=== PATIENT | female | born 1940 | race Caucasian/White ===

== ENCOUNTER 2024-01-25 16:12 | Emergency (ER) | payer OTHER, SELFPAY ==
[2024-01-25] VITALS (7 sets, daily range): BP systolic 109–153; BP diastolic 68–93; BMI 31.4
[2024-01-25 16:35] LABS: % Basophils 0.2 % (0-2); % Eosinophils 0.1 % (0-6); % Immature Granulocytes 0.4 % (0-0.5); % Lymphocytes 12.1 % (20.5-51.1); % Monocytes 6.3 % (1.7-9.3); % Neutrophils 80.9 % (42.2-75.2); Absolute Monocytes 0.5 10^3/uL (0.1-0.6); Absolute Neutrophils 6.9 10^3/uL (1.4-6.5); Hematocrit 38.1 % (37.0-47.0); Hemoglobin 12.2 g/dL (12.0-16.0); Mean Corpuscular Hgb 21.6 pg (27.0-31.0); Mean Corpuscular Volume 67.4 fL (81.0-99.0); Mean Platelet Volume 10.8 fL (7.4-10.4); Nucleated Red Blood Cells % 0 %; Platelet Count 231 10^3/uL (130-400); Red Blood Cell Count 5.65 10^6/uL (4.20-5.40); Red Cell Dist. Width 17.2 % (11.5-14.5); White Blood Cell Count 8.5 10^3/uL (4.8-10.8)
[2024-01-25 16:45] LABS: Urine Albumin Trace (Neg - Trace); Urine Bilirubin Negative (Negative); Urine Character Clear (Clear); Urine Color Yellow; Urine Glucose Negative (Negative); Urine Ketone Negative (Negative); Urine Leukocyte Negative (Negative); Urine Nitrite Negative (Negative); Urine Occult Blood Negative (Negative); Urine Urobilinogen Negative (Neg - 1+)
[2024-01-25 16:51] LABS: ALT (SGPT) 12 U/L (0-35); AST (SGOT) 18 U/L (14-36); Albumin 4.1 g/dl (3.5-5.0); Alkaline Phosphatase 98 U/L (38-126); Blood Urea Nitrogen 24 mg/dl (7-17); Calcium 9.9 mg/dl (8.4-10.2); Carbon Dioxide 17 mmol/L (22-30); Chloride 97 mmol/L (98-107); Estimated Creatinine Clearance 34 ml/min; Glucose 207 mg/dl (70-99); Potassium 4.1 mmol/L (3.5-5.1); Sodium 131 mmol/L (135-145); Total Bilirubin 1.1 mg/dl (0.2-1.3); Total Protein 7.1 g/dl (6.3-8.2); eGFR 44.36
--- NOTE | 2024-01-25 16:57 | ED.GENMED ---
History of Present Illness
General
Chief Complaint: Change in Mental Status
Time Seen by Provider: 01/25/24 16:31
Travel History
Have you had any contact with someone who has COVID-19?: No
Do you have any symptoms of coronavirus? Fever > 100 degrees, chills, cough, shortness of breath, sore throat, loss of taste or smell, muscle aches, or headache?: No
History of Present Illness
History of Present Illness:
83-year-old female with history of A-fib on Xarelto as well as hypertension presents to the emergency department for evaluation of intermittent confusion ongoing for the past month. Patient is apparently been making references to family
members as if they were still alive, also occasionally making nonsensical statements. Patient does not feel as though she confused and denies any acute complaints. According to her daughter she has been quite sedentary in the past 2 months,
spending most of her day watching TV or reading stories on her iPad. She has been able to walk with assistance. She denies any pain, denies any chest pain or shortness of breath at this time
Past History
Past History
ED Past Medical History: HTN and Other (COVID in December 2020)
Patient has exhibited threatening behavior?: No
Review of Systems
Review of Systems
Allergies reviewed?: Yes
All Other Systems: ROS reviewed and negative except as documented in HPI and ROS
Phy Exam
Physical Exam
Physical Exam:
GEN: Well appearing, NAD, WDWN
Eyes: PERRLA, EOMs intact, no scleral icterus
HENT: NCAT, oral mucosa moist, slightly prominent firm mass to the right forehead without associated skin lesion
Lungs: CTAB, no wheezes, rales, rhonchi, normal chest wall excursion
Cardiac: Tachycardic and irregular
Abdomen: S, NT, ND, NABS, no masses or hepatosplenomegaly
Neuro: AO x 3, bilateral upper and lower extremity strength is symmetric, globally weak x 4. Normal sensation to all extremities. Normal speech without dysarthria or aphasia
MSK: No gross deformity or ecchymosis. No edema. No digital clubbing
Skin: No rashes, petechiae. Normal color, no pallor or jaundice.
Psych: Calm, cooperative, proper hygiene
Course
Orders/Labs/Results
Orders:
Orders
01/25/24 16:21
Electrocardiogram (*1) Urgent
Reason for Study: Tachycardia
EKG- Treatment ONCE
01/25/24 16:24
CMP [Comprehensive Metabolic Panel] Urgent
Complete Blood Count/With Diff Urgent
Urinalysis Reflex To Culture Urgent
Date Specimen was Collected: 01/25/24
Time Specimen was Collected: 16:23
01/25/24 16:51
CR Chest - 2 Views Urgent
Comment:
Reason For Exam: cough, SOB
01/25/24 16:52
CT Head W/o Iv Contrast Urgent
Comment:
Reason For Exam: altered mental status
01/25/24 16:57
0.9% Sodium Chloride 1000 ml [Nss] 1,000 ml IV BOLUS
01/25/24 17:04
Blood Culture Q30M
BRY Source: Blood/Venous
Specimen Description:
Blood Culture Q30M
BRY Source: Blood/Venous
Specimen Description:
01/25/24 19:18
NT-proBNP Urgent
Troponin I Urgent
01/25/24 20:17
Amlodipine [Norvasc] 2.5 mg PO NOW STA
Atorvastatin [Lipitor] 20 mg PO NOW STA
Abnormal Lab Results
01/25/24
16:24
RBC 5.65 H 10^6/uL
(4.20-5.40)
MCV 67.4 L fL
(81.0-99.0)
MCH 21.6 L pg
(27.0-31.0)
MCHC 32.0 L g/dL
(33.0-37.0)
RDW 17.2 H %
(11.5-14.5)
MPV 10.8 H fL
(7.4-10.4)
Absolute Neuts (auto) 6.9 H 10^3/uL
(1.4-6.5)
Absolute Lymphs (auto) 1.0 L 10^3/uL
(1.2-3.4)
Neutrophils % 80.9 H %
(42.2-75.2)
Lymphocytes % 12.1 L %
(20.5-51.1)
Sodium 131 L mmol/L
(135-145)
Chloride 97 L mmol/L
(98-107)
Carbon Dioxide 17 L mmol/L
(22-30)
BUN 24 H mg/dl
(7-17)
Creatinine 1.2 H mg/dL
(0.6-1.0)
Glucose 207 H mg/dl
(70-99)
01/25/24 16:24
01/25/24 16:24
Vital Signs
Initial and Last Documented VS:
Initial Vital Signs
Temp Pulse Resp BP Pulse Ox
97.4 F 126 20 109/68 93
01/25/24 16:15 01/25/24 16:15 01/25/24 16:15 01/25/24 16:15 01/25/24 16:15
Last Documented Vital Signs
Temp Pulse Resp BP Pulse Ox
97.4 F 103 22 153/93 96
01/25/24 16:15 01/25/24 22:00 01/25/24 22:00 01/25/24 22:00 01/25/24 22:00
MDM/Problems Addressed
MDM/Problems Addressed:
83-year-old female presents with waxing waning confusion, initially felt to be most likely representing metabolic encephalopathy. Initial labs unremarkable, chest x-ray does suggest acute CHF however the patient has no respiratory distress or
hypoxia. May be vascular congestion on the basis of persistent atrial fibrillation with rapid rates. She is chronically in atrial fibrillation thus is not appropriate for cardioversion. Fortunately CT of the head revealed a large right frontal
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 Given this finding patient required transfer to a tertiary care center for neurosurgical evaluation. The case was discussed with [facility], Dr. Lennox kathleen, will be
transferred via ALS due to need for cardiac monitoring setting of variable rates with her atrial fibs. Remained clinically stable in the emergency department while awaiting transfer
Comment
Comment:
EKG independently interpreted by me shows atrial fibrillation at a rate of [address] depressions most likely due to subendocardial ischemia secondary to elevated rate
*Critical Care Note
Total Time (30-74mins, 75-104mins- exclusive of procedures): Not Applicable
ED Attending Note
-
Portions of this chart may have been created with voice recognition software.� Occasional wrong word or��sound alike� substitutions may have occurred due to the inherent limitations of voice recognition software.
Discharge Plan
Departure
Patient Disposition: Acute Care Hospital
Date of Disposition: 01/25/24
Time of Disposition: 19:22
Discharge Problem:
Brain mass, Acute encephalopathy
Prescriptions:
No Action
atorvastatin 20 mg Tablet
20 mg PO DAILY
sertraline 100 mg Tablet
100 mg PO DAILY
Theragen Tablet
1 tab PO DAILY PRN (Reason: supplement)
amlodipine 2.5 mg Tablet
2.5 mg PO BID
aspirin 81 mg Tablet,Delayed Release (Dr/Ec)
81 mg PO DAILY
levothyroxine 50 mcg Tablet
50 mcg PO DAILY
losartan 100 mg Tablet
100 mg PO DAILY
aripiprazole 10 mg Tablet
10 mg PO DAILY
Xarelto 20 mg Tablet
20 mg PO DAILY
metoprolol succinate 25 mg Tablet Extended Release 24 Hr
12.5 mg PO DAILY
Referrals:
UNKNOWN - PT DOES,NOT KNOW [Family Provider] -
Hospital Transfer
Other hospital: [facility]
I certify that the patient requires transfer: Yes
Discussed case with accepting physician: Lennox
Reason for transfer: higher level of care
Interventions
Interventions:
*Risk Screen - Suicide Last Done: 01/25/24 16:15
*General Assessment Last Done: 01/25/24 16:15
*Neglect/Abuse Screening Last Done: 01/25/24 16:15
ED- Fall Risk Assessment Last Done: 01/25/24 19:33
*ED COVID-19 Vaccine History Last Done: 01/25/24 16:15
ED- Pulmonary Assessment Last Done: 01/25/24 19:33
ED- Neurological Assessment Last Done: 01/25/24 19:33
ED- Cardiac Assessment Last Done: 01/25/24 19:33
ED Swallowing Screen Last Done: 01/25/24 19:33
[2024-01-25] MEDS: NSS 1000 IV (17:07)
--- NOTE | 2024-01-25 17:19 | PHANOTE ---
01/25/2024, Tarisa, attempted to speak to pt. and family member regarding pt.'s med. history; both did not know what meds. pt. is taking; used pt.'s own med. bottles; pharmacy fill data, and [facility] records from 12/07/2023 to confirm most of pt.'s
meds.; called pt.'s pharmacy to find out that they are taking half of a Metoprolol Succinate ER 25 mg tablet (12.5 mg) daily but do not have a second source to confirm it.
[2024-01-25 19:51] LABS: NT-proBNP 3870 pg/ml; Troponin I < 0.012 ng/ml
[2024-01-25] MEDS: LIPITOR 20 MG PO (20:43)
[2024-01-25] MEDS: NORVASC 2.5 MG PO (20:43)
[2024-01-26] VITALS: BP 167/98
[2024-01-26 00:20] VITALS: BP 147/81
== END 2024-01-26 01:20 | disposition short-term general hospital (02) ==
LOC: EMR 16:12
PROVIDERS: Emergency Medicine; Physician Assistant; EMERGENCY PHYSICIAN Emergency Medicine
DX: G93.40 Encephalopathy, unspecified (principal); G93.9 Disorder of brain, unspecified; I10 Essential (primary) hypertension; I48.91 Unspecified atrial fibrillation
CPT/HCPCS: 99285; 96360; 70450; 71046; 80053; 81003; 83880; 84484; 85025; 87040; 93005

== ENCOUNTER → 2024-03-01 11:44 | Outpatient (REF) | payer OTHER, SELFPAY ==
[2024-03-01 12:19] LABS: % Basophils 0.3 % (0-2); % Eosinophils 3.8 % (0-6); % Immature Granulocytes 0.5 % (0-0.5); % Lymphocytes 28.5 % (20.5-51.1); % Monocytes 10.8 % (1.7-9.3); % Neutrophils 56.1 % (42.2-75.2); Absolute Eosinophils 0.2 10^3/uL (0-0.7); Absolute Lymphocytes 1.1 10^3/uL (1.2-3.4); Absolute Monocytes 0.4 10^3/uL (0.1-0.6); Absolute Neutrophils 2.2 10^3/uL (1.4-6.5); Hemoglobin 11.8 g/dL (12.0-16.0); Mean Corp Hgb Conc. 31.9 g/dL (33.0-37.0); Mean Corpuscular Hgb 22.4 pg (27.0-31.0); Mean Corpuscular Volume 70.2 fL (81.0-99.0); Mean Platelet Volume 10.4 fL (7.4-10.4); Nucleated Red Blood Cells % 0 %; Platelet Count 171 10^3/uL (130-400); Red Blood Cell Count 5.27 10^6/uL (4.20-5.40); Red Cell Dist. Width 20.5 % (11.5-14.5)
[2024-03-01 13:01] LABS: Glycohemoglobin (HgbA1c) 7.4 % (4.0-5.6)
[2024-03-01 13:05] LABS: ALT (SGPT) 20 U/L (0-35); AST (SGOT) 21 U/L (14-36); Albumin 2.9 g/dl (3.5-5.0); Alkaline Phosphatase 63 U/L (38-126); Blood Urea Nitrogen 22 mg/dl (7-17); Calcium 8.9 mg/dl (8.4-10.2); Carbon Dioxide 23 mmol/L (22-30); Chloride 106 mmol/L (98-107); Glucose 86 mg/dl (70-99); HDL Cholesterol 40 mg/dl; LDL Cholesterol, Calculated 57 mg/dl; Potassium 3.8 mmol/L (3.5-5.1); Sodium 132 mmol/L (135-145); Total Bilirubin 0.4 mg/dl (0.2-1.3); Total Cholesterol 114 mg/dl (50-199); Total Protein 5.4 g/dl (6.3-8.2); Triglyceride 89 mg/dl (10-149); Very Low Density Lipoprotein 17 mg/dl (0-30); eGFR > 60.00
[2024-03-04 04:10] LABS: Keppra (Levetiracetam) 48 ug/mL (10-40)
== END ==
LOC: OLABN 11:44
PROVIDERS: ATTENDING PHYSICIAN Student in an Organized Health Care Education/Training Program
DX: E03.9 Hypothyroidism, unspecified (principal); I10 Essential (primary) hypertension; N17.9 Acute kidney failure, unspecified; E78.5 Hyperlipidemia, unspecified; E10.9 Type 1 diabetes mellitus without complications; G40.909 Epilepsy, unspecified, not intractable, without status epilepticus
CPT/HCPCS: 80053; 80061; 80177; 83036; 84443; 85025

== ENCOUNTER → 2024-03-11 10:43 | Outpatient (REF) | payer OTHER, SELFPAY ==
[2024-03-11 11:13] LABS: Urine Albumin Negative (Neg - Trace); Urine Bilirubin Negative (Negative); Urine Character Clear (Clear); Urine Color Yellow; Urine Glucose Negative (Negative); Urine Ketone Negative (Negative); Urine Leukocyte Trace (Negative); Urine Nitrite Negative (Negative); Urine Occult Blood Negative (Negative); Urine Specific Gravity 1.015 (<1.030); Urine Urobilinogen Negative (Neg - 1+)
[2024-03-11 11:43] LABS: Urine Red Blood Cell None Seen /HPF (0-2); Urine Squamous Cell 0-2 /LPF (Few); Urine White Cell 0-2 /HPF (0-5)
== END ==
LOC: OLABN 10:43
PROVIDERS: ATTENDING PHYSICIAN Student in an Organized Health Care Education/Training Program; REFERRING PHYSICIAN Family Medicine
DX: R35.0 Frequency of micturition (principal)
CPT/HCPCS: 81003; 81015; 87086

== ENCOUNTER → 2024-03-13 09:58 | Outpatient (REF) | payer OTHER, SELFPAY ==
[2024-03-13 10:55] LABS: Urine Albumin Negative (Neg - Trace); Urine Bilirubin Negative (Negative); Urine Character Clear (Clear); Urine Color Yellow; Urine Glucose Negative (Negative); Urine Ketone Negative (Negative); Urine Leukocyte Negative (Negative); Urine Nitrite Negative (Negative); Urine Occult Blood Negative (Negative); Urine Specific Gravity 1.015 (<1.030); Urine Urobilinogen 1+ (Neg - 1+); Urine pH 6.5 (5.0-9.0)
== END ==
LOC: OLABN 09:58
PROVIDERS: ATTENDING PHYSICIAN Student in an Organized Health Care Education/Training Program
DX: R35.0 Frequency of micturition (principal)
CPT/HCPCS: 81003; 87086

== ENCOUNTER → 2024-05-24 12:58 | Outpatient (REF) | payer OTHER, SELFPAY | LOC: PAVMRI 12:58 | PROVIDERS: ATTENDING PHYSICIAN Radiology Radiation Oncology; FAMILY PHYSICIAN Student in an Organized Health Care Education/Training Program | DX: C79.31 Secondary malignant neoplasm of brain (principal); C79.49 Secondary malignant neoplasm of other parts of nervous system | CPT/HCPCS: 70553; A9575 ==

== ENCOUNTER 2024-06-06 10:46 | Inpatient (IN) | payer OTHER, SELFPAY ==
[2024-06-04] VITALS (8 sets, daily range): BP systolic 115–190; BP diastolic 66–107; BMI 30.5; BMI 29.8
[2024-06-04 18:32] LABS: Glucose - Point of Care 147 mg/dl (70-99)
[2024-06-04 19:33] LABS: Troponin I < 0.012 ng/ml
[2024-06-04 19:34] LABS: % Basophils 0.4 % (0-2); % Eosinophils 3.7 % (0-6); % Immature Granulocytes 0.3 % (0-0.5); % Lymphocytes 21.5 % (20.5-51.1); % Neutrophils 65.1 % (42.2-75.2); Absolute Eosinophils 0.3 10^3/uL (0-0.7); Absolute Lymphocytes 1.5 10^3/uL (1.2-3.4); Absolute Monocytes 0.6 10^3/uL (0.1-0.6); Absolute Neutrophils 4.6 10^3/uL (1.4-6.5); Hematocrit 42.7 % (37.0-47.0); Mean Corp Hgb Conc. 32.8 g/dL (33.0-37.0); Mean Corpuscular Hgb 23.6 pg (27.0-31.0); Mean Corpuscular Volume 71.9 fL (81.0-99.0); Nucleated Red Blood Cells % 0 %; Platelet Count 221 10^3/uL (130-400); Red Blood Cell Count 5.94 10^6/uL (4.20-5.40); Red Cell Dist. Width 15.6 % (11.5-14.5)
[2024-06-04 19:39] LABS: ALT (SGPT) < 10 U/L (0-35); AST (SGOT) 17 U/L (14-36); Albumin 4.4 g/dl (3.5-5.0); Alkaline Phosphatase 93 U/L (38-126); Blood Urea Nitrogen 27 mg/dl (7-17); Calcium 10.4 mg/dl (8.4-10.2); Carbon Dioxide 24 mmol/L (22-30); Chloride 103 mmol/L (98-107); Estimated Creatinine Clearance 37 ml/min; Glucose 176 mg/dl (70-99); Potassium 3.8 mmol/L (3.5-5.1); Sodium 137 mmol/L (135-145); Total Bilirubin 0.8 mg/dl (0.2-1.3); Total Protein 7.2 g/dl (6.3-8.2); eGFR 49.24
--- NOTE | 2024-06-04 19:41 | ED.CVA ---
History of Present Illness
<STEPHANIE Bah Jr. Last Filed: 06/04/24 21:15>
General
Chief Complaint: CVA/TIA Symptoms
Source: patient and family
Exam Limitations: clinical condition
Time Seen by Provider: 06/04/24 18:58
Nursing documentation reviewed up to this point in time: agreed with
Onset of Stroke Symptoms
Onset of symptoms known: No
Time pt last seen normal is known: No
History of Present Illness
History of Present Illness:
83-year-old female with past medical history of A-fib currently on Eliquis, previous stroke in 2018 that had expressive aphasia breast cancer with mets to the brain treated with radiation therapy with apparent improvement recently of brain met
presenting to the emergency department with expressive aphasia and left-sided facial while at dinner prior to arrival. Symptoms slightly improving since. Here she denies any chest pain shortness of breath but does have some difficulty finding
words and seems somewhat confused.
Past History
<Holland Khan Jr., PA-C - Last Filed: 06/04/24 21:15>
Past History
ED Past Medical History: HTN and Other (COVID in December 2020)
Patient has exhibited threatening behavior?: No
Review of Systems
<Holland Khan Jr., PA-C - Last Filed: 06/04/24 21:15>
Review of Systems
Allergies reviewed?: Yes
All Other Systems: ROS reviewed and negative except as documented in HPI and ROS
Phy Exam
<STEPHANIE Bah Jr. Last Filed: 06/04/24 21:15>
Physical Exam
Physical Exam:
GENERAL: Alert , in no apparent distress
EYE: pupils equal and reactive
NECK: Supple, no significant adenopathy.
ENT: o/p clr, mmm.
CARDIAC: Regular rate and rhythm .
LUNGS: Clear breath sounds bilaterally, no acute respiratory distress, no wheezes/rales/rhonchi
ABDOMEN: Soft, without focal tenderness, no r/g, no cvat
NEUROLOGICAL: Alert. Patient knows where she is but does not know the date she does know the president. She does sometimes seem to have difficulty finding words. 5-5 upper and lower extremity strength normal sensation when palpating bilaterally
SKIN: Warm and dry, skin intact.
MUSCULOSKELETAL: No edema, well perfused.
PSYCH: Normal and appropriate interaction.
Course
<Holland Khan Jr., STEPHANIE - Last Filed: 06/04/24 21:15>
Orders/Labs/Results
Orders:
Orders
06/04/24 18:36
CT Head W/o Cont STROKE ALERT Urgent
Comment:
Reason For Exam: stroke alert
06/04/24 19:00
EKG [Electrocardiogram (*1)] Urgent
Reason for Study: TIA/Stroke
06/04/24 19:01
EKG- Treatment ONCE
06/04/24 19:03
Complete Blood Count/With Diff Urgent
Comprehensive Metabolic Panel Urgent
Troponin I Urgent
06/04/24 19:45
Levetiracetam Injectable [Keppra] 1,000 mg IV NOW STA
Lorazepam [Ativan] 1 mg IV NOW STA
06/04/24 20:18
Urinalysis Reflex To Culture Urgent
Date Specimen was Collected: 06/04/24
Time Specimen was Collected: 19:56
Urine Microscopic Reflex Cult Urgent
Abnormal Lab Results
06/04/24 06/04/24 06/04/24
18:31 19:03 20:18
RBC 5.94 H 10^6/uL
(4.20-5.40)
MCV 71.9 L fL
(81.0-99.0)
MCH 23.6 L pg
(27.0-31.0)
MCHC 32.8 L g/dL
(33.0-37.0)
RDW 15.6 H %
(11.5-14.5)
BUN 27 H mg/dl
(7-17)
Creatinine 1.1 H mg/dL
(0.6-1.0)
Glucose 176 H mg/dl
(70-99)
Calcium 10.4 H mg/dl
(8.4-10.2)
Leukocyte Esterase Rfl Trace A
(Negative)
POC Glucose 147 H mg/dl
(70-99)
06/04/24 19:03
06/04/24 19:03
Vital Signs
Initial and Last Documented VS:
Initial Vital Signs
Temp Pulse Resp BP Pulse Ox
98.1 F 95 18 190/107 90
06/04/24 18:26 06/04/24 18:26 06/04/24 18:26 06/04/24 18:26 06/04/24 18:26
Last Documented Vital Signs
Temp Pulse Resp BP Pulse Ox
98.1 F 105 27 140/86 89
06/04/24 18:26 06/04/24 19:00 06/04/24 19:00 06/04/24 19:00 06/04/24 19:00
<Tashi Stewart, DO - Last Filed: 06/04/24 19:58>
Orders/Labs/Results
Orders:
Orders
06/04/24 18:36
CT Head W/o Cont STROKE ALERT Urgent
Comment:
Reason For Exam: stroke alert
06/04/24 19:00
EKG [Electrocardiogram (*1)] Urgent
Reason for Study: TIA/Stroke
06/04/24 19:01
EKG- Treatment ONCE
06/04/24 19:03
Complete Blood Count/With Diff Urgent
Comprehensive Metabolic Panel Urgent
Troponin I Urgent
06/04/24 19:45
Levetiracetam Injectable [Keppra] 1,000 mg IV NOW STA
Lorazepam [Ativan] 1 mg IV NOW STA
06/04/24 20:18
Urinalysis Reflex To Culture Urgent
Date Specimen was Collected: 06/04/24
Time Specimen was Collected: 19:56
Urine Microscopic Reflex Cult Urgent
Abnormal Lab Results
06/04/24 06/04/24 06/04/24
18:31 19:03 20:18
RBC 5.94 H 10^6/uL
(4.20-5.40)
MCV 71.9 L fL
(81.0-99.0)
MCH 23.6 L pg
(27.0-31.0)
MCHC 32.8 L g/dL
(33.0-37.0)
RDW 15.6 H %
(11.5-14.5)
BUN 27 H mg/dl
(7-17)
Creatinine 1.1 H mg/dL
(0.6-1.0)
Glucose 176 H mg/dl
(70-99)
Calcium 10.4 H mg/dl
(8.4-10.2)
Leukocyte Esterase Rfl Trace A
(Negative)
POC Glucose 147 H mg/dl
(70-99)
06/04/24 19:03
06/04/24 19:03
Vital Signs
Initial and Last Documented VS:
Initial Vital Signs
Temp Pulse Resp BP Pulse Ox
98.1 F 95 18 190/107 90
06/04/24 18:26 06/04/24 18:26 06/04/24 18:26 06/04/24 18:26 06/04/24 18:26
Last Documented Vital Signs
Temp Pulse Resp BP Pulse Ox
98.1 F 105 27 140/86 89
06/04/24 18:26 06/04/24 19:00 06/04/24 19:00 06/04/24 19:00 06/04/24 19:00
<Holland Khan Jr., PA-C - Last Filed: 06/04/24 21:15>
MDM/Problems Addressed
MDM/Problems Addressed:
83-year-old female presenting to the emergency department with concerns of expressive aphasia and left-sided facial droop described by the family occurring at dinner just prior to arrival. Here symptoms are improving. She denies any numbness
weakness nausea vomiting chest pain. Case discussed with neurology recommending milligrams of Keppra and a milligram of lorazepam CT here without emergent findings blood pressure improving throughout ER stay labs unremarkable. Symptoms are
improving but still having some degree of word finding difficulty. Concerning this plan to admit for monitoring overnight and neuro assessment in the morning.
<Holland Khan Jr., PA-C - Last Filed: 06/04/24 21:15>
*Critical Care Note
Total Time (30-74mins, 75-104mins- exclusive of procedures): Not Applicable
ED Attending Note
<Holland Khan Jr., PA-C - Last Filed: 06/04/24 21:15>
-
Portions of this chart may have been created with voice recognition software.� Occasional wrong word or��sound alike� substitutions may have occurred due to the inherent limitations of voice recognition software.
<Tashi Stewart DO - Last Filed: 06/04/24 19:58>
ED Attending Note
Patient seen and examined by attending physician: Yes
I performed the substantive portion of visit, reviewed & personally made and approve the management plan that is documented in note by myself or SHEELA.: Yes
ED Attending Note:
Seen with PA examined independently 83-year-old female AF on Eliquis, brain metastasis treated with radiation with no recurrence presents with sounds like a TIA or CVA aphasia which is improved, noncontrast CT noted not a lytic candidate due to
rapidly improving symptoms, Eliquis use, brain mets, certainly high risk for stroke the fact that is a history of A-fib, denies missing dose of Eliquis, could also been a seizure
Discharge Plan
Departure
Patient Disposition: Admit
Date of Disposition: 06/04/24
Time of Disposition: 21:15
Admit to: Telemetry
Admit to doctor: Mariaelena
Presentation/result/management discussed w/ accepting MD/DO: Hospitalist
Patient with high blood pressure during this ER visit?: No
Condition: Good
Covid-19: Not Applicable
Discharge Problem:
Expressive aphasia
Prescriptions:
No Action
atorvastatin 20 mg Tablet
20 mg PO DAILY
sertraline 100 mg Tablet
100 mg PO DAILY
Theragen Tablet
1 tab PO DAILYPRN PRN (Reason: supplement)
aspirin 81 mg Tablet,Delayed Release (Dr/Ec)
81 mg PO DAILY
levothyroxine 50 mcg Tablet
50 mcg PO DAILY
aripiprazole 10 mg Tablet
10 mg PO DAILY
losartan 50 mg tablet
50 mg PO DAILY
Patient Comments:
06/04/2024: taken w/ 25mg = 75mg
anastrozole 1 mg tablet
1 mg PO DAILY
metoprolol succinate 50 mg tablet extended release 24 hr
50 mg PO DAILY
losartan 25 mg tablet
25 mg PO DAILY
Patient Comments:
06/04/2024: taken w/ 50mg = 75mg
levetiracetam 750 mg tablet
750 mg PO Q12H
Eliquis 5 mg tablet
5 mg PO DAILY
Interventions
Interventions:
*General Assessment Last Done: 06/04/24 18:26
*Neglect/Abuse Screening Last Done: 06/04/24 19:10
*ED COVID-19 Vaccine History Last Done: 06/04/24 18:26
Discharge Date and Time
Print Language: SYRIAC
[2024-06-04] MEDS: ATIVAN 1 MG IV (20:04)
[2024-06-04] MEDS: KEPPRA 1000 MG IV (20:04)
[2024-06-04 20:27] LABS: Urine Albumin Negative (Neg - Trace); Urine Bilirubin Negative (Negative); Urine Character Clear (Clear); Urine Color Yellow; Urine Glucose Negative (Negative); Urine Ketone Negative (Negative); Urine Leukocyte Trace (Negative); Urine Nitrite Negative (Negative); Urine Occult Blood Negative (Negative); Urine Urobilinogen Negative (Neg - 1+)
[2024-06-04 20:34] LABS: Urine Red Blood Cell 0-2 /HPF (0-2); Urine White Cell 0-2 /HPF (0-5)
--- NOTE | 2024-06-04 21:45 | HPS.HSE ---
Addendum entered and electronically signed by Kylie Chicas DO 06/04/24 23:23:
The patient is seen and examined, and I discussed the patient with Samantha. I have reviewed her history and physical, assessment and plan of care and agree with the below, with the following additions:
On my exam, the patient was mildly tachypneic, and c/o SOB. No CP, no palpitations. She received Ativan in ED, and Keppra IV loading dose.
RR 20-30, oxygen saturation 88% RA, and we started her on O2 NC 2 liters. She is not on home oxygen typically. Afebrile.
Neuro-not following commands in order to perform appropriate examination, I do not appreciate left-sided facial droop at this time. Expressive aphasia may still be present, though patient not answering most questions.
Ordered portable CXR stat- no acute findings, awaiting report, pro-BNP ordered and pending
-Continue neuro stroke pathway, neuro-checks, close monitoring, noted to have improved respiratory status after O2 initiated, monitor continuous pulse oximetry, continue 2L NC, consider echocardiogram, and MRI brain per Neurology consultation.
Original Note:
Family Physician
-
Family Physician: INTERVIEWE UNKNOWN - PT NOT
Chief Complaint
-
Expressive Aphasia
History of Present Illness
Patient is an 83 y/o female past medical history of atrial fibrillation, hypertension, and metastatic breast cancer with brain mets who presents with expressive aphasia. Patient is a limited historian following dose of Ativan given in the emergency
department prior to my evaluation. Apparently patient developed acute onset of expressive aphasia and left facial droop while having dinner with her family. Patient recently completed a coarse of radiation for her brain tumor, and recent MRI
showed signficant improvement.
Medical History
Past Medical History
Past Medical History: Reports Other
Additional Past Medical History:
Atrial Fibrillation
Essential Hypertension
Hyperlipidemia
Metastatic Breast Cancer with known Brain Mets
CKD stage IIIB
Depression
Hypothyroidism
Past Surgical History: Reports None
Social History
Tobacco: Non-smoker
Family History
Family History: Not pertinent
Allergies / Home Medications
Allergies reflects when Allergies were last updated in [facility].
Home Medications with original date entered in [facility]
Allergy/Medication List:
Allergies
Allergy/AdvReac Type Severity Reaction Status Date / Time
No Known Allergies Allergy Verified 06/04/24 18:31
Home Medications
aripiprazole 10 mg tablet 10 mg PO DAILY 01/25/24
aspirin 81 mg tablet,delayed release 81 mg PO DAILY 01/25/24
atorvastatin 20 mg tablet 20 mg PO DAILY 01/25/24
levothyroxine 50 mcg tablet 50 mcg PO DAILY 01/25/24
sertraline 100 mg tablet 100 mg PO DAILY 01/25/24
therapeutic multivitamin 1 tab PO DAILYPRN PRN supplement 01/25/24
anastrozole 1 mg tablet 1 mg PO DAILY 06/04/24
apixaban 5 mg tablet (Eliquis) 5 mg PO BID 06/04/24
levetiracetam 750 mg tablet 750 mg PO Q12H 06/04/24
losartan 25 mg tablet 25 mg PO DAILY 06/04/24
losartan 50 mg tablet 50 mg PO DAILY 06/04/24
metoprolol succinate 50 mg tablet,extended release 24 hr 50 mg PO DAILY 06/04/24
Review of Systems
-
A 12 point ROS was completed and negative except as noted: Yes
Constitutional: Denies Fever or Chills
Respiratory: Denies Cough or Trouble Breathing
Cardiac: Denies Chest Pain or Palpitations
Abdomen/GI: Denies Abdominal Pain, Nausea, Vomiting or Diarrhea
Neurological: Reports See HPI
Physical Exam
Vital Signs
Vital Signs
Temp Pulse Resp BP Pulse Ox
98.1 F 105 27 140/86 89
06/04/24 18:26 06/04/24 19:00 06/04/24 19:00 06/04/24 19:00 06/04/24 19:00
Physical Exam
General: No Apparent Distress and Comfortable
HEENT: Anicteric and Moist mucous membranes
Respiratory: Clear and Non Labored Respirations
Cardiac: S1/S2 and Irregular Rhythm; No Tachycardia
GI: Soft and Non Tender
Rectal: Deferred by Provider
Musculoskeletal: No Clubbing, No Cyanosis and No Edema
Skin: Warm and Dry
Neuro: Awake, Alert, Facial Droop (Slightly on left) and Other (Slow to follow some commands, but easily identified two objects correctly; No focal extremity weakness)
Psych: Calm
Laboratory Results
-
06/04/24 19:03
06/04/24 19:03
Laboratory Results
Total Bilirubin 0.8 mg/dl (0.2-1.3) 06/04/24 19:03
AST 17 U/L (14-36) 06/04/24 19:03
ALT < 10 U/L (0-35) 06/04/24 19:03
Alkaline Phosphatase 93 U/L (38-126) 06/04/24 19:03
Troponin I < 0.012 ng/ml 06/04/24 19:03
Data Reviewed
-
CT Scan: Report Reviewed by me
Lab Data: Labs Reviewed by me
Old Records: Reviewed
Impression/Plan
-
Expressive Aphasia with Left Facial Droop, possible seizure vs TIA/CVA
-Reviewed with Neurology
-Increase Keppra 1000mg BID
-Consider EEG
-Monitor neuro-checks
-Continue seizure precautions
Atrial Fibrillation, unknown duration
-Continue Eliquis for anticoagulation, OK to give per Neurology
-Continue metoprolol
Essential Hypertension
-Continue losartan and metoprolol with hold parameters
Hyperlipidemia
-Continue atorvastatin
Metastatic Breast Cancer with known Brain Mets
-Recently completed coarse of radiation
-Continue anastrozole
CKD stage IIIB
-Creatinine at baseline
Depression
-Continue sertraline
Hypothyroidism
-Continue levothyroxine
DVT proph: Eliquis
Code Status: Limited DNR - Do Not Intubate
[2024-06-04 23:35] LABS: NT-proBNP 6310 pg/ml
[2024-06-05] VITALS (9 sets, daily range): BP systolic 132–176; BP diastolic 59–114; PULSE 80–85; O2SAT 97–98; BMI 29.8
--- NOTE | 2024-06-05 00:30 | PTCARENOTE ---
Addendum entered and electronically signed by ALBIN Obrien 06/05/24 06:54:
Reported by the assigned nurse that NIH score is 7 from 1 in ER. This provider explained in details to the nurse the inaccuracy of the score as the patient received Ativan prior to the NIH performance and counting/scoring some of baseline
deficit/weakness as new point.
Original Note:
Received patient from ED via stretcher. Patient pulled over from stretcher to bed. Patient drowsy but arousable, premedicated with IV ativan and IV keppra in ED. AAOx2, confused at times with mild aphasia. Weakness to bilateral lower extremities.
NIH 7 from 1 in ED, see neuro flowsheet. ALBIN made aware. No current complaints of pain. Oriented patient to room and placed call eric within reach.
--- NOTE | 2024-06-05 04:05 | W.PN.UPDATE ---
Update Note
Progress Note Update
Reported by the nursing staff that NIH is 7. Patient received Ativan in ER prior to the NIH performance, and per
[2024-06-05] MEDS: SYNTHROID 50 MCG PO (05:32)
--- NOTE | 2024-06-05 08:40 | PTOTSP ---
Speech Language Pathology
Pt seen for speech/language evaluations. Language evaluated via the Quick Aphasia Battery (QAB), form 1. Pt with an overall score of 4.24, indicating severe deficits. Pt with the following scores on the following subtests: word comprehension=
0.00 (severe), sentence comprehension= 3.33 (severe), word finding= 4.00 (severe), grammatical construction= 3.75 (severe), speech motor programming= 10.00 (WFL), repetition= 7.50 (mild), reading= 9.17 (WFL).
Pt also seen for clinical bedside swallow evaluation. P.O. trials of puree, regular solids, and thin liquids. Adequate mastication, bolus formation, and A-P transit noted with no oral residue. Dry cough x1 with liquid wash post regular solids.
No other cough noted.
Recommend:
(1) Regular solids/thin liquids
(2) Aspiration precautions: sit upright, slow rate
(3) Meds 1 at a time as tolerated
(4) Consider acute rehab
(5) PROGRAM ASSISTANT to continue to follow
[2024-06-05 09:20] LABS: Hematocrit 42.6 % (37.0-47.0); Hemoglobin 13.9 g/dL (12.0-16.0); Mean Corp Hgb Conc. 32.6 g/dL (33.0-37.0); Mean Corpuscular Hgb 23.9 pg (27.0-31.0); Mean Corpuscular Volume 73.3 fL (81.0-99.0); Mean Platelet Volume 10.8 fL (7.4-10.4); Platelet Count 194 10^3/uL (130-400); Red Blood Cell Count 5.81 10^6/uL (4.20-5.40); Red Cell Dist. Width 15.7 % (11.5-14.5); White Blood Cell Count 6.7 10^3/uL (4.8-10.8)
[2024-06-05] MEDS: KEPPRA 1000 MG PO ×2 (09:31→21:27)
[2024-06-05] MEDS: ABILIFY 10 MG PO (09:31)
[2024-06-05] MEDS: COZAAR 50 MG PO (09:31)
[2024-06-05] MEDS: LIPITOR 20 MG PO (09:31)
[2024-06-05] MEDS: TOPROL XL 50 MG PO (09:32)
[2024-06-05] MEDS: ELIQUIS 5 MG PO ×2 (09:32→21:28)
[2024-06-05] MEDS: ZOLOFT 100 MG PO (09:32)
[2024-06-05] MEDS: COZAAR 25 MG PO (09:32)
[2024-06-05] MEDS: ARIMIDEX 1 MG PO (09:33)
[2024-06-05] MEDS: ASPIR LOW (ENTERIC COATED) 81 MG PO (09:33)
[2024-06-05 10:40] LABS: Blood Urea Nitrogen 23 mg/dl (7-17); Carbon Dioxide 21 mmol/L (22-30); Chloride 106 mmol/L (98-107); Estimated Creatinine Clearance 45 ml/min; Glucose 96 mg/dl (70-99); HDL Cholesterol 46 mg/dl; LDL Cholesterol, Calculated 75 mg/dl; Magnesium 2.1 mg/dl (1.6-2.3); Potassium 4.2 mmol/L (3.5-5.1); Sodium 138 mmol/L (135-145); Total Cholesterol 139 mg/dl (50-199); Triglyceride 90 mg/dl (10-149); Very Low Density Lipoprotein 18 mg/dl (0-30); eGFR > 60.00
[2024-06-05 10:56] LABS: Glycohemoglobin (HgbA1c) 6.3 % (4.0-5.6)
--- NOTE | 2024-06-05 11:04 | W.PN.HOSP.TC ---
Today's Communication/Plan
-
see bold
Assessment / Plan
Assessment / Plan
Gen: NAD, Awake and alert
Eyes: EOMI, PERRLA, no scleral icterus.
Neck: supple.
CV: irreg/irreg, +S1/S2, no m/r/g.
Resp: CTAB, no rales, wheezes, or rhonchi.
Abd: +BS, soft, NT, ND
Skin: No rashes.
Neuro: CN 2-12 intact, non-focal, expressive aphasia.
Psych: Normal mood and affect.
CT brain: No acute intracranial abnormality noted. Moderate atrophy. Stable. Moderate periventricular small vessel ischemic disease. Stable. Stable right frontal osseous lesion consistent with metastatic disease.
CXR: Findings suggesting moderate pulmonary edema. Progressed. Minimal cardiomegaly. Stable.
Expressive Aphasia with Left Facial Droop, possible seizure vs TIA/CVA:
-Reviewed with Neurology on admission (neuro c/s placed)
-Keppra increased to 1000mg BID. Keppra level 48, will d/w neuro.
-check MRI brain w/contrast
-Consider EEG
-Monitor neuro-checks
-Continue seizure precautions
Other problems:
Atrial Fibrillation, unknown type: cont Eliquis/BB
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
Essential Hypertension: cont ARB/BB
Hyperlipidemia: cont statin
CKD3b
Depression: Continue sertraline
Hypothyroidism Continue levothyroxine
Eliquis
Limited DNR (DNI)
Anticipated Discharge: Within 24 hours
Subjective/Interval History
-
Date of Service: June 05, 2024
Still with expressive aphasia.
Objective Data
-
Labs:
Laboratory Results
06/05/24
08:42
WBC 6.7
Hgb 13.9
Hct 42.6
Plt Count 194
Sodium 138
Potassium 4.2
Chloride 106
Carbon Dioxide 21 L
BUN 23 H
Creatinine 0.9
Glucose 96
Calcium 10.0
Vital Signs:
Vital Signs
Temp Pulse Resp BP Pulse Ox
97.6 F 72 20 152/70 97
06/05/24 07:10 06/05/24 09:31 06/05/24 07:10 06/05/24 09:31 06/05/24 07:10
I&O
06/04/24 06/05/24 06/06/24
06:59 06:59 06:59
Intake Total 480 / 480
Balance 480 / 480
--- NOTE | 2024-06-05 17:00 | EEG.RPT ---
Electroencephalogram Report
Recording
Patient Status: Inpatient
Recording Conditions: Awake, Drowsy and Asleep
Hyperventilation Performed: No
Photic Stimulation Performed: Yes
Report
LESS THAN 1 HOUR EEG REPORT
LESS THAN 1 HOUR EEG INTERPRETATION:
Moderately abnormal study for age based on generalized slowing demonstrated bihemispherically equally
CLINICAL CORRELATION:
Although normative values not been established for a person of this advanced age the patient�s symmetry of the background suggests that this study was suggestive of mild bihemispheric cortical dysfunction.
The patient�s head turn and movements were associated with minimal asymmetry of the left hemisphere (slowing).
No epileptiform features were demonstrated.
If concerns remain regarding epilepsy, prolonged monitoring may be of assistance.
Clinical correlation is advised.
METHODS:
A 21-channel digital electroencephalogram (EEG) was performed in the [facility]. The 10/20 international system of electrode placement was used with ECG and lateral/vertical eye movements recorded. AYLIEN system
quantitative analysis was performed.
IMPRESSION(S):
Quality of study
Fair, with muscle artifact frequently
Background
Expected amplitude
Anterior-posterior voltage gradient differentiation: Fair
Theta frequency maximal background demonstrated
Sleep
Drowsiness present
Stage 2 sleep recorded
Hyperventilation
Not performed
Photic Stimulation
Failed to activate the record
ECG
Normal rhythm
[2024-06-06] VITALS (8 sets, daily range): BP systolic 133–156; BP diastolic 76–85; PULSE 88; O2SAT 93
[2024-06-06] MEDS: SYNTHROID 50 MCG PO (05:51)
--- NOTE | 2024-06-06 09:14 | W.PN.HOSP.TC ---
Today's Communication/Plan
-
Currently patient's MRI of the brain is without significant change. From my standpoint the patient could be discharged but I am still waiting for neurology to see this patient and provide any assistance/advice from their specialty. Will also
discuss goals of care with the family.
Assessment / Plan
Assessment / Plan
Gen: NAD, Awake and alert
Eyes: EOMI, PERRLA, no scleral icterus.
Neck: supple.
CV: Remains irreg/irreg, +S1/S2, no m/r/g.
Resp: Remains CTAB, no rales, wheezes, or rhonchi.
Abd: +BS, soft, NT, ND
Skin: No rashes.
Neuro: CN 2-12 intact, non-focal, expressive aphasia.
Psych: Calm
CT brain: No acute intracranial abnormality noted. Moderate atrophy. Stable. Moderate periventricular small vessel ischemic disease. Stable. Stable right frontal osseous lesion consistent with metastatic disease.
CXR: Findings suggesting moderate pulmonary edema. Progressed. Minimal cardiomegaly. Stable.
MRI brain: No significant interval change from prior. There is similar appearance of the enhancing lesion extending through the inner table of the right paramedian frontal bone with underlying dural involvement which extends into the anterior
hemispheric fissure. This measures approximately 4.7 x 3.7 cm in craniocaudal and transverse dimensions, unchanged from prior. There is similar appearance of the confluent T2/FLAIR hyperintense signal within the anterior right frontal lobe white
matter, likely edema. Unchanged 6 mm enhancing focus within the right occipital bone. There are small foci of diffusion hyperintensity signal within the high right parietal convexity which are unchanged from prior and may be artifactual, however
subacute infarction can appear similar. Global parenchymal volume loss with sequelae of severe chronic small vessel ischemic disease.
Expressive Aphasia with Left Facial Droop:
-initial concern was for seizure vs TIA/CVA
-Reviewed with Neurology on admission (neuro c/s placed)
-Keppra increased to 1000mg BID. Keppra level 48, will d/w neuro.
-MRI brain above, unchanged from prior
-EEG without seizure activity, did show mild bihemispheric cortical dysfunction
-Monitor neuro-checks
-Continue seizure precautions
-neurology consulted on admission. No consult is in [facility] at this time.
-At this time it appears that the patient's symptoms are due to progression of her metastatic breast cancer
Other problems:
Atrial Fibrillation, unknown type: cont Eliquis/BB
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
Essential Hypertension: cont ARB/BB
Hyperlipidemia: cont statin
CKD3b
Depression: Continue sertraline
Hypothyroidism Continue levothyroxine
Eliquis
Limited DNR (DNI)
Total time spent on today's encounter was 50 minutes which included time spent in counseling the patient/family regarding diagnosis and treatment plan as listed above, goals of care, and symptom management. Case was discussed with nursing staff,
specialists, and care coordinators/case management. All labs and imaging personally reviewed by me. Remainder the time spent in detailed review of previous records, lab data, imaging, and other medical provider documentation.
Anticipated Discharge: Within 24 hours
Subjective/Interval History
-
Date of Service: June 06, 2024
When asked how she is feeling the patient nods her head. Currently not answering questions.
Objective Data
-
Vital Signs:
Vital Signs
Temp Pulse Resp BP Pulse Ox
97.8 F 58 12 141/77 93
06/06/24 07:00 06/06/24 07:00 06/06/24 07:00 06/06/24 07:00 06/06/24 07:00
I&O
06/05/24 06/06/24 06/07/24
06:59 06:59 06:59
Intake Total 960 / 960
Balance 960 / 960
[2024-06-06] MEDS: KEPPRA 1000 MG PO ×2 (09:37→19:52)
[2024-06-06] MEDS: ABILIFY 10 MG PO (09:38)
[2024-06-06] MEDS: ELIQUIS 5 MG PO ×2 (09:38→19:52)
[2024-06-06] MEDS: ASPIR LOW (ENTERIC COATED) 81 MG PO (09:39)
[2024-06-06] MEDS: COZAAR 25 MG PO (09:39)
[2024-06-06] MEDS: LIPITOR 20 MG PO (09:40)
[2024-06-06] MEDS: TOPROL XL 50 MG PO (09:40)
[2024-06-06] MEDS: ARIMIDEX 1 MG PO (09:41)
[2024-06-06] MEDS: COZAAR 50 MG PO (09:41)
[2024-06-06] MEDS: ZOLOFT 100 MG PO (09:41)
--- NOTE | 2024-06-06 11:40 | CON.ONC ---
Impression
Impression
metastatic breast cancer, ER/OH+, Her2 negative, s/p RT to extra-axial right frontal mass (01/2024), now maintained on anastrozole
aphasia, left facial droop
Plan
Plan
Neuro symptoms seem to have improved, with stable MRI imaging
Await neuro input
Continue anastrozole
No contraindications to d/c from med onc perspective
she has med onc f/u as scheduled for 09/06/24
Patient History
History of Present Illness
This is an 83 yo F with metastatic breast cancer, who presented with aphasia and left facial droop, which began to improve while in the ER. Brain MRI showed significant improvement as compared to spring 2023, no acute changes since May 2024.
She has a h/o of metastatic breast cancer, identified in 12/2023 after presenting to the ER in 12/[address] head revealing a 4.5cm tumor in the right frontal cranial fossa, eroding through bone and into the right frontal sinus and
right forehead subcu tissues. She was transferred to [facility] and imaging also showed a right breast nodule, lucent lesions in L2 and L4. Biopsy of the breast nodule revealed ER/OH+, Her2 neg (1+) breast cancer. She underwent inpatient RT at [facility] (20Gy/5
fractions, Dr. Collado.) Anastrozole was initiated 02/08/24 by med onc at [facility].
She had a visit with Dr. Funez on 06/01/24 to establish care locally. She noted that her cranial lesions had clinically resolved over the preceding 3 months, with improvement in QOL. 3mo med onc f/u was arranged.
Past-Medical/Surgical History
PMH/PSH - afib, HTN, sleep apnea, depression, h/o stroke, hypoparathyroidism, D&C, cardiac ablation
SH - no alcohol, tobacco use
FH - sister had colon and lung cancer
Patient Medication
�Medication �Instructions �Recorded �Confirmed �Last Taken �Type
aripiprazole 10 mg tablet 10 mg PO DAILY Mental 01/25/24 06/04/24 06/04/24 History
Health/Anxiety
aspirin 81 mg tablet,delayed 81 mg PO DAILY Blood Clot 01/25/24 06/04/24 06/04/24 History
release Prevention/Tx
atorvastatin 20 mg tablet 20 mg PO DAILY High Cholesterol 01/25/24 06/04/24 06/04/24 History
levothyroxine 50 mcg tablet 50 mcg PO DAILY Thyroid 01/25/24 06/04/24 06/04/24 History
sertraline 100 mg tablet 100 mg PO DAILY Mental 01/25/24 06/04/24 06/04/24 History
Health/Anxiety
therapeutic multivitamin 1 tab PO DAILYPRN PRN supplement 01/25/24 06/04/24 Unknown History
anastrozole 1 mg tablet 1 mg PO DAILY Antineoplastic 06/04/24 06/04/24 06/04/24 History
Agent, Sarahi
apixaban 5 mg tablet (Eliquis) 5 mg PO BID Blood Clot 06/04/24 06/04/24 06/04/24 History
Prevention/Tx
levetiracetam 750 mg tablet 750 mg PO Q12H Seizures 06/04/24 06/04/24 06/04/24 History
losartan 25 mg tablet 25 mg PO DAILY Blood Pressure 06/04/24 06/04/24 06/04/24 History
losartan 50 mg tablet 50 mg PO DAILY Blood Pressure 06/04/24 06/04/24 06/04/24 History
metoprolol succinate 50 mg 50 mg PO DAILY Blood Pressure 06/04/24 06/04/24 06/04/24 History
tablet,extended release 24 hr
Active Medications
Generic Name Dose Route Start Last Admin
Trade Name Freq PRN Reason Stop Dose Admin
Acetaminophen 650 mg 06/04/24 23:27
Acetaminophen 650 Mg Rectal Suppository RECTAL 07/02/24 23:26
Q4HPRN PRN
OLIVIA, mild pain, or temp >100.4F
Acetaminophen 650 mg 06/04/24 23:27
Acetaminophen 325 Mg Tablet PO 07/02/24 23:26
Q4HPRN PRN
OLIVIA, mild pain, or temp >100.4F
Anastrozole 1 mg 06/05/24 08:00 06/06/24 09:41
Anastrozole 1 Mg Tablet PO 07/03/24 07:59 1 mg
DAILY CELINE Administration
Apixaban 5 mg 06/05/24 08:00 06/06/24 09:38
Apixaban (Eliquis) 5 Mg Tablet PO 07/03/24 07:59 5 mg
BID CELINE Administration
Aripiprazole 10 mg 06/05/24 08:00 06/06/24 09:38
Aripiprazole 10 Mg Tablet PO 07/03/24 07:59 10 mg
DAILY CELINE Administration
Aspirin 81 mg 06/05/24 08:00 06/06/24 09:39
Aspirin 81 Mg (Enteric Coated) Tablet PO 07/03/24 07:59 81 mg
DAILY CELINE Administration
Atorvastatin Calcium 20 mg 06/05/24 08:00 06/06/24 09:40
Atorvastatin (Lipitor) 20 Mg Tablet PO 07/03/24 07:59 20 mg
DAILY CELINE Administration
Levetiracetam 1,000 mg 06/05/24 08:00 06/06/24 09:37
Levetiracetam 500 Mg Regular Release Tablet PO 07/03/24 07:59 1,000 mg
BID CELINE Administration
Levothyroxine Sodium 50 mcg 06/05/24 06:00 06/06/24 05:51
Levothyroxine 50 Mcg Tablet PO 07/03/24 05:59 50 mcg
DAILY @ 0600 CELINE Administration
Lorazepam 1 mg 06/04/24 21:45
Lorazepam 2 Mg/Ml Vial IV 07/02/24 21:44
Q1HPRN PRN
seizure
Losartan Potassium 50 mg 06/05/24 08:00 06/06/24 09:41
Losartan 50 Mg Tablet PO 07/03/24 07:59 50 mg
DAILY CELINE Administration
Losartan Potassium 25 mg 06/05/24 08:00 06/06/24 09:39
Losartan 25 Mg Tablet PO 07/03/24 07:59 25 mg
DAILY CELINE Administration
Metoprolol Succinate 50 mg 06/05/24 08:00 06/06/24 09:40
Metoprolol 50 Mg Extended Release Tablet PO 07/03/24 07:59 50 mg
DAILY CELINE Administration
Sertraline HCl 100 mg 06/05/24 08:00 06/06/24 09:41
Sertraline 100 Mg Tablet PO 07/03/24 07:59 100 mg
DAILY CELINE Administration
Sodium Chloride 0 flush 06/04/24 22:00
Sodium Chloride 0.9% (Flush) Syringe IV 07/02/24 21:59
PER PROTOCOL CELINE
Physical Exam
-
General: No Apparent Distress
HEENT: Moist Mucous Membranes; Negative Jaundice
Cardiology: Normal Sinus Rhythm
Pulmonary: Clear
GI: Soft
Musculoskeletal: No Clubbing, No Cyanosis and No Edema
Neurology: Other (slow to respond, though seems appropriate, speech is fluent)
Skin: Warm and Dry
Labs
Lab Results
WBC 6.7 10^3/uL (4.8-10.8) 06/05/24 08:42
RBC 5.81 10^6/uL (4.20-5.40) H 06/05/24 08:42
Hgb 13.9 g/dL (12.0-16.0) 06/05/24 08:42
Hct 42.6 % (37.0-47.0) 06/05/24 08:42
MCV 73.3 fL (81.0-99.0) L 06/05/24 08:42
MCH 23.9 pg (27.0-31.0) L 06/05/24 08:42
MCHC 32.6 g/dL (33.0-37.0) L 06/05/24 08:42
RDW 15.7 % (11.5-14.5) H 06/05/24 08:42
Plt Count 194 10^3/uL (130-400) 06/05/24 08:42
MPV 10.8 fL (7.4-10.4) H 06/05/24 08:42
Abs Immat Gran (auto) 0.0 10^3/uL (0-0.05) 06/04/24 19:03
Absolute Neuts (auto) 4.6 10^3/uL (1.4-6.5) 06/04/24 19:03
Absolute Lymphs (auto) 1.5 10^3/uL (1.2-3.4) 06/04/24 19:03
Absolute Monos (auto) 0.6 10^3/uL (0.1-0.6) 06/04/24 19:03
Absolute Eos (auto) 0.3 10^3/uL (0-0.7) 06/04/24 19:03
Absolute Basos (auto) 0.0 10^3/uL (0-0.2) 06/04/24 19:03
Immature Gran % 0.3 % (0-0.5) 06/04/24 19:03
Neutrophils % 65.1 % (42.2-75.2) 06/04/24 19:03
Lymphocytes % 21.5 % (20.5-51.1) 06/04/24 19:03
Monocytes % 9.0 % (1.7-9.3) 06/04/24 19:03
Eosinophils % 3.7 % (0-6) 06/04/24 19:03
Basophils % 0.4 % (0-2) 06/04/24 19:03
Creatinine 0.9 mg/dL (0.6-1.0) 06/05/24 08:42
Vital Signs
Vital Signs
Temp Pulse Resp BP Pulse Ox
97.7 F 69 18 156/80 95
06/06/24 11:00 06/06/24 11:00 06/06/24 11:00 06/06/24 11:00 06/06/24 11:00
--- NOTE | 2024-06-06 12:15 | CON.NEURO4 ---
Consultation - Neurology 4
-
CONSULTING PHYSICIAN: Darien Evans MD(Neurology)
REFERRING PHYSICIAN: Hospitalist
DICTATED BY: Darien Evans MD
DATE/TIME OF REQUEST: June 05, 2024
DATE/TIME OF CONSULTATION: June 06, 2024
Reason for Consultation: Seizure
History of Present Illness:
This is a 83 year old right handed female who has presented to the hospital with chief complaint of altered mental status. She gives a history of metastatic breast cancer diagnosed in December 2023 when she was admitted for new onset confusion. CT
head revealing a 4.5cm tumor in the right frontal cranial fossa, eroding through bone extending into the right frontal sinus and subcutaneous tissues of the right forehead . She was transferred to [facility] and imaging revealed a right breast nodule, Bony
lucent lesions in L2 and L4. Biopsy of the breast nodule revealed ER/SC+, HER 2 neg (1+) breast cancer.
She underwent inpatient RT at [facility] (20Gy/5 fractions, Dr. Collado.) Anastrozole was initiated 02/08/24 by Oncology at [facility].
Prior to the current visit patient was at home having dinner when she became aphasic and had left facial weakness and difficulty moving her left side. She was given IV Ativan
At the time of my initial evaluation patient was lethargic and aphasic. She had difficulty hearing and following commands. She later fell asleep and could not be aroused.
This morning patient is more awake and responsive. Answers questions intermittently. Has visual impairment. Mild facial asymmetry.
Past Medical History: Metastatic breast cancer, atrial fibrillation s/p cardiac ablation hypertension sleep apnea hypoparathyroidism
Surgical History: D&C Cardiac ablation
Family History: Sister had colon and lung cancer
Social History: lives at home
Allergies: NKA
Home Medications: See addendum
Review of Symptoms:
Patient denies any fever, headache, chest pain, shortness of breath, GI or symptoms.
�Per the HPI.�All systems are reviewed negative except above.
Vital Signs:
The patient has a Temp 36.5 C Pulse 69 Resp18 BP 156/80 Pulse Ox 95
Physical Exam:
The patient is afebrile, heart sounds S1 and S2 are irregular, and chest is clear to auscultation bilaterally.
:
Neurologic Examination:
The patient is awake, confused and oriented x person place. She is able to follow commands intermittently. She can occasionally answer questions appropriately. There is aphasia and dysarthria.
On cranial nerve assessment, pupils are 3 mm bilateral, round and reactive to light and accommodation. Visual [place] are full. Extraocular movements are intact. Facial sensations are intact and bilaterally symmetrical, there is no facial asymmetry.
Hearing is intact bilaterally to normal conversation volume. Tongue palate and uvula are midline. Sternocleidomastoid strengths are full bilaterally.
Motor strengths are 4/5 bilateral upper and lower extremities on medical research [place] scale. There is pronator drift or involuntary movement noted. Deep tendon reflexes are + bilateral upper and lower extremities and Babinski is present .
Sensations of pain, touch, temperature and vibration are intact and bilaterally symmetrical. There was no extinction noted on double simultaneous stimulation. Coordination is dysmetric by finger to nose bilaterally. Rombergs and Gait cannot be
tested as pat is bedbound and needs two person assist
Lab Results: See addendum
Neuro Imaging: MRI brain : There is an enhancing lesion extending through the inner table of the right paramedian frontal bone with underlying dural involvement which extends into the anterior hemispheric fissure. This measures approximately 4.7 x
3.7 cm in craniocaudal and transverse dimensions, unchanged from prior. There is similar appearance of the confluent T2/FLAIR hyperintense signal within the anterior right frontal lobe white matter, likely edema.
Unchanged 6 mm enhancing focus within the right occipital bone.
There are small foci of diffusion hyperintensity signal within the high right parietal convexity which are unchanged from prior and may be artifactual, however subacute infarction can appear similar.
Global parenchymal volume loss with sequelae of severe chronic small vessel ischemic disease.
Impression:
Ms. RADHA DE JESUS is a 83 year old F who has presented to the hospital with (symptoms/chief complaint) seizure associated with aphasia and left-sided weakness
Differentials for the patient's presentation include:
1. Complex partial seizure
2. Aphasia and left-sided weakness secondary to mass effect of vasogenic edema secondary to right frontal metastatic disease of the breast l
3. Right frontal ischemic disease
Recommendations:
1. Increase Keppra 1000 mg twice a day
2. Eliquis 5 mg twice daily
3. Aspirin 81 mg daily
4. Anastrozole 1 mg daily
5. Blood pressure management
6. PT/OT
7. Follow-up with Oncology
Discussed patient care with: Hospitalist
Allergies
-
Allergies
Allergy/AdvReac Type Severity Reaction Status Date / Time
No Known Allergies Allergy Verified 06/04/24 18:31
Vital Signs and Labs
-
Vital Signs and Labs:
Vital Signs
Temp Pulse Resp BP Pulse Ox
36.5 C 69 18 156/80 95
06/06/24 11:00 06/06/24 11:00 06/06/24 11:00 06/06/24 11:00 06/06/24 11:00
Lab Results
06/05/24 08:42
06/05/24 08:42
Sodium 138 mmol/L (135-145) 06/05/24 08:42
Potassium 4.2 mmol/L (3.5-5.1) 06/05/24 08:42
BUN 23 mg/dl (7-17) H 06/05/24 08:42
Glucose 96 mg/dl (70-99) 06/05/24 08:42
Calcium 10.0 mg/dl (8.4-10.2) 06/05/24 08:42
[id number] Pept 6310 pg/ml 06/04/24 19:03
LDL Cholesterol, Calc 75 mg/dl 06/05/24 08:42
Medications
-
Active Medications
Generic Name Dose Route Start Last Admin
Trade Name Freq PRN Reason Stop Dose Admin
Acetaminophen 650 mg 06/04/24 23:27
Acetaminophen 650 Mg Rectal Suppository RECTAL 07/02/24 23:26
Q4HPRN PRN
OLIVIA, mild pain, or temp >100.4F
Acetaminophen 650 mg 06/04/24 23:27
Acetaminophen 325 Mg Tablet PO 07/02/24 23:26
Q4HPRN PRN
OLIVIA, mild pain, or temp >100.4F
Anastrozole 1 mg 06/05/24 08:00 06/06/24 09:41
Anastrozole 1 Mg Tablet PO 07/03/24 07:59 1 mg
DAILY CELINE Administration
Apixaban 5 mg 06/05/24 08:00 06/06/24 09:38
Apixaban (Eliquis) 5 Mg Tablet PO 07/03/24 07:59 5 mg
BID CELINE Administration
Aripiprazole 10 mg 06/05/24 08:00 06/06/24 09:38
Aripiprazole 10 Mg Tablet PO 07/03/24 07:59 10 mg
DAILY CELINE Administration
Aspirin 81 mg 06/05/24 08:00 06/06/24 09:39
Aspirin 81 Mg (Enteric Coated) Tablet PO 07/03/24 07:59 81 mg
DAILY CELINE Administration
Atorvastatin Calcium 20 mg 06/05/24 08:00 06/06/24 09:40
Atorvastatin (Lipitor) 20 Mg Tablet PO 07/03/24 07:59 20 mg
DAILY CELINE Administration
Dexamethasone 6 mg 06/06/24 16:00
Dexamethasone 2 Mg Tablet PO 06/20/24 15:59
Q8 CELINE
Levetiracetam 1,000 mg 06/05/24 08:00 06/06/24 09:37
Levetiracetam 500 Mg Regular Release Tablet PO 07/03/24 07:59 1,000 mg
BID CELINE Administration
Levothyroxine Sodium 50 mcg 06/05/24 06:00 06/06/24 05:51
Levothyroxine 50 Mcg Tablet PO 07/03/24 05:59 50 mcg
DAILY @ 0600 CELINE Administration
Lorazepam 1 mg 06/04/24 21:45
Lorazepam 2 Mg/Ml Vial IV 07/02/24 21:44
Q1HPRN PRN
seizure
Losartan Potassium 50 mg 06/05/24 08:00 06/06/24 09:41
Losartan 50 Mg Tablet PO 07/03/24 07:59 50 mg
DAILY CELINE Administration
Losartan Potassium 25 mg 06/05/24 08:00 06/06/24 09:39
Losartan 25 Mg Tablet PO 07/03/24 07:59 25 mg
DAILY CELINE Administration
Metoprolol Succinate 50 mg 06/05/24 08:00 06/06/24 09:40
Metoprolol 50 Mg Extended Release Tablet PO 07/03/24 07:59 50 mg
DAILY CELINE Administration
Pantoprazole Sodium 40 mg 06/06/24 13:00
Pantoprazole 40 Mg Delayed Release Tablet PO 07/04/24 12:59
DAILY CELINE
Sertraline HCl 100 mg 06/05/24 08:00 06/06/24 09:41
Sertraline 100 Mg Tablet PO 07/03/24 07:59 100 mg
DAILY CELINE Administration
Sodium Chloride 0 flush 06/04/24 22:00
Sodium Chloride 0.9% (Flush) Syringe IV 07/02/24 21:59
PER PROTOCOL CELINE
Home Medications
�Medication �Instructions �Recorded
aripiprazole 10 mg tablet 10 mg PO DAILY Mental 01/25/24
Health/Anxiety
aspirin 81 mg tablet,delayed 81 mg PO DAILY Blood Clot 01/25/24
release Prevention/Tx
atorvastatin 20 mg tablet 20 mg PO DAILY High Cholesterol 01/25/24
levothyroxine 50 mcg tablet 50 mcg PO DAILY Thyroid 01/25/24
sertraline 100 mg tablet 100 mg PO DAILY Mental 01/25/24
Health/Anxiety
therapeutic multivitamin 1 tab PO DAILYPRN PRN supplement 01/25/24
anastrozole 1 mg tablet 1 mg PO DAILY Antineoplastic 06/04/24
Agent, Sarahi
apixaban 5 mg tablet (Eliquis) 5 mg PO BID Blood Clot 06/04/24
Prevention/Tx
levetiracetam 750 mg tablet 750 mg PO Q12H Seizures 06/04/24
losartan 25 mg tablet 25 mg PO DAILY Blood Pressure 06/04/24
losartan 50 mg tablet 50 mg PO DAILY Blood Pressure 06/04/24
metoprolol succinate 50 mg 50 mg PO DAILY Blood Pressure 06/04/24
tablet,extended release 24 hr
--- NOTE | 2024-06-06 15:36 | CM ---
Addendum entered by Birgit Aguila 06/06/24 17:18:

Addendum entered by Birgit Aguila 06/06/24 17:08:
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 and her and her family have decided to take patient home at discharge, with [facility].
[facility]
[phone]
Original Note:
Patient has switched to inpatient, IMM given to patient upon admission. business unit manager reviewed patient's chart and patient lives with her spouse at [facility], patient was independent with adl's and used a walker with ambulation. Patient's
spouse was able to assist patient however patient's spouse was in a MVA last night and is currently a patient at [facility]. Per physical therapy the recommendation is for acute rehab placement per daughter, Olga, patient has been in
rehab before and did not like rehab, patient and daughter are agreeable to referrals to [facility], and skilled at .
Plan; business unit manager will await PM&R evaluation and recommendation for acute rehab, otherwise hospice case manager will send referrals to [facility] for skilled placement.
[2024-06-06] MEDS: DECADRON 6 MG PO (16:09)
[2024-06-06] MEDS: SENOKOT 8.6 MG PO (16:10)
[2024-06-06] MEDS: MIRALAX 17 GRAMS PO (16:10)
[2024-06-06] MEDS: PROTONIX 40 MG PO (16:11)
[2024-06-07] MEDS: DECADRON 6 MG PO ×2 (00:41→09:50)
[2024-06-07 04:51] VITALS: BP 133/73
[2024-06-07] MEDS: SYNTHROID 50 MCG PO (06:39)
[2024-06-07 07:35] VITALS: BP 145/80
[2024-06-07] MEDS: ABILIFY 10 MG PO (09:49)
[2024-06-07] MEDS: SENOKOT 8.6 MG PO (09:49)
[2024-06-07] MEDS: TOPROL XL 50 MG PO (09:50)
[2024-06-07] MEDS: COZAAR 25 MG PO (09:50)
[2024-06-07] MEDS: LIPITOR 20 MG PO (09:50)
[2024-06-07] MEDS: COZAAR 50 MG PO (09:50)
[2024-06-07] MEDS: ASPIR LOW (ENTERIC COATED) 81 MG PO (09:50)
[2024-06-07] MEDS: ZOLOFT 100 MG PO (09:50)
[2024-06-07] MEDS: ELIQUIS 5 MG PO (09:51)
[2024-06-07] MEDS: PROTONIX 40 MG PO (09:51)
[2024-06-07] MEDS: ARIMIDEX 1 MG PO (09:51)
[2024-06-07] MEDS: KEPPRA 1000 MG PO (09:52)
[2024-06-07] MEDS: MIRALAX 17 GRAMS PO (09:52)
--- NOTE | 2024-06-07 10:29 | W.PN.HOSP.TC ---
Addendum entered and electronically signed by Edy Rodríguez MD 06/07/24 11:38:
Total time spent on d/c = 35 min. This included today's physical exam, progress note, review of laboratory and diagnostic data, preparation of discharge documents and prescriptions, and discussions about the pt's hospital course and discharge plan
with the patient and other medical transcriptionist involved in the patient's care.
Original Note:
Today's Communication/Plan
-
see bold
Assessment / Plan
Assessment / Plan
Gen: NAD, Awake and alert
Eyes: EOMI, PERRLA, no scleral icterus.
Neck: supple.
CV: continues to remain irreg/irreg, +S1/S2, no m/r/g.
Resp: continues to remain CTAB, no rales, wheezes, or rhonchi.
Abd: +BS, soft, NT, ND
Skin: No rashes.
Neuro: CN 2-12 intact, non-focal
Psych: Calm
CT brain: No acute intracranial abnormality noted. Moderate atrophy. Stable. Moderate periventricular small vessel ischemic disease. Stable. Stable right frontal osseous lesion consistent with metastatic disease.
CXR: Findings suggesting moderate pulmonary edema. Progressed. Minimal cardiomegaly. Stable.
MRI brain: No significant interval change from prior. There is similar appearance of the enhancing lesion extending through the inner table of the right paramedian frontal bone with underlying dural involvement which extends into the anterior
hemispheric fissure. This measures approximately 4.7 x 3.7 cm in craniocaudal and transverse dimensions, unchanged from prior. There is similar appearance of the confluent T2/FLAIR hyperintense signal within the anterior right frontal lobe white
matter, likely edema. Unchanged 6 mm enhancing focus within the right occipital bone. There are small foci of diffusion hyperintensity signal within the high right parietal convexity which are unchanged from prior and may be artifactual, however
subacute infarction can appear similar. Global parenchymal volume loss with sequelae of severe chronic small vessel ischemic disease.
Expressive Aphasia with Left Facial Droop:
-initial concern was for seizure vs TIA/CVA
-Reviewed with Neurology on admission (neuro c/s placed)
-Keppra increased to 1000mg BID as per neuro. Keppra level 48.
-MRI brain above, unchanged from prior
-EEG without seizure activity, did show mild bihemispheric cortical dysfunction
-Monitor neuro-checks
-Continue seizure precautions
-neurology/ONC saw in c/s
-At this time it appears that the patient's symptoms are due to her metastatic breast cancer. Decadron started.
Other problems:
Atrial Fibrillation, unknown type: cont Eliquis/BB
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
Essential Hypertension: cont ARB/BB
Hyperlipidemia: cont statin
CKD3b
Depression: Continue sertraline
Hypothyroidism Continue levothyroxine
Eliquis
Limited DNR (DNI)
Medically cleared for discharge. Case management aware.
Anticipated Discharge: Today
Subjective/Interval History
-
Date of Service: June 07, 2024
'I feel great!'
Objective Data
-
Vital Signs:
Vital Signs
Temp Pulse Resp BP Pulse Ox
97.6 F 82 20 145/80 94
06/07/24 07:35 06/07/24 09:50 06/07/24 07:35 06/07/24 09:50 06/07/24 07:35
I&O
06/06/24 06/07/24 06/08/24
06:59 06:59 06:59
Intake Total 960 / 960
Balance 960 / 960
[2024-06-07 11:30] VITALS: BP 153/95
[2024-06-07 11:55] VITALS: BP 153/95
--- NOTE | 2024-06-07 12:27 | W.DCSUMMARY ---
Discharge Summary
Discharge Data
Date of Admission: 06/06/24
Date of Discharge: 06/07/24
-
Pending Results: No
Hospital Course
Primary diagnoses:
Possible complex partial seizure resulting in aphasia and left-sided weakness due to mass effect and vasogenic edema secondary to right frontal metastatic disease of the breast
Secondary diagnoses:
Atrial Fibrillation, unknown type
Metastatic Breast Cancer with known Brain metastasis
Essential Hypertension
Hyperlipidemia
Chronic disease 3b
Depression
Hypothyroidism
Consultants:
Neurology
Oncology
Imaging:
CT brain: No acute intracranial abnormality noted. Moderate atrophy. Stable. Moderate periventricular small vessel ischemic disease. Stable. Stable right frontal osseous lesion consistent with metastatic disease.
CXR: Findings suggesting moderate pulmonary edema. Progressed. Minimal cardiomegaly. Stable.
MRI brain: No significant interval change from prior. There is similar appearance of the enhancing lesion extending through the inner table of the right paramedian frontal bone with underlying dural involvement which extends into the anterior
hemispheric fissure. This measures approximately 4.7 x 3.7 cm in craniocaudal and transverse dimensions, unchanged from prior. There is similar appearance of the confluent T2/FLAIR hyperintense signal within the anterior right frontal lobe white
matter, likely edema. Unchanged 6 mm enhancing focus within the right occipital bone. There are small foci of diffusion hyperintensity signal within the high right parietal convexity which are unchanged from prior and may be artifactual, however
subacute infarction can appear similar. Global parenchymal volume loss with sequelae of severe chronic small vessel ischemic disease.
Hospital course: 83-year-old female presenting with chief complaints of expressive aphasia and left facial droop as outlined in H&P done on admission. Initially the concern was for seizure versus TIA/CVA. Imaging above and notable for the fact
that the patient's metastatic lesions in the brain were unchanged. The patient had an EEG that did not show any seizure activity. It did show mild bihemispheric cortical dysfunction. The case was discussed with Dr. Evans and he felt that the
patient had a seizure and was postictal. The patient's Keppra was increased to 1000 mg twice daily. Keppra level was 48. The patient was initiated on Decadron which will be tapered on discharge. On the day of discharge her expressive aphasia had
significantly improved. She is medically cleared for discharge at this time.
Discharge Plan
-
Patient Disposition: Home with Home Care
Discharge Diagnosis/Procedures: Possible complex partial seizure resulting in aphasia and left-sided weakness due to mass effect and vasogenic edema secondary to right frontal metastatic disease of the breast
Condition: Fair
Diet: Low Cholesterol
Activity: With assistance
Driving Restrictions: No driving
Referrals:
UNKNOWN - PT NOT,INTERVIEWE [Family Provider] - in less than 1 week
Prescriptions:
New
levetiracetam 500 mg Tablet
1,000 mg PO BID Qty: 120 0RF
dexamethasone 2 mg Tablet
6 mg PO Q8 Qty: 196 0RF
Rx Instructions:
Taper: 6mg PO Q8H x 2 weeks, then 4mg PO Q12H x 2 weeks, then 4mg daily x 1 week
pantoprazole 40 mg Tablet,Delayed Release (Dr/Ec)
40 mg PO DAILY Qty: 30 0RF
Continued
atorvastatin 20 mg Tablet
20 mg PO DAILY
sertraline 100 mg Tablet
100 mg PO DAILY
therapeutic multivitamin Tablet
1 tab PO DAILYPRN PRN (Reason: supplement)
aspirin 81 mg Tablet,Delayed Release (Dr/Ec)
81 mg PO DAILY
levothyroxine 50 mcg Tablet
50 mcg PO DAILY
aripiprazole 10 mg Tablet
10 mg PO DAILY
losartan 50 mg tablet
50 mg PO DAILY
Patient Comments:
06/04/2024: taken w/ 25mg = 75mg
anastrozole 1 mg tablet
1 mg PO DAILY
metoprolol succinate 50 mg tablet extended release 24 hr
50 mg PO DAILY
losartan 25 mg tablet
25 mg PO DAILY
Patient Comments:
06/04/2024: taken w/ 50mg = 75mg
Eliquis 5 mg tablet
5 mg PO BID
Discontinued
levetiracetam 750 mg tablet
750 mg PO Q12H
Discharge Orders:
Discharge Patient (As Directed); Ordered 06/07/24
Ordered By: Edy Rodríguez
Discharge Date and Time
Print Language: ROMANIAN
--- NOTE | 2024-06-07 14:06 | CM ---
Leah is ready for discharge today to her apartment at [facility] where she lives with her . I called her daughter to make her aware of discharge. She is not able to be here, but advised pt's granddaughter, Kika, will be picking her up this
afternoon for discharge to home.
I reviewed options of acute rehab which was recommended by PT as well as home care services. Daughter is committed to having her mother come home and has prepared with additional DME- shower seat, grab bars, and she will obtain any additional DME
she finds necessary.
Pt is known to [facility]; updated referral in [facility] and provided daughter's home address where patient will be going at discharge.
Plan: Discharge to daughter's home with resumption of [facility] today. Granddaughter will be picking her up today for discharge.
== END 2024-06-07 15:58 | disposition home health service (06) | DRG 100 ==
LOC: 4 EAST ACU 10:46
PROVIDERS: Physician Assistant; Physician Assistant Medical; ADMITTING PHYSICIAN Internal Medicine; ATTENDING PHYSICIAN Internal Medicine; CONSULT PHYSICIAN Internal Medicine Hematology & Oncology; EMERGENCY PHYSICIAN Emergency Medicine; OTHER PHYSICIAN Psychiatry & Neurology Neurology
DX: G40.209 Localization-related (focal) (partial) symptomatic epilepsy and epileptic syndromes with complex partial seizures, not intractable, without status epilepticus (principal); G93.6 Cerebral edema; R47.01 Aphasia; C79.31 Secondary malignant neoplasm of brain; N18.32 Chronic kidney disease, stage 3b; I12.9 Hypertensive chronic kidney disease with stage 1 through stage 4 chronic kidney disease, or unspecified chronic kidney disease; I48.91 Unspecified atrial fibrillation; R29.810 Facial weakness; E20.9 Hypoparathyroidism, unspecified; C50.919 Malignant neoplasm of unspecified site of unspecified female breast; G47.30 Sleep apnea, unspecified; E78.00 Pure hypercholesterolemia, unspecified; E03.9 Hypothyroidism, unspecified; F32.A Depression, unspecified; H54.7 Unspecified visual loss; Z66 Do not resuscitate; Z86.16 Personal history of COVID-19; I69.320 Aphasia following cerebral infarction; Z79.01 Long term (current) use of anticoagulants; Z92.3 Personal history of irradiation; Z85.3 Personal history of malignant neoplasm of breast; Z85.841 Personal history of malignant neoplasm of brain; Z79.890 Hormone replacement therapy; Z79.82 Long term (current) use of aspirin; Z17.0 Estrogen receptor positive status [ER+]; Z80.1 Family history of malignant neoplasm of trachea, bronchus and lung; Z74.01 Bed confinement status
CPT/HCPCS: 70450; 70553; 71045; 80048; 80053; 80061; 81003; 81015; 82962; 83036; 83735; 83880; 84484; 85025; 85027; 92507; 92523; 92526; 92610; 93005; 95816; 96374; 96375; 97116; 97163; 97167; 97535; 99285; A9575

== ENCOUNTER 2024-07-07 08:28 | Emergency (ER) | payer OTHER, SELFPAY ==
[2024-07-07 08:36] VITALS: BP 163/100
--- NOTE | 2024-07-07 09:18 | ED.GENMED ---
Addendum entered and electronically signed by Ameya Joe PA-C 07/10/24 10:00:
UCx positive for enterococcus, sensitive to doxycycline, will send Rx to preferred pharmacy. Discussed test results with daughter
Original Note:
History of Present Illness
<Rina Knowles DO, Resident - Last Filed: 07/07/24 13:10>
General
Chief Complaint: Change in Mental Status
Source: patient and family (daughter)
Exam Limitations: none
Time Seen by Provider: 07/07/24 08:44
Nursing documentation reviewed up to this point in time: agreed with
History of Present Illness
History of Present Illness:
Ms. Leah Niño is an 83yo F w pmh afib, HTN, stroke (6yrs ago), stage IV breast ca mets to brain, and brain tumor (dx december) presenting with confusion. Pt started having increased urinary frequency and urgency 2 weeks ago. Per pt, no dysuria or
hematuria and urine is cloudy. Nausea for 1 week, w/o vomiting. Pt started some confusion two days ago. Pt is staying with daughter, who says the pt was more confused and panicked this morning. Pt endorses night sweats.
Following with [facility] for radiation of brain tumor. Last radiation mid-January. F/u MRI 08/[address] Barkley.
Has chronic back and R hip pain due to scoliosis. Pain worsened when the dexamethasone was reduced in half.
Took 2 tylenol pills 0745 with some improvement of pain.
Hospitalized 06/04 for seizure and expressive aphasia.
Past History
<Rina Knowles DO, Resident - Last Filed: 07/07/24 13:10>
Past History
ED Past Medical History: Arrthythmia, Cancer, HTN, Seizures, Hypothyroidism and Other (COVID in December 2020)
Patient has exhibited threatening behavior?: No
Review of Systems
<Rina Knowles DO, Resident - Last Filed: 07/07/24 13:10>
Review of Systems
Allergies reviewed?: Yes
Other source history: family (daughter)
All Other Systems: ROS reviewed and negative except as documented in HPI and ROS
Constitutional: Reports sleep disturbance; Denies fever or chills
Respiratory: Denies cough or trouble breathing
Cardiac: Denies chest pain or palpitations
ABD/GI: Reports nausea; Denies abdominal pain, vomiting, diarrhea or constipated
: Reports frequency and urgency; Denies dysuria, flank pain, difficulty voiding or bleeding
Musculoskeletal: Reports back pain
Phy Exam
<Rina Knowles DO, Resident - Last Filed: 07/07/24 13:10>
Physical Exam
Physical Exam:
.
General Physical Exam
General Presentation: well appearing
General age: appears stated age
General Skin: warm and dry
General Habitus: elderly
General Mental: alert
General Hydration: appears well hydrated
Cardiovascular Exam
Cardiovascular Exam: no edema, no gallop, no murmur and irregularly irregular
Heart Sounds: normal
Pulmonary Exam
Pulmonary Exam: lungs clear, no respiratory distress, no rales, chest non tender, no rhonchi, no wheezing and no cough
Oxygen Status: room air
Gastrointestinal Exam
Gastrointestinal Exam: normal bowel sounds, non tender, soft, no organomegaly, non distended, no cva tenderness and other (periumbilical bruising)
Neurological Exam
Neurological Exam: alert and oriented x3
Skin Exam
Skin Exam: normal color, warm/dry, no rash and other ([place] sign)
Psychiatric Exam
Psychiatric Exam: normal mood/affect
Course
<Rina Knowles DO, Resident - Last Filed: 07/07/24 13:10>
Orders/Labs/Results
Orders:
Orders
07/07/24 09:13
CT Head W/o Iv Contrast Urgent
Comment:
Reason For Exam: altered mental status, hx brain tumor
07/07/24 09:20
Complete Blood Count/No Diff Urgent
Comprehensive Metabolic Panel Urgent
07/07/24 09:51
Urinalysis Reflex To Culture Urgent
Date Specimen was Collected: 07/07/24
Time Specimen was Collected: 09:49
Urine Microscopic Reflex Cult Urgent
Urine Culture Urgent
BRY Source: U
Specimen Description:
Date Specimen was Collected: 07/07/24
Time Specimen was Collected: 09:49
07/07/24 10:28
CT Angio Abd/Pelvis w/wo IV [CT Abd/pelvis Angio W/wo Iv] Urgent
Comment:
Reason For Exam: abd and back pain
Abnormal Lab Results
07/07/24 07/07/24
09:20 09:51
RBC 5.91 H 10^6/uL
(4.20-5.40)
MCV 72.6 L fL
(81.0-99.0)
MCH 24.0 L pg
(27.0-31.0)
RDW 17.0 H %
(11.5-14.5)
MPV 10.7 H fL
(7.4-10.4)
BUN 27 H mg/dl
(7-17)
Glucose 205 H mg/dl
(70-99)
Total Protein 6.2 L g/dl
(6.3-8.2)
Urine Bacteria (Reflex) Many A
(Negative)
Urine Albumin (Reflex) 1+ A
(Neg - Trace)
07/07/24 09:20
07/07/24 09:20
Vital Signs
Initial and Last Documented VS:
Initial Vital Signs
Temp Pulse Resp BP Pulse Ox
97.8 F 87 16 163/100 96
07/07/24 08:36 07/07/24 08:36 07/07/24 08:36 07/07/24 08:36 07/07/24 08:36
Last Documented Vital Signs
Temp Pulse Resp BP Pulse Ox
97.8 F 89 18 159/90 96
07/07/24 08:36 07/07/24 11:02 07/07/24 11:02 07/07/24 11:02 07/07/24 11:02
<Willy Mary, DO - Last Filed: 07/07/24 12:04>
Orders/Labs/Results
Orders:
Orders
07/07/24 09:13
CT Head W/o Iv Contrast Urgent
Comment:
Reason For Exam: altered mental status, hx brain tumor
07/07/24 09:20
Complete Blood Count/No Diff Urgent
Comprehensive Metabolic Panel Urgent
07/07/24 09:51
Urinalysis Reflex To Culture Urgent
Date Specimen was Collected: 07/07/24
Time Specimen was Collected: 09:49
Urine Microscopic Reflex Cult Urgent
Urine Culture Urgent
BRY Source: U
Specimen Description:
Date Specimen was Collected: 07/07/24
Time Specimen was Collected: 09:49
07/07/24 10:28
CT Angio Abd/Pelvis w/wo IV [CT Abd/pelvis Angio W/wo Iv] Urgent
Comment:
Reason For Exam: abd and back pain
Abnormal Lab Results
07/07/24 07/07/24
09:20 09:51
RBC 5.91 H 10^6/uL
(4.20-5.40)
MCV 72.6 L fL
(81.0-99.0)
MCH 24.0 L pg
(27.0-31.0)
RDW 17.0 H %
(11.5-14.5)
MPV 10.7 H fL
(7.4-10.4)
BUN 27 H mg/dl
(7-17)
Glucose 205 H mg/dl
(70-99)
Total Protein 6.2 L g/dl
(6.3-8.2)
Urine Bacteria (Reflex) Many A
(Negative)
Urine Albumin (Reflex) 1+ A
(Neg - Trace)
07/07/24 09:20
07/07/24 09:20
Vital Signs
Initial and Last Documented VS:
Initial Vital Signs
Temp Pulse Resp BP Pulse Ox
97.8 F 87 16 163/100 96
07/07/24 08:36 07/07/24 08:36 07/07/24 08:36 07/07/24 08:36 07/07/24 08:36
Last Documented Vital Signs
Temp Pulse Resp BP Pulse Ox
97.8 F 89 18 159/90 96
07/07/24 08:36 07/07/24 11:02 07/07/24 11:02 07/07/24 11:02 07/07/24 11:02
<Rina Knowles DO, Resident - Last Filed: 07/07/24 13:10>
MDM/Problems Addressed
Differential Diagnosis Includes:
UTI, hydrocephalus, intracranial bleed
MDM/Problems Addressed:
- UTI unlikely due to unremarkable u/a
- hydrocephalus, intracranial bleed unlikely due to lack of findings on head CT
Chronic conditions affecting care: HTN, Arrhythmia and Cancer
Acute Exacerbation and/or Progression of Chronic Illness: HTN
<Rina Knowles DO, Resident - Last Filed: 07/07/24 13:10>
*Radiology
Radiology exam reviewed: preliminary read by ED provider and radiology read reviewed
*Pulse Oximetry
Patient hypoxic: no
*Critical Care Note
Total Time (30-74mins, 75-104mins- exclusive of procedures): Not Applicable
Data Reviewed
Review of Other/Old Records Reveals: Labs, Records, Radiology Studies, Progress Notes and Discharge Summary
Source: patient and records
<Rina Knowles DO, Resident - Last Filed: 07/07/24 13:10>
Update Note
Update Note:
Altered mental status resolved. Pt is currently more concerned over chronic back pain.
ED Attending Note
<Rina Knowles DO, Resident - Last Filed: 07/07/24 13:10>
-
Portions of this chart may have been created with voice recognition software.� Occasional wrong word or��sound alike� substitutions may have occurred due to the inherent limitations of voice recognition software.
<Willy Mary DO - Last Filed: 07/07/24 12:04>
ED Attending Note
Patient seen and examined by attending physician: Yes
I performed a history and physical exam of patient and discussed management with resident, I reviewed resident's note and agree with documented findings and plan of care.: Yes
ED Attending Note:
I have seen and evaluated the patient with a [id number] encounter. I have spoken to the resident and involved in the medical history, the physical exam, medical decision making.
Evaluation and management service: agree unless noted differently below.
Results interpretation: agree unless noted differently below.
Focused HPI: 83-year-old female presenting with daughter for evaluation of increased confusion and worsening back pain. She has a history of chronic sciatica and left leg pain. She also a history of metastatic breast cancer to the brain. Daughter
has been tapering the patient's dexamethasone tablets per protocol. Ever since the recent taper, all symptoms have worsened. Daughter is concerned that she could have a UTI given the increased urinary frequency
Physical exam: Sitting in bed comfortably. No focal deficits. Both legs are neurovascularly intact. Abdomen soft and nontender
Medical Decision Making: Urinalysis negative for infection. CT head shows improvement of the mass effect. We discussed this could be related to tapering of the dexamethasone. Her workup is essentially negative in regards to CT head, blood work
and urine. Given her ongoing symptoms, will obtain CT abdomen/pelvis
Discharge Plan
Departure
Patient Disposition: Home (Routine Discharge)
Date of Disposition: 07/07/24
Time of Disposition: 12:04
Patient with high blood pressure during this ER visit?: Yes
Condition: Good
Discharge Problem:
Back pain of lumbar region with sciatica
Instructions: Back Pain
Prescriptions:
New
losartan 50 mg tablet
50 mg PO DAILY Qty: 30 0RF
losartan 25 mg tablet
25 mg PO DAILY Qty: 30 0RF
tramadol 50 mg tablet
25 mg PO BID PRN (Reason: pain) Qty: 10 0RF
dexamethasone 2 mg tablet
6 mg PO TID 14 Days Qty: 126 0RF
No Action
atorvastatin 20 mg Tablet
20 mg PO DAILY
sertraline 100 mg Tablet
100 mg PO DAILY
therapeutic multivitamin Tablet
1 tab PO DAILYPRN PRN (Reason: supplement)
aspirin 81 mg Tablet,Delayed Release (Dr/Ec)
81 mg PO DAILY
levothyroxine 50 mcg Tablet
50 mcg PO DAILY
aripiprazole 10 mg Tablet
10 mg PO DAILY
losartan 50 mg tablet
50 mg PO DAILY
Patient Comments:
06/04/2024: taken w/ 25mg = 75mg
anastrozole 1 mg tablet
1 mg PO DAILY
metoprolol succinate 50 mg tablet extended release 24 hr
50 mg PO DAILY
losartan 25 mg tablet
25 mg PO DAILY
Patient Comments:
06/04/2024: taken w/ 50mg = 75mg
Eliquis 5 mg tablet
5 mg PO BID
levetiracetam 500 mg Tablet
1,000 mg PO BID Qty: 120 0RF
dexamethasone 2 mg Tablet
6 mg PO Q8 Qty: 196 0RF
Rx Instructions:
Taper: 6mg PO Q8H x 2 weeks, then 4mg PO Q12H x 2 weeks, then 4mg daily x 1 week
pantoprazole 40 mg Tablet,Delayed Release (Dr/Ec)
40 mg PO DAILY Qty: 30 0RF
Referrals:
Oscar Platt DO [Family Provider] -
Interventions
Interventions:
*Risk Screen - Suicide Last Done: 07/07/24 08:36
*General Assessment Last Done: 07/07/24 08:36
*Neglect/Abuse Screening Last Done: 07/07/24 08:36
ED- Fall Risk Assessment Last Done: 07/07/24 10:34
*Nursing Disposition Last Done: 07/07/24 12:50
ED- Neurological Assessment Last Done: 07/07/24 09:37
Discharge Date and Time
Discharge Date/Time: 07/07/24 12:50
Print Language: ANGOLAN
[2024-07-07 09:23] VITALS: BMI 33.6
[2024-07-07 09:41] LABS: Hematocrit 42.9 % (37.0-47.0); Hemoglobin 14.2 g/dL (12.0-16.0); Mean Corp Hgb Conc. 33.1 g/dL (33.0-37.0); Mean Corpuscular Volume 72.6 fL (81.0-99.0); Mean Platelet Volume 10.7 fL (7.4-10.4); Platelet Count 164 10^3/uL (130-400); Red Blood Cell Count 5.91 10^6/uL (4.20-5.40); White Blood Cell Count 5.3 10^3/uL (4.8-10.8)
[2024-07-07 09:52] LABS: ALT (SGPT) 20 U/L (0-35); AST (SGOT) 20 U/L (14-36); Albumin 3.8 g/dl (3.5-5.0); Alkaline Phosphatase 69 U/L (38-126); Blood Urea Nitrogen 27 mg/dl (7-17); Calcium 9.6 mg/dl (8.4-10.2); Carbon Dioxide 23 mmol/L (22-30); Chloride 100 mmol/L (98-107); Estimated Creatinine Clearance 47 ml/min; Glucose 205 mg/dl (70-99); Sodium 138 mmol/L (135-145); Total Bilirubin 0.6 mg/dl (0.2-1.3); Total Protein 6.2 g/dl (6.3-8.2); eGFR > 60.00
[2024-07-07 10:18] LABS: Urine Albumin 1+ (Neg - Trace); Urine Bilirubin Negative (Negative); Urine Character Clear (Clear); Urine Color Yellow; Urine Glucose Negative (Negative); Urine Ketone Negative (Negative); Urine Leukocyte Negative (Negative); Urine Nitrite Negative (Negative); Urine Occult Blood Negative (Negative); Urine Specific Gravity 1.015 (<1.030); Urine Urobilinogen Negative (Neg - 1+)
[2024-07-07 10:27] LABS: Urine Bacteria Many (Negative); Urine Red Blood Cell 0-2 /HPF (0-2)
[2024-07-07 11:02] VITALS: BP 159/90
== END 2024-07-07 12:50 | disposition home or self-care (01) ==
LOC: EMR 08:28
PROVIDERS: EMERGENCY PHYSICIAN Student in an Organized Health Care Education/Training Program; FAMILY PHYSICIAN Student in an Organized Health Care Education/Training Program
DX: M54.40 Lumbago with sciatica, unspecified side (principal); I48.91 Unspecified atrial fibrillation; I10 Essential (primary) hypertension; C79.31 Secondary malignant neoplasm of brain; E03.9 Hypothyroidism, unspecified; M41.9 Scoliosis, unspecified; Z85.3 Personal history of malignant neoplasm of breast; Z86.16 Personal history of COVID-19; Z86.73 Personal history of transient ischemic attack (TIA), and cerebral infarction without residual deficits; Z92.3 Personal history of irradiation
CPT/HCPCS: 99284; 70450; 74174; 80053; 81003; 81015; 85027; 87077; 87086; 87186; Q9967

== ENCOUNTER → 2024-11-14 17:41 | Outpatient (REF) | payer OTHER, SELFPAY | LOC: MRI 17:41 | PROVIDERS: ATTENDING PHYSICIAN Radiology Radiation Oncology | DX: C79.31 Secondary malignant neoplasm of brain (principal); C79.49 Secondary malignant neoplasm of other parts of nervous system | CPT/HCPCS: 70553; A9575 ==

== ENCOUNTER → 2025-03-14 12:01 | Outpatient (REF) | payer OTHER, SELFPAY | LOC: MRI 12:01 | PROVIDERS: ATTENDING PHYSICIAN Radiology Radiation Oncology; FAMILY PHYSICIAN Family Medicine | DX: C79.31 Secondary malignant neoplasm of brain (principal); C79.49 Secondary malignant neoplasm of other parts of nervous system | CPT/HCPCS: 70553; A9575 ==

== ENCOUNTER → 2025-04-30 14:22 | Outpatient (REF) | payer OTHER, SELFPAY ==
[2025-04-30 14:51] LABS: % Basophils 0.4 % (0-2); % Eosinophils 4.6 % (0-6); % Immature Granulocytes 0.7 % (0-0.5); % Lymphocytes 21.6 % (20.5-51.1); % Monocytes 11.7 % (1.7-9.3); Absolute Eosinophils 0.3 10^3/uL (0-0.7); Absolute Immature Granulocytes 0.1 10^3/uL (0-0.05); Absolute Lymphocytes 1.5 10^3/uL (1.2-3.4); Absolute Monocytes 0.8 10^3/uL (0.1-0.6); Absolute Neutrophils 4.2 10^3/uL (1.4-6.5); Hematocrit 34.5 % (37.0-47.0); Hemoglobin 10.6 g/dL (12.0-16.0); Mean Corp Hgb Conc. 30.7 g/dL (33.0-37.0); Mean Corpuscular Hgb 25.4 pg (27.0-31.0); Mean Corpuscular Volume 82.5 fL (81.0-99.0); Mean Platelet Volume 10.8 fL (7.4-10.4); Nucleated Red Blood Cells % 0 %; Platelet Count 245 10^3/uL (130-400); Red Blood Cell Count 4.18 10^6/uL (4.20-5.40); Red Cell Dist. Width 16.7 % (11.5-14.5); White Blood Cell Count 6.9 10^3/uL (4.8-10.8)
[2025-04-30 15:13] LABS: ALT (SGPT) 11 U/L (0-35); AST (SGOT) 13 U/L (14-36); Albumin 3.5 g/dl (3.5-5.0); Alkaline Phosphatase 112 U/L (38-126); Blood Urea Nitrogen 25 mg/dl (7-17); Calcium 9.3 mg/dl (8.4-10.2); Carbon Dioxide 28 mmol/L (22-30); Chloride 102 mmol/L (98-107); Glucose 121 mg/dl (70-99); HDL Cholesterol 27 mg/dl; LDL Cholesterol, Calculated 52 mg/dl; Potassium 4.3 mmol/L (3.5-5.1); Sodium 137 mmol/L (135-145); Total Bilirubin 0.9 mg/dl (0.2-1.3); Total Cholesterol 105 mg/dl (50-199); Total Protein 6.4 g/dl (6.3-8.2); Triglyceride 132 mg/dl (10-149); Very Low Density Lipoprotein 26 mg/dl (0-30); eGFR 48.94
[2025-04-30 15:29] LABS: Free T4 1.59 ng/dl (0.78-2.19)
[2025-04-30 15:43] LABS: TSH 7.08 uIU/ml (0.47-4.68)
[2025-05-03 01:29] LABS: Keppra (Levetiracetam) 36 ug/mL (10-40)
== END ==
LOC: OLABN 14:22
PROVIDERS: ATTENDING PHYSICIAN Student in an Organized Health Care Education/Training Program
DX: I10 Essential (primary) hypertension (principal); E03.9 Hypothyroidism, unspecified; I48.20 Chronic atrial fibrillation, unspecified; E78.5 Hyperlipidemia, unspecified; G40.909 Epilepsy, unspecified, not intractable, without status epilepticus
CPT/HCPCS: 36415; 80053; 80061; 80177; 84439; 84443; 85025

== ENCOUNTER 2025-05-08 05:58 | Inpatient (IN) | payer OTHER, SELFPAY ==
[2025-05-08] VITALS (10 sets, daily range): BP systolic 134–156; BP diastolic 62–87
--- NOTE | 2025-05-08 01:02 | ED.GENMED ---
History of Present Illness
General
Chief Complaint: Musculo-Skeletal Complaint
Source: patient
Time Seen by Provider: 05/08/25 00:42
History of Present Illness
History of Present Illness:
This patient is an 84-year-old female who states that 2 weeks ago her toe caught in a rug causing her to fall. She suffered a right shoulder injury and went to a rehab. She does not recall if she had x-rays of her lower extremity/pelvic area but
does state that in these 2 weeks she has been unable to ambulate or stand due to pain and they right hip area. Today, they brought her to physical therapy and attempts to have her stand and walk, and she complained of pain again in this area, and
reportedly had an x-ray that is consistent with a minimally impacted right femoral neck fracture. Patient denies any new trauma in the last 2 weeks. She denies numbness, tingling. She notes pain with right hip movement, standing, or ambulation.
Minimal to no pain here supine in the bed. She denies chest pain, shortness of breath, abdominal pain, nausea, vomiting, knee pain, ankle pain, or other complaints.
Past History
Past History
ED Past Medical History: Arrthythmia, Cancer, HTN, Seizures, Hypothyroidism and Other (COVID in December 2020)
Patient has exhibited threatening behavior?: No
Social History
Tobacco: Non-smoker
Alcohol: None
Drug: None
Phy Exam
Physical Exam
Physical Exam:
GENERAL: Alert , in no apparent distress
EYE: pupils equal and reactive, no photophobia
NECK: Supple, no significant adenopathy, no midline tenderness.
ENT: o/p clr, mmm, no cuellar, no raccoon, no signs of head or facial injury noted on exam.
CARDIAC: Regular rate and rhythm .
LUNGS: Clear breath sounds bilaterally, no acute respiratory distress, no wheezes/rales/rhonchi
ABDOMEN: Soft, without focal tenderness, no r/g
NEUROLOGICAL: Alert and oriented, no focal neuro deficits
SKIN: Warm and dry, skin intact.
MUSCULOSKELETAL: No edema, well perfused. Patient has limited range of motion of right upper extremity due to shoulder discomfort and it is in the position of the sling at this time. Reduced range of motion of right hip due to pain with range of
motion. There is a resolving ecchymosis noted at the inferior pole of the right patella without associated deformity, swelling, or tenderness to palpation. No tenderness to palpation noted of the remaining part of the right lower extremity with
the exception of the area of the right femoral head. Neurovascular intact
PSYCH: Normal and appropriate interaction.
Course
Orders/Labs/Results
Orders:
Orders
05/08/25 01:01
Urinalysis Reflex To Culture Urgent
Hip, Right 2-3 Views [CR Hip - RT w/wo Pel 2-3 Vw*] Urgent
Comment:
Reason For Exam: pain
Include a pelvis x-ray?: Yes
05/08/25 01:21
Type+Screen Urgent
Complete Blood Count/With Diff Urgent
Comprehensive Metabolic Panel Urgent
PTT Urgent
Prothrombin Time Urgent
05/08/25 01:32
ABO2 Routine
BBK Wristband Number:
Associate notified that ABO2 has been ordered: [id number] FRANCES RN
Date: 05/08/25
Time: 01:33
Wash Helper ID: [id number] [facility]
05/08/25 02:27
Morphine Sulfate 2 mg IV NOW STA
Abnormal Lab Results
05/08/25
01:21
Hgb 11.9 L g/dL
(12.0-16.0)
Hct 36.1 L %
(37.0-47.0)
MCV 79.0 L fL
(81.0-99.0)
MCH 26.0 L pg
(27.0-31.0)
RDW 16.6 H %
(11.5-14.5)
PT 19.5 H Sec
(11.4-14.6)
APTT 36.3 H Sec
(23.4-35.0)
BUN 24 H mg/dl
(7-17)
Glucose 118 H mg/dl
(70-99)
Alkaline Phosphatase 151 H U/L
(38-126)
05/08/25 01:21
05/08/25 01:21
Vital Signs
Initial and Last Documented VS:
Initial Vital Signs
Temp Pulse Resp BP Pulse Ox
98.1 F 96 14 134/83 94
05/08/25 00:40 05/08/25 00:40 05/08/25 00:40 05/08/25 00:40 05/08/25 00:40
Last Documented Vital Signs
Temp Pulse Resp BP Pulse Ox
98.1 F 96 14 134/ 94
05/08/25 00:40 05/08/25 00:40 05/08/25 00:40 05/08/25 00:40 05/08/25 01:05
*Pulse Oximetry
SaO2: 94
Oxygen Mode of Delivery: Room air
Update Note
Update Note:
Patient presents to the Emergency Department with ___right hip pain with standing or ambulating
Number and Complexity of Problems Addressed at the Encounter
� Chronic conditions affecting care:
� Acute Exacerbation and/or Progression of Chronic Illness:
� Differential Diagnosis includes: But not limited to pelvic fracture, hip fracture, hip dislocation, arthritis, etc. etc.
Amount and/or Complexity of Data to be Reviewed and Analyzed
� I performed an independent evaluation of and my interpretation is:
EKG:
CT:
Xrays: Read by me, right femoral neck fracture, no pelvic fracture noted
Laboratory Studies: Mild anemia, prerenal azotemia, nonspecific alk phos elevation
Other:
� Review of other/old records reveals: Review of x-ray report sent with patient consistent with reported impacted right femoral neck fracture
� Clinical information was obtained by an independent historian:
� Prescriptions/Medications Considered but not given:
� Further testing considered but not performed:
Risk of Complications and/or Morbidity or Mortality of Patient Management
� Social determinants of health affecting care:
� Discussion with other providers (PCP, Hospitalists, Consultants, etc):
� Escalation of care including admission/observation vs risk of discharge considered: Patient noted to have hip fracture here. Unable to ambulate. Pain medication ordered. Will discuss with hospitalist for admission and
consult with orthopedics.
ED Attending Note
-
Portions of this chart may have been created with voice recognition software.� Occasional wrong word or��sound alike� substitutions may have occurred due to the inherent limitations of voice recognition software.
Discharge Plan
Departure
Patient Disposition: Admit
Date of Disposition: 05/08/25
Time of Disposition: 02:39
Admit to: Med/Surg
Admit to doctor: lorna
Presentation/result/management discussed w/ accepting MD/DO: Hospitalist
Discharge Problem:
Closed hip fracture
Prescriptions:
No Action
atorvastatin 20 mg Tablet
20 mg PO DAILY
sertraline 100 mg Tablet
100 mg PO DAILY
therapeutic multivitamin Tablet
1 tab PO DAILYPRN PRN (Reason: supplement)
aspirin 81 mg Tablet,Delayed Release (Dr/Ec)
81 mg PO DAILY
levothyroxine 50 mcg Tablet
50 mcg PO DAILY
aripiprazole 10 mg Tablet
10 mg PO DAILY
losartan 50 mg tablet
50 mg PO DAILY
Patient Comments:
06/04/2024: taken w/ 25mg = 75mg
anastrozole 1 mg tablet
1 mg PO DAILY
metoprolol succinate 50 mg tablet extended release 24 hr
50 mg PO DAILY
losartan 25 mg tablet
25 mg PO DAILY
Patient Comments:
06/04/2024: taken w/ 50mg = 75mg
Eliquis 5 mg tablet
5 mg PO BID
levetiracetam 500 mg Tablet
1,000 mg PO BID Qty: 120 0RF
dexamethasone 2 mg Tablet
6 mg PO Q8 Qty: 196 0RF
Rx Instructions:
Taper: 6mg PO Q8H x 2 weeks, then 4mg PO Q12H x 2 weeks, then 4mg daily x 1 week
pantoprazole 40 mg Tablet,Delayed Release (Dr/Ec)
40 mg PO DAILY Qty: 30 0RF
losartan 50 mg tablet
50 mg PO DAILY Qty: 30 0RF
losartan 25 mg tablet
25 mg PO DAILY Qty: 30 0RF
tramadol 50 mg tablet
25 mg PO BID PRN (Reason: pain) Qty: 10 0RF
dexamethasone 2 mg tablet
6 mg PO TID 14 Days Qty: 126 0RF
doxycycline monohydrate 100 mg capsule
100 mg PO BID 7 Days Qty: 14 0RF
Referrals:
Oscar Platt DO [Family Provider, Family Practice]
Interventions
Interventions:
*Risk Screen - Suicide Last Done: 05/08/25 00:51
*General Assessment Last Done: 05/08/25 00:41
*Neglect/Abuse Screening Last Done: 05/08/25 00:50
*ED- Fall Risk Assessment Last Done: 05/08/25 00:47
*ED COVID-19 Vaccine History Last Done: 05/08/25 00:48
ED-Musculoskeletal Assessment Last Done: 05/08/25 00:47
Discharge Date and Time
Print Language: MARTINIQUAIS
[2025-05-08 01:37] LABS: Hematocrit 36.1 % (37.0-47.0); Hemoglobin 11.9 g/dL (12.0-16.0); Mean Corp Hgb Conc. 33.0 g/dL (33.0-37.0); Mean Corpuscular Volume 79.0 fL (81.0-99.0); Nucleated Red Blood Cells % 0 %; Platelet Count 291 10^3/uL (130-400); Red Cell Dist. Width 16.6 % (11.5-14.5)
[2025-05-08 01:42] LABS: INR 1.62; PT 19.5 Sec (11.4-14.6)
[2025-05-08 01:43] LABS: APTT 36.3 Sec (23.4-35.0)
[2025-05-08 01:59] LABS: ALT (SGPT) < 10 U/L (0-35); AST (SGOT) 15 U/L (14-36); Albumin 3.7 g/dl (3.5-5.0); Alkaline Phosphatase 151 U/L (38-126); Blood Urea Nitrogen 24 mg/dl (7-17); Calcium 9.5 mg/dl (8.4-10.2); Carbon Dioxide 23 mmol/L (22-30); Chloride 106 mmol/L (98-107); Estimated Creatinine Clearance 40 ml/min; Glucose 118 mg/dl (70-99); Potassium 4.6 mmol/L (3.5-5.1); Sodium 138 mmol/L (135-145); Total Protein 6.6 g/dl (6.3-8.2); eGFR 54.87
[2025-05-08] MEDS: MORPHINE SULFATE 2 MG IV (02:35)
--- NOTE | 2025-05-08 04:54 | HPS.HSE ---
Family Physician
-
Family Physician: Oscar Platt DO
Chief Complaint
-
Right hip pain
History of Present Illness
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
atrial fibrillation on Eliquis, who presented to the emergency department secondary to inability to ambulate or stand due to pain in the right hip area for the past 2 weeks. Of note 2 weeks ago she caught her toe on a rug and she had a mechanical
fall, with resultant right shoulder injury for which she went to rehab. She is unaware if she had x-rays of her hip at that time. Today when she went to physical therapy and she was unable to stand or walk secondary to pain. She had an x-ray at
that time that showed a right femoral neck fracture. Otherwise she has had no further mechanical falls. She has pain with right hip movement.
ED txt:
Morphine 2 mg IV x 1
Medical History
Past Medical History
Past Medical History: Reports Arrhythmia (Atrial Fibrillation), Cancer (Metastatic Breast Cancer with known Brain Mets s/p surgery and XRT 2023 (stable MRI brain in March)), HTN (Essential), Hypercholesterolemia, Hypothyroidism, Renal Failure (CKD
stage IIIB), Psychiatric (Depression) and Other
Past Surgical History: Reports Other (Brain tumor surgery in 2023. Reported history of radiation therapy in January 2024.)
Social History
Tobacco: Non-smoker
Alcohol: None
Drug: None
Family History
Family History: Not pertinent
Allergies / Home Medications
Allergies reflects when Allergies were last updated in [employer].
Home Medications with original date entered in [employer]
Allergy/Medication List:
Allergies
Allergy/AdvReac Type Severity Reaction Status Date / Time
No Known Allergies Allergy Verified 07/07/24 08:34
Home Medications
aripiprazole 10 mg tablet 10 mg PO DAILY Mental Health/Anxiety 01/25/24
aspirin 81 mg tablet,delayed release 81 mg PO DAILY Blood Clot Prevention/Tx 01/25/24
atorvastatin 20 mg tablet 20 mg PO DAILY High Cholesterol 01/25/24
levothyroxine 50 mcg tablet 50 mcg PO DAILY Thyroid 01/25/24
sertraline 100 mg tablet 100 mg PO DAILY Mental Health/Anxiety 01/25/24
therapeutic multivitamin 1 tab PO DAILYPRN PRN supplement 01/25/24
anastrozole 1 mg tablet 1 mg PO DAILY Antineoplastic Agent, Sarahi 06/04/24
apixaban 5 mg tablet (Eliquis) 5 mg PO BID Blood Clot Prevention/Tx 06/04/24
losartan 25 mg tablet 25 mg PO DAILY Blood Pressure 06/04/24
losartan 50 mg tablet 50 mg PO DAILY Blood Pressure 06/04/24
metoprolol succinate 50 mg tablet,extended release 24 hr 50 mg PO DAILY Blood Pressure 06/04/24
dexamethasone 2 mg tablet 6 mg (3 x 2 mg) PO Q8 #196 tabs 06/07/24
levetiracetam 500 mg tablet 1,000 mg (2 x 500 mg) PO BID #120 tabs 06/07/24
pantoprazole 40 mg tablet,delayed release 40 mg PO DAILY #30 tabs 06/07/24
dexamethasone 2 mg tablet 6 mg (3 x 2 mg) PO TID 2 weeks #126 tabs 07/07/24
losartan 25 mg tablet 25 mg PO DAILY #30 tabs 07/07/24
losartan 50 mg tablet 50 mg PO DAILY #30 tabs 07/07/24
tramadol 50 mg tablet 25 mg (1/2 x 50 mg) PO BID PRN pain #10 tabs 07/07/24
doxycycline monohydrate 100 mg capsule 100 mg PO BID 7 days #14 caps 07/10/24
Review of Systems
-
A 12 point ROS was completed and negative except as noted: Yes
Physical Exam
Vital Signs
Vital Signs
Temp Pulse Resp BP Pulse Ox
98.1 F 96 14 134/83 94
05/08/25 00:40 05/08/25 00:40 05/08/25 00:40 05/08/25 00:40 05/08/25 01:05
Physical Exam
General: Well Developed, Well Nourished, Conversant and Other (pt confused-unaware of her medications nor her history of brain surgery and XRT)
HEENT: NormoCephalic, Anicteric and Moist mucous membranes
Respiratory: Clear
Cardiac: S1/S2
GI: Soft, Non Tender and Non Distended
Musculoskeletal: No Clubbing, No Cyanosis and No Edema
Laboratory Results
-
05/08/25 01:21
05/08/25 01:21
Laboratory Results
PT 19.5 Sec (11.4-14.6) H 05/08/25 01:21
INR 1.62 05/08/25 01:21
APTT 36.3 Sec (23.4-35.0) H 05/08/25 01:21
Total Bilirubin 0.7 mg/dl (0.2-1.3) 05/08/25 01:21
AST 15 U/L (14-36) 05/08/25 01:21
ALT < 10 U/L (0-35) 05/08/25 01:21
Alkaline Phosphatase 151 U/L (38-126) H 05/08/25 01:21
Impression/Plan
-
IMPRESSION:
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
atrial fibrillation on Eliquis, who presented to the emergency department secondary to inability to ambulate or stand due to pain in the right hip area for the past 2 weeks. Of note 2 weeks ago she caught her toe on a rug and she had a mechanical
fall, with resultant right shoulder injury for which she went to rehab. She is unaware if she had x-rays of her hip at that time. Today when she went to physical therapy and she was unable to stand or walk secondary to pain. She had an x-ray at
that time that showed a right femoral neck fracture. Otherwise she has had no further mechanical falls. She has pain with right hip movement.
ED txt:
Morphine 2 mg IV x 1
#Right femoral neck fracture
-admt IP level of care
-will require 48 hour wash-out of Eliquis prior to surgical intervention, as per ED provider discussion with Orthopedics
-Hold Eliquis, ok for diet during washout
-Orthopedic consultation Wednesday to discuss with patient and family surgical recommendations for hemiarthroplasty.
-pain management
Chronic medical conditions:
Atrial Fibrillation, permanent - hold Eliquis
Essential Hypertension
Hyperlipidemia
-hold aspirin for now
-cont statin
Metastatic Breast Cancer with known Brain Mets and prior seizure- stable MRI findings since Nov and March 2025
-Cont Anastrozole
-MRI brain 03/14/25: There is a plaque-like area of enhancing intermediate T1-weighted signal involving the right frontal calvarium, extending to the posterior base of the frontal sinuses. This appears stable from most recent examination of November
2024, most likely scarring/fibrosis, although a component of residual neoplasm is possible. The appearance is stable, with no evidence for a new area of enhancement by MRI.
-Cont Dexamethasone
-Keppra
CKD stage IIIB, stable
Depression/Anxiety
-Ariprazole
Hypothyroidism
#The patient's chronic medical conditions are stable at this time, and the patient is medically optimized to proceed with surgical intervention for surgical femoral neck fracture, following Eliquis wash-out. Will obtain EKG as part of the pre-op
work-up.
DVT proph-SCDs
Full Code
[2025-05-08] MEDS: DILAUDID 0.5 MG IV (05:57)
--- NOTE | 2025-05-08 09:18 | W.PN.HOSP.TC ---
Today's Communication/Plan
-
See plan
Assessment / Plan
Assessment / Plan
IMPRESSION/plan
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
atrial fibrillation on Eliquis, who presented to the emergency department secondary to inability to ambulate or stand due to pain in the right hip area for the past 2 weeks. Of note 2 weeks ago she caught her toe on a rug and she had a mechanical
fall, with resultant right shoulder injury for which she went to rehab. She is unaware if she had x-rays of her hip at that time. Today when she went to physical therapy and she was unable to stand or walk secondary to pain. She had an x-ray at
that time that showed a right femoral neck fracture. Otherwise she has had no further mechanical falls. She has pain with right hip movement.
ED txt:
Morphine 2 mg IV x 1
#Right femoral neck fracture
-admt IP level of care
-will require 48 hour wash-out of Eliquis prior to surgical intervention, as per ED provider discussion with Orthopedics
-Hold Eliquis, ok for diet during washout
-Orthopedic consultation Wednesday to discuss with patient and family surgical recommendations for hemiarthroplasty.
-pain management
Chronic medical conditions:
Atrial Fibrillation, permanent - hold Eliquis
Essential Hypertension
Continue losartan
Hyperlipidemia
-hold aspirin for now
-cont statin
Metastatic Breast Cancer with known Brain Mets and prior seizure- stable MRI findings since Nov and March 2025
-Cont Anastrozole
-MRI brain 03/14/25: There is a plaque-like area of enhancing intermediate T1-weighted signal involving the right frontal calvarium, extending to the posterior base of the frontal sinuses. This appears stable from most recent examination of November
2024, most likely scarring/fibrosis, although a component of residual neoplasm is possible. The appearance is stable, with no evidence for a new area of enhancement by MRI.
-Cont Dexamethasone
-Keppra
CKD stage IIIB, stable
Monitor renal function while on losartan. Avoid hypotension.
Depression/Anxiety
-Ariprazole
Hypothyroidism on replacement
# Medical clearance: The patient's chronic medical conditions are stable at this time, and the patient is medically optimized to proceed with surgical intervention for surgical femoral neck fracture, following Eliquis wash-out. Will obtain EKG as
part of the pre-op work-up.
DVT proph-SCDs
Full Code
Anticipated Discharge: > 48 hours
Subjective/Interval History
-
Date of Service: May 08, 2025
Objective Data
-
Labs:
Laboratory Results
05/08/25
01:21
WBC 7.1
Hgb 11.9 L
Hct 36.1 L
Plt Count 291
PT 19.5 H
INR 1.62
APTT 36.3 H
Sodium 138
Potassium 4.6
Chloride 106
Carbon Dioxide 23
BUN 24 H
Creatinine 1.0
Glucose 118 H
Calcium 9.5
Total Bilirubin 0.7
AST 15
ALT < 10
Alkaline Phosphatase 151 H
Vital Signs:
Vital Signs
Temp Pulse Resp BP Pulse Ox
98.1 F 89 21 142/86 95
05/08/25 00:40 05/08/25 05:30 05/08/25 05:30 05/08/25 05:00 05/08/25 05:30
Physical Exam
-
General: Well Developed and No Apparent Distress
HEENT: Normocephalic, Atraumatic and Moist Mucous Membranes
Respiratory: Clear to Auscultation
Cardiac: Regular Rhythm and S1/S2; Negative Murmur, Rub or Gallop
GI: Soft, Nontender, Nondistended and Normal Bowel Sounds; Negative Organomegaly
Rectal: Deferred by Provider
Musculoskeletal: No Clubbing, No Cyanosis and No Edema
Skin: Negative Rash
Neuro: Nonfocal/Grossly Intact
[2025-05-08] MEDS: SYNTHROID 75 MCG PO (11:33)
[2025-05-08] MEDS: FLOMAX 0.4 MG PO (11:33)
[2025-05-08] MEDS: ABILIFY 10 MG PO (11:33)
[2025-05-08] MEDS: LIPITOR 20 MG PO (11:33)
[2025-05-08] MEDS: TOPROL XL 50 MG PO (11:33)
[2025-05-08] MEDS: ARIMIDEX 1 MG PO (11:33)
[2025-05-08] MEDS: ZOLOFT 100 MG PO (11:33)
[2025-05-08] MEDS: PROTONIX 40 MG PO (11:40)
[2025-05-08] MEDS: KEPPRA 750 MG PO ×2 (11:40→21:33)
[2025-05-08] MEDS: TYLENOL 650 MG PO ×3 (11:40→21:33)
--- NOTE | 2025-05-08 15:20 | CM ---
Patient was at [facility] for STR. Readmitted to [facility] for R hip pain/R femoral neck fracture. At home patient lives with her in a 6th floor apartment in an elevator building, no steps to enter the building. Patient was independent in
ADL's and ambulation with use of a RW. She also has a SPC, w/ch, SC, commode and grab bars in the bathroom. At some point she did have in-home services for RN, PT/OT. Neither patient or remember the agency. PCP has changed. First
appointment is in a month. They do not remember the name of the Dr. Patient does not want to return to [facility]. Discharge POC: Awaiting therapy evaluation and recommendation.
[2025-05-08] MEDS: DECADRON 6 MG PO ×2 (16:06→21:34)
[2025-05-08] MEDS: TYLENOL PO (16:07)
--- NOTE | 2025-05-08 21:32 | CON.ORTHO ---
Consultation
-
Date/Time Consultation Performed: 05/08/2025 915 PM
Consultation - Orthopedics
History
HPI: 84-year-old female history of metastatic breast cancer, A-fib on Eliquis presented to the emergency department with complaints of right hip pain and inability to bear weight. She was subsequently found to have displaced impacted right femoral
neck fracture. Orthopedics is consulted for further evaluation and treatment. This evening patient somewhat confused unable to provide reliable history. History was obtained from conversation with daughter on telephone as well as chart review.
Patient reportedly sustained a fall about 3 weeks ago and went to [facility]. There she was diagnosed with minimally displaced right proximal humerus fracture. There was no issue with her hip at the time. She was discharged to rehab. She
continue to work with physical therapy with progressively worsening right hip pain which prompted her evaluation.
Allergies / Home Medications
Past medical history: A-fib on Eliquis, metastatic brain cancer with brain mets as well as spine mets. She is undergone radiation therapy for brain metastases. Hypertension, hypercholesterolemia, chronic kidney disease
Past surgical history: Brain tumor surgery 2023 in addition to radiation therapy
Family history: Not pertinent
Social history: Non-smoker, lives with family
Allergy/AdvReac Type Severity Reaction Status Date / Time
No Known Allergies Allergy Verified 07/07/24 08:34
�Medication �Instructions �Recorded
aripiprazole 10 mg tablet 10 mg PO DAILY Mental 01/25/24
Health/Anxiety
aspirin 81 mg tablet,delayed 81 mg PO DAILY Blood Clot 01/25/24
release Prevention/Tx
atorvastatin 20 mg tablet 20 mg PO DAILY High Cholesterol 01/25/24
levothyroxine 50 mcg tablet 50 mcg PO DAILY Thyroid 01/25/24
sertraline 100 mg tablet 100 mg PO DAILY Mental 01/25/24
Health/Anxiety
therapeutic multivitamin 1 tab PO DAILYPRN PRN supplement 01/25/24
anastrozole 1 mg tablet 1 mg PO DAILY Antineoplastic 06/04/24
Agent, Sarahi
apixaban 5 mg tablet (Eliquis) 5 mg PO BID Blood Clot 06/04/24
Prevention/Tx
losartan 25 mg tablet 25 mg PO DAILY Blood Pressure 06/04/24
losartan 50 mg tablet 50 mg PO DAILY Blood Pressure 06/04/24
metoprolol succinate 50 mg 50 mg PO DAILY Blood Pressure 06/04/24
tablet,extended release 24 hr
dexamethasone 2 mg tablet 6 mg (3 x 2 mg) PO Q8 #196 tabs 06/07/24
levetiracetam 500 mg tablet 1,000 mg (2 x 500 mg) PO BID #120 06/07/24
tabs
pantoprazole 40 mg tablet,delayed 40 mg PO DAILY #30 tabs 06/07/24
release
dexamethasone 2 mg tablet 6 mg (3 x 2 mg) PO TID 2 weeks 07/07/24
#126 tabs
losartan 25 mg tablet 25 mg PO DAILY #30 tabs 07/07/24
losartan 50 mg tablet 50 mg PO DAILY #30 tabs 07/07/24
tramadol 50 mg tablet 25 mg (1/2 x 50 mg) PO BID PRN 07/07/24
pain #10 tabs
doxycycline monohydrate 100 mg 100 mg PO BID 7 days #14 caps 07/10/24
capsule
Vital Signs / Lab Results
Temp Pulse Resp BP Pulse Ox
97.9 F 86 12 141/80 95
05/08/25 15:00 05/08/25 15:00 05/08/25 15:00 05/08/25 15:00 05/08/25 15:00
05/08/25 01:21
05/08/25 01:21
10 point review systems reviewed and negative unless otherwise stated
General: Somewhat confused this evening, nontoxic in appearance
Musculoskeletal right lower extremity
Skin intact, no erythema or ecchymotic staining notable
No ipsilateral palpable knee effusion
Mild to moderate tenderness palpation over groin and lateral trochanteric flare
Right extremity is shortened and slightly internally rotated
Patient is spontaneously moving toes
unable to comply with detailed motor sensor examination
There is tenderness palpation restriction of passive and active motion right shoulder on tertiary examination. No other areas of bony tenderness palpation crepitation of long bones or joint Center she exam
Diagnostic studies
X-rays right hip independently viewed by myself show a displaced impacted femoral neck fracture
Assessment / Plan
84-year-old female status post fall 2 weeks ago progressive right hip pain with displaced right femoral neck fracture. I had a long discussion with the patient's daughter on the telephone. She reports that she can get somewhat confused in
facilities but is typically quite functional at baseline with normal mentation. We discussed her diagnosis and treatment options at length. We discussed postsurgical nonsurgical options. After discussion mutually like to proceed with right hip
hemiarthroplasty. We discussed risks benefits and alternatives to surgery. We discussed the usual expected perioperative postoperative course. After discussion verbal consent was obtained. Of note patient's daughter reports that patient did
receive Eliquis yesterday evening prior to presenting to the emergency department.
Nonweightbearing right lower extremity
Nonweightbearing right upper extremity in sling
Follow-up x-rays right shoulder
Follow-up CT scan right hip
N.p.o. a.m. in preparation for OR p.m.
Medical management per primary team
Please hold Eliquis
Please hold anticoagulation a.m. in preparation for OR
Pain control
Plan: 2 OR p.m. for right hip hemiarthroplasty pending medical clearance and or availability
[2025-05-08] MEDS: COLACE 100 MG PO (21:33)
[2025-05-08] MEDS: SENOKOT 17.2 MG PO (21:33)
[2025-05-09] MEDS: TYLENOL PO ×3 (00:07→23:17)
[2025-05-09] MEDS: SYNTHROID 50 MCG PO (05:28)
--- NOTE | 2025-05-09 09:20 | CM ---
CM reviewed chart
Plan for OR tomorrow for R edith hip
Will benefit from post-op PT/OT orders once appropriate
CM will continue to follow for dc planning
Discharge Disposition- TBD
[2025-05-09] MEDS: COLACE 100 MG PO (09:25)
[2025-05-09] MEDS: COZAAR 50 MG PO (09:25)
[2025-05-09] MEDS: ABILIFY 10 MG PO (09:25)
[2025-05-09] MEDS: TYLENOL 650 MG PO ×4 (09:25→19:46)
[2025-05-09] MEDS: LIPITOR 20 MG PO (09:25)
[2025-05-09] MEDS: ARIMIDEX 1 MG PO (09:25)
[2025-05-09] MEDS: SENOKOT 17.2 MG PO (09:25)
[2025-05-09] MEDS: DECADRON 6 MG PO ×3 (09:25→21:54)
[2025-05-09] MEDS: PROTONIX 40 MG PO (09:25)
[2025-05-09] MEDS: TOPROL XL 50 MG PO (09:25)
[2025-05-09] MEDS: ZOLOFT 100 MG PO (09:25)
[2025-05-09] MEDS: KEPPRA 750 MG PO ×2 (09:26→19:46)
--- NOTE | 2025-05-09 12:42 | W.PN.HOSP.TC ---
Today's Communication/Plan
-
Hold anticoagulation
For OR in a.m.
Assessment / Plan
Assessment / Plan
IMPRESSION/plan
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
atrial fibrillation on Eliquis, who presented to the emergency department secondary to inability to ambulate or stand due to pain in the right hip area for the past 2 weeks. Of note 2 weeks ago she caught her toe on a rug and she had a mechanical
fall, with resultant right shoulder injury for which she went to rehab. She is unaware if she had x-rays of her hip at that time. Today when she went to physical therapy and she was unable to stand or walk secondary to pain. She had an x-ray at
that time that showed a right femoral neck fracture. Otherwise she has had no further mechanical falls. She has pain with right hip movement.
ED txt:
Morphine 2 mg IV x 1
CT scan of the right lower extremity
1. ACUTE IMPACTED SUBCAPITAL FRACTURE of the RIGHT FEMORAL NECK.
2. Minimal bilateral osteoarthritis in the hips.
3. Diffuse osteoporosis.
4. New superior endplate fractures of L4 and L5.
5. 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
6. Severe diverticulosis in the sigmoid colon.
7. Multiple calcified uterine leiomyoma.
Shoulder x-ray
1. ACUTE IMPACTED FRACTURE of the RIGHT HUMERAL NECK.
2. Severe osteoporosis.
3. 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
4. Complete collapse of a midthoracic vertebral body which is likely an osteoporotic insufficiency fracture.
#Right femoral neck fracture secondary to mechanical trauma and osteoporosis. Additional imaging with no evidence of pathologic fracture
-admted IP level of care
-will require 48 hour wash-out of Eliquis prior to surgical intervention, as per ED provider discussion with Orthopedics
-Hold Eliquis, ok for diet during washout
-Orthopedic input appreciated. Tentatively for right hip hemiarthroplasty on 05/10.
Acute impacted fracture of the right humeral neck secondary to mechanical fall and osteoporosis
Continue nonweightbearing
Continue sling
Chronic medical conditions:
Atrial Fibrillation, permanent - hold Eliquis
Essential Hypertension
Continue losartan
Hyperlipidemia
-hold aspirin for now
-cont statin
Metastatic Breast Cancer with known Brain Mets and prior seizure- stable MRI findings since Nov and March 2025
-Cont Anastrozole
-MRI brain 03/14/25: There is a plaque-like area of enhancing intermediate T1-weighted signal involving the right frontal calvarium, extending to the posterior base of the frontal sinuses. This appears stable from most recent examination of November
2024, most likely scarring/fibrosis, although a component of residual neoplasm is possible. The appearance is stable, with no evidence for a new area of enhancement by MRI.
CT scan of the hip with findings of sclerotic intramedullary lesions of the L5 vertebral body and left iliac bone which are most likely blastic osseous metastasis
-Cont Dexamethasone
-Keppra
CKD stage IIIB, stable
Monitor renal function while on losartan. Avoid hypotension.
Depression/Anxiety
-Ariprazole
Hypothyroidism on replacement
# Medical clearance: The patient's chronic medical conditions are stable at this time, and the patient is medically optimized to proceed with surgical intervention for surgical femoral neck fracture, following Eliquis wash-out. Will obtain EKG as
part of the pre-op work-up.
DVT proph-SCDs
Full Code
Anticipated Discharge: > 48 hours
Subjective/Interval History
-
Date of Service: May 09, 2025
Objective Data
-
Vital Signs:
Vital Signs
Temp Pulse Resp BP Pulse Ox
97.6 F 99 14 137/87 93
05/08/25 23:00 05/08/25 23:00 05/08/25 23:00 05/08/25 23:00 05/08/25 23:00
Physical Exam
-
General: Well Developed and No Apparent Distress
HEENT: Normocephalic, Atraumatic and Moist Mucous Membranes
Respiratory: Clear to Auscultation
Cardiac: Regular Rhythm and S1/S2; Negative Murmur, Rub or Gallop
GI: Soft, Nontender, Nondistended and Normal Bowel Sounds; Negative Organomegaly
Rectal: Deferred by Provider
Musculoskeletal: No Clubbing, No Cyanosis and No Edema
Skin: Negative Rash
Neuro: Nonfocal/Grossly Intact
[2025-05-09 13:21] LABS: Urine Character Clear (Clear)
[2025-05-09 15:10] LABS: Urine Squamous Cell 21-25 /LPF (Few)
[2025-05-09 15:11] LABS: Urine Urothelial Cell >30 /LPF (FEW)
[2025-05-09 15:13] LABS: Urine White Cell >100 /HPF (0-5)
--- NOTE | 2025-05-09 18:14 | PTCARENOTE ---
Pt received to 2S in bed. RUE maintained in sling. Assessment completed. Pt denies pain at this time. RUE and RLE with decreased movement, neurovascular assessment otherwise WDL. Pt educated on diet and call eric use, verbalized understanding. Bed
locked and in the lowest position, safety maintained.
[2025-05-09 18:16] VITALS: BP 129/81
[2025-05-09 19:30] VITALS: BP 138/67
[2025-05-09] MEDS: COLACE PO (19:45)
[2025-05-09] MEDS: SENOKOT PO (19:45)
[2025-05-09 23:06] VITALS: BP 132/69
[2025-05-10] VITALS (7 sets, daily range): BP systolic 76–151; BP diastolic 52–96; BMI 29.5
[2025-05-10] MEDS: TYLENOL PO ×2 (03:03→17:22)
[2025-05-10] MEDS: SYNTHROID 50 MCG PO (05:12)
[2025-05-10 06:55] LABS: Hematocrit 36.2 % (37.0-47.0); Hemoglobin 11.5 g/dL (12.0-16.0); Mean Corp Hgb Conc. 31.8 g/dL (33.0-37.0); Mean Corpuscular Volume 79.2 fL (81.0-99.0); Nucleated Red Blood Cells % 0 %; Platelet Count 312 10^3/uL (130-400); Red Cell Dist. Width 16.3 % (11.5-14.5)
[2025-05-10 07:13] LABS: Blood Urea Nitrogen 23 mg/dl (7-17); Calcium 9.6 mg/dl (8.4-10.2); Carbon Dioxide 26 mmol/L (22-30); Chloride 105 mmol/L (98-107); Estimated Creatinine Clearance 44 ml/min; Glucose 167 mg/dl (70-99); Potassium 4.6 mmol/L (3.5-5.1); Sodium 136 mmol/L (135-145); eGFR > 60.00
[2025-05-10] MEDS: ZOLOFT 100 MG PO (09:00)
[2025-05-10] MEDS: TYLENOL 650 MG PO ×2 (09:00→13:06)
[2025-05-10] MEDS: KEPPRA 750 MG PO (09:00)
[2025-05-10] MEDS: PROTONIX 40 MG PO (09:00)
[2025-05-10] MEDS: ARIMIDEX 1 MG PO (09:00)
[2025-05-10] MEDS: LIPITOR 20 MG PO (09:01)
[2025-05-10] MEDS: TOPROL XL 50 MG PO (09:01)
[2025-05-10] MEDS: ABILIFY 10 MG PO (09:01)
[2025-05-10] MEDS: COZAAR 50 MG PO (09:01)
[2025-05-10] MEDS: DECADRON 6 MG PO (09:01)
[2025-05-10] MEDS: SENOKOT PO (09:06)
[2025-05-10] MEDS: COLACE PO (09:06)
--- NOTE | 2025-05-10 09:33 | W.PN.HOSP.TC ---
Today's Communication/Plan
-
post op orders per ortho
eliquis on hold-restart per ortho
post op trend hgb
Monitor BP post op
Assessment / Plan
Assessment / Plan
IMPRESSION/plan
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
atrial fibrillation on Eliquis, who presented to the emergency department secondary to inability to ambulate or stand due to pain in the right hip area for the past 2 weeks. Of note 2 weeks ago she caught her toe on a rug and she had a mechanical
fall, with resultant right shoulder injury for which she went to rehab. She is unaware if she had x-rays of her hip at that time. Today when she went to physical therapy and she was unable to stand or walk secondary to pain. She had an x-ray at
that time that showed a right femoral neck fracture. Otherwise she has had no further mechanical falls. She has pain with right hip movement.
ED txt:
Morphine 2 mg IV x 1
CT scan of the right lower extremity
1. ACUTE IMPACTED SUBCAPITAL FRACTURE of the RIGHT FEMORAL NECK.
2. Minimal bilateral osteoarthritis in the hips.
3. Diffuse osteoporosis.
4. New superior endplate fractures of L4 and L5.
5. 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
6. Severe diverticulosis in the sigmoid colon.
7. Multiple calcified uterine leiomyoma.
Shoulder x-ray
1. ACUTE IMPACTED FRACTURE of the RIGHT HUMERAL NECK.
2. Severe osteoporosis.
3. 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
4. Complete collapse of a midthoracic vertebral body which is likely an osteoporotic insufficiency fracture.
#Right femoral neck fracture secondary to mechanical trauma and osteoporosis. Additional imaging with no evidence of pathologic fracture
-Hold Eliquis, ok for diet during washout
-Orthopedic input appreciated. Tentatively for right hip hemiarthroplasty today
-post op orders per ortho.
Acute impacted fracture of the right humeral neck secondary to mechanical fall and osteoporosis
Continue nonweightbearing
Continue sling
Ortho recs
Chronic medical conditions:
Atrial Fibrillation, permanent - hold Eliquis
Essential Hypertension
Continue losartan
Hyperlipidemia
-hold aspirin for now
-cont statin
Metastatic Breast Cancer with known Brain Mets and prior seizure- stable MRI findings since Nov and March 2025
-Cont Anastrozole
-MRI brain 03/14/25: There is a plaque-like area of enhancing intermediate T1-weighted signal involving the right frontal calvarium, extending to the posterior base of the frontal sinuses. This appears stable from most recent examination of November
2024, most likely scarring/fibrosis, although a component of residual neoplasm is possible. The appearance is stable, with no evidence for a new area of enhancement by MRI.
CT scan of the hip with findings of sclerotic intramedullary lesions of the L5 vertebral body and left iliac bone which are most likely blastic osseous metastasis
-Cont Dexamethasone on high dose- 6mg TID
-Cont Keppra 1000mg BID
CKD stage IIIB, stable
Monitor renal function while on losartan. Avoid hypotension.
Depression/Anxiety
-Ariprazole
Hypothyroidism on replacement
DVT proph-SCDs
Full Code
Anticipated Discharge: > 48 hours
Subjective/Interval History
-
Date of Service: May 10, 2025
states of mild R hip pain
Objective Data
-
Labs:
Laboratory Results
05/10/25
06:15
WBC 5.4
Hgb 11.5 L
Hct 36.2 L
Plt Count 312
Sodium 136
Potassium 4.6
Chloride 105
Carbon Dioxide 26
BUN 23 H
Creatinine 0.9
Glucose 167 H
Calcium 9.6
Vital Signs:
Vital Signs
Temp Pulse Resp BP Pulse Ox
97.6 F 79 18 151/68 96
05/10/25 07:15 05/10/25 07:15 05/10/25 07:15 05/10/25 07:15 05/10/25 07:15
Physical Exam
-
General: Well Developed and No Apparent Distress
HEENT: Normocephalic, Atraumatic and Moist Mucous Membranes
Respiratory: Clear to Auscultation
Cardiac: Regular Rhythm and S1/S2; Negative Murmur, Rub or Gallop
GI: Soft, Nontender, Nondistended and Normal Bowel Sounds; Negative Organomegaly
Rectal: Deferred by Provider
Musculoskeletal: No Clubbing, No Cyanosis, No Edema and Other (RUE in sling )
Skin: Negative Rash
Neuro: Awake and Nonfocal/Grossly Intact
Psych: Calm
Data Reviewed
-
Total Time Spent with Patient (in minutes): 55
[2025-05-10] MEDS: ROCEPHIN 1000 MG IV (13:05)
[2025-05-10] MEDS: STERILE WATER FOR INJECTION 10 ML IV (13:06)
--- NOTE | 2025-05-10 13:55 | CM ---
CM following rte: discharge planning.
Reviewed pt's chart, met with pt. Pt's , son and daughter at baseline. Pt stated she lost one son, emotional support offered and provided.
Both pt and her family are aware that pt is to OR today for right hip hemiarthroplasty.
Per daughter pt was at [facility] and was placed to [facility] for a short term rehab where she was for 2 weeks. Pt is admitted to from [facility] and both pt and her family requested pt returns back to [facility] for a short term rehab when medically
stable. Pt's daughter stated they did not pay for bed hold.
CM left a message to [facility] proposal coordinator regarding possibility for pt returning back to continue on skilled services.
PT and OT will evaluate the pt after surgery.
D/C plan: [facility] for a short term rehab. Referral made.
CM will follow with discharge plan updates as hospitalization progresses
--- NOTE | 2025-05-10 17:08 | CON.INTV ---
Consultation
Consultation Request
Date/Time Consultation Requested: 05/10
Date/Time Consultation Performed: 05/10
Reason for Consultation: Critical care
Medical History
-
History of Present Illness:
History obtained from the chart and reviewing history from daughter and , as patient is currently intubated and sedated. Patient is an 84-year-old female with history of hypertension, hypothyroidism, recently diagnosed metastatic breast
cancer with metastases to the brain status post radiation therapy January 2024, complicated by seizures. She follows radiation oncology locally and oncology locally. She was told recently that the lesion in the brain has shrunk. She is on chronic
hormone therapy otherwise. She fell about 2 weeks ago, tripped over the rug. She injured her right shoulder for which she underwent rehabilitation. She was unaware of workup. She continued to go to physical therapy but was unable to stand due to
pain, films confirmed right femoral neck fracture. Per family, she has history of multiple falls in the past but none for the past year. She does have chronic intermittent shortness of breath and chest pain. She also has chronic dysphagia. There
is no preadmission history of fevers, diarrhea, blood in urine or stool. She underwent right hip hemiarthroplasty. During cement injection, patient had asystole requiring CPR, epinephrine with ROSC. Orthopedic procedure was completed and patient
was brought to the ICU for further management
Presently, heart rate in the 150s, systolic pressure 90s to 100s, saturation 93% on volume cycle ventilation
Patient does squeeze hand, opens eyes, wiggles left side toes. Still awakening from anesthesia and still hypothermic from procedure
.
PMH: History of atrial fibrillation, metastatic breast cancer with known brain metastases status post surgery and radiation therapy 2023, hypertension, hypercholesterolemia, hypothyroidism, chronic kidney disease stage IIIb, history of brain tumor
surgery 2023, radiation therapy January 2024
Past Medical History
Past Medical History: None (See above)
Past Surgical History: None (See above)
Social History
Tobacco: Former Smoker
Alcohol: None
Drug: None
Personal:
Living: With Family (Lives with )
Employment: Not Employed
Family History
Family History: Unable to Obtain
Allergies / Home Medications
Allergies
Allergy/AdvReac Type Severity Reaction Status Date / Time
No Known Allergies Allergy Verified 07/07/24 08:34
Home Medications
�Medication �Instructions �Recorded �Confirmed �Last Taken �Type
aripiprazole 10 mg tablet 10 mg PO DAILY Mental 01/25/24 05/08/25 07/07/24 08:00 History
Health/Anxiety
aspirin 81 mg tablet,delayed 81 mg PO DAILY Blood Clot 01/25/24 05/08/25 07/07/24 08:00 History
release Prevention/Tx
atorvastatin 20 mg tablet 20 mg PO DAILY High Cholesterol 01/25/24 05/08/25 07/07/24 08:00 History
levothyroxine 50 mcg tablet 50 mcg PO DAILY Thyroid 01/25/24 05/08/25 07/07/24 08:00 History
sertraline 100 mg tablet 100 mg PO DAILY Mental 01/25/24 05/08/25 07/07/24 08:00 History
Health/Anxiety
therapeutic multivitamin 1 tab PO DAILYPRN PRN supplement 01/25/24 05/08/25 Unknown History
anastrozole 1 mg tablet 1 mg PO DAILY Antineoplastic 06/04/24 05/08/25 07/07/24 08:00 History
Agent, Sarahi
apixaban 5 mg tablet (Eliquis) 5 mg PO BID Blood Clot 06/04/24 05/08/25 07/07/24 08:00 History
Prevention/Tx
losartan 25 mg tablet 25 mg PO DAILY Blood Pressure 06/04/24 05/08/25 06/04/24 History
losartan 50 mg tablet 50 mg PO DAILY Blood Pressure 06/04/24 05/08/25 07/07/24 08:00 History
metoprolol succinate 50 mg 50 mg PO DAILY Blood Pressure 06/04/24 05/08/25 07/07/24 08:00 History
tablet,extended release 24 hr
levetiracetam 500 mg tablet 1,000 mg (2 x 500 mg) PO BID #120 06/07/24 05/08/25 07/07/24 08:00 Rx
tabs
pantoprazole 40 mg tablet,delayed 40 mg PO DAILY #30 tabs 06/07/24 05/08/25 07/07/24 08:00 Rx
release
dexamethasone 2 mg tablet 6 mg (3 x 2 mg) PO TID 2 weeks 07/07/24 05/08/25 Unknown Rx
#126 tabs
tramadol 50 mg tablet 25 mg (1/2 x 50 mg) PO BID PRN 07/07/24 05/08/25 Unknown Rx
pain #10 tabs
doxycycline monohydrate 100 mg 100 mg PO BID 7 days #14 caps 07/10/24 05/08/25 Unknown Rx
capsule
Review of Systems
-
Unable to Obtain full review of systems at this time due to: Patient Intubation
History Source: Family
All other systems: Negative unless noted
Vitals / Labs / Diagnostic Testing
Vital Signs
Temp Pulse Resp BP Pulse Ox
97.4 F 83 18 149/68 98
05/10/25 11:10 05/10/25 11:10 05/10/25 11:10 05/10/25 11:10 05/10/25 11:10
Lab Data
05/10/25 06:15
05/10/25 06:15
Microbiology
05/09/25 13:03 Urine Urine Culture - Preliminary
Gram negative bacilli
Diagnostic Testing:
Physical Exam
-
HEENT: Normocephalic, Anicteric, Other (Pupils reactive) and Other (Upper extremity A-line)
Cardiovascular: S1/S2, Irregular Rhythm (Tachycardic), Murmur (n), Rub (n) and Peripheral Edema (n)
Respiratory: Wheeze (n), Rales (n), Rhonchi (n), Non-Labored Respirations, Other (ET tube) and Other (No crepitus)
GI: Soft and Non Distended
Neurology: Other (Sedated but eyes open, does follow commands)
Skin: Good Color
General: Comfortable
Assessment
-
84-year-old female with metastatic breast cancer with brain metastases status post brain irradiation January 2024 on chronic hormone therapy, chronic Eliquis therapy for atrial fibrillation, presents 2 weeks after recent fall, found to have right
femoral neck fracture, underwent a right hip hemiarthroplasty 05/10/2025 complicated by cardiac arrest/asystole requiring epinephrine, CPR with ROSC, admitted to ICU
S/p cardiac arrest
CPR, epi, ROSC in OR
Occurred during cement injection
s/p rt hip hemiarthroplasty, 05/10/2025
Remains intubated
Recent fall 2 weeks prior to admission
Right shoulder injury
Right femoral neck fracture, displaced
Identified 2 weeks later, due to progressive pain, difficulty with walking/ambulating
Sedentary for at least 2 weeks
According to , sedentary prior, walks with a walker
Afib with RVR
Hypotension requiring pressors, postcardiac arrest
On epinephrine, norepinephrine
Conditions present prior to admission
Breast cancer with brain metastases diagnosed December 2023
Complicated by seizure on antiseizure therapy
Status post brain irradiation (Filippo/Funez)
Chronic hormone therapy
Hypertension/hyperlipidemia
Hypothyroidism
Chronic kidney disease stage IIIb
History of atrial fibrillation on Eliquis
History of stroke around 2016
History of dementia
DNR per daughter (not currently)
Plan/recommendations
At this time, patient remains critically ill
Remains on volume cycle ventilation, postprocedure, came from the OR
Still waking up from anesthesia, hypothermic although is opening eyes, following commands, squeezes hand and wiggles left toe
Right hip incision dressed, immobilized
Moving forward
Possibly secondary to cement injection, however patient is high risk for thromboembolic disease
Active breast cancer, status post radiation, on hormone therapy, sedentary, not very active according to with recent fall 2 weeks ago, less mobile over the last 2 weeks
IVF bolus, and maintenance
Fentanyl for light sedation, transition to drip as needed, pain control
Check labs, check chest x-ray
EKG consistent with atrial fibrillation with rapid ventricular response
Patient with history of atrial fibrillation on outpatient aspirin, Eliquis
Echevarria catheter
Obtain echocardiogram in a.m.
Patient on steroids as outpatient, could not confirm
Presently on Decadron, this will continue
Patient on antibiotics per primary service, orthopedic surgery.
GI prophylaxis: On Protonix
DVT prophylaxis: Would like to resume anticoagulation when able per orthopedic recommendations
Reviewed with critical care nursing, multiple family members, orthopedic surgery
Reviewed with family high risk situation, risk for deterioration from cardiac standpoint, respiratory standpoint
Remains full code for now
All questions answered
TCCT 50 min
[2025-05-10 17:13] LABS: Glucose - Point of Care 262 mg/dl (70-99)
[2025-05-10] MEDS: NSS 1000 IV ×2 (17:25→18:10)
--- NOTE | 2025-05-10 17:40 | OR.RPT ---
Operative Report
Operative Report
Date
May 10, 2025
Anesthesia Type:
General
Operative Indications:
Right femoral neck fracture
Operative Findings :
Same
Complications:
Intraoperative code
Implants:
Yessenia Heritage size 47 bipolar shell, size 15 stem, 28+7.5 head
Procedure and Technique:
Cemented right hip hemiarthroplasty
INDICATIONS FOR PROCEDURE:
84-year-old female multiple medical comorbidities including metastatic breast cancer presented several weeks after a fall with complaints of persistent right hip pain inability to bear weight. She was ultimately diagnosed with a impacted somewhat
displaced right femoral neck fracture. Had a long detailed discussion with both the patient as well as her daughter regarding diagnosis and treatment options. We discussed postsurgical nonsurgical options. After discussion mutually to proceed
with right hip cemented Jose arthroplasty. Discussed risks benefits and alternatives to surgery. Discussed the usual expected perioperative postoperative course. No guarantees were given. After discussion verbal and written informed consent was
obtained
OPERATIVE PROCEDURE:
Patient was seen and identified in the preoperative holding area. Operative extremity was marked. Patient was taken to the operating room and anesthesia was administered by the anesthesia providers. Patient was then placed in a lateral decubitus
position with the use of a oglesby bag. All bony prominences were well-padded. Operative extremity was then prepped and draped in normal sterile fashion. Timeout was performed again identifying the correct operative extremity. Preoperative
antibiotics were addressed. Standard posterior approach to the hip was taken. Sharp dissection was carried through skin and subcutaneous tissues and deep fascial layer. Hemostasis was achieved with electrocautery. Hip was then placed on slight
internal rotation to place the external rotators on stretch. Piriformis was identified and a Cobra retractor was then placed under the gluteus medius and minimus. Piriformis and short external rotators were taken down and tagged. A T capsulotomy
was then performed and capsular leaflets were also tagged. The fracture was identified and a freshen up cut was performed. The femoral head was then removed and sized. Appropriately sized ball on a stick was then placed into the acetabulum and
felt to have appropriate suction fit. Attention was then turned to the proximal femur where soft tissue remnants were removed from the piriformis fossa. Remnant neck was removed with the use of a cookie cutter. Canal finder was then placed in
addition to lateralizing reamer. Stepwise broaching was then performed to the appropriate size. Implants were then trialed and found to have appropriate stability in deep flexion, internal rotation, shuck and adduction. Implants were then removed
and canal was copiously irrigated normal saline solution. Cement restrictor was then placed. Pressurized cement was then placed into the femoral canal and appropriately sized femoral stem was then placed in the appropriate version. After cement
had hardened, final implants were then placed and the hip was again taken through range of motion and found to be quite stable. Unfortunately after final implants were in and found to be stable, patient's blood pressure did drop substantially.
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 Multiple sponges were placed in the wound and wound was covered with Ioban. Patient was flipped supine on the OR table and chest compressions were initiated. After code was performed,
patient did stabilize and discussion was had with anesthesia regarding how to best proceed. Given her stabilization, decision was made to reprep the extremity and close the wound. Flatplate radiograph was obtained to confirm reduction of the hip.
Operative extremity was then prepped and draped again in sterile fashion. Wound was prepped with Betadine solution. Capsule and short external rotators were then secured through bone tunnels in the greater trochanter. Wound was closed in layered
fashion utilizing #1 strata fix for deep fascial layer 0 Vicryl 2-0 Vicryl for fat layer and subcutaneous layer adeline for skin. Sterile dressing consisting of Aquacel was then applied. Patient remained intubated and was taken to the ICU..
Postoperative plans will include weightbearing to the patient's tolerance in the operative extremity. Posterior hip precautions will be advised. Recommend DVT prophylaxis consisting of renally dosed Lovenox daily for 28 days unless patient is
already on baseline anticoagulation. Will plan to see patient back in 2 weeks for postoperative evaluation with planned removal of adeline.
Disposition:
PACU, stable condition
[2025-05-10 17:49] LABS: B.E. -8.9 mmol/L; O2 Saturation % 99.8 % (94-98); PCO2 28 mmHg (32-35); PO2 310 mmHg (83-108)
[2025-05-10 17:53] LABS: HCO3 15.5 mmol/L (21-28)
[2025-05-10 17:58] LABS: Hematocrit 30.2 % (37.0-47.0); Hemoglobin 9.7 g/dL (12.0-16.0); Mean Corp Hgb Conc. 32.1 g/dL (33.0-37.0); Mean Corpuscular Volume 78.6 fL (81.0-99.0); Nucleated Red Blood Cells % 0 %; Platelet Count 377 10^3/uL (130-400); Red Cell Dist. Width 16.4 % (11.5-14.5)
[2025-05-10] MEDS: PITRESSIN 100 IV (18:00)
--- NOTE | 2025-05-10 18:00 | PTCARENOTE ---
Received pt from OR direct back to ICU into rm 3370 @ approx 1700. Pt. drowsy but opens eyes spontaneously/tracks; follows simple commands/nods head yes/no approp. PERRLA; pupils 3mm/brisk. Generalized weakness. R arm sling in place for fx; no
plan for intervention per OR. L soft limb restraint applied- see flow sheet. Uncontrolled afib on monitor; rate improved s/p epi gtt off- see flow sheet. Hypotensive- levo gtt titrated to keep above goal MAP and vaso gtt added- see MAR/ flow
sheets. Doppler DP/PT. Trace R hip edema. SpO2 100% on vent settings AC16/500/.40/+5; #7.0 ett/22 @ lip on R side; scant/clear secretions from ett; auscultated coarse breath sounds anteriorly. Hypoactive BS, abd soft/round/obese; NPO status.
Thermistor irene placed per orders- draining yellow urine. R hip surg dressing c/d/i. Core temp reading low- akil hugger applied per orders- see flow sheet. #18 L AC w IVF/levo/vaso gtts- see flow sheet. #20 R hand and #22 L hand patent, dressing
c/d/i; further orders received for PICC placement; awaiting VAT to bedside. R rad A-line transduced, calibrated, and monitored; all ports patent and secured. Post op blood work drawn and sent to lab; critical results relayed to Dr. Gary.
Family to bedside, updated. Safe environment maintained.
[2025-05-10 18:04] LABS: APTT 26.5 Sec (23.4-35.0); INR 1.36; PT 17.3 Sec (11.4-14.6)
[2025-05-10] MEDS: DECADRON PO (18:09)
[2025-05-10] MEDS: NOVOLOG FLEXPEN-MODERATE RESISTANCE 5 UNITS SC (18:10)
[2025-05-10 18:11] LABS: ALT (SGPT) 22 U/L (0-35); AST (SGOT) 26 U/L (14-36); Albumin 2.9 g/dl (3.5-5.0); Alkaline Phosphatase 121 U/L (38-126); Blood Urea Nitrogen 21 mg/dl (7-17); Calcium 8.4 mg/dl (8.4-10.2); Carbon Dioxide 14 mmol/L (22-30); Chloride 106 mmol/L (98-107); Estimated Creatinine Clearance 49 ml/min; Glucose 383 mg/dl (70-99); Magnesium 2.0 mg/dl (1.6-2.3); Potassium 4.4 mmol/L (3.5-5.1); Sodium 132 mmol/L (135-145); Total Protein 5.3 g/dl (6.3-8.2); eGFR > 60.00
[2025-05-10 18:23] LABS: Troponin I 0.044 ng/ml
[2025-05-10] MEDS: SUBLIMAZE 50 MCG IV ×4 (19:18→22:22)
--- NOTE | 2025-05-10 20:02 | PTCARENOTE ---
Received pt from previous RN. Pt opens eye to verbal stimuli, pt squeezes my hands and wiggles her toes, drowsy @ times. Neurovascular checks per protocol (see worklist). Kenrick thompson on pt, goal temp reached at 1999. Left arm in restraints (see
worklist and order). Afib on the monitor, MAP >65, doppler pulses, trace right hip edema. ETT #7 22 at the lip, AC 16/500/40%/5, O2 sat 100%. Echevarria in place, temp sensing. Received pt on levo 10 mcgs, vaso 0.03 units, NS infusing @ 100 ml/hr. B/l
foot pumps in place. Safe environment maintained.
[2025-05-10] MEDS: KEPPRA 750 MG IV (20:15)
[2025-05-10] MEDS: LOVENOX 80 MG SC (20:17)
[2025-05-10] MEDS: LEVOPHED 250 IV (20:55)
--- NOTE | 2025-05-10 21:06 | VATNOTE ---
L brachial PICC placed for vesicant meds, incompatible meds, and limited venous access. Per CXR report PICC tip is CAJ, primary RN notified OK to use and asked to remove PIV's in left arm as well as change IV tubing prior to use.
[2025-05-10] MEDS: SUBLIMAZE 100 IV (21:52)
[2025-05-10] MEDS: PRECEDEX 100 IV (22:23)
[2025-05-10 22:28] LABS: B.E. -12.2 mmol/L; O2 Saturation % 99.2 % (94-98); PCO2 28 mmHg (32-35); PO2 169 mmHg (83-108)
[2025-05-10] MEDS: CORDARONE 103 MG IV (22:28)
[2025-05-10 22:30] LABS: HCO3 13.2 mmol/L (21-28); Hematocrit 29.2 % (37.0-47.0); Hemoglobin 9.7 g/dL (12.0-16.0); Mean Corp Hgb Conc. 33.2 g/dL (33.0-37.0); Mean Corpuscular Volume 77.9 fL (81.0-99.0); Platelet Count 370 10^3/uL (130-400); Red Cell Dist. Width 16.3 % (11.5-14.5)
[2025-05-10] MEDS: CORDARONE 518 MG IV (22:41)
[2025-05-10 22:48] LABS: Blood Urea Nitrogen 25 mg/dl (7-17); Calcium 8.4 mg/dl (8.4-10.2); Carbon Dioxide 11 mmol/L (22-30); Chloride 109 mmol/L (98-107); Estimated Creatinine Clearance 39 ml/min; Glucose 269 mg/dl (70-99); Potassium 4.1 mmol/L (3.5-5.1); Sodium 134 mmol/L (135-145); eGFR 54.87
[2025-05-10] MEDS: SODIUM BICARBONATE 50 MEQ IV (22:56)
--- NOTE | 2025-05-10 23:20 | W.PN.UPDATE ---
Update Note
Progress Note Update
05/10/2025
2200- Patient had heart rate 160-170s sustained rapid Afib. Hypotensive currently on vasopressors. Initiated amio bolus 150 and amiodarone gtt. Labs ordered CBC, BMP, ABG to check hgb and electrolytes.
[2025-05-10] MEDS: SODIUM BICARBONATE 1150 MEQ IV (23:59)
[2025-05-11] MEDS: ANCEF 10 IV ×2 (00:02→07:32)
--- NOTE | 2025-05-11 00:11 | PTCARENOTE ---
Pt HR 180, pt trying to sit up in bed, restless. Fent bolus and gtt started (see MAR). Precedex gtt started (see worklist and MAR). Labs provided, Sodium bicarb push given (see MAR). Amio bolus and gtt started for HR in the 180s. Levo gtt titrated
per protocol (see worklist). Vent settings changed from ABG results AC 14/450/35%/5. Vaso off per ICU RACING CAR DRIVER at bedside. Left arm peripheral IV sites intact, ICU RACING CAR DRIVER states they can be used, Bicarb gtt infusing through left AC @ 125 ml/hr.
[2025-05-11 00:47] LABS: Glucose - Point of Care 278 mg/dl (70-99)
[2025-05-11] MEDS: NOVOLOG FLEXPEN-MODERATE RESISTANCE 5 UNITS SC (00:53)
--- NOTE | 2025-05-11 00:58 | PTCARENOTE ---
Systems reviewed, no new changes in assessment. Gtts maintained (see worklist). Labs provided. CHG bath and mouth care provided. Safe environment maintained.
[2025-05-11 01:00] LABS: B.E. -6.0 mmol/L; HCO3 17.5 mmol/L (21-28); O2 Saturation % 99.3 % (94-98); PCO2 27 mmHg (32-35); PO2 151 mmHg (83-108)
[2025-05-11 01:24] VITALS: BMI 30.1
[2025-05-11 01:39] LABS: Troponin I 0.167 ng/ml
[2025-05-11] MEDS: LEVOPHED 250 IV ×4 (02:27→20:08)
--- NOTE | 2025-05-11 02:58 | PTCARENOTE ---
Pt with decreased urine output, ICU WOOD PILER notified. 1L LR bolus ordered.
[2025-05-11] MEDS: LR 1000 IV ×3 (03:08→22:29)
[2025-05-11 03:24] VITALS: BMI 30.1
--- NOTE | 2025-05-11 03:26 | PTCARENOTE ---
12 beat run of vtach, then pt broke back into afib. ICU OVERHEAD CRANE INSPECTOR notified. AM labs provided.
[2025-05-11 03:40] LABS: Hematocrit 24.3 % (37.0-47.0); Hemoglobin 8.4 g/dL (12.0-16.0); Mean Corp Hgb Conc. 34.6 g/dL (33.0-37.0); Mean Corpuscular Volume 76.7 fL (81.0-99.0); Platelet Count 283 10^3/uL (130-400); Red Cell Dist. Width 16.2 % (11.5-14.5)
[2025-05-11 03:56] LABS: Blood Urea Nitrogen 28 mg/dl (7-17); Calcium 8.1 mg/dl (8.4-10.2); Carbon Dioxide 19 mmol/L (22-30); Chloride 105 mmol/L (98-107); Estimated Creatinine Clearance 44 ml/min; Glucose 221 mg/dl (70-99); Magnesium 1.7 mg/dl (1.6-2.3); Potassium 3.8 mmol/L (3.5-5.1); Sodium 132 mmol/L (135-145); eGFR > 60.00
[2025-05-11 04:35] LABS: B.E. -1.4 mmol/L; HCO3 21.6 mmol/L (21-28); O2 Saturation % 99.7 % (94-98); PCO2 29 mmHg (32-35); PO2 176 mmHg (83-108)
[2025-05-11 04:37] LABS: Hematocrit 24.1 % (37.0-47.0); Hemoglobin 8.1 g/dL (12.0-16.0); Mean Corp Hgb Conc. 33.6 g/dL (33.0-37.0); Mean Corpuscular Volume 75.8 fL (81.0-99.0); Platelet Count 252 10^3/uL (130-400); Red Cell Dist. Width 16.4 % (11.5-14.5)
[2025-05-11 05:28] LABS: Glucose - Point of Care 213 mg/dl (70-99)
[2025-05-11] MEDS: NOVOLOG FLEXPEN-MODERATE RESISTANCE 3 UNITS SC ×2 (05:30→18:02)
[2025-05-11] MEDS: KCL 260 MEQ IV (05:51)
[2025-05-11] MEDS: MAGNESIUM SULFATE 102 GRAMS IV (05:55)
[2025-05-11] MEDS: KEPPRA 750 MG IV ×2 (07:32→19:59)
[2025-05-11] MEDS: NSS (PRESERVATIVE FREE) 10 ML IV (07:33)
[2025-05-11] MEDS: PROTONIX IV 40 MG IV (07:33)
[2025-05-11] MEDS: LOVENOX 80 MG SC ×2 (07:33→20:00)
[2025-05-11] MEDS: MIRALAX TUBE (07:34)
--- NOTE | 2025-05-11 07:53 | W.PN.INTV ---
Today's Communication / Plan
Recommendations
SBT, hold for extubation
Continue full dose Lovenox, eventual transition to Eliquis
Foot pumps
Replete electrolytes
Wean pressors as able
Echocardiogram pending
Amiodarone continues. Defer need for cardiology evaluation to primary service
Change fluids from bicarbonate to LR, bolus as needed depending on echo and clinical course
Assessment
-
84-year-old female with metastatic breast cancer with brain metastases status post brain irradiation January 2024 on chronic hormone therapy, chronic Eliquis therapy for atrial fibrillation, presents 2 weeks after recent fall, found to have right
femoral neck fracture, underwent a right hip hemiarthroplasty 05/10/2025 complicated by cardiac arrest/asystole requiring epinephrine, CPR with ROSC, admitted to ICU
S/p cardiac arrest
CPR, epi, ROSC in OR
Occurred during cement injection
s/p rt hip hemiarthroplasty, 05/10/2025
Remains intubated
Recent fall 2 weeks prior to admission
Right shoulder injury
Right femoral neck fracture, displaced
Identified 2 weeks later, due to progressive pain, difficulty with walking/ambulating
Sedentary for at least 2 weeks
According to , sedentary prior, walks with a walker
Afib with RVR
Required amiodarone overnight
Hypotension requiring pressors, postcardiac arrest
On norepinephrine
Conditions present prior to admission
Breast cancer with brain metastases diagnosed December 2023
Complicated by seizure on antiseizure therapy
Status post brain irradiation (Filippo/Funez)
Chronic hormone therapy
Hypertension/hyperlipidemia
Hypothyroidism
Chronic kidney disease stage IIIb
History of atrial fibrillation on Eliquis
History of stroke around 2016
History of dementia
DNR per daughter (not currently)
Plan/recommendations
At this time, patient remains critically ill, remains on norepinephrine, intubated
Amiodarone started overnight for rapid ventricular response with atrial fibrillation
ABG reviewed
Received potassium, magnesium earlier today
Continues with bicarbonate drip
Moving forward
Possibly secondary to cement injection, however patient is high risk for thromboembolic disease
Active breast cancer, status post radiation, on hormone therapy, sedentary, not very active according to with recent fall 2 weeks ago, less mobile over the last 2 weeks
Moved towards SBT, CPAP trial, hold for extubation
EKG consistent with atrial fibrillation with rapid ventricular response
Patient with history of atrial fibrillation on outpatient aspirin, Eliquis
Now on amiodarone
Echocardiogram pending
Eliquis was held for 48 hours preprocedure
Hyperglycemia noted
Patient on steroids as outpatient, could not confirm
Presently on Decadron, this will continue for now
Patient on antibiotics per primary service, orthopedic surgery.
Adjust antibiotics given abnormal urine culture
GI prophylaxis: On Protonix
DVT prophylaxis: Empirically placed on Lovenox full dose. Eventual transition to Eliquis
Reviewed with critical care nursing, respiratory care, pharmacy
Reviewed with primary service
TCCT 41 min
Subjective Dataa
Subjective Data
Date of Service:
Date of Service: May 11, 2025
Subjective:
Patient remains critically ill, required amiodarone overnight for A-fib with rapid ventricular response. Lactate elevated 4.1. Hyperglycemia noted. Hemoglobin 8.1. Currently on norepinephrine, required vasopressin as well at 1 point
Objective Data
Data Reviewed
Vital Signs / I&O / Oxygen:
Vital Signs
Temp Pulse Resp BP Pulse Ox
98.8 F 58 14 121/96 100
05/11/25 07:34 05/11/25 07:05 05/11/25 07:05 05/10/25 19:00 05/11/25 07:05
Intake and Output
05/10/25 05/11/25 05/12/25
06:59 06:59 06:59
Intake Total 4660.1 / 4660.1
Output Total 360 / 360
Balance 4300.1 / 4300.1
SaO2 [A/C] 100
SaO2 100
Physical Exam
General: Comfortable
HEENT: Normocephalic, Anicteric and Other (Upper extremity PICC line)
Cardiovascular: S1-S2, Irregular Rhythm, Murmur (n) and Rub (n)
Respiratory: Wheeze (n), Crackles (n), Rhonchi (n), Non-Labored Respirations and Stridor (n)
GI: Soft, Non Distended and Non Tender
Neurology: Awake (Opens eyes, follows commands)
Skin: Good Color, Cyanosis (n), Bruising (Few scattered) and Other (Right hip incision dressing)
Labs/Micro/Reports
Lab Data
05/11/25 04:30
05/11/25 03:22
Laboratory Results
05/10/25 05/10/25 05/10/25
17:40 17:40 17:40
PT Cancelled 17.3 H
INR Cancelled 1.36
APTT Cancelled
pH
pCO2
pO2
HCO3
O2 Delivery Level
05/10/25 05/10/25 05/11/25
17:40 22:21 00:51
PT
INR
APTT 26.5
pH 7.35 7.28 L 7.42
pCO2 28 L 28 L 27 L
pO2 310 H 169 H 151 H
HCO3 15.5 L* 13.2 L* 17.5 L
O2 Delivery Level
05/11/25
04:30
PT
INR
APTT
pH 7.48 H
pCO2 29 L
pO2 176 H
HCO3 21.6
O2 Delivery Level
Microbiology
05/09/25 13:03 Urine Urine Culture - Preliminary
Gram negative bacilli
--- NOTE | 2025-05-11 08:01 | W.PN.ANS.POP ---
Anesthesia Post Operative
- Anesthesia Post Op Note
Vital Signs Stable-See Nursing Note: Yes (pt remains on Levophed & Amiodarone gtts)
Airway Patent: Yes
Adequate Pain Control: Yes
Change in Mental Status: No (pt remains on Fentanyl & Precedex gtts)
Current Postoperative Nausea & Vomiting: No
Anesthesia Complications: No
General Anesthetic Recall: No
Unplanned Admission: No
Post Op Hydration Adequate: Yes
--- NOTE | 2025-05-11 08:27 | W.PN.HOSP.TC ---
Addendum entered and electronically signed by Juan Luis Gooden MD 05/11/25 13:54:
Anemia multifactorial due to acute blood loss anemia with surgery and hemodilution
Hypertension
Original Note:
Today's Communication/Plan
-
SBT
IV fluids
IV antibiotics
Wean pressors as tolerated
ECHO
Assessment / Plan
Assessment / Plan
IMPRESSION/plan
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
atrial fibrillation on Eliquis, who presented to the emergency department secondary to inability to ambulate or stand due to pain in the right hip area for the past 2 weeks. Of note 2 weeks ago she caught her toe on a rug and she had a mechanical
fall, with resultant right shoulder injury for which she went to rehab. She is unaware if she had x-rays of her hip at that time. Today when she went to physical therapy and she was unable to stand or walk secondary to pain. She had an x-ray at
that time that showed a right femoral neck fracture. Otherwise she has had no further mechanical falls. She has pain with right hip movement.
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
#Intubated on mechanical ventilation
Continue with weaning off protocol.
SBT when appropriate
Currently on fentanyl and Precedex drip for sedation
Check echocardiogram
#Hypotension on pressors postcardiac arrest
#Lactic acidosis
Try to wean off pressors as tolerated
Wean off Levophed and vasopressin as tolerated
Continue with aggressive IV fluids for now
Monitor blood pressure closely post sedation/extubation hopefully it might improve
#Elevated troponin likely secondary to postcardiac arrest
Echocardiogram pending
#Right femoral neck fracture secondary to mechanical trauma and osteoporosis. Additional imaging with no evidence of pathologic fracture
Status post cemented right hip hemiarthroplasty
Per orthopedic patient can be restarted on Eliquis
Currently on Lovenox
#Acute impacted fracture of the right humeral neck secondary to mechanical fall and osteoporosis
Continue nonweightbearing
Continue sling
Ortho recs
#Atrial Fibrillation, permanent
Rapid ventricular response overnight
On amiodarone infusion
#Urinary tract infection
IV antibiotics
#Mild hyponatremia
monitor for now
#Essential Hypertension
With hypotension
Hyperlipidemia
-hold aspirin for now
-cont statin
Metastatic Breast Cancer with known Brain Mets and prior seizure- stable MRI findings since Nov and March 2025
-Cont Anastrozole
-MRI brain 03/14/25: There is a plaque-like area of enhancing intermediate T1-weighted signal involving the right frontal calvarium, extending to the posterior base of the frontal sinuses. This appears stable from most recent examination of November
2024, most likely scarring/fibrosis, although a component of residual neoplasm is possible. The appearance is stable, with no evidence for a new area of enhancement by MRI.
CT scan of the hip with findings of sclerotic intramedullary lesions of the L5 vertebral body and left iliac bone which are most likely blastic osseous metastasis
-Cont Dexamethasone on high dose- 6mg TID
-keppra transitioned to IV for now
CKD stage IIIB, stable
Monitor renal function while on losartan. Avoid hypotension.
Depression/Anxiety
-Ariprazole when able too
Hypothyroidism on replacement
DVT proph-SCDs/lovenox
Full Code
Total Critical Care Time_ 35 0 minutes. I was immediately available to the patient and staff. I personally examined, reviewed labs, diagnostic images/reports, interpretations, treatment plans, discussed patient care with other providers and
family or caregivers (if patient is unable to make decisions), entered orders as appropriate and documented the medical record.
Anticipated Discharge: > 48 hours
Subjective/Interval History
-
Date of Service: May 11, 2025
Postop events noted
Patient with plate developer status post ROSC
Remains intubated and sedated
Objective Data
-
Labs:
Laboratory Results
05/10/25 05/11/25 05/11/25
22:21 00:51 03:22
WBC 21.5 H 14.5 H
Hgb 9.7 L 8.4 L
Hct 29.2 L 24.3 L
Plt Count 370 283 D
HCO3 13.2 L* 17.5 L
Sodium 134 L 132 L
Potassium 4.1 3.8
Chloride 109 H 105
Carbon Dioxide 11 L* 19 L
BUN 25 H 28 H
Creatinine 1.0 0.9
Glucose 269 H 221 H
Calcium 8.4 8.1 L
05/11/25
04:30
WBC 12.0 H
Hgb 8.1 L
Hct 24.1 L
Plt Count 252
HCO3 21.6
Sodium
Potassium
Chloride
Carbon Dioxide
BUN
Creatinine
Glucose
Calcium
Vital Signs:
Vital Signs
Temp Pulse Resp BP Pulse Ox
98.8 F 58 14 121/96 100
05/11/25 07:34 05/11/25 07:05 05/11/25 07:05 05/10/25 19:00 05/11/25 08:09
I&O
05/10/25 05/11/25 05/12/25
06:59 06:59 06:59
Intake Total 4660.1 / 4660.1
Output Total 360 / 360
Balance 4300.1 / 4300.1
Physical Exam
-
General: Intubated
HEENT: Normocephalic, Atraumatic and Moist Mucous Membranes
Respiratory: Rales and Other (ETT noted )
Cardiac: Regular Rhythm and S1/S2; Negative Murmur, Rub or Gallop
GI: Soft, Nondistended and Normal Bowel Sounds; Negative Organomegaly
Rectal: Deferred by Provider
Musculoskeletal: No Cyanosis and Other (RUE in sling )
Skin: Warm
Neuro: Sedated
[2025-05-11 08:51] LABS: Troponin I 0.135 ng/ml
[2025-05-11] MEDS: SODIUM BICARBONATE 1150 MEQ IV (09:06)
--- NOTE | 2025-05-11 09:29 | PTCARENOTE ---
report received, assessments per work list. patient awakens and follows commands, denies pain.patient with labile blood pressure, dropped to 70 systolic with turning, required titration Levophed. in aflutter/fib. heart rate 40's. Precedex turned
off, amiodarone continues. fentanyl adjustment in preparation of SBT. remains afib/flutter. labs sent. lungs with coarse breath sounds. suctions for small amounts. abdomen soft. Echevarria draining yellow urine. right hip dressing in place, some
shadowing. right arm with bruising, sling reapplied. abductor pillow in place. set up mold technician at bedside
[2025-05-11 10:20] VITALS: BMI 30.1
[2025-05-11 10:25] VITALS: BP_SYST 95
--- NOTE | 2025-05-11 10:37 | PTCARENOTE ---
patient blood pressures remain labile. sedation off in preparation of SBT. reviewed patient plan in rounds with pharmacist, Rt and clinical support specialist. placed on CPAP wean.
[2025-05-11 10:40] VITALS: BP_SYST 138
[2025-05-11 11:24] LABS: B.E. 1.8 mmol/L; HCO3 25.3 mmol/L (21-28); O2 Saturation % 100.0 % (94-98); PCO2 34 mmHg (32-35); PO2 146 mmHg (83-108)
[2025-05-11] MEDS: NOVOLOG FLEXPEN-MODERATE RESISTANCE 1 UNITS SC (12:06)
[2025-05-11 12:16] LABS: Glucose - Point of Care 162 mg/dl (70-99)
[2025-05-11] MEDS: DILAUDID 0.5 MG IV ×4 (12:30→21:23)
--- NOTE | 2025-05-11 12:34 | PTCARENOTE ---
paatient reassessed. extubated without issue to 4 liter nasal cannula. patient oriented to person and place. voice hoarse. c/o pain in hip and back. medicated with Dilaudid per prn order. fluids adjusted per orders. ribbon winder at bedside post
extubation
--- NOTE | 2025-05-11 13:26 | PN.CDI ---
CDI
- -
CDI:
Physician Documentation Request
Admit Date: 05/08/25 05:58
Dear Doctor Giacomo,
Clinical Indicators:
Patient admitted with right femoral neck fracture; s/p right hemiarthroplasty/intraoperative cardiac arrest.
Current documentation includes a diagnosis of hypotension.
Vasopressor requirements: Levophed: 2 - 22 mcg/min Vasopressin 0.03 units/min (x 3 hrs post op)
Lactic Acid:
05/10/25
22:21
Lactic Acid 6.7 H*
Please clarify which of the following is the most likely etiology of the above symptoms and treatment rendered:
Cardiogenic shock
Shock, other (please specify type)
Hypotension only
Other
Use of terms such as suspected, likely, concern for, or probable (associated with a specific diagnosis that is being evaluated, monitored, or treated as if it exists) are acceptable and can be coded in the inpatient setting, when documented at the
time of discharge.
Thank you,
GUILLERMO Watson RN
CDI Specialist
available via tiger text
Please use your independent medical judgment in providing your response.
[2025-05-11] MEDS: ROCEPHIN 1000 MG IV (13:29)
[2025-05-11] MEDS: STERILE WATER FOR INJECTION 10 ML IV (13:29)
--- NOTE | 2025-05-11 13:45 | PN.CDI ---
CDI
- -
CDI:
Physician Documentation Request
Admit Date: 05/08/25 05:58
Dear Doctor Giacomo,
Clinical Indicators:
Patient admitted with right femoral neck fracture; s/p right hemiarthroplasty 05/10.
Anesthesia Report, EBL 150 ml IVF 1300 ml
Hgb/Hct trend:
05/08/25 05/10/25 05/11/25
01:21 22:21 04:30
Hgb 11.9 L 9.7 L 8.1 L
Hct 36.1 L 29.2 L 24.1 L
Based on the above, could you clarify in the progress notes, the appropriate diagnosis, if significant, that supports the above abnormalities and additional evaluation, monitoring and/or treatment rendered:
Anemia multifactorial due to acute blood loss and hemodilution
Dilutional anemia only
Other, please specify
Use of terms such as suspected, likely, concern for, or probable (associated with a specific diagnosis that is being evaluated, monitored, or treated as if it exists) are acceptable and can be coded in the inpatient setting, when documented at the
time of discharge.
Thank you,
GUILLERMO Watson RN
CDI Specialist
available via tiger text
Please use your independent medical judgment in providing your response.
--- NOTE | 2025-05-11 14:51 | CON.CAR ---
Addendum entered and electronically signed by Driss Pratt MD 05/11/25 15:53:
Patient seen and examined in collaboration with COMPOSITE BOND WORKER; agree with below.
- 84-year-old female with metastatic breast cancer to brain, atrial fibrillation (on Eliquis), CKD, hypertension, hyperlipidemia, and CKD who went into cardiac arrest during orthopedic bone cement surgery. Cardiology consulted for atrial
fibrillation with RVR.
- The patient's heart rate is fairly controlled on amiodarone drip; continue.
- Echocardiogram revealed an LVEF of 55% with no regional wall motion abnormality; moderate tricuspid regurgitation was noted.
- Continue clinical nurse leader.
- Will follow.
Original Note:
Consultation
Consultation Request
Date/Time Consultation Requested: 05/11/2025 12:50
Date/Time Consultation Performed: 05/11/2025 13:00
Requesting Provider: Dr. Gooden
Performing Provider: ALBIN Avina for Dr. Pratt
Reason for Consultation: Atrial fibrillation with rapid ventricular response
Medical History
-
Chief Complaint: Right hip pain
History of Present Illness:
Leah Niño is an 84-year-old female (known to Dr. Malvin Mandujano at [facility]), with metastatic breast cancer (brain mets status post XRT and brain surgery), seizures related to brain metastasis, atrial fibrillation (type
unknown, on apixaban), hypertension, dyslipidemia, chronic kidney disease and hypothyroidism who presented to the emergency department from rehabilitation with right hip pain. She is currently at rehab after having mechanical falls resulting in a
right shoulder injury. During PT she endorsed right hip pain. She had an x-ray at her facility which showed a right femoral neck fracture. On 05/10/2025 she went to the operating room. Surgery was complicated by an intraoperative code. After the
final implants were a.m. patient's blood pressure stopped substantially. 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 She was flipped supine on the OR table and chest compressions were initiated. ROSC was achieved with high-quality
compressions and epinephrine. She was then replaced prepped and the wound was closed. Cardiology was consulted for atrial fibrillation management. She has been extubated and is currently in the ICU on Levophed.
Past Medical History
Past Medical History: Arrhythmias (Atrial fibrillation [type unknown, on apixaban]), Cancer (Metastatic breast cancer with brain metastasis [s/p brain surgery and XRT]), HTN, Hypercholesterolemia, Renal Failure (CKD stage III) and Seizures (In the
setting of brain mets)
Past Surgical History: Brain
Social History
Tobacco: Non-Smoker
Alcohol: None
Drug: None
Personal:
Living: [facility] (Currently at rehab)
Employment: Retired
Family History
Family History: Reviewed & Not Pertinent
Allergies / Home Medications
Allergy/AdvReac Type Severity Reaction Status Date / Time
No Known Allergies Allergy Verified 07/07/24 08:34
�Medication �Instructions �Recorded �Confirmed �Type
aripiprazole 10 mg tablet 10 mg PO DAILY Mental Health 01/25/24 05/10/25 History
atorvastatin 20 mg tablet 20 mg PO QPM High Cholesterol 01/25/24 05/10/25 History
sertraline 100 mg tablet 150 mg PO DAILY Depression 01/25/24 05/10/25 History
anastrozole 1 mg tablet 1 mg PO DAILY Cancer 06/04/24 05/10/25 History
apixaban 5 mg tablet (Eliquis) 5 mg PO BID Atrial fibrillation 06/04/24 05/10/25 History
metoprolol succinate 50 mg 50 mg PO DAILY Blood Pressure 06/04/24 05/10/25 History
tablet,extended release 24 hr
acetaminophen 325 mg tablet 650 mg PO Q6 Pain 05/10/25 05/10/25 History
aspirin 81 mg chewable tablet 81 mg PO DAILY Blood Clot 05/10/25 05/10/25 History
Prevention/Tx
diltiazem HCl 120 mg 120 mg PO DAILY Blood Pressure 05/10/25 05/10/25 History
capsule,extended release 24 hr
furosemide 40 mg tablet 40 mg PO DAILY Fluid 05/10/25 05/10/25 History
Retention/Swelling
levetiracetam 750 mg tablet 750 mg PO BID Seizures 05/10/25 05/10/25 History
levothyroxine 75 mcg tablet 75 mcg PO DAILY@0600 Thyroid 05/10/25 05/10/25 History
pantoprazole 40 mg tablet,delayed 40 mg PO DAILY Gastrointestinal 05/10/25 05/10/25 History
release Issue
polyethylene glycol 3350 17 gram 17 g PO DAILY Constipation 05/10/25 05/10/25 History
oral powder packet
potassium chloride 20 mEq 20 meq PO DAILY Electrolyte 05/10/25 05/10/25 History
tablet,extended release Repletion
sennosides 8.6 mg tablet (senna) 8.6 mg PO QPM Constipation 05/10/25 05/10/25 History
trazodone 50 mg tablet 25 mg PO HS Sleep 05/10/25 05/10/25 History
Review of Systems
-
History Source: Patient
All other systems: Negative unless noted
Constitutional: Fatigue
EENT: No Symptoms
Respiratory: No Symptoms
Cardiac: No Symptoms
Abdomen/GI: No Symptoms
: No Symptoms
Musculoskeletal: Joint Pain
Skin: No Symptoms
Neurological: No Symptoms
Endocrine: No Symptoms
Hematologic/Lymphatic: No Symptoms
Physical Exam
Vital Signs
Temp Pulse Resp BP Pulse Ox
100.3 F 110 19 121/96 98
05/11/25 13:16 05/11/25 13:15 05/11/25 13:15 05/10/25 19:00 05/11/25 13:15
Lab Results
05/11/25 04:30
05/11/25 03:22
Troponin I 0.135 ng/ml H* 05/11/25 08:12
Zyj-N-Ftnsmuccmxd Pept 2690 pg/ml 05/10/25 17:40
Physical Exam
General: Well Developed and No Apparent Distress
HEENT: Normocephalic and Moist Mucous Membranes
Respiratory: Clear and Non Labored Respirations
Cardiac: S1/S2, Irregular Rhythm and Peripheral Edema (non pitting LE)
Breast: Deferred by me
GI: Soft, Non Tender, Non Distended and Normal Bowel Sounds
Rectal: Deferred by Provider
Genito-urinary: No Costovertebral Tender
Musculoskeletal: No Clubbing and No Cyanosis
Skin: Warm and Dry
Neuro: Awake and Alert
Hematologic/Lymphatic: No Lymphadenopathy
Psych: Calm
Impression / Plan
-
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
presented to the emergency department from rehabilitation with right hip pain.
Outpatient energy efficient site manager: Dr. Malvin Mandujano at [facility]
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
- ROSC in OR, extubated 05/11/2025
- Echocardiogram with normal LVEF
Lactic acidosis with hypotension
- Currently requiring Levophed
- Hemoglobin currently 8.1, consider transfusion if it drops further
Abnormal troponin, nonischemic myocardial injury in the setting of CPR
- Peak troponin 0.167
- Chest pain-free
Atrial fibrillation likely permanent
- Some RVR overnight, amiodarone drip started by primary service
- Diltiazem and metoprolol succinate on hold in the setting of hypotension requiring vasopressor support
- Rates 100s
- Oral Anticoagulation: Apixaban 5 mg twice daily prior to arrival, now on hold
- [id number]: Score at least 4 (HTN, age 75 or more, female gender)
Acute impacted fracture of the right humeral neck secondary to mechanical fall and osteoporosis, status post OR 05/11/2025
Moderate tricuspid regurgitation
Metastatic breast cancer with known brain mets
Seizure disorder, in the setting of brain metastasis
CKD stage III
Data Reviewed
-
EKG: Report Reviewed by me (Atrial fibrillation, rate 65)
Medical Tests (Nuc Med, Echo etc): Report Reviewed by me
Labs: Labs Reviewed by me
Old Records: Requested
--- NOTE | 2025-05-11 15:10 | PTOTSP ---
Speech Language Pathology
Pt seen for clinical bedside swallow evaluation. Pt with decreased vocal intensity. Extubated this date. P.O. trials of puree, regular solids, and thin liquids provided. Adequate mastication, bolus formation, and A-P transit noted with no oral
residue. No overt signs of aspiration.
Recommend:
(1) Regular solids/thin liquids
(2) General aspiration precautions
(3) Meds as tolerated
(4) [facility] to continue to follow
--- NOTE | 2025-05-11 15:38 | CM ---
Extubated today, O2 @ 4L. Discharge POC: Awaiting therapy evaluation and recommendations.
--- NOTE | 2025-05-11 15:48 | PTCARENOTE ---
ST in to evaluate. with exertion, patient becomes hypotensive. Levophed adjustment per work list. patient c/o chest pain when taking a deep breath and back discomfort. medicated with dilaudid per prn order. family at bedside. updated. TT to
oil burner to update re: labile blood pressures, and urine output trends
[2025-05-11] MEDS: LR 500 IV (16:11)
[2025-05-11] MEDS: MAALOX 30 ML TUBE (16:14)
--- NOTE | 2025-05-11 16:53 | PTCARENOTE ---
fluid bolus given per order management specialist. patient c/o gas 'bubble' after ST evaluation. MD updated and has been in to evaluate patient multiple times. d/w family at bedside.see prn order. heart rate remains 130-180. MD aware and he communicated with
cardiology. orders received. blood consent signed by son
[2025-05-11 17:07] VITALS: BP 145/68
--- NOTE | 2025-05-11 17:15 | PTCARENOTE ---
unit PRBC initiated. amiodarone gtt placed on hold per MD due to limited access and IV compatibility issues. to resume amiodarone gtt once PRBC transfusion is completed
[2025-05-11 17:24] VITALS: BP 134/61
[2025-05-11 18:01] LABS: Glucose - Point of Care 206 mg/dl (70-99)
--- NOTE | 2025-05-11 18:01 | W.PN.ORTHO ---
Today's Communication / Plan
-
84-year-old female history metastatic breast cancer postop day 1 status post right hip cemented hemiarthroplasty transferred to the ICU immediately following surgery after episode of asystole but did require chest compressions in the operating room
Weightbearing as tolerated right lower extremity
PT OT
Pain control
Medical management per primary team/intensive care providers
DVT prophylaxis: Recommend Lovenox renally dosed x 28 days postop
Plan: Follow-up with myself outpatient 2 to 3 weeks repeat clinical assessment plan removal of adeline. Please reach out any questions or concerns
Subjective
.
.:
Patient is somewhat conversant this evening. She was reportedly extubated around lunchtime today. Per nursing has been dealing with some episodes of A-fib throughout the day.
Vital Signs and Labs
.
Vital Signs and Labs:
Lab Results
05/11/25 04:30
05/11/25 03:22
Temp Pulse Resp BP Pulse Ox
100.1 F 145 20 134/61 97
05/11/25 17:24 05/11/25 17:24 05/11/25 17:24 05/11/25 17:24 05/11/25 17:24
PT 17.3 Sec (11.4-14.6) H 05/10/25 17:40
PT Cancelled 05/10/25 17:40
INR 1.36 05/10/25 17:40
INR Cancelled 05/10/25 17:40
Physical Exam
-
Musculoskeletal right lower extremity
Dressing with mild to moderate bloody drainage, incision visualized no active drainage
Moderate swelling thigh
Spontaneously moving toes and ankle
Brisk cap refill
Leg lengths approximately equal
--- NOTE | 2025-05-11 18:13 | PTCARENOTE ---
ortho surgeon in to evaluate patient. patient with increased verbal and nonverbal pain during repositioning. medicated with dilaudid per prn order. remains labile. PRBC transfusing without signs reaction. safe environment maintained
[2025-05-11 19:38] VITALS: BP 156/73
--- NOTE | 2025-05-11 20:00 | PTCARENOTE ---
Patient received in bed, AAOX2, not to time. Afib on monitor, afebril, blood pressure as documented. +2 anasarca noted, bilateral DPs present by doppler. Lungs coarse, pulse ox 100% on 4L. Abdomen round obese with hypoactive bowel sounds. Temp
sensing irene draining small amount of yellow urine,. Left arm immobilized with sling, ecchymosis noted, right hip dressing with moderate amount of old drainage. LDL picc with levophed gtt infusing at 12 mcg/min, and PRBCs
[2025-05-11] MEDS: OFIRMEV 100 IV (20:53)
[2025-05-12] VITALS (22 sets, daily range): BP systolic 98–161; BP diastolic 29–115; PULSE 134–144; O2SAT 99–100; BMI 32.7
--- NOTE | 2025-05-12 | PTCARENOTE ---
Patient reassessed, resting with eyes closed, Levophed at 10 mcg/min, no other changes in assessment
[2025-05-12 00:10] LABS: Glucose - Point of Care 167 mg/dl (70-99)
[2025-05-12] MEDS: NOVOLOG FLEXPEN-MODERATE RESISTANCE 1 UNITS SC ×3 (00:23→18:32)
[2025-05-12] MEDS: CORDARONE 518 MG IV ×2 (02:07→19:14)
[2025-05-12] MEDS: LEVOPHED 250 IV ×3 (02:07→20:35)
[2025-05-12] MEDS: DILAUDID 0.5 MG IV ×5 (03:15→23:35)
--- NOTE | 2025-05-12 04:07 | PTCARENOTE ---
Patient reassessed, medicated with prn dilaudid, CHG bath given, turned and repositioned. labs sent
[2025-05-12 04:11] LABS: Hematocrit 24.8 % (37.0-47.0); Hemoglobin 8.3 g/dL (12.0-16.0); Mean Corp Hgb Conc. 33.5 g/dL (33.0-37.0); Mean Corpuscular Volume 78.0 fL (81.0-99.0); Nucleated Red Blood Cells % 0 %; Platelet Count 180 10^3/uL (130-400); Red Cell Dist. Width 16.0 % (11.5-14.5)
[2025-05-12 04:20] LABS: AST (SGOT) 28 U/L (14-36); Albumin 2.4 g/dl (3.5-5.0); Alkaline Phosphatase 97 U/L (38-126); Blood Urea Nitrogen 26 mg/dl (7-17); Calcium 7.6 mg/dl (8.4-10.2); Carbon Dioxide 23 mmol/L (22-30); Chloride 101 mmol/L (98-107); Estimated Creatinine Clearance 33 ml/min; Glucose 174 mg/dl (70-99); Magnesium 1.9 mg/dl (1.6-2.3); Potassium 4.2 mmol/L (3.5-5.1); Sodium 129 mmol/L (135-145); Total Protein 4.6 g/dl (6.3-8.2); eGFR 44.08
[2025-05-12 04:31] LABS: ALT (SGPT) < 30 U/L (0-35)
[2025-05-12] MEDS: MAGNESIUM SULFATE 102 GRAMS IV (05:21)
[2025-05-12 06:09] LABS: Glucose - Point of Care 181 mg/dl (70-99)
[2025-05-12] MEDS: LR 1000 IV ×2 (06:28→18:08)
--- NOTE | 2025-05-12 06:49 | W.PN.INTV ---
Today's Communication / Plan
Recommendations
Continue with efforts to wean pressors
Advance diet, speech and swallow evaluation completed
Amiodarone drip continues
Stress dose steroids
Full dose anticoagulation, eventual transition to Eliquis
PT/OT
Pain control
Assessment
-
84-year-old female with metastatic breast cancer with brain metastases status post brain irradiation January 2024 on chronic hormone therapy, chronic Eliquis therapy for atrial fibrillation, presents 2 weeks after recent fall, found to have right
femoral neck fracture, underwent a right hip hemiarthroplasty 05/10/2025 complicated by cardiac arrest/asystole requiring epinephrine, CPR with ROSC, admitted to ICU
S/p cardiac arrest
CPR, epi, ROSC in OR
Occurred during cement injection
s/p rt hip hemiarthroplasty, 05/10/2025
Extubated 05/11
Recent fall 2 weeks prior to admission
Right shoulder injury
Right femoral neck fracture, displaced
Identified 2 weeks later, due to progressive pain, difficulty with walking/ambulating
Sedentary for at least 2 weeks
According to , sedentary prior, walks with a walker
Afib with RVR
Required amiodarone overnight
Hypotension requiring pressors, postcardiac arrest
On norepinephrine
Anemia, required transfusion
Conditions present prior to admission
Breast cancer with brain metastases diagnosed December 2023
Complicated by seizure on antiseizure therapy
Status post brain irradiation (Filippo/Funez)
Chronic hormone therapy
Hypertension/hyperlipidemia
Hypothyroidism
Chronic kidney disease stage IIIb
History of atrial fibrillation on Eliquis
History of stroke around 2016
History of dementia
DNR per daughter (not currently)
Plan/recommendations
At this time, patient remains critically ill, remains on norepinephrine
Extubated 05/11 without difficulty
Persistent tachycardia noted, ranges from 90-1 70
Remains on amiodarone drip
Patient on outpatient beta-ned therapy
Received potassium, magnesium earlier today
Bicarbonate drip discontinued
Moving forward
Possibly secondary to cement injection, however patient is high risk for thromboembolic disease
Active breast cancer, status post radiation, on hormone therapy, sedentary, not very active according to with recent fall 2 weeks ago, less mobile over the last 2 weeks
Continue with full dose anticoagulation. Currently on Lovenox 80 mg every 12 hours
Eventual transition to Eliis as able
Follow hemoglobin, transfuse as needed
EKG consistent with atrial fibrillation with rapid ventricular response
Patient with history of atrial fibrillation on outpatient aspirin, Eliquis
Now on amiodarone, dose titrated up to 1 mg
Echocardiogram with normal biventricular function, pulmonary hypertension, PA pressure 65, moderate AR
Eliquis was held for 48 hours preprocedure
Cardiology is following
Wonder if we may consider restarting beta-ned therapy
Stress dose steroids will be started given persistent hypotension
Patient may have been on steroids as an outpatient, cannot confirm
Hyperglycemia noted
Follow-up blood sugars
Patient on antibiotics per primary service, orthopedic surgery.
Adjust antibiotics given abnormal urine culture, currently on ceftriaxone
GI prophylaxis: On Protonix
DVT prophylaxis: Empirically placed on Lovenox full dose. Eventual transition to [facility]
Reviewed with critical care nursing, respiratory care
Reviewed with primary service
TCCT 31 min
Subjective Dataa
Subjective Data
Date of Service:
Date of Service: May 12, 2025
Subjective:
Patient remains critically ill, requiring norepinephrine. Remains tachycardic. Tolerated 1 unit of transfusion yesterday. Hemoglobin minimal bump from 8.1-8.3. Sodium 129. Patient complaining of significant chest discomfort likely from CPR.
Appears comfortable, 100% on 4 L. Tachycardia persists, remains on amiodarone heart rate ranged from 90s to 130s, at times up to 170s
Objective Data
Data Reviewed
Vital Signs / I&O / Oxygen:
Vital Signs
Temp Pulse Resp BP Pulse Ox
99.7 F 122 20 156/73 99
05/12/25 03:31 05/12/25 06:45 05/12/25 06:45 05/11/25 19:38 05/12/25 06:45
Intake and Output
05/10/25 05/11/25 05/12/25
06:59 06:59 06:59
Intake Total 4660.1 / 4840.6 4702.8 / 4702.8
Output Total 360 / 360 425 / 425
Balance 4300.1 / 4480.6 4277.8 / 4277.8
SaO2 [CPAP/PSV] 99
SaO2 [A/C] 96
SaO2 99
Nasal Cannula flow liters per 4
minute
Physical Exam
General: Comfortable
HEENT: Normocephalic, Anicteric and Other (Upper extremity PICC line)
Cardiovascular: S1-S2, Irregular Rhythm, Murmur (n) and Rub (n)
Respiratory: Wheeze (n), Crackles (n), Rhonchi (n), Non-Labored Respirations and Stridor (n)
GI: Soft, Non Distended and Non Tender
Neurology: Awake (Opens eyes, follows commands)
Skin: Good Color, Cyanosis (n), Bruising (Few scattered) and Other (Right hip incision dressing)
Labs/Micro/Reports
Lab Data
05/12/25 03:44
05/12/25 03:44
Laboratory Results
05/11/25
11:11
pH 7.48 H
pCO2 34
pO2 146 H
HCO3 25.3
O2 Delivery Level
Microbiology
05/09/25 13:03 Urine Urine Culture - Final
Citrobacter freundii
[2025-05-12] MEDS: KEPPRA 750 MG IV ×2 (07:44→19:48)
[2025-05-12] MEDS: LOVENOX 80 MG SC ×2 (07:46→19:48)
[2025-05-12] MEDS: NSS (PRESERVATIVE FREE) 10 ML IV (07:47)
[2025-05-12] MEDS: MIRALAX 17 GRAMS TUBE (07:47)
[2025-05-12] MEDS: PROTONIX IV 40 MG IV (07:47)
--- NOTE | 2025-05-12 08:43 | W.PN.HOSP.TC ---
Today's Communication/Plan
-
Start on regular diet
Start on stress dose steroids
Wean Levophed as able
Continue with IV fluids till oral intake is adequate
Continue with IV amiodarone infusion
Continue with IV antibiotics
Assessment / Plan
Assessment / Plan
IMPRESSION/plan
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
atrial fibrillation on Eliquis, who presented to the emergency department secondary to inability to ambulate or stand due to pain in the right hip area for the past 2 weeks. Of note 2 weeks ago she caught her toe on a rug and she had a mechanical
fall, with resultant right shoulder injury for which she went to rehab. She is unaware if she had x-rays of her hip at that time. Today when she went to physical therapy and she was unable to stand or walk secondary to pain. She had an x-ray at
that time that showed a right femoral neck fracture. Otherwise she has had no further mechanical falls. She has pain with right hip movement.
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
Now extubated
# Vasopressor dependent shock-hypotension on pressors postcardiac arrest
#Lactic acidosis
Try to wean off pressors as tolerated
Wean off Levophed ; off of vasopressin
Continue with IV fluids
#Elevated troponin likely secondary to postcardiac arrest
Echocardiogram with EF of 55% and no regional wall motion abnormality.
#Right femoral neck fracture secondary to mechanical trauma and osteoporosis. Additional imaging with no evidence of pathologic fracture
Status post cemented right hip hemiarthroplasty
Per orthopedic patient can be restarted on Eliquis
Currently on Lovenox
#Acute impacted fracture of the right humeral neck secondary to mechanical fall and osteoporosis
Continue nonweightbearing
Continue sling
Ortho recs
#Atrial Fibrillation, permanent
Persistent Rapid ventricular response
On amiodarone infusion -rate increased
#Urinary tract infection with Citrobacter
cw IV antibiotics
#Mild hyponatremia
monitor for now
# JANINA on CKD 3- creatinine bump noted
suspect prerenal from cardiac arrest/ shock
Wt not accurate -15lb wt gain in last 24 hr
Check urine lytes/Fena
Optimize BP with fluids and Vasopressor
CW I/O via Echevarria
#Essential Hypertension
With hypotension
Hyperlipidemia
-hold statin
Metastatic Breast Cancer with known Brain Mets and prior seizure- stable MRI findings since Nov and March 2025
-Cont Anastrozole
-MRI brain 03/14/25: There is a plaque-like area of enhancing intermediate T1-weighted signal involving the right frontal calvarium, extending to the posterior base of the frontal sinuses. This appears stable from most recent examination of November
2024, most likely scarring/fibrosis, although a component of residual neoplasm is possible. The appearance is stable, with no evidence for a new area of enhancement by MRI.
CT scan of the hip with findings of sclerotic intramedullary lesions of the L5 vertebral body and left iliac bone which are most likely blastic osseous metastasis
-Chart says to continue Dexamethasone on high dose- 6mg TID but not on it .Cant confirm if on it .With pressor dependent shock will give stress dose steroids
-keppra transitioned to IV for now
Hx of Seizures
CW IV keppra
Depression/Anxiety
-Ariprazole when able too
Hypothyroidism on replacement
DVT proph-SCDs/lovenox
Full Code
DW POLE SETTER
DW Dining Chair Seat Cushion Trimmer
DW daughter and updated the critical clinical nature of her current situation and the treatment plan.
Total Critical Care Time 40 minutes. I was immediately available to the patient and staff. I personally examined, reviewed labs, diagnostic images/reports, interpretations, treatment plans, discussed patient care with other providers and family
or caregivers (if patient is unable to make decisions), entered orders as appropriate and documented the medical record.
Anticipated Discharge: > 48 hours
Subjective/Interval History
-
Date of Service: May 12, 2025
Patient just received Dilaudid and she is bit sleepy but arousable. She is oriented to place and person.
She says her right arm and right leg pain is okay and her most of her pain is from the chest. She had a CPR during the code.
No nausea or vomiting. Not much appetite today.
Discussed with RN-received 1 unit of blood last night. Rate of amiodarone increased. Still on vasopressors.
Objective Data
-
Labs:
Laboratory Results
05/12/25
03:44
WBC 12.4 H
Hgb 8.3 L
Hct 24.8 L
Plt Count 180 D
Sodium 129 L
Potassium 4.2
Chloride 101
Carbon Dioxide 23
BUN 26 H
Creatinine 1.2 H
Glucose 174 H
Calcium 7.6 L
Total Bilirubin 0.6
AST 28
ALT < 30
Alkaline Phosphatase 97
Vital Signs:
Vital Signs
Temp Pulse Resp BP Pulse Ox
99.5 F 122 20 156/73 99
05/12/25 07:25 05/12/25 06:45 05/12/25 06:45 05/11/25 19:38 05/12/25 06:45
I&O
05/11/25 05/12/25 05/13/25
06:59 06:59 06:59
Intake Total 4660.1 / 4840.6 4930.3 / 5055.8 251.0 / 251.0
Output Total 360 / 360 435 / 485 90 / 90
Balance 4300.1 / 4480.6 4495.3 / 4570.8 161.0 / 161.0
Review of Systems
-
Unable to obtain full review of systems at this time due to: Other (Due to sedative effects of Dilaudid)
Physical Exam
-
General: No Apparent Distress
Respiratory: Clear to Auscultation (Anteriorly) and Non Labored Respirations; Negative Accessory Resp Muscle Use
Cardiac: S1/S2, Irregular Rhythm and Tachycardic
GI: Soft
Musculoskeletal: No Edema (No pitting edema bilaterally in the lower extremities) and Edema, Right Upper Extrem (Palpable radial artery)
Neuro: Oriented and Sedated
Psych: Calm
Data Reviewed
-
Labs: Labs Reviewed by me
--- NOTE | 2025-05-12 09:00 | PTCARENOTE ---
Complete assessment done and documented. Pt's HR with rapid afib 160s, P 106/56-136/63. Amiodarone drip at 0.5 mg/min. Dr Douglass updated, and amiodarone rate order increased amiodarone to 1 mg/min. A line zero'd, levophed received at 7 mcg/ min,
being weaned as tolerated, keeping map>65.
--- NOTE | 2025-05-12 10:23 | PTCARENOTE ---
HR remains rapid [id number], Seen by Joce Quinn, and Abdirahman. Will con't to wean down levophed as tolerated, presently at 6 mcg/min.
[2025-05-12] MEDS: NSS 500 IV (10:31)
--- NOTE | 2025-05-12 10:35 | PTCARENOTE ---
NSS 500 ml bolus hung for low u/o and high HR as per Dr Hobson. Pt turned and made comfortable. Physical therapy in to work with patient.
--- NOTE | 2025-05-12 11:05 | W.PN.CD ---
Today's Communication / Plan
-
As improves move to her usual reate control meds
Impression / Plan
-
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
presented to the emergency department from rehabilitation with right hip pain.
Outpatient driller and reamer: Dr. Malvin Mandujano at [facility]
Lactic acidosis with hypotension
- Currently requiring Levophed
- Hemoglobin currently 8.1, consider transfusion if it drops further
Abnormal troponin, nonischemic myocardial injury in the setting of CPR
- Peak troponin 0.167
- Chest pain-free
Atrial fibrillation, permanent (almost certainly)
- Some RVR overnight, amiodarone drip started by primary service
- Diltiazem and metoprolol succinate on hold in the setting of hypotension requiring vasopressor support
- Rates 100s
- Oral Anticoagulation: Apixaban 5 mg twice daily prior to arrival, now on hold
- [id number]: Score at least 4 (HTN, age 75 or more, female gender)
Acute impacted fracture of the right humeral neck secondary to mechanical fall and osteoporosis, status post OR 05/11/2025
Moderate tricuspid regurgitation
Metastatic breast cancer with known brain mets
Seizure disorder, in the setting of brain metastasis
CKD stage III
Subjective:
Sleepy after narcotic, ICU nurse noted she was A and O earlier
Data:
Echo 05/11/2025:
CONCLUSIONS
LV ejection fraction is approximately 55%. Normal regional wall motion.
Moderate to severely dilated left atrium. Moderate to severely dilated right
atrium.
Aortic sclerosis without stenosis. Mild to moderate aortic regurgitation.
Moderate tricuspid regurgitation. Estimated pulmonary artery pressure of 60-65
mmHg.
Physical Exam
Vital Signs/Labs
Vital Signs
Temp Pulse Resp BP Pulse Ox
99.5 F 157 23 161/57 97
05/12/25 07:25 05/12/25 10:00 05/12/25 10:00 05/12/25 09:52 05/12/25 10:00
05/11/25 05/12/25 05/13/25
06:59 06:59 06:59
Actual Weight 77.1 kg 83.7 kg
05/12/25 03:44
05/12/25 03:44
PT 17.3 Sec (11.4-14.6) H 05/10/25 17:40
PT Cancelled 05/10/25 17:40
INR 1.36 05/10/25 17:40
INR Cancelled 05/10/25 17:40
APTT 26.5 Sec (23.4-35.0) 05/10/25 17:40
APTT Cancelled 05/10/25 17:40
Magnesium 1.9 mg/dl (1.6-2.3) 05/12/25 03:44
05/10/25
17:40
Lrf-W-Bznhaphtpov Pept 2690
LAB Results
05/10/25 05/11/25 05/11/25
17:40 00:51 08:12
Troponin I 0.044 H* 0.167 H* D 0.135 H*
Physical Exam
Constitutional: No acute distress
EENT: Anicteric
Cardiovascular: Rhythm/rate is irregular
Respiratory: Respiratory effort normal
GI: Soft
Data Reviewed
-
Date of Service: May 12, 2025
[2025-05-12 11:19] LABS: Cortisol, Random 45.7 ug/dl
[2025-05-12 12:17] LABS: Glucose - Point of Care 201 mg/dl (70-99)
[2025-05-12] MEDS: NOVOLOG FLEXPEN-MODERATE RESISTANCE 3 UNITS SC (13:00)
[2025-05-12] MEDS: FLUSH (NSS) 1 FLUSH IV ×2 (13:12→13:17)
[2025-05-12] MEDS: ROCEPHIN 1000 MG IV ×2 (13:12→13:13)
[2025-05-12] MEDS: STERILE WATER FOR INJECTION 10 ML IV (13:13)
--- NOTE | 2025-05-12 14:44 | PTCARENOTE ---
MAP presently 66, levophed at 6 mcg/min. HR improving, 120s, Afib. Dr Gary updated, steroid added. Amiodarone at 1 mg/min. Complete CHG bath given, linen and pads changed, mouth care done. I/S done with pt, with encouragement, reaching 1000ml
TV. Dilaudid 0.5 mg iv given for sternal pain. Pt's family in to visit, and were updated.
[2025-05-12] MEDS: SOLU-CORTEF 50 MG IV ×2 (16:04→23:35)
[2025-05-12 18:30] LABS: Glucose - Point of Care 187 mg/dl (70-99)
[2025-05-12] MEDS: NSS 250 IV (18:42)
--- NOTE | 2025-05-12 18:43 | PTCARENOTE ---
Yahir ESPINO, updated on pt's dropping U.O, 10-20 ml/hr. levophed weaned down to 2 mcg/min. NS 250 ml bolus ordered and hung. Pt being fed dinner, poor appetite.
--- NOTE | 2025-05-12 20:06 | PTCARENOTE ---
Received pt resting in bed, AAOx3 at this time. Flat affect. C/O 9/10 chest pain and R hip pain - dilaudid given. AFib on tele, HR 120-140s. Continues on amio gtt. R radial A line zeroed and transduced. Levo gtt continues to maintain MAP>65.
Required increased levo doses post dilaudid - will monitor and wean as able. Afebrile. +1 gen edema. Weak DPs. Foot pumps in place. On 3L NC, spo2 98%. Lungs diminished throughout. + bowel sounds. Ate about 50% of dinner. Echevarria draining alisha/yellow
urine- see I&O. R hip dsg with old drainage present. R UE in sling. Hip abductor pillow in place. L DL PICC with amio, levo and LR @ 75ml/hr. Turning q2. Call eric in reach
[2025-05-12] MEDS: TYLENOL 650 MG PO (20:46)
--- NOTE | 2025-05-12 21:47 | PTCARENOTE ---
Continues to require increased levophed dose with minimal effect on BP. Up to 9mcg now. A line flushed and zeroed multiple times. HR unchanged - 120s-140. ALBIN Solano aware. Orders to attempt caty gtt and decrease levophed.
[2025-05-12] MEDS: NEO-SYNEPHRINE 250 IV (21:54)
[2025-05-12 22:28] LABS: Glucose - Point of Care 208 mg/dl (70-99)
[2025-05-13] VITALS (9 sets, daily range): BP systolic 92–140; BP diastolic 44–66; BMI 33.4
--- NOTE | 2025-05-13 01:14 | PTCARENOTE ---
[place] gtt titrated up to 100mcg, levo titrated to off. MAP currently 70.
Bathed with CHG, irene care provided. PRN dilaudid given.
[2025-05-13] MEDS: TYLENOL 650 MG PO ×2 (01:27→21:15)
[2025-05-13] MEDS: LIDOCAINE 4% PATCH 1 PATCH TOPICAL ×2 (01:40→21:15)
[2025-05-13] MEDS: DILAUDID 0.5 MG IV ×5 (03:24→20:07)
--- NOTE | 2025-05-13 04:18 | PTCARENOTE ---
Pt calling out at times throughout night 'pain'. Medicated as able with dilaudid and tylenol. MED CARE MANAGER aware of pain. Lidocaine patch ordered and applied.
Pt. had few large sips of water then about 10 minutes later spit up small amount yellow liquid. Pt. denies nausea at this time.
Pt. has not slept overnight. Encouraged her to rest.
Urine output 10-20ml/hr most of the night via irene. MED CARE MANAGER aware. No new orders.
[2025-05-13 05:20] LABS: Hematocrit 13.7 % (37.0-47.0); Hemoglobin 4.6 g/dL (12.0-16.0); Mean Corp Hgb Conc. 33.6 g/dL (33.0-37.0); Mean Corpuscular Volume 78.7 fL (81.0-99.0); Platelet Count 143 10^3/uL (130-400); Red Cell Dist. Width 16.0 % (11.5-14.5)
--- NOTE | 2025-05-13 05:30 | PTCARENOTE ---
AM labs repeated due to abnormal results. Hgb still resulting 4.6 on second draw. ALBIN Solano aware. 2 units PRBCs ordered.
[2025-05-13 05:40] LABS: Blood Urea Nitrogen 28 mg/dl (7-17); Calcium 7.4 mg/dl (8.4-10.2); Carbon Dioxide 22 mmol/L (22-30); Chloride 99 mmol/L (98-107); Estimated Creatinine Clearance 30 ml/min; Glucose 184 mg/dl (70-99); Potassium 3.8 mmol/L (3.5-5.1); Sodium 126 mmol/L (135-145); eGFR 36.64
[2025-05-13] MEDS: LR 1000 IV (06:00)
--- NOTE | 2025-05-13 06:59 | W.PN.INTV ---
Today's Communication / Plan
Recommendations
Transfusion, follow hemoglobin
Lovenox has been held
Abdominal CT ordered per primary service
Rate control per cardiology
Remains on phenylephrine, wean as able
Assessment
-
84-year-old female with metastatic breast cancer with brain metastases status post brain irradiation January 2024 on chronic hormone therapy, chronic Eliquis therapy for atrial fibrillation, presents 2 weeks after recent fall, found to have right
femoral neck fracture, underwent a right hip hemiarthroplasty 05/10/2025 complicated by cardiac arrest/asystole requiring epinephrine, CPR with ROSC, admitted to ICU
S/p cardiac arrest
CPR, epi, ROSC in OR
Occurred during cement injection
s/p rt hip hemiarthroplasty, 05/10/2025
Extubated 05/11
Recent fall 2 weeks prior to admission
Right shoulder injury
Right femoral neck fracture, displaced
Identified 2 weeks later, due to progressive pain, difficulty with walking/ambulating
Sedentary for at least 2 weeks
According to , sedentary prior, walks with a walker
Afib with RVR
Required amiodarone overnight
Hypotension requiring pressors, postcardiac arrest
On norepinephrine, transition to phenylephrine
Anemia, required transfusion
Lovenox held
Acute renal insufficiency, creatinine 1.4
Hyponatremia
Conditions present prior to admission
Breast cancer with brain metastases diagnosed December 2023
Complicated by seizure on antiseizure therapy
Status post brain irradiation (Filippo/Funez)
Chronic hormone therapy
Hypertension/hyperlipidemia
Hypothyroidism
Chronic kidney disease stage IIIb
History of atrial fibrillation on Eliquis
History of stroke around 2017
History of dementia
DNR per daughter (not currently)
Plan/recommendations
At this time, patient remains critically ill, remains on phenylephrine
Extubated 05/11 without difficulty
Persistent tachycardia noted, ranges from 90-170, improved from transitioning from norepinephrine to phenylephrine although still in the 120s to 130s
Remains on amiodarone drip
Patient on outpatient beta-ned therapy
Received potassium, magnesium earlier today
Bicarbonate drip discontinued
Creatinine 1.4, sodium trending down
Hemoglobin 4.9 which was confirmed. Bruising along right shoulder and right hip noted
Moving forward
Cardiac arrest possibly secondary to cement injection, however patient is also at high risk for thromboembolic disease. Was on Eliquis as outpatient, held 2 days prior to procedure
Active breast cancer, status post radiation, on hormone therapy, sedentary, not very active according to with recent fall 2 weeks ago, less mobile over the last 2 weeks
On Lovenox 80 mg every 12 hours, held as of 05/12 due to anemia
Oxygenation appears to be stable, 98% on 3 L
EKG consistent with atrial fibrillation with rapid ventricular response
Patient with history of atrial fibrillation on outpatient aspirin, Eliquis
Now on amiodarone, dose titrated up to 1 mg
Echocardiogram with normal biventricular function, pulmonary hypertension, PA pressure 65, moderate AR
Eliquis was held for 48 hours preprocedure, was on Lovenox twice daily, now held due to anemia
Patient was on outpatient beta-ned therapy
Continue per cardiology Recs
Stress dose steroids will be started given persistent hypotension
Patient may have been on steroids as an outpatient, cannot confirm
Creatinine 1.4, sodium 126
Urine output 510/12 hours
Nephrology has been consulted per primary service
Hyperglycemia noted
Follow-up blood sugars
Moderate resistance protocol. May require glycemic protocol
Patient on antibiotics per primary service, orthopedic surgery.
Adjust antibiotics given abnormal urine culture, currently on ceftriaxone
Anemia noted, hemoglobin 4.6
Bruising along right arm and right. Hip incision
Lovenox held
Received 1 unit 05/12, now ordered for 2 units
Imaging per primary service, abdominal imaging pending
GI prophylaxis: On Protonix
DVT prophylaxis: Eliquis as outpatient, Lovenox twice daily now held due to anemia. Continue foot pumps
Reviewed with critical care nursing, respiratory care
Reviewed with primary service
Updated at bedside
TCCT 32 min
Subjective Dataa
Subjective Data
Date of Service:
Date of Service: May 13, 2025
Subjective:
Patient remains critically ill. She remains on pressors, transition from norepinephrine to phenylephrine. Heart rate less of an issue but still high in the 120s to 130s. Hemoglobin 4.6, ordered blood. Patient has a variety complaints including
leg pain, chest pain, arm pain. Urine output noted, creatinine 1.4. at bedside
Objective Data
Data Reviewed
Vital Signs / I&O / Oxygen:
Vital Signs
Temp Pulse Resp BP Pulse Ox
98.4 F 115 18 92/44 98
05/13/25 06:12 05/13/25 06:30 05/13/25 06:30 05/13/25 06:12 05/13/25 06:30
Intake and Output
05/11/25 05/12/25 05/13/25
06:59 06:59 06:59
Intake Total 4660.1 / 4840.6 4930.3 / 5055.8 3960.6 / 3960.6
Output Total 360 / 360 435 / 485 510 / 510
Balance 4300.1 / 4480.6 4495.3 / 4570.8 3450.6 / 3450.6
SaO2 [CPAP/PSV] 99
SaO2 [A/C] 96
SaO2 98
Nasal Cannula flow liters per 2
minute
Physical Exam
General: Comfortable (Conversant, answering questions)
HEENT: Normocephalic, Anicteric and Other (Upper extremity PICC line)
Cardiovascular: S1-S2, Irregular Rhythm (Tachycardic), Murmur (n), Rub (n), Peripheral Edema (n) and Other (Right hip immobilized)
Respiratory: Wheeze (n), Crackles (n), Rhonchi (n), Non-Labored Respirations and Stridor (n)
GI: Soft, Non Distended and Non Tender
Neurology: Awake (Opens eyes, follows commands), Alert, Oriented and No Motor Deficits (Moves all extremities, right upper extremity in sling)
Skin: Good Color, Cyanosis (n), Bruising (Bruising right arm, right hip, right hip dressing intact with oozing) and Other (Right hip incision dressing, with oozing)
Labs/Micro/Reports
Lab Data
05/13/25 04:59
05/13/25 04:59
Microbiology
05/09/25 13:03 Urine Urine Culture - Final
Citrobacter freundii
[2025-05-13] MEDS: NOVOLOG FLEXPEN-MODERATE RESISTANCE 1 UNITS SC ×2 (07:38→17:54)
[2025-05-13 07:39] LABS: Glucose - Point of Care 195 mg/dl (70-99)
[2025-05-13] MEDS: KEPPRA 750 MG IV ×2 (07:44→19:47)
[2025-05-13] MEDS: MIRALAX 17 GRAMS TUBE (07:45)
[2025-05-13] MEDS: PROTONIX IV 40 MG IV (07:45)
[2025-05-13] MEDS: NSS (PRESERVATIVE FREE) 10 ML IV (07:45)
[2025-05-13] MEDS: SOLU-CORTEF 50 MG IV ×3 (07:46→23:41)
--- NOTE | 2025-05-13 09:11 | W.PN.HOSP.TC ---
Today's Communication/Plan
-
Transfuse to units of PRBC. Follow H&H after transfusion.
Obtain abdominal CT and chest x-ray
Hold Lovenox
Consult nephrology
Assessment / Plan
Assessment / Plan
IMPRESSION/plan
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
atrial fibrillation on Eliquis, who presented to the emergency department secondary to inability to ambulate or stand due to pain in the right hip area for the past 2 weeks. Of note 2 weeks ago she caught her toe on a rug and she had a mechanical
fall, with resultant right shoulder injury for which she went to rehab. She is unaware if she had x-rays of her hip at that time. Today when she went to physical therapy and she was unable to stand or walk secondary to pain. She had an x-ray at
that time that showed a right femoral neck fracture. Otherwise she has had no further mechanical falls. She has pain with right hip movement.
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
Now extubated
# Vasopressor dependent shock-hypotension on pressors postcardiac arrest
#Lactic acidosis
Try to wean off pressors as tolerated
Currently on Neosynephrine;Levophed dced to help with HR; off of vasopressin
Continue with IV fluids till oral intake is adequate.
Continue with stress dose steroid
#Right femoral neck fracture secondary to mechanical trauma and osteoporosis. Additional imaging with no evidence of pathologic fracture
Status post cemented right hip hemiarthroplasty
Per orthopedic patient can be restarted on Eliquis
Currently on Lovenox
#Acute impacted fracture of the right humeral neck secondary to mechanical fall and osteoporosis
Continue nonweightbearing
Continue sling
Ortho recs
Acute anemia-drop of 4 g in blood count noted since yesterday. Apart from oozing of blood from her right hip incision site and swollen right thigh no other evidence of bleeding. Will get a CT of the abdomen pelvis to rule out any splenic or liver
injury from CPR she got. Check a chest x-ray. Hold Lovenox. Transfuse PRBC. Follow H&H.
#Atrial Fibrillation, permanent
Persistent Rapid ventricular response
On amiodarone infusion -rate increased
Hold Lovenox due to anemia and bleeding
#Elevated troponin likely secondary to postcardiac arrest
Echocardiogram with EF of 55% and no regional wall motion abnormality.
#Urinary tract infection with Citrobacter
cw IV antibiotics
#Mild hyponatremia
monitor for now
# JANINA on CKD 3- creatinine bump noted
suspect prerenal from cardiac arrest/ shock
Wt not accurate -15lb wt gain in last 24 hr
Continued rise in creatinine and hyponatremia noted. Consult nephrology
Optimize BP with fluids and Vasopressor
CW I/O via Echevarria
#Hyponatremia in the setting of shock and intravascular volume depletion. Check urine lites. Consult nephrology.
#Essential Hypertension
With hypotension
Hyperlipidemia
-hold statin
Metastatic Breast Cancer with known Brain Mets and prior seizure- stable MRI findings since Nov and March 2025
-Cont Anastrozole
-MRI brain 03/14/25: There is a plaque-like area of enhancing intermediate T1-weighted signal involving the right frontal calvarium, extending to the posterior base of the frontal sinuses. This appears stable from most recent examination of November
2024, most likely scarring/fibrosis, although a component of residual neoplasm is possible. The appearance is stable, with no evidence for a new area of enhancement by MRI.
CT scan of the hip with findings of sclerotic intramedullary lesions of the L5 vertebral body and left iliac bone which are most likely blastic osseous metastasis
-Chart says to continue Dexamethasone on high dose- 6mg TID but not on it .Cant confirm if on it .With pressor dependent shock will give stress dose steroids
-keppra transitioned to IV for now
Hx of Seizures
CW IV keppra
Depression/Anxiety
-Ariprazole when able too
Hypothyroidism on replacement
DVT proph-SCDs/lovenox
Full Code
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
Total Critical Care Time 40 minutes. I was immediately available to the patient and staff. I personally examined, reviewed labs, diagnostic images/reports, interpretations, treatment plans, discussed patient care with other providers and family
or caregivers (if patient is unable to make decisions), entered orders as appropriate and documented the medical record.
Anticipated Discharge: > 48 hours
Subjective/Interval History
-
Date of Service: May 13, 2025
Today she is more alert, conversive.
She states pain is better controlled and also she feels in general better.
She denies shortness of breath. Sternal pain is okay.
Right arm pain is okay.
Right hip pain is also okay.
Drop in H&H in the last 24 hours noted. Currently receiving blood transfusion.
Discussed with RN-slight ooze of blood from the right hip incision site noted
Patient denies any nausea or abdominal pain
Objective Data
-
Labs:
Laboratory Results
05/13/25 05/13/25
04:06 04:59
WBC Cancelled 13.1 H
Hgb Cancelled 4.6 L* D
Hct Cancelled 13.7 L*
Plt Count Cancelled 143 D
Sodium Cancelled 126 L
Potassium Cancelled 3.8
Chloride Cancelled 99
Carbon Dioxide Cancelled 22
BUN Cancelled 28 H
Creatinine Cancelled 1.4 H
Glucose Cancelled 184 H
Calcium Cancelled 7.4 L
Vital Signs:
Vital Signs
Temp Pulse Resp BP Pulse Ox
98.0 F 111 15 131/57 99
05/13/25 09:00 05/13/25 09:00 05/13/25 09:00 05/13/25 09:00 05/13/25 09:00
I&O
05/12/25 05/13/25 05/14/25
06:59 06:59 06:59
Intake Total 4930.3 / 5055.8 3960.6 / 3960.6 250 / 250
Output Total 435 / 485 510 / 510
Balance 4495.3 / 4570.8 3450.6 / 3450.6 250 / 250
Review of Systems
-
Constitutional: Denies Fever or Chills
EENT: Denies Sore Throat
Respiratory: Denies Cough
Neuro: Denies Dizzy
Physical Exam
-
General: Comfortable
Respiratory: Clear to Auscultation (Anteriorly) and Non Labored Respirations; Negative Accessory Resp Muscle Use
Cardiac: Regular Rhythm and S1/S2
GI: Soft and Nontender
Musculoskeletal: Edema, Right Upper Extrem and Edema, Right Lower Extrem (right thigh swollen and bruised in lateral aspect over surgical incision . There is ooze of blood as well noted.)
Neuro: AO x 3
Psych: Calm
Data Reviewed
-
Labs: Labs Reviewed by me
--- NOTE | 2025-05-13 09:37 | W.CON.NEPH ---
Consultation
-
Date/Time Consultation Requested: 05/13/25 0913
Date/Time Consultation Performed: 1000
Requesting Provider: Jared Burns
Performing Provider: Ramya Matthews
Reason for Consultation: JANINA, hyponatremia
Medical History
-
Chief Complaint: hip pain
History of Present Illness:
84-year-old woman with past medical history significant for essential hypertension, hypothyroidism, metastatic breast cancer s/p brain surgery and XRT January 2024 (stable MRI of the brain 03/14), seizure related to brain mets, atrial
fibrillation on Eliquis, diltiazem, BB, who presented to the emergency department on 05/08 for inability to ambulate or stand due to pain in the right hip area for the past 2 weeks. Of note 2 weeks ago she caught her toe on a rug and she had a
mechanical fall, with resultant right shoulder injury for which she went to rehab. She is unaware if she had x-rays of her hip at that time. 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 She noted to have
right femoral neck fracture and underwent right hip hemiarthroplasty on 05/10. During cement injection, patient had asystole requiring CPR, epinephrine with ROSC. Hip Surgery was completed, post op transferred to ICU as she remained intubated and
on pressors for shock. Her cr on admit was at 1 and was better at 0.9 on 05/11, since then cr slow increase now upto 1.4 and worsening hyponatremia from 138 on admit to 126. She also almost 10kg over her admit wt. Lactic acid improving now at 2.3. He
hb is decreasing to 4.6 , getting transfusion currently. She is extubated 2days ago and on 4lit of O2 currently. She has c/o chest soreness from CPR. No SOB at rest. She has no n/v. She also on Amio gtt for afib with RVR. Per nursing UOP was low
and recieved extra bolus IVF yesterday and UOP better today.
Past Medical History
Atrial Fibrillation, Metastatic Breast Cancer with known Brain Mets s/p surgery and XRT 2023 (stable MRI brain in March)), HTN (Essential), Hypercholesterolemia, Hypothyroidism, Renal Failure (CKD stage III), Psychiatric (Depression)
Past Surgical History: Other (Brain tumor surgery in 2023. Reported history of radiation therapy in January 2024.)
Social History
Tobacco: Non-Smoker
Alcohol: None
Drug: None
Personal:
Living: With Family
Family History
Family History: Not Pertinent
Allergies / Home Medications
Allergy/AdvReac Type Severity Reaction Status Date / Time
No Known Allergies Allergy Verified 07/07/24 08:34
�Medication �Instructions �Recorded �Confirmed �Type
aripiprazole 10 mg tablet 10 mg PO DAILY Mental Health 01/25/24 05/10/25 History
atorvastatin 20 mg tablet 20 mg PO QPM High Cholesterol 01/25/24 05/10/25 History
sertraline 100 mg tablet 150 mg PO DAILY Depression 01/25/24 05/10/25 History
anastrozole 1 mg tablet 1 mg PO DAILY Cancer 06/04/24 05/10/25 History
apixaban 5 mg tablet (Eliquis) 5 mg PO BID Atrial fibrillation 06/04/24 05/10/25 History
metoprolol succinate 50 mg 50 mg PO DAILY Blood Pressure 06/04/24 05/10/25 History
tablet,extended release 24 hr
acetaminophen 325 mg tablet 650 mg PO Q6 Pain 05/10/25 05/10/25 History
aspirin 81 mg chewable tablet 81 mg PO DAILY Blood Clot 05/10/25 05/10/25 History
Prevention/Tx
diltiazem HCl 120 mg 120 mg PO DAILY Blood Pressure 05/10/25 05/10/25 History
capsule,extended release 24 hr
furosemide 40 mg tablet 40 mg PO DAILY Fluid 05/10/25 05/10/25 History
Retention/Swelling
levetiracetam 750 mg tablet 750 mg PO BID Seizures 05/10/25 05/10/25 History
levothyroxine 75 mcg tablet 75 mcg PO DAILY@0600 Thyroid 05/10/25 05/10/25 History
pantoprazole 40 mg tablet,delayed 40 mg PO DAILY Gastrointestinal 05/10/25 05/10/25 History
release Issue
polyethylene glycol 3350 17 gram 17 g PO DAILY Constipation 05/10/25 05/10/25 History
oral powder packet
potassium chloride 20 mEq 20 meq PO DAILY Electrolyte 05/10/25 05/10/25 History
tablet,extended release Repletion
sennosides 8.6 mg tablet (senna) 8.6 mg PO QPM Constipation 05/10/25 05/10/25 History
trazodone 50 mg tablet 25 mg PO HS Sleep 05/10/25 05/10/25 History
Review of Systems
-
All other systems: Negative unless noted
Physical Exam
Vital Signs
Vital Signs
Temp Pulse Resp BP Pulse Ox
98.0 F 120 18 131/58 99
05/13/25 09:23 05/13/25 09:23 05/13/25 09:23 05/13/25 09:23 05/13/25 09:00
Lab Results
WBC 13.1 10^3/uL (4.8-10.8) H 05/13/25 04:59
RBC 1.74 10^6/uL (4.20-5.40) L 05/13/25 04:59
Plt Count 143 10^3/uL (130-400) D 05/13/25 04:59
Sodium 126 mmol/L (135-145) L 05/13/25 04:59
Potassium 3.8 mmol/L (3.5-5.1) 05/13/25 04:59
Chloride 99 mmol/L (98-107) 05/13/25 04:59
Carbon Dioxide 22 mmol/L (22-30) 05/13/25 04:59
BUN 28 mg/dl (7-17) H 05/13/25 04:59
Creatinine 1.4 mg/dL (0.6-1.0) H 05/13/25 04:59
eGFR 36.64 05/13/25 04:59
Glucose 184 mg/dl (70-99) H 05/13/25 04:59
Calcium 7.4 mg/dl (8.4-10.2) L 05/13/25 04:59
Phosphorus 4.4 mg/dl (2.5-4.5) 05/11/25 03:22
Zmh-A-Kmywnwynkxt Pept 2690 pg/ml 05/10/25 17:40
Albumin 2.4 g/dl (3.5-5.0) L 05/12/25 03:44
Physical Exam
General: Awake, Oriented, Nontoxic and Other (mild distress with pain?)
HEENT: EOMI, Anicteric and Facial Symmetry
Respiratory: Normal Excursion, Nonlabored Respirations and Other (coarse BS)
Cardiac: S1/S2 and Other (afib RVR)
Breast: Deferred by me
Abdomen: Soft, Nontender and Nondistended
Musculoskeletal: Edema (1+, oozing noted from right hip bandage)
Skin: No Rash
Neuro: Nonfocal/Grossly Intact
Psych: Appropriate
Data Reviewed
-
Radiology: Report Reviewed by me, Discussed with Nurse and Discussed with Patient
Labs: Labs Reviewed by me, Discussed with Nurse, Discussed with Patient and Discussed with Family
Assessment/Plan
-
IMP:
hyponatremia
JANINA on CKD 3-baseline cr 0.8-1
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
Vasopressor dependent shock-hypotension on pressors postcardiac arrest
Lactic acidosis
Right femoral neck fracture secondary to mechanical trauma and osteoporosis-status post right hip cemented hemiarthroplasty 05/10
Acute impacted fracture of the right humeral neck secondary to mechanical fall and osteoporosis
Acute anemia
Atrial Fibrillation, permanent-Persistent Rapid ventricular response
Elevated troponin likely secondary to postcardiac arrest
Urinary tract infection with Citrobacter
h/o Essential Hypertension
Hyperlipidemia
Metastatic Breast Cancer with known Brain Mets and prior seizure- stable MRI findings since Nov and March 2025
Hx of Seizures
Depression/Anxiety
Hypothyroidism
PLan:
A/w hip pain after fall, noted femoral neck fx s/p status post right hip cemented hemiarthroplasty on 05/10
complicated with bone cement implantation syndrome
on pressors for shock, L acid improving
JANINA-possible hemodynamic, prerenal
agree with checking CT abd specially with acute anemia
INitial UA with UTI, recheck UA, U fena
barely non oliguric with irene
cont pressors to keep MAP>65, also on stress dose steroids
remains tachy with Afb-cards follows on Amio gtt
hyponatremia-check U osmo, may need diuresis, lasix with PRBC now
check TSH, cortisol high as expected
avoid nephrotoxins
d/w at bedside in detail
CC time spent 40min
[2025-05-13] MEDS: REMOVE LIDOCAINE PATCH 1 PATCH REMOVE (09:48)
--- NOTE | 2025-05-13 10:00 | PTCARENOTE ---
Complete assessment done, and documented. Pt's updated. Pt remains on Quincy, weaning down. Amio at 1 mcg/min. Pt on 4l nc, has periods when she is oriented x3, then starts with some confused conversation. Dr Hobson and Dr Gary is to see pt,
and updated. Pt fed breakfast, able to eat 50%. U/O minimal, renal consulted.
[2025-05-13] MEDS: CORDARONE 518 MG IV (10:10)
[2025-05-13 10:55] LABS: Urine Character Clear (Clear)
[2025-05-13] MEDS: LASIX 20 MG IV (11:16)
[2025-05-13 11:36] LABS: Urine Red Blood Cell 0-2 /HPF (0-2); Urine White Cell 0-2 /HPF (0-5)
--- NOTE | 2025-05-13 12:14 | W.PN.CD ---
Today's Communication / Plan
-
As improves move to her usual reate control meds
Not certain Eliquis can be safely resumed with increasing falls
Impression / Plan
-
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
who presented to the emergency department from rehabilitation with right hip pain.
Outpatient director heart: Dr. Malvin Mandujano at [facility]
S/p Code (morris) intraop
- No VT/VF
Persistent hypotension on caty now
Lactic acidosis with hypotension
Anemia, s/p transfusion
- Acute on chronic
- HCt in mid 20s and fell to 13.7, repeat pending
- So far 3U PRBC transfused
Abnormal troponin, nonischemic myocardial injury in the setting of CPR
- Peak troponin 0.167
Atrial fibrillation, permanent (almost certainly)
- Rates in 120s, appropriate for critical illness
- Diltiazem and metoprolol succinate on hold in the setting of hypotension requiring support
- Oral Anticoagulation: Apixaban 5 mg twice daily prior to arrival, now on hold, has had falls recently
- [id number]: Score at least 4 (HTN, age 75 or more, female gender)
Acute impacted fracture of the right humeral neck secondary to mechanical fall and osteoporosis, status post OR 05/11/2025
Moderate tricuspid regurgitation
Metastatic breast cancer with known brain mets
Seizure disorder, in the setting of brain metastasis
CKD stage III
Subjective:
Denies CP, updated on cardiac issues
Data:
Echo 05/11/2025:
CONCLUSIONS
LV ejection fraction is approximately 55%. Normal regional wall motion.
Moderate to severely dilated left atrium. Moderate to severely dilated right
atrium.
Aortic sclerosis without stenosis. Mild to moderate aortic regurgitation.
Moderate tricuspid regurgitation. Estimated pulmonary artery pressure of 60-65
mmHg.
Physical Exam
Vital Signs/Labs
Vital Signs
Temp Pulse Resp BP Pulse Ox
98.4 F 140 20 110/55 99
05/13/25 12:03 05/13/25 12:03 05/13/25 12:03 05/13/25 12:03 05/13/25 09:00
05/12/25 05/13/25 05/14/25
06:59 06:59 06:59
Actual Weight 83.7 kg 85.6 kg
05/13/25 04:59
PT 17.3 Sec (11.4-14.6) H 05/10/25 17:40
PT Cancelled 05/10/25 17:40
INR 1.36 05/10/25 17:40
INR Cancelled 05/10/25 17:40
APTT 26.5 Sec (23.4-35.0) 05/10/25 17:40
APTT Cancelled 05/10/25 17:40
Magnesium 1.9 mg/dl (1.6-2.3) 05/12/25 03:44
05/10/25
17:40
Sav-N-Xopzjquiteq Pept 2690
LAB Results
05/10/25 05/11/25 05/11/25
17:40 00:51 08:12
Troponin I 0.044 H* 0.167 H* D 0.135 H*
Physical Exam
Constitutional: No acute distress
Cardiovascular: Rhythm/rate is irregular
Respiratory: Crackles Absent
GI: Soft
Data Reviewed
-
Date of Service: May 13, 2025
[2025-05-13 12:31] LABS: Hematocrit 21.5 % (37.0-47.0); Hemoglobin 7.4 g/dL (12.0-16.0)
[2025-05-13 12:33] LABS: TSH 3.84 uIU/ml (0.47-4.68)
[2025-05-13 12:47] LABS: Glucose - Point of Care 302 mg/dl (70-99)
[2025-05-13] MEDS: NOVOLOG FLEXPEN-MODERATE RESISTANCE 7 UNITS SC (12:47)
--- NOTE | 2025-05-13 12:54 | CM ---
Pt being followed for return to [facility] when medically cleared. She remains in ICU at this time.
CM will continue to follow to coordinate return to [facility]
[2025-05-13] MEDS: FLUSH (NSS) 10 FLUSH IV ×2 (13:10→13:20)
[2025-05-13] MEDS: STERILE WATER FOR INJECTION 10 ML IV (13:15)
--- NOTE | 2025-05-13 14:00 | PTCARENOTE ---
Pt received 2 units of PRBCs for Hbg 4.6, post transfusion, Hbg is 7.4. Dr Hobson updated. Pt also was taken to CT of abd and pelvis today. Results pending. Pt's family in room and updated.
[2025-05-13] MEDS: ROXICODONE 5 MG PO (14:59)
--- NOTE | 2025-05-13 15:16 | PTCARENOTE ---
Dr Reeves updated on U/Os since lasix dose, no change in treatment at this time. Dr Hobson also updated on pt's status, VSs, pt also moaning with sternal discomfort. Pain medication increased, see MAR.
--- NOTE | 2025-05-13 15:20 | PTCARENOTE ---
IVF fluids stopped now as per Dr John.
--- NOTE | 2025-05-13 16:11 | PTCARENOTE ---
Amiodarone at 1 mg/min, and Quincy is now weaned off. Dr Lyons updated on pt's HR, BP, and iv drips status. Amiodarone now to off since pt has chronic afib and metoprolol 2.5 mg iv started q [address] Lyons.
[2025-05-13] MEDS: LOPRESSOR 2.5 MG IV ×2 (17:41→23:41)
--- NOTE | 2025-05-13 17:46 | PTCARENOTE ---
Complet CHG bath given, mouth care done, alrette care done. O2 to 2l nc, o2 sat=99-100%. Rt hip area drsg remains with bloody drainage noted on drsg. Dr Hobson aware this am.
[2025-05-13 17:54] LABS: Glucose - Point of Care 167 mg/dl (70-99)
[2025-05-13 18:35] LABS: Hematocrit 18.2 % (37.0-47.0); Hemoglobin 6.4 g/dL (12.0-16.0)
[2025-05-13 18:53] LABS: Blood Urea Nitrogen 30 mg/dl (7-17); Calcium 7.2 mg/dl (8.4-10.2); Carbon Dioxide 24 mmol/L (22-30); Chloride 97 mmol/L (98-107); Estimated Creatinine Clearance 28 ml/min; Glucose 165 mg/dl (70-99); Potassium 3.7 mmol/L (3.5-5.1); Sodium 121 mmol/L (135-145); eGFR 33.73
--- NOTE | 2025-05-13 20:00 | PTCARENOTE ---
Received pt resting in bed, AAOx2- knew we were in [place] but thought she was at an apartment building. Intermittently calling out for 'Marium' who she reports is the apartment green building engineer - she thinks she is stuck on the roof of the
apartment building. Reoriented frequently and encouraged her that she is safe here. C/O 8/10 sternal pain - dilaudid given. AFib on tele, HR 120-140s. BP stable off pressors. R radial A line zeroed and transduced. Afebrile. +2 gen edema. Weak DPs.
Foot pumps in place. On 2L NC, spo2 98%. Lungs diminished throughout. + bowel sounds. Ate about 10% of dinner. Echevarria draining alisha/yellow urine- see I&O. R hip dsg with drainage present. R UE in sling. Hip abductor pillow in place. L DL PICC.
Turning q2. Call eric in reach
Hgb 6.4 on repeat - TRANSPLANT WORKER notified. 1 unit PRBCs ordered and transfusing per protocol.
[2025-05-13] MEDS: LASIX 40 MG IV (23:41)
[2025-05-13 23:46] LABS: Glucose - Point of Care 165 mg/dl (70-99)
--- NOTE | 2025-05-13 23:55 | PTCARENOTE ---
Tolerated unit of PRBCs without issue. H&H repeated as ordered - awaiting results.
[2025-05-14] VITALS (14 sets, daily range): BP systolic 96–128; BP diastolic 40–92; BMI 35.0
[2025-05-14] LABS: Hematocrit 21.8 % (37.0-47.0); Hemoglobin 7.6 g/dL (12.0-16.0)
[2025-05-14] MEDS: DILAUDID 0.5 MG IV ×4 (00:16→23:49)
[2025-05-14] MEDS: LOPRESSOR 2.5 MG IV ×5 (01:31→23:53)
--- NOTE | 2025-05-14 01:50 | PTCARENOTE ---
BP elevated despite scheduled lopressor and lasix given around 2340. PORTFOLIO MANAGER aware. SBP 150s-180s. Extra 2.5mg lopressor ordered and given - will monitor.
300ml urine out post lasix.
[2025-05-14 05:07] LABS: Hematocrit 20.5 % (37.0-47.0); Hemoglobin 7.1 g/dL (12.0-16.0); Mean Corp Hgb Conc. 34.6 g/dL (33.0-37.0); Mean Corpuscular Volume 82.7 fL (81.0-99.0); Platelet Count 101 10^3/uL (130-400); Red Cell Dist. Width 15.4 % (11.5-14.5)
[2025-05-14] MEDS: TYLENOL 650 MG PO (05:27)
[2025-05-14 05:28] LABS: Blood Urea Nitrogen 32 mg/dl (7-17); Calcium 7.4 mg/dl (8.4-10.2); Carbon Dioxide 22 mmol/L (22-30); Chloride 98 mmol/L (98-107); Estimated Creatinine Clearance 25 ml/min; Glucose 158 mg/dl (70-99); Potassium 3.9 mmol/L (3.5-5.1); Sodium 125 mmol/L (135-145); eGFR 29.02
--- NOTE | 2025-05-14 05:39 | PTCARENOTE ---
R hip dressing continues with moderate amount serosang drainage. Reinforced. Ecchymosis around site increasing in size since last night.
Hgb 7.1 - 1 unit PRBCs ordered and transfusing.
[2025-05-14] MEDS: NSS (PRESERVATIVE FREE) 10 ML IV (07:37)
[2025-05-14] MEDS: PROTONIX IV 40 MG IV (07:38)
[2025-05-14] MEDS: SOLU-CORTEF 50 MG IV (07:38)
[2025-05-14] MEDS: KEPPRA 750 MG IV ×2 (07:38→20:50)
[2025-05-14] MEDS: MIRALAX TUBE (07:38)
--- NOTE | 2025-05-14 08:25 | W.PN.CD ---
Today's Communication / Plan
-
Patient's hemoglobin was 7.1 and patient received 1 unit of PRBC this morning. Would recommend additional treatment of anemia as directed by primary team, critical care team and Ortho. Treatment of of anemia will be helpful in management of A-fib
rates, BP and JANINA
Heart rates under reasonable control currently in the low 100s. Can continue with low dose beta-ned as prescribed. Can titrate as blood pressure allows.
Patient remains off anticoagulation
Impression / Plan
-
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
who presented to the emergency department from rehabilitation with right hip pain.
Outpatient grounds manager: Dr. Malvin Mandujano at [facility]
S/p Code (morris) intraop
- No VT/VF
Hypotension. Improved. Relatively low blood pressures but stable off pressors
.
Anemia, s/p transfusion
- Acute on chronic
- Hemoglobin 7.1 this morning patient received another unit of PRBCs after morning labs
- Patient's received at least 4 units of PRBCs this admission
- Continued monitoring of hemoglobin PRBC as needed. Management directed per primary team/critical care and orthopedics
Abnormal troponin, nonischemic myocardial injury in the setting of CPR
- Peak troponin 0.167
Atrial fibrillation, permanent (almost certainly per notes)
- Rates in the low 100s.
- Diltiazem and metoprolol succinate. These were on hold and patient was hypotensive patient now on low-dose IV metoprolol. Can titrate as blood pressure allows.
- Oral Anticoagulation: Apixaban 5 mg twice daily prior to arrival, now on hold, has had falls recently
- [id number]: Score at least 4 (HTN, age 75 or more, female gender)
JANINA. Acute on chronic creatinine 1.7. Nephrology following
Acute impacted fracture of the right humeral neck secondary to mechanical fall and osteoporosis, status post OR 05/11/2025
Moderate tricuspid regurgitation
Metastatic breast cancer with known brain mets
Seizure disorder, in the setting of brain metastasis
Subjective:
No acute distress sleeping but arousable. at bedside
Data:
Echo 05/11/2025:
CONCLUSIONS
LV ejection fraction is approximately 55%. Normal regional wall motion.
Moderate to severely dilated left atrium. Moderate to severely dilated right
atrium.
Aortic sclerosis without stenosis. Mild to moderate aortic regurgitation.
Moderate tricuspid regurgitation. Estimated pulmonary artery pressure of 60-65
mmHg.
Physical Exam
Vital Signs/Labs
Vital Signs
Temp Pulse Resp BP Pulse Ox
98.5 F 94 16 109/47 93
05/14/25 07:14 05/14/25 06:30 05/14/25 06:30 05/14/25 05:49 05/14/25 06:30
05/13/25 05/14/25 05/15/25
06:59 06:59 06:59
Actual Weight 85.6 kg 89.6 kg
05/14/25 04:31
05/14/25 04:31
PT 17.3 Sec (11.4-14.6) H 05/10/25 17:40
PT Cancelled 05/10/25 17:40
INR 1.36 05/10/25 17:40
INR Cancelled 05/10/25 17:40
APTT 26.5 Sec (23.4-35.0) 05/10/25 17:40
APTT Cancelled 05/10/25 17:40
Magnesium 1.9 mg/dl (1.6-2.3) 05/12/25 03:44
TSH 3.84 uIU/ml (0.47-4.68) 05/13/25 04:59
Free T4 1.57 ng/dl (0.78-2.19) 05/13/25 04:59
05/10/25
17:40
Ebf-F-Xkvhgxrzcar Pept 2690
LAB Results
05/11/25
08:12
Troponin I 0.135 H*
Physical Exam
Constitutional: No acute distress
Cardiovascular: Rhythm/rate is irregular
Respiratory: Wheeze Absent and Rhonchi Absent
GI: Soft
Neuro/Psych: Other (Sleeping but arousable. No acute distress)
Data Reviewed
-
Date of Service: May 14, 2025
Medical Decision Making: Reviewed Test Results
EKG: Other (Reviewed telemetry)
Labs: Labs Reviewed by me
[2025-05-14] MEDS: NOVOLOG FLEXPEN-MODERATE RESISTANCE 1 UNITS SC (08:54)
--- NOTE | 2025-05-14 09:00 | PTCARENOTE ---
report received . patient received sleeping. when patient awakened, she was oriented to self only, screaming at staff attempting to hit staff. increased nonverbal pian cues. medicated with Dilaudid as patient refusing all oral medications or
liquids. assessments per work list. patient calmer after Dilaudid, drowsy. monitor afib. right radial arterial line with good waveform. sluggish blood return. left picc patent with good blood returns. +3 upper extremity edema. +2 LE edema. abdomen
soft. hypoactive bowel sounds. refused to take miralax and prn MOM. irene draining clear yellow urine. coarse nonproductive cough. room air pulse oximeter 89--90. oxygen 1 liter reapplied. refusing to attempt IS. spouse at bedside. updated. reviewed
with medical imaging technologist at bedside. unit PRBC completed
[2025-05-14 09:04] LABS: Glucose - Point of Care 167 mg/dl (70-99)
[2025-05-14] MEDS: MIRALAX 17 GRAMS TUBE (09:49)
[2025-05-14] MEDS: MILK OF MAGNESIA 30 ML PO (09:53)
[2025-05-14] MEDS: REMOVE LIDOCAINE PATCH 1 PATCH REMOVE (10:02)
--- NOTE | 2025-05-14 11:10 | W.PN.HOSP.TC ---
Today's Communication/Plan
-
Trend creatinine-nephrology following
Repeat CBC later today and transfuse aggressively
Monitor blood pressure closely
Bronchodilators per pulmonary
Assessment / Plan
Assessment / Plan
IMPRESSION/plan
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
atrial fibrillation on Eliquis, who presented to the emergency department secondary to inability to ambulate or stand due to pain in the right hip area for the past 2 weeks. Of note 2 weeks ago she caught her toe on a rug and she had a mechanical
fall, with resultant right shoulder injury for which she went to rehab. She is unaware if she had x-rays of her hip at that time. Today when she went to physical therapy and she was unable to stand or walk secondary to pain. She had an x-ray at
that time that showed a right femoral neck fracture. Otherwise she has had no further mechanical falls. She has pain with right hip movement.
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
Now extubated
# Vasopressor dependent shock-hypotension on pressors postcardiac arrest
#Lactic acidosis
Try to wean off pressors as tolerated
off pressors.
BP improving.
off stress dose steroids.
#Right femoral neck fracture secondary to mechanical trauma and osteoporosis. Additional imaging with no evidence of pathologic fracture
Status post cemented right hip hemiarthroplasty
Per orthopedic patient can be restarted on Eliquis
Currently on Lovenox-on hold due to severe anemia
#Acute impacted fracture of the right humeral neck secondary to mechanical fall and osteoporosis
Continue nonweightbearing
Continue sling
Ortho recs
Acute anemia
Status post 5 unit of PRBC. Repeat hemoglobin later today
Transfuse as necessary
CT abdomen pelvis noted with Large right hip/buttocks fluid collection suggestive of a hematoma of varying ages.
#Atrial Fibrillation, permanent
Persistent Rapid ventricular response
Off amiodarone and Lovenox
Now on Lopressor 2.5 mg Q6
#Elevated troponin likely secondary to postcardiac arrest
Echocardiogram with EF of 55% and no regional wall motion abnormality.
#Urinary tract infection with Citrobacter
cw IV antibiotics
#Mild hyponatremia
monitor for now
# JANINA on CKD 3- creatinine bump noted
suspect prerenal from cardiac arrest/ shock
Wt not accurate
Patient with anasarca
Status post Lasix yesterday
Optimize BP with fluids and Vasopressor
CW I/O via Echevarria
#Hyponatremia in the setting of shock and intravascular volume depletion.
Sodium improved to 125 today
#Essential Hypertension
With hypotension
Hyperlipidemia
-hold statin
Metastatic Breast Cancer with known Brain Mets and prior seizure- stable MRI findings since Nov and March 2025
-Cont Anastrozole
-MRI brain 03/14/25: There is a plaque-like area of enhancing intermediate T1-weighted signal involving the right frontal calvarium, extending to the posterior base of the frontal sinuses. This appears stable from most recent examination of November
2024, most likely scarring/fibrosis, although a component of residual neoplasm is possible. The appearance is stable, with no evidence for a new area of enhancement by MRI.
CT scan of the hip with findings of sclerotic intramedullary lesions of the L5 vertebral body and left iliac bone which are most likely blastic osseous metastasis
- Off stress dose steroids.
-keppra transitioned to IV for now
Hx of Seizures
CW IV keppra
Depression/Anxiety
-Ariprazole when able too
Hypothyroidism on replacement
DVT proph-SCDs/lovenox
Full Code
Discussed with patient spouse at bedside in details. All questions were answered to his satisfaction.
Anticipated Discharge: > 48 hours
Subjective/Interval History
-
Date of Service: May 14, 2025
Resting in bed comfortably
Per spouse at bedside not in much pain today
Objective Data
-
Labs:
Laboratory Results
05/13/25 05/14/25 05/14/25
23:47 04:31 13:00
WBC 9.0 Pending
Hgb 7.6 L 7.1 L Pending
Hct 21.8 L 20.5 L* Pending
Plt Count 101 L D Pending
Sodium 125 L
Potassium 3.9
Chloride 98
Carbon Dioxide 22
BUN 32 H
Creatinine 1.7 H
Glucose 158 H
Calcium 7.4 L
Vital Signs:
Vital Signs
Temp Pulse Resp BP Pulse Ox
98.1 F 112 16 101/40 99
05/14/25 11:07 05/14/25 10:00 05/14/25 10:00 05/14/25 08:34 05/14/25 10:00
I&O
05/13/25 05/14/25 05/15/25
06:59 06:59 06:59
Intake Total 3960.6 / 4438.9 2746.5 / 2746.5 370 / 370
Output Total 510 / 550 1275 / 1375 375 / 375
Balance 3450.6 / 3888.9 1471.5 / 1371.5 -5 / -5
Physical Exam
-
General: No Apparent Distress and Comfortable
Respiratory: Clear to Auscultation (Anteriorly) and Non Labored Respirations; Negative Accessory Resp Muscle Use
Cardiac: S1/S2 and Irregular Rhythm
GI: Soft and Nontender
Musculoskeletal: Edema, Right Upper Extrem and Edema, Right Lower Extrem (right thigh swollen and bruised in lateral aspect over surgical incision . )
Neuro: Awake
Psych: Calm
Data Reviewed
-
Total Time Spent with Patient (in minutes): 55
[2025-05-14] MEDS: SODIUM CHLORIDE 3% FOR INHALATION 1 VIAL INH ×2 (11:41→18:01)
[2025-05-14] MEDS: VENTOLIN NEBULES 2.5 MG INH ×2 (11:41→18:01)
--- NOTE | 2025-05-14 11:43 | PTCARENOTE ---
patient now oriented to person and place. more cooperative. unable to perform IS or accupella.. unable to obtain calf blood pressure or left forearm blood pressure. OK per intesivist to use right forearm blood pressure. blood pressure per work list.
arterial line removed per orders without issue. now IMU level of care. ultrasound in for upper ext ultrasound upper extremities
[2025-05-14 12:14] LABS: Glucose - Point of Care 206 mg/dl (70-99)
[2025-05-14] MEDS: NOVOLOG FLEXPEN-MODERATE RESISTANCE 3 UNITS SC ×2 (12:14→17:27)
--- NOTE | 2025-05-14 12:34 | W.PN.NEPH.PH ---
Today's Communication / Plan
-
Lasix
Assessment/Plan
-
IMP:
hyponatremia
JANINA on CKD 3-baseline cr 0.8-1
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
Vasopressor dependent shock-hypotension on pressors postcardiac arrest
Lactic acidosis
Right femoral neck fracture secondary to mechanical trauma and osteoporosis-status post right hip cemented hemiarthroplasty 05/10
Acute impacted fracture of the right humeral neck secondary to mechanical fall and osteoporosis
Acute anemia
Atrial Fibrillation, permanent-Persistent Rapid ventricular response
Elevated troponin likely secondary to postcardiac arrest
Urinary tract infection with Citrobacter
h/o Essential Hypertension
Hyperlipidemia
Metastatic Breast Cancer with known Brain Mets and prior seizure- stable MRI findings since Nov and March 2025
Hx of Seizures
Depression/Anxiety
Hypothyroidism
PLan:
A/w hip pain after fall, noted femoral neck fx s/p status post right hip cemented hemiarthroplasty on 05/10
complicated with bone cement implantation syndrome
JANINA-early ATN nonoliguric
avoid nephrotoxins
d/w at bedside in detail
off pressor support
s/p prbc
Overall positive . Will give 1 dose of loop diuretic today and facilitate urine output
CC time spent 40min
-
-
Date of Service: May 14, 2025
CC / HPI / ROS
-
Chief Complaint:
Acute kidney injury
History of Present Illness:
Acute kidney injury status post a fracture cardiac arrest
Review of Systems:
Extubated
No chest pain
Nonoliguric
Labs
-
Labs:
Sodium 125 mmol/L (135-145) L 05/14/25 04:31
Potassium 3.9 mmol/L (3.5-5.1) 05/14/25 04:31
Chloride 98 mmol/L (98-107) 05/14/25 04:31
Carbon Dioxide 22 mmol/L (22-30) 05/14/25 04:31
BUN 32 mg/dl (7-17) H 05/14/25 04:31
Creatinine 1.7 mg/dL (0.6-1.0) H 05/14/25 04:31
eGFR 29.02 05/14/25 04:31
Glucose 158 mg/dl (70-99) H 05/14/25 04:31
Calcium 7.4 mg/dl (8.4-10.2) L 05/14/25 04:31
Phosphorus 4.4 mg/dl (2.5-4.5) 05/11/25 03:22
Qkt-P-Hztkkluqfsd Pept 2690 pg/ml 05/10/25 17:40
Albumin 2.4 g/dl (3.5-5.0) L 05/12/25 03:44
Physical Exam
-
Vital Signs:
Vital Signs
Temp Pulse Resp BP Pulse Ox
98.1 F 98 17 111/74 97
05/14/25 11:07 05/14/25 12:19 05/14/25 11:32 05/14/25 12:19 05/14/25 11:32
[2025-05-14 12:36] LABS: Hematocrit 24.9 % (37.0-47.0); Hemoglobin 8.7 g/dL (12.0-16.0); Mean Corp Hgb Conc. 34.9 g/dL (33.0-37.0); Mean Corpuscular Volume 81.6 fL (81.0-99.0); Platelet Count 101 10^3/uL (130-400); Red Cell Dist. Width 14.9 % (11.5-14.5)
[2025-05-14] MEDS: LASIX 40 MG IV (13:03)
--- NOTE | 2025-05-14 14:06 | PTCARENOTE ---
TT to ortho MD regarding continued drainage from right hip and looseness of aqua cell dressing. patient refusing to eat. patient spouse ate patient lunch. family at bedside, updated. diuresing clear yellow urine post lasix
[2025-05-14] MEDS: STERILE WATER FOR INJECTION 10 ML IV (14:11)
[2025-05-14] MEDS: ROCEPHIN 1000 MG IV (14:12)
[2025-05-14] MEDS: FLUSH (NSS) 1 FLUSH IV ×2 (14:12→14:14)
--- NOTE | 2025-05-14 14:30 | W.PN.INTV ---
Today's Communication / Plan
Recommendations
- DC stress dose steroids
- Initiate hypertonic saline twice daily along with albuterol twice daily. Flutter valve and incentive spirometry to help with airway clearance
- Patient can be transferred to IMU
- Pulmonary team will continue to follow
Assessment
-
84-year-old female with metastatic breast cancer with brain metastases status post brain irradiation January 2024 on chronic hormone therapy, chronic Eliquis therapy for atrial fibrillation, presents 2 weeks after recent fall, found to have right
femoral neck fracture, underwent a right hip hemiarthroplasty 05/10/2025 complicated by cardiac arrest/asystole requiring epinephrine, CPR with ROSC, admitted to ICU
Conditions present prior to admission
Breast cancer with brain metastases diagnosed December 2023
Complicated by seizure on antiseizure therapy
Status post brain irradiation (Filippo/Funez)
Chronic hormone therapy
Hypertension/hyperlipidemia
Hypothyroidism
Chronic kidney disease stage IIIb
History of atrial fibrillation on Eliquis
History of stroke around 2016
History of dementia
DNR per daughter (not currently)
05/14 overview: Patient not requiring any pressors, not on any IV fluids. Patient was saturating around 89% on room air which improved to low 90s on 1 L supplemental oxygen. Left upper arm bed swollen with PICC line in place.
Assessment and plan:
#1. S/p cardiac arrest, perioperative
- Thought to be related to cement embolization
- s/p CPR, epinephrine, ROSC achieved in OR
- Extubated successfully on 05/11
#2. Atrial fibrillation with rapid ventricular rate
- Cardiology service on case
- Patient has been on Eliquis chronically which was held briefly prior to surgery
- Anticoagulation on hold due to large hip hematoma
- Patient currently on IV Lopressor 2.5 mg every 6 hours
- Continue telemetry monitoring, titrate medications as needed
#3. Acute blood loss anemia with large hip hematoma
- Anticoagulation has been on hold
- S/p blood transfusion, most recent hemoglobin 8.7
- Continue to monitor
#4. Shock, postcardiac arrest.
- Resolved, patient is off all pressors presently
- S/p blood transfusion, target hemoglobin between 8 and 9
- DC stress dose steroids
#5. Right LL Pneumonia vs atelectasis
- Aspiration cannot be excluded considering recent cardiac arrest
- Patient's cough is weak and has poor airway clearance
- Start hypertonic saline, 3% nebulized twice a day along with albuterol nebulization
- Start incentive spirometry, flutter valve
- Sit in chair as tolerated, increased activity as tolerated
- Patient at risk of respiratory failure with poor airway clearance
#6. Fall and acute femoral neck fracture on the right side
- s/p rt hip hemiarthroplasty, 05/10/2025
#7. JANINA
- ? Related to cement embolization vs shock related ATN
- Patient developing peripheral edema
- Nephrology service on case, Lasix initiated, -955 mL fluid balance over last 24 hours
#8. History of metastatic breast cancer with known brain mets and seizures
-Overall prognosis is poor with advanced malignancy as well as multiple comorbidities with complicated hospital course
GI prophylaxis: On Protonix
DVT prophylaxis: Eliquis as outpatient, Lovenox twice daily now held due to anemia. Continue foot pumps
Updated at bedside
Critical Care time 45 mins -- The patient is admitted for acute critical illness for the treatment of vital organ failure and/or prevention of further life-threatening conditions. Total care includes time spent in review of history, physical exam,
medications, hemodynamic/ventilator parameters, laboratory data, imaging and discussion with house staff, pharmacy, respiratory therapy, grounds foreman, and nursing.
Subjective Dataa
Subjective Data
Date of Service:
Date of Service: May 14, 2025
Subjective:
Patient comfortably lying in bed in no acute distress. Weak cough.
Review of Systems
Genitourinary: Other (Does not report any new symptoms.)
Objective Data
Data Reviewed
Vital Signs / I&O / Oxygen:
Vital Signs
Temp Pulse Resp BP Pulse Ox
98.1 F 91 19 103/55 97
05/14/25 11:07 05/14/25 13:03 05/14/25 12:30 05/14/25 13:03 05/14/25 12:30
Intake and Output
05/13/25 05/14/25 05/15/25
06:59 06:59 06:59
Intake Total 3960.6 / 4438.9 2746.5 / 2746.5 370 / 370
Output Total 510 / 550 1275 / 1375 930 / 930
Balance 3450.6 / 3888.9 1471.5 / 1371.5 -560 / -560
SaO2 [CPAP/PSV] 99
SaO2 [A/C] 96
SaO2 97
Nasal Cannula flow liters per 1
minute
Physical Exam
General: Comfortable (Conversant, answering questions)
HEENT: Normocephalic and Anicteric
Cardiovascular: S1-S2, Irregular Rhythm (Tachycardic), Murmur (n), Rub (n), Peripheral Edema (Both upper extremities appeared adenomatous) and Other (Right hip immobilized)
Respiratory: Wheeze (n), Crackles (n), Rhonchi (n), Non-Labored Respirations and Stridor (n)
GI: Soft, Non Distended and Non Tender
Neurology: Awake, Alert and Oriented
Skin: Good Color, Cyanosis (n) and Bruising
Labs/Micro/Reports
Lab Data
05/14/25 12:22
05/14/25 04:31
--- NOTE | 2025-05-14 15:42 | PTCARENOTE ---
report to IMU, transfer to [id number] with all belongings
--- NOTE | 2025-05-14 16:48 | CM ---
HGB 05/13/25 was 4.6 received PRBC, Hgb early today 7.1, transfused PRBC, Hgb @ 12:27 was 8.7. Discharge POC: Therapy recommendation for SNF. Was at [facility] for [facility]. Referral previously forwarded.
--- NOTE | 2025-05-14 16:48 | TRANSFER ---
Rec'd pt from ICU. Confused, resting comfortably at this time.
[2025-05-14 16:57] LABS: Glucose - Point of Care 217 mg/dl (70-99)
--- NOTE | 2025-05-14 18:33 | PTCARENOTE ---
Pt ate only about 5% of dinner, no PO fluids. very poor appetite.
[2025-05-14] MEDS: SENOKOT 17.2 MG PO (20:50)
[2025-05-14] MEDS: COLACE 100 MG PO (20:50)
[2025-05-14 21:24] LABS: Glucose - Point of Care 152 mg/dl (70-99)
[2025-05-14 22:01] LABS: Hematocrit 22.6 % (37.0-47.0); Hemoglobin 7.9 g/dL (12.0-16.0); Mean Corp Hgb Conc. 35.0 g/dL (33.0-37.0); Mean Corpuscular Volume 81.3 fL (81.0-99.0); Nucleated Red Blood Cells % 0.9 %; Red Cell Dist. Width 15.5 % (11.5-14.5)
[2025-05-14 23:10] LABS: Platelet Count 89 10^3/uL (130-400)
[2025-05-14] MEDS: LIDOCAINE 4% PATCH 1 PATCH TOPICAL (23:52)
[2025-05-15] VITALS (22 sets, daily range): BP systolic 90–129; BP diastolic 51–95; PULSE 103; O2SAT 96; BMI 33.9
[2025-05-15 03:22] LABS: Hematocrit 23.3 % (37.0-47.0); Hemoglobin 8.1 g/dL (12.0-16.0); Mean Corp Hgb Conc. 34.8 g/dL (33.0-37.0); Mean Corpuscular Volume 82.9 fL (81.0-99.0); Nucleated Red Blood Cells % 0.5 %; Platelet Count 87 10^3/uL (130-400); Red Cell Dist. Width 15.5 % (11.5-14.5)
[2025-05-15 03:45] LABS: Blood Urea Nitrogen 31 mg/dl (7-17); Calcium 7.5 mg/dl (8.4-10.2); Carbon Dioxide 28 mmol/L (22-30); Chloride 103 mmol/L (98-107); Estimated Creatinine Clearance 39 ml/min; Glucose 135 mg/dl (70-99); Potassium 3.4 mmol/L (3.5-5.1); Sodium 131 mmol/L (135-145); eGFR 48.94
[2025-05-15] MEDS: LOPRESSOR 2.5 MG IV ×3 (05:10→17:37)
[2025-05-15] MEDS: VENTOLIN NEBULES 2.5 MG INH ×3 (07:34→19:36)
[2025-05-15] MEDS: SODIUM CHLORIDE 3% FOR INHALATION 1 VIAL INH ×2 (07:34→19:36)
[2025-05-15 08:13] LABS: Glucose - Point of Care 153 mg/dl (70-99)
[2025-05-15] MEDS: DILAUDID 0.5 MG IV (08:21)
[2025-05-15] MEDS: LIPITOR 20 MG PO (08:22)
[2025-05-15] MEDS: COLACE 100 MG PO (08:22)
[2025-05-15] MEDS: ABILIFY 10 MG PO (08:22)
[2025-05-15] MEDS: SENOKOT 17.2 MG PO (08:22)
[2025-05-15] MEDS: NSS (PRESERVATIVE FREE) 10 ML IV (08:22)
[2025-05-15] MEDS: KEPPRA 750 MG IV ×2 (08:23→22:14)
[2025-05-15] MEDS: PROTONIX IV 40 MG IV (08:23)
[2025-05-15] MEDS: NOVOLOG FLEXPEN-MODERATE RESISTANCE 1 UNITS SC ×3 (08:24→16:29)
[2025-05-15] MEDS: MIRALAX 17 GRAMS TUBE (08:25)
--- NOTE | 2025-05-15 08:33 | W.PN.NEPH.PH ---
Today's Communication / Plan
-
20 mg IV Lasix provided
follow bmp
Will provide potassium repletion IV
Assessment/Plan
-
IMP:
hyponatremia
JANINA on CKD 3-baseline cr 0.8-1
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
Vasopressor dependent shock-hypotension on pressors postcardiac arrest
Lactic acidosis
Right femoral neck fracture secondary to mechanical trauma and osteoporosis-status post right hip cemented hemiarthroplasty 05/10
Acute impacted fracture of the right humeral neck secondary to mechanical fall and osteoporosis
Acute anemia
Atrial Fibrillation, permanent-Persistent Rapid ventricular response
Elevated troponin likely secondary to postcardiac arrest
Urinary tract infection with Citrobacter
h/o Essential Hypertension
Hyperlipidemia
Metastatic Breast Cancer with known Brain Mets and prior seizure- stable MRI findings since Nov and March 2025
Hx of Seizures
Depression/Anxiety
Hypothyroidism
PLan:
creatinine improving at 1.1 and grossly non oliguric ~ 2liters
20 mg IV Lasix provided today
A/w hip pain after fall, noted femoral neck fx s/p status post right hip cemented hemiarthroplasty on 05/10
complicated with bone cement implantation syndrome
Patient with atrial fibrillation with rapid ventricular response overnight
JANINA-early ATN nonoliguric
avoid nephrotoxins
off pressor support
s/p prbc hgb ~8
-
-
Date of Service: May 15, 2025
CC / HPI / ROS
-
Chief Complaint:
Acute kidney injury
History of Present Illness:
Acute kidney injury status post a fracture cardiac arrest
Creatinine improved to 1.1
Elevated heart rate in A-fib
K at 3.4
Review of Systems:
Poorly responsive
Extubated
Nonoliguri via irene
Labs
-
Labs:
WBC 8.9 10^3/uL (4.8-10.8) 05/15/25 03:01
RBC 2.81 10^6/uL (4.20-5.40) L 05/15/25 03:01
Hgb 8.1 g/dL (12.0-16.0) L 05/15/25 03:01
Hct 23.3 % (37.0-47.0) L 05/15/25 03:01
Plt Count 87 10^3/uL (130-400) L 05/15/25 03:01
Sodium 131 mmol/L (135-145) L 05/15/25 03:01
Potassium 3.4 mmol/L (3.5-5.1) L 05/15/25 03:01
Chloride 103 mmol/L (98-107) 05/15/25 03:01
Carbon Dioxide 28 mmol/L (22-30) 05/15/25 03:01
BUN 31 mg/dl (7-17) H 05/15/25 03:01
Creatinine 1.1 mg/dL (0.6-1.0) H 05/15/25 03:01
eGFR 48.94 05/15/25 03:01
Glucose 135 mg/dl (70-99) H 05/15/25 03:01
Calcium 7.5 mg/dl (8.4-10.2) L 05/15/25 03:01
Phosphorus 4.4 mg/dl (2.5-4.5) 05/11/25 03:22
Crf-Y-Vzluqnlclqd Pept 2690 pg/ml 05/10/25 17:40
Albumin 2.4 g/dl (3.5-5.0) L 05/12/25 03:44
Physical Exam
-
Vital Signs:
Vital Signs
Temp Pulse Resp BP Pulse Ox
97.8 F 109 21 108/51 95
05/15/25 07:06 05/15/25 07:35 05/15/25 07:35 05/15/25 06:00 05/15/25 07:35
Cardiovascular:: Irregular rate and rhythm
Respiratory:: Bilateral: CTA
Lung Excursion:: Normal
Abdomen:: Nontender and Soft
Bowel Sounds:: Normal
Extremity Edema:: +1: Bilateral:
Irene Catheter: Yes
[2025-05-15] MEDS: KCL 160 MEQ IV (09:16)
--- NOTE | 2025-05-15 09:16 | W.PN.PUL3 ---
Today's Communication / Plan
-
Speech therapy ongoing, but aspiration risk is high given baseline dementia
Reports SOB with rapid shallow breathing, likely related to anxiety/cognitive impairment --lacks insight into her condition
Decreased PO intake noted, alternative means may be needed
She is started on IV CTX since 05/10--can stop after 5 days for aspiration
GOC discussion with family would be warranted on overall plan of care
Assessment
-
84-year-old female with metastatic breast cancer with brain metastases status post brain irradiation January 2024 on chronic hormone therapy, chronic Eliquis therapy for atrial fibrillation, presents 2 weeks after recent fall, found to have right
femoral neck fracture, underwent a right hip hemiarthroplasty 05/10/2025 complicated by cardiac arrest/asystole requiring epinephrine, CPR with ROSC, admitted to ICU
S/p cardiac arrest, perioperative
Atrial fibrillation with rapid ventricular rate
Acute blood loss anemia with large hip hematoma
Shock, postcardiac arrest.
Right LL Pneumonia vs atelectasis
Fall and acute femoral neck fracture on the right side
JANINA
History of metastatic breast cancer with known brain mets and seizures
Mild-moderate VHD, moderate PH on ECHO
Hyponatremia
Lactic acidosis
Conditions present prior to admission
Breast cancer with brain metastases diagnosed December 2023
Complicated by seizure on antiseizure therapy
Status post brain irradiation (Filippo/Funez)
Chronic hormone therapy
Hypertension/hyperlipidemia
Hypothyroidism
Chronic kidney disease stage IIIb
History of atrial fibrillation on Eliquis
History of stroke around 2016
History of dementia
Plan:
05/14 overview: Patient not requiring any pressors, not on any IV fluids.
Patient was saturating around 89% on room air which improved to low 90s on 1 L supplemental oxygen.
Left upper arm bed swollen with PICC line in place.
Cardiac arrest- Thought to be related to cement embolization
s/p CPR, epinephrine, ROSC achieved in OR
Extubated successfully on 05/11
ECHO reviewed with moderate PH/mild-mod VHD--stable function
Cardiology service on case
Afib on Eliquis chronically which was held briefly prior to surgery
Anticoagulation on hold due to large hip hematoma/anemia
Patient currently on IV Lopressor 2.5 mg every 6 hours
Continue telemetry monitoring, titrate medications as needed
S/p blood transfusion, most recent hemoglobin 8.7
Aspiration cannot be excluded considering recent cardiac arrest--dementia is an issue with risk
Patient's cough is weak and has poor airway clearance--she does not comply with treatment
Continue mucus clearance measures--hypertonic saline, 3% nebulized twice a day along with albuterol nebulization
Continue incentive spirometry, flutter valve
Sit in chair as tolerated, increased activity as tolerated
Patient at risk of respiratory failure with poor airway clearance
She is started on IV CTX since 05/10--can stop after 5 days for aspiration
s/p rt hip hemiarthroplasty, 05/10/2025
JANINA ? Related to cement embolization vs shock related ATN
Patient developing peripheral edema, proBNP 2690 <- 6310
Nephrology service on case
Lasix initiated, -955 mL fluid balance over last 24 hours
Overall prognosis is poor with advanced malignancy as well as multiple comorbidities with complicated hospital course
PO intake poor as well
GI prophylaxis: On Protonix
DVT prophylaxis: Eliquis as outpatient, Lovenox twice daily now held due to anemia. Continue foot pumps
Updated at bedside
Diagnostic Data
Chest X-Ray: 05/13/25- Tiny bilateral pleural effusions. New. Mild right infrahilar airspace disease concerning for pneumonia. New Minimal left lower lobe atelectasis versus scarring. Improved.
05/10/25- 1. New left upper extremity PICC line in place with the catheter tip terminating in the cavoatrial junction.
2. Endotracheal tube remaining in place.
3. Interval decrease in size and density of a left lower lobe airspace consolidation (probably left lower lobe atelectasis secondary to endobronchial mucous plugging).
4. Mild right to left mediastinal shift.
5. Mild cardiomegaly.
6. Mild interstitial cardiogenic pulmonary edema.
7. Multilevel chronic vertebral body endplate insufficiency fractures.
8. Acute impacted fracture of the right humeral neck.
CT Scan:
Echo: 05/11/25- LV ejection fraction is approximately 55%. Normal regional wall motion. Moderate to severely dilated left atrium. Moderate to severely dilated right atrium. Aortic sclerosis without stenosis. Mild to moderate aortic regurgitation.
Moderate tricuspid regurgitation. Estimated pulmonary artery pressure of 60-65 mmHg. Compared to previous echo on 07/28/2022, mild to moderate aortic regurgitation is now present and progressive tricuspid regurgitation is noted (previously trace)
with an increase in PASP (previously 43 mmHg).
PFT's:
Reports and relevant images were personally reviewed.
Total time spent on this consultation/encounter __51__ minutes which includes review of history, physical exam, medications, laboratory data, personal review of imaging, extensive review of outpatient records, discussion with care team and
respiratory therapy.
Subjective Data
-
Date of Service:
Date of Service: May 15, 2025
Chief Complaint: Pulmonary Follow Up
Subjective:
Complains of SOB, but mouth open and not elaborating on ROS
Speech at bedside, eval ongoing for swallowing
Appetite poor
Rapid shallow breathing noted, but no clear reason why
Objective Data
Data Reviewed
Vital Signs / I&O / Oxygen:
Vital Signs
Temp Pulse Resp BP Pulse Ox
97.8 F 109 21 108/51 95
05/15/25 07:06 05/15/25 07:35 05/15/25 07:35 05/15/25 06:00 05/15/25 07:35
Intake and Output
05/14/25 05/15/25 05/16/25
06:59 06:59 06:59
Intake Total 2746.5 / 2746.5 370 / 370
Output Total 1275 / 1375 2155 / 2154
Balance 1471.5 / 1371.5 -1785 / -1785
SaO2 [CPAP/PSV] 99
SaO2 [A/C] 96
SaO2 95
Nasal Cannula flow liters per 6
minute
Physical Exam
General: Poor Appetite and Other (deconditioned, anxious appearing)
HEENT: Normocephalic, Anicteric and Other (dry MM, mouth open/mouth breathing)
Cardiovascular: S1-S2, Regular Rhythm and Peripheral Edema (anasarca noted)
Respiratory: Clear and Non-Labored Respirations
GI: Soft, Non Distended and Non Tender
Neurology: Awake, Alert and Other (confused, not answering completely)
Skin: Warm and Dry
Labs/Micro/Reports
Lab Data
05/15/25 03:01
05/15/25 03:01
--- NOTE | 2025-05-15 09:20 | W.PN.CD ---
Today's Communication / Plan
-
Continue IV Lopressor
When taking PO will start metoprolol ER and low dose Dilt ER as BP permits
Will add PO Lasix when taking PO, may need IV lasix if cannot take PO in next few days
Not sure we should resume Eliquis
Impression / Plan
-
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
who presented to the emergency department from rehabilitation with right hip pain.
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 Malvin Mandujano at [facility]
S/p Code (morris) intraop
- No VT/VF
- Hypotension. Improved. S/p fluid resuscitation and 5 U PRBC transfusion
Anemia, s/p transfusion (5 units so far)
- Acute on chronic
- Hematoma noted on CT
Lasix: Usually on PO Lasix, will add soon
Atrial fibrillation, permanent (almost certainly per notes)
- Rates in the low 100s.
- Diltiazem ER 120 daily and metoprolol succinate 50 daily as outpatient. These were on hold and patient was hypotensive patient now on low-dose IV metoprolol. Can titrate as blood pressure allows.
- Oral Anticoagulation: Apixaban 5 mg twice daily prior to arrival, now on hold, has had falls recently, not sure we should resume Eliquis
- [id number]: Score at least 4 (HTN, age 75 or more, female gender)
JANINA. Acute on chronic creatinine 1.7. Nephrology following. Normalize 05/15/2025 Cr 1.1
Abnormal troponin, nonischemic myocardial injury in the setting of CPR, Peak troponin 0.167
Acute impacted fracture of the right humeral neck secondary to mechanical fall and osteoporosis, status post OR 05/11/2025
Moderate tricuspid regurgitation
Metastatic breast cancer with known brain mets
Seizure disorder, in the setting of brain metastasis
Subjective:
Appears comfortable
Data:
Echo 05/11/2025:
CONCLUSIONS
LV ejection fraction is approximately 55%. Normal regional wall motion.
Moderate to severely dilated left atrium. Moderate to severely dilated right
atrium.
Aortic sclerosis without stenosis. Mild to moderate aortic regurgitation.
Moderate tricuspid regurgitation. Estimated pulmonary artery pressure of 60-65
mmHg.
Physical Exam
Vital Signs/Labs
Vital Signs
Temp Pulse Resp BP Pulse Ox
97.8 F 109 21 108/51 95
05/15/25 07:06 05/15/25 07:35 05/15/25 07:35 05/15/25 06:00 05/15/25 07:35
05/14/25 05/15/25 05/16/25
06:59 06:59 06:59
Actual Weight 89.6 kg 86.9 kg
05/15/25 03:01
05/15/25 03:01
PT 17.3 Sec (11.4-14.6) H 05/10/25 17:40
PT Cancelled 05/10/25 17:40
INR 1.36 05/10/25 17:40
INR Cancelled 05/10/25 17:40
APTT 26.5 Sec (23.4-35.0) 05/10/25 17:40
APTT Cancelled 05/10/25 17:40
Magnesium 1.9 mg/dl (1.6-2.3) 05/12/25 03:44
TSH 3.84 uIU/ml (0.47-4.68) 05/13/25 04:59
Free T4 1.57 ng/dl (0.78-2.19) 05/13/25 04:59
05/10/25
17:40
Rob-D-Bswqryacbbh Pept 2690
Physical Exam
Constitutional: No acute distress
EENT: Anicteric
Cardiovascular: Rhythm/rate is irregular and S1S2 is normal
Respiratory: Respiratory effort normal and Lungs clear to auscul.
GI: Soft and Distention absent
Neuro/Psych: Alert
Data Reviewed
-
Date of Service: May 15, 2025
[2025-05-15 11:15] LABS: Glucose - Point of Care 155 mg/dl (70-99)
[2025-05-15] MEDS: REMOVE LIDOCAINE PATCH 1 PATCH REMOVE (11:34)
--- NOTE | 2025-05-15 12:15 | W.PN.HOSP.TC ---
Today's Communication/Plan
-
Long-term prognosis guarded
IV Lasix monitor replete potassium
IV antibiotic
Trend CBC
Downgrade diet
Assessment / Plan
Assessment / Plan
General: No Apparent Distress and Comfortable
Respiratory: Clear to Auscultation (Anteriorly) and Non Labored Respirations; Negative Accessory Resp Muscle Use
Cardiac: S1/S2 and Irregular Rhythm
GI: Soft and Nontender
Musculoskeletal: Edema, Right Upper Extrem and Edema, Right Lower Extrem (right thigh swollen and bruised in lateral aspect over surgical incision . )
Neuro: Awake
Psych: Calm
IMPRESSION/plan
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
atrial fibrillation on Eliquis, who presented to the emergency department secondary to inability to ambulate or stand due to pain in the right hip area for the past 2 weeks. Of note 2 weeks ago she caught her toe on a rug and she had a mechanical
fall, with resultant right shoulder injury for which she went to rehab. She is unaware if she had x-rays of her hip at that time. Today when she went to physical therapy and she was unable to stand or walk secondary to pain. She had an x-ray at
that time that showed a right femoral neck fracture. Otherwise she has had no further mechanical falls. She has pain with right hip movement.
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
Now extubated
# Vasopressor dependent shock-hypotension on pressors postcardiac arrest
#Lactic acidosis
Try to wean off pressors as tolerated
off pressors.
BP improving.
off stress dose steroids.
#Right femoral neck fracture secondary to mechanical trauma and osteoporosis. Additional imaging with no evidence of pathologic fracture
Status post cemented right hip hemiarthroplasty
Per orthopedic patient can be restarted on Eliquis
Currently on Lovenox-on hold due to severe anemia
#Acute impacted fracture of the right humeral neck secondary to mechanical fall and osteoporosis
Continue nonweightbearing
Continue sling
Ortho recs
Acute blood loss anemia due to large hip hematoma
Status post 5 unit of PRBC. Repeat hemoglobin later today
Transfuse as necessary
CT abdomen pelvis noted with Large right hip/buttocks fluid collection suggestive of a hematoma of varying ages.
Hgb at 8.1.
#Atrial Fibrillation, permanent
Persistent Rapid ventricular response
Off amiodarone and Lovenox
Now on Lopressor 2.5 mg Q6
#Elevated troponin likely secondary to postcardiac arrest
Echocardiogram with EF of 55% and no regional wall motion abnormality.
#Urinary tract infection with Citrobacter
#Right lower lobe pneumonia versus atelectasis
cw IV antibiotics ceftriaxone
# JANINA on CKD 3- creatinine bump noted
#Hypokalemia
suspect prerenal from cardiac arrest/ shock
Wt not accurate
Patient with anasarca
IV Lasix per nephrology.
Optimize BP with fluids and Vasopressor
CW I/O via Echevarria
#Hyponatremia in the setting of shock and intravascular volume depletion.
Sodium improved
#Toxic metabolic encephalopathy likely secondary to postcardiac arrest versus ICU delirium versus infection versus hypoxemia
#Dysphagia
Monitor mentation closely
Diet downgraded. Monitor p.o. intake.
# Thrombocytopenia acute
Patient off Lovenox and Eliquis
Continue to trend platelets. Transfuse if necessary less than 10k.
#Essential Hypertension
on IV lopressor. labile BP at times.
Hyperlipidemia
-hold statin
Metastatic Breast Cancer with known Brain Mets and prior seizure- stable MRI findings since Nov and March 2025
-Cont Anastrozole
-MRI brain 03/14/25: There is a plaque-like area of enhancing intermediate T1-weighted signal involving the right frontal calvarium, extending to the posterior base of the frontal sinuses. This appears stable from most recent examination of November
2024, most likely scarring/fibrosis, although a component of residual neoplasm is possible. The appearance is stable, with no evidence for a new area of enhancement by MRI.
CT scan of the hip with findings of sclerotic intramedullary lesions of the L5 vertebral body and left iliac bone which are most likely blastic osseous metastasis
- Off stress dose steroids.
-keppra transitioned to IV for now
Hx of Seizures
CW IV keppra
Depression/Anxiety
-Ariprazole when able too
Hypothyroidism on replacement
DVT proph-SCDs in the setting of thrombocytopenia and large hip hematoma
Full Code
Anticipated Discharge: > 48 hours
Subjective/Interval History
-
Date of Service: May 15, 2025
remains on oxygen
remains confused
Objective Data
-
Labs:
Laboratory Results
05/15/25
03:01
WBC 8.9
Hgb 8.1 L
Hct 23.3 L
Plt Count 87 L
Sodium 131 L
Potassium 3.4 L
Chloride 103
Carbon Dioxide 28
BUN 31 H
Creatinine 1.1 H
Glucose 135 H
Calcium 7.5 L
Vital Signs:
Vital Signs
Temp Pulse Resp BP Pulse Ox
97.8 F 108 26 108/51 96
05/15/25 07:06 05/15/25 11:29 05/15/25 11:29 05/15/25 06:00 05/15/25 11:29
I&O
05/14/25 05/15/25 05/16/25
06:59 06:59 06:59
Intake Total 2746.5 / 2746.5 370 / 370
Output Total 1275 / 1375 2155 / 2155
Balance 1471.5 / 1371.5 -1785 / -1785
Data Reviewed
-
Total Time Spent with Patient (in minutes): 55
--- NOTE | 2025-05-15 13:40 | W.PN.ORTHO ---
Today's Communication / Plan
-
84-year-old female now status post right hip hemiarthroplasty, cemented as well as impacted right proximal humerus fracture
Weightbearing as tolerated right lower extremity
Nonweightbearing right upper extremity in sling
Okay for active elbow wrist and finger right upper extremity
Okay for passive range of motion as pain allows right shoulder
PT OT
Posterior hip precautions
Pain control
Dressing changed by myself this afternoon, okay for nursing to change dressings as needed
DVT prophylaxis: Okay to resume anticoagulation from orthopedic standpoint, would recommend DVT prophylaxis for 30 days postop once hemoglobin stabilizes unless otherwise medically contraindicated
Plan: Follow-up with myself outpatient 2 to 3 weeks for repeat clinical assessment radiographs plan removal of adeline
Subjective
.
.:
Patient somewhat uncomfortable after completing physical therapy this afternoon. Complaining of very little hip and groin pain.
Vital Signs and Labs
.
Vital Signs and Labs:
Lab Results
05/15/25 03:01
05/15/25 03:01
Temp Pulse Resp BP Pulse Ox
99.4 F 108 26 108/51 96
05/15/25 11:00 05/15/25 11:29 05/15/25 11:29 05/15/25 06:00 05/15/25 11:29
PT 17.3 Sec (11.4-14.6) H 05/10/25 17:40
PT Cancelled 05/10/25 17:40
INR 1.36 05/10/25 17:40
INR Cancelled 05/10/25 17:40
Physical Exam
-
Musculoskeletal right lower extremity
Dressing somewhat saturated, moderate swelling noted thigh, moderate ecchymotic staining noted buttock and thigh
Positive EHL, FHL, ankle dorsiflexion, plantarflexion
Sensation grossly intact light touch in all distributions distally
Brisk cap refill
Leg lengths clinically equal
No rotational deformity noted
--- NOTE | 2025-05-15 14:30 | PN.CDI ---
CDI
- -
CDI:
Physician Documentation Request
Admit Date: 05/08/25 05:58
Dear Doctor Giacomo,
Clinical Indicators:
Patient admitted with right femoral neck fracture; s/p right hemiarthroplasty 05/10.
05/15 PN, 'Vasopressor dependent shock-hypotension on pressors postcardiac arrest.'
PRBCs 5 units transfused.
Hgb/Hct
05/13/25
04:59
Hgb 4.6 L* D
Hct 13.7 L*
Please clarify the type of shock:
Multifactorial, cardiogenic/hemorrhagic
Cardiogenic shock
Hemorrhagic shock
Other shock, please specify
Use of terms such as suspected, likely, concern for, or probable (associated with a specific diagnosis that is being evaluated, monitored, or treated as if it exists) are acceptable and can be coded in the inpatient setting, when documented at the
time of discharge.
Thank you,
GUILLERMO Watson RN
CDI Specialist
available via tiger text
Please use your independent medical judgment in providing your response.
--- NOTE | 2025-05-15 15:24 | CON.NEURO ---
Addendum entered and electronically signed by Baron Gonzalez MD 05/15/25 17:54:
Studies reviewed.
I have personally examined the patient. I reviewed and agree with the VIDEO GAMES MECHANIC's Note.
My addenda:
Awake, alert, interactive. No acute distress.
Speech with repetitive phrases at times and perseveration.
Follows 2-step requests w/o difficulty. No tremor.
Extra-ocular movements grossly intact.
Facial movements full and symmetric. Hearing intact to normal conversational volume.
Normal UE movements bilaterally.
Neck: full ROM.
Chest: no dyspnea
Heart: no JVD
Ext: (-) Clubbing, (-) Cyanosis, (-) Edema
IMPRESSIONS/RECOMMENDATIONS:
Abrupt onset of change in speech with underlying likely dementia
No evidence of stroke at this time despite prior right frontal lobe neoplasm
Continue patient's usual levetiracetam
Continue usual anticoagulation
No indication for EEG at this time
Continue statin therapy
D/W patient / family / nursing
All questions answered.
Will continue to follow as needed.
Original Note:
Documented by User: Janessa Hairston NP 05/15/25 17:27
Neuro Assessment/Plan
Assessment
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
atrial fibrillation on Eliquis, who presented to [facility] on secondary to right femoral neck fracture s/p right hip hemiarthroplasty (05/10/2025) now dysphasia with concern for stroke.
Head CT: No acute intracranial abnormality. There is similar appearance of the known right frontal calvarial lesion with hypodensity in the underlying anterior/inferior right frontal lobe which may in part represent post treatment/post radiation
change. Further evaluation with MRI brain may be considered.
Brain MRI 03/14/2025: Stable appearance of MRI brain as described above, when compared to examination of November 14, 2024.
Brain MRI 11/14/2024: Status post resection radiation therapy for right frontal neoplasm, which was likely meningioma. Enhancing intermediate T1-weighted signal at the site of right frontal calvarial defect, which could represent scarring and/or
residual neoplasm. This appears minimally smaller than most recent MRI examination. No evidence for new area of enhancement. No evidence of acute intracranial abnormality.
Plan
Impressions:
I. Acute delirium with prolonged hospitalization vs acute CVA vs dementia Possible breakthrough seizure patient on Levetiracetam
II. Status post resection radiation therapy for right frontal neoplasm
III. Possible breakthrough seizure patient on Levetiracetam
-continue levetiracetam 750 mg BID
-seizure precautions
-may continue anticoagulation per ortho
-continue statin therapy
-PT/OT/ST evaluations
-goal normotension and normoglycemia
-DVT prophylaxis
All questions encouraged and answered, plan of care discussed with Dr. Gonzalez, hospitalist, nurse, patient and family
Consultation
Order
Date of Consultation: 05/15/25
Requesting Provider: hospitalist
Reason for Consult: stroke alert
Subjective/Objective
Subjective Data
Date of Service: May 15, 2025
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
atrial fibrillation on Eliquis, who presented to [facility] on secondary to inability to ambulate or stand due to pain in the right hip area for the past 2 weeks. Of note 2 weeks ago she caught her toe on a rug and she had a mechanical fall,
with resultant right shoulder injury for which she went to rehab. She went to physical therapy on day of admission and she was unable to stand or walk secondary to pain. She was found to have right femoral neck fracture and underwent right hip
hemiarthroplasty on 05/10/2025. Today the nurse noted the patient to have speech difficulty at 1515. Patient confused with dysarthria. Stroke alert called and taken to CT. Head CT showed no acute intracranial abnormality. Currently speaking and
following commands. Current NIHSS 0. Per son, similar symptoms last year with 'word salad' when taken off her antiseizure medications. She currently takes levetiracetam 750 mg BID for history of seizures.
Objective Data
Vital Signs
Temp Pulse Resp BP Pulse Ox
99.5 F 108 26 108/51 96
05/15/25 15:00 05/15/25 11:29 05/15/25 11:29 05/15/25 06:00 05/15/25 11:29
Lab Results
05/15/25 03:01
05/15/25 03:01
PT 17.3 Sec (11.4-14.6) H 05/10/25 17:40
PT Cancelled 05/10/25 17:40
INR 1.36 05/10/25 17:40
INR Cancelled 05/10/25 17:40
APTT 26.5 Sec (23.4-35.0) 05/10/25 17:40
APTT Cancelled 05/10/25 17:40
Sodium 131 mmol/L (135-145) L 05/15/25 03:01
Potassium 3.4 mmol/L (3.5-5.1) L 05/15/25 03:01
BUN 31 mg/dl (7-17) H 05/15/25 03:01
Glucose 135 mg/dl (70-99) H 05/15/25 03:01
Calcium 7.5 mg/dl (8.4-10.2) L 05/15/25 03:01
Phosphorus 4.4 mg/dl (2.5-4.5) 05/11/25 03:22
Hfh-Y-Qzivfndpxny Pept 2690 pg/ml 05/10/25 17:40
Patient Allergies
No Known Allergies Allergy (Verified 07/07/24 08:34)
CVA Assessment
Onset of Stroke Symptoms
Date of onset of symptoms: 05/15/25
Time of onset of symptoms: 15:15
Time pt last seen normal is known: Yes
Date last time pt seen normal: 05/15/25
Time last time pt seen normal: 15:15
NIH Stroke Score
Level of Consciousness: 0 - Alert
LOC Questions: 0-Answers both correctly
LOC Commands: 0-Performs both correctly
Best Horizontal Gaze: 0-Normal
Visual Garcia: 0=Normal, no visual loss
Facial Palsy: 0=Normal, symmetrical
Motor - Right Arm: UN=Amputation/jointfusion (RUE in sling)
Motor - Left Arm: 0=No drift 10 seconds
Motor - Right Le-No drift 5 seconds
Motor - Left Le-No drift 5 seconds
Limb Ataxia: 0-Absent
Sensation: 0-Normal
Best Language: 0-No aphasia
Dysarthria: 0-Normal
Extinction and Inattention: 0-No abnormality
NIH Total Score:: 0
Tenecteplase Contraindications
Inclusion and Exclusion criteria reviewed: Yes
Reasons for NON-Tx with Thrombolytics ABSOLUTE Exclusions: Use of therapeutic Lovenox within 24 hours
Reasons for NON-Tx with Thrombolytics POSSIBLE Exclusions: Major surgery or serious trauma within proceding 14 days
IAT Contraindications: NIHSS < 6
Modified Rhona Score (MRS)
-
Modified Rhona Scale (mRS): Moderately severe disability. Unable to attend to bodily needs/walk.
Score: 4
Physical Exam
-
General: Appears Stated Age
HEENT: Normocephalic, Atraumatic and Anicteric
Neck: Full Range of Motion
Respiratory: No Dyspnea
Cardiac: No JVD
GI: Non-distended
Skin: Unremarkable
Extremities: No Clubbing, No Cyanosis and No Edema
Psych: Confused and Apparent Dementia
Extended Neurological Exam
Mood & Affect: Mood Unremarkable
Attention Span & Concentration: Awake, Alert, Interactive and No Difficulty with 2 Step Request
Memory: Incomplete Historian
Tremor: Hand Tremor Absent and Head Tremor Absent
Speech: Quality Unremarkable, Quantity Unremarkable, Rate of Production Unremarkable and Other (perseverating at times)
Cranial Nerve II: Left Eye: Visual Garcia Grossly Intact
Cranial Nerve II: Right Eye: Visual Garcia Grossly Intact
Cranial Nerves III, IV, : Extraocular Movement: Extraocular Movement Full in all Directions
Cranial Nerve VII: Facial Symmetry: Normal Facial Symmetry
Cranial Nerve VIII: Hearing: Unremarkable Hearing to Normal Conversational Volume
Cranial Nerves IX, X: Palate Movement: Palate Elevation Symmetric
Muscle Strength, Overall: Spontaneously Moves and Other (RUE and b/l LE movement limited due to recent surgery and CPR)
Pronator Drift: No Drift in Upper Extremities and No Drift in Lower Extremities
Coordination: Icbdyb-yubp-[id number] Testing Unremarkable
Medications
-
Active Medications
Generic Name Dose Route Start Last Admin
Trade Name Freq PRN Reason Stop Dose Admin
Acetaminophen 650 mg 05/12/25 20:38 05/14/25 05:27
Acetaminophen 325 Mg Tablet PO 06/09/25 20:37 650 mg
Q4HPRN PRN Administration
mild pain
Albuterol Sulfate 2.5 mg 05/14/25 11:00 05/15/25 11:26
Albuterol Nebs 2.5 Mg/3 Ml Ampul INH 2.5 mg
R BID CELINE Administration
Protocol
Aripiprazole 10 mg 05/08/25 09:04 05/15/25 08:22
Aripiprazole 10 Mg Tablet PO 06/05/25 09:03 10 mg
DAILY CELINE Administration
Atorvastatin Calcium 20 mg 05/08/25 09:04 05/15/25 08:22
Atorvastatin (Lipitor) 20 Mg Tablet PO 06/05/25 09:03 20 mg
DAILY CELINE Administration
Ceftriaxone Sodium 1,000 mg 05/10/25 14:00 05/14/25 14:12
Ceftriaxone 1000 Mg / 10 Ml Vial IV 1,000 mg
Q24H CELINE Administration
Dextrose 12.5 grams 05/10/25 18:00
Dextrose 50% (0.5 Grams/Ml) 50 Ml Syringe IV 06/07/25 17:59
[id number] PRN
hypoglycemia
Protocol
Docusate Sodium 100 mg 05/08/25 20:00 05/15/25 08:22
Docusate Sodium 100 Mg Capsule PO 06/05/25 19:59 100 mg
BID CELINE Administration
Enoxaparin Sodium 80 mg 05/10/25 20:00 05/12/25 19:48
Enoxaparin Sodium 80 Mg/0.8 Ml Syringe SC 06/07/25 19:59 80 mg
On Hold: 05/13/25 05:54 Q12H CELINE Administration
Glucagon 1 mg 05/10/25 18:00
Glucagon 1 Mg Vial IM 06/07/25 17:59
PRN PRN
hypoglycemia - no IV access
Protocol
Hydromorphone HCl 0.5 mg 05/13/25 14:20 05/15/25 08:21
Hydromorphone 0.5 Mg/0.5 Ml Syringe IV 05/27/25 14:18 0.5 mg
Q2HPRN PRN Administration
MODERATE TO SEVERE PAIN
Insulin Aspart 0 units 05/13/25 07:30 05/15/25 11:34
Insulin Aspart Moderate Resistance 300 Units/3 Ml Pen.Injctr SC 06/10/25 07:29 1 units
AC CELINE Administration
Protocol
Levetiracetam 750 mg 05/10/25 20:00 05/15/25 08:23
Levetiracetam (100 Mg/Ml) 500 Mg/5 Ml Vial IV 06/07/25 19:59 750 mg
BID CELINE Administration
Lidocaine 1 patch 05/13/25 01:30 05/14/25 23:52
Lidocaine 4% Topical Patch TOPICAL 06/10/25 01:29 1 patch
HS CELINE Administration
Protocol
Magnesium Hydroxide 30 ml 05/08/25 09:04 05/14/25 09:53
Milk Of Magnesia 30 Ml Cup PO 06/05/25 09:03 30 ml
DAILYPRN PRN Administration
constipation
Metoprolol Tartrate 2.5 mg 05/13/25 18:00 05/15/25 11:35
Metoprolol 5 Mg/5 Ml Vial IV 06/10/25 17:59 2.5 mg
Q6 CELINE Administration
Oxycodone HCl 5 mg 05/13/25 14:19 05/13/25 14:59
Oxycodone 5 Mg Regular Release Tablet PO 05/27/25 14:18 5 mg
Q4HPRN PRN Administration
moderate pain
Pantoprazole Sodium 40 mg 05/11/25 08:00 05/15/25 08:23
Protonix 40 Mg Iv Push IV 06/08/25 07:59 40 mg
DAILY CELINE Administration
Patch Removal 1 patch 05/13/25 10:00 05/15/25 11:34
Remove Lidocaine Patch REMOVE 06/10/25 09:59 1 patch
DAILY@1000 CELINE Administration
Polyethylene Glycol 17 grams 05/11/25 08:00 05/15/25 08:25
Polyethylene Glycol Powder 17 Grams Packet TUBE 06/08/25 07:59 17 grams
DAILY CELINE Administration
Sennosides 17.2 mg 05/08/25 20:00 05/15/25 08:22
Sennosides (Senokot) 8.6 Mg Tablet PO 06/05/25 19:59 17.2 mg
BID CELINE Administration
Sodium Chloride 0 flush 05/08/25 11:00
Sodium Chloride 0.9% (Flush) Syringe IV 06/05/25 10:59
PER PROTOCOL CELINE
Sodium Chloride 10 ml 05/11/25 08:00 05/15/25 08:22
Sodium Chloride 0.9% (Preservative Free) 10 Ml Vial IV 06/08/25 07:59 10 ml
DAILY CELINE Administration
Sodium Chloride 0 flush 05/12/25 14:00 05/14/25 14:14
0.9% Nacl Flush If Lactated Ringers Ivf Ordered IV 06/09/25 13:59 1 flush
BID@1400,1405 CELINE Administration
Sodium Chloride 1 vial 05/14/25 11:00 05/15/25 07:34
Sodium Chloride 3% For Inhalation 4 Ml Vial INH 1 vial
R BID CELINE Administration
Sterile Water 10 ml 05/11/25 14:00 05/14/25 14:11
Sterile Water For Injection 10 Ml Vial IV 06/08/25 13:59 10 ml
Q24H CELINE Administration
Tamsulosin HCl 0.4 mg 05/08/25 09:04 05/08/25 11:33
Tamsulosin 0.4 Mg Capsule PO 06/05/25 09:03 0.4 mg
DAILYPRN PRN Administration
bladder scan volume > 400 mL
Home Medications
�Medication �Instructions �Recorded
aripiprazole 10 mg tablet 10 mg PO DAILY Mental Health 01/25/24
atorvastatin 20 mg tablet 20 mg PO QPM High Cholesterol 01/25/24
sertraline 100 mg tablet 150 mg PO DAILY Depression 01/25/24
anastrozole 1 mg tablet 1 mg PO DAILY Cancer 06/04/24
apixaban 5 mg tablet (Eliquis) 5 mg PO BID Atrial fibrillation 06/04/24
metoprolol succinate 50 mg 50 mg PO DAILY Blood Pressure 06/04/24
tablet,extended release 24 hr
acetaminophen 325 mg tablet 650 mg PO Q6 Pain 05/10/25
aspirin 81 mg chewable tablet 81 mg PO DAILY Blood Clot 05/10/25
Prevention/Tx
diltiazem HCl 120 mg 120 mg PO DAILY Blood Pressure 05/10/25
capsule,extended release 24 hr
furosemide 40 mg tablet 40 mg PO DAILY Fluid 05/10/25
Retention/Swelling
levetiracetam 750 mg tablet 750 mg PO BID Seizures 05/10/25
levothyroxine 75 mcg tablet 75 mcg PO DAILY@0600 Thyroid 05/10/25
pantoprazole 40 mg tablet,delayed 40 mg PO DAILY Gastrointestinal 05/10/25
release Issue
polyethylene glycol 3350 17 gram 17 g PO DAILY Constipation 05/10/25
oral powder packet
potassium chloride 20 mEq 20 meq PO DAILY Electrolyte 05/10/25
tablet,extended release Repletion
sennosides 8.6 mg tablet (senna) 8.6 mg PO QPM Constipation 05/10/25
trazodone 50 mg tablet 25 mg PO HS Sleep 05/10/25
Past History
Past History
ED Past Medical History: Arrthythmia, Cancer, HTN, Seizures, Hypothyroidism and Other (COVID in December 2020)
Family/Social History
Tobacco: Non-smoker
Alcohol: None
Drug: None

Documented by User: Baron Gonzalez MD 05/15/25 17:51
CVA Assessment
NIH Stroke Score
NIH Total Score:: 0
Modified [place] Score (MRS)
-
Score: 4
[2025-05-15] MEDS: STERILE WATER FOR INJECTION 10 ML IV (16:03)
[2025-05-15 16:04] LABS: Glucose - Point of Care 154 mg/dl (70-99)
[2025-05-15] MEDS: ROCEPHIN 1000 MG IV (16:04)
[2025-05-15] MEDS: FLUSH (NSS) 1 FLUSH IV ×2 (16:05→16:06)
[2025-05-15] MEDS: FLUSH (NSS) 10 FLUSH IV (16:05)
[2025-05-15] MEDS: LASIX 20 MG IV (16:10)
[2025-05-15] MEDS: FLUSH (NSS) IV (16:11)
--- NOTE | 2025-05-15 19:55 | PTCARENOTE ---
see nursing flowsheet. at approx 1520 called into pts room by son for concern over slurring speech. pt noted to have dysarthria at that time. stroke alert initiated. pt seen by neuro. ct head done and results discussed with family by neuro. pt
drowsy at times. at times pt is alert and oriented x2 and alternates with drowsiness and confused periods.
[2025-05-15 21:44] LABS: Glucose - Point of Care 162 mg/dl (70-99)
[2025-05-15] MEDS: COLACE PO (22:14)
[2025-05-15] MEDS: SENOKOT PO (22:14)
[2025-05-15] MEDS: LIDOCAINE 4% PATCH 1 PATCH TOPICAL (22:15)
[2025-05-16] VITALS (21 sets, daily range): BP systolic 96–146; BP diastolic 29–116; BMI 33.8
[2025-05-16] MEDS: LOPRESSOR 2.5 MG IV ×5 (00:06→23:00)
--- NOTE | 2025-05-16 00:51 | PTCARENOTE ---
Pt had a 6 beat run of VTach, then returned to afib on the monitor, hr 80-90s. Notified ALBIN Sharma and additional labs Rx'd for am.
[2025-05-16 04:46] LABS: Hematocrit 21.9 % (37.0-47.0); Hemoglobin 7.3 g/dL (12.0-16.0); Mean Corp Hgb Conc. 33.3 g/dL (33.0-37.0); Mean Corpuscular Volume 85.2 fL (81.0-99.0); Nucleated Red Blood Cells % 0 %; Platelet Count 79 10^3/uL (130-400); Red Cell Dist. Width 16.2 % (11.5-14.5)
--- NOTE | 2025-05-16 05:00 | W.PN.UPDATE ---
Addendum entered and electronically signed by ALBIN Obrien 05/16/25 05:30:
Correction K level is 3.6 this am will not replete as it within normal range.
Original Note:
Update Note
Progress Note Update
-hgb level 7.3 this am, previously 8.1. Vital signs within the baseline. One unit of blood ordered to keep hgb between 8-9 as recommended per chart review.
-Will continue monitoring h&h q 6hrs.
-Potassium is 3.4 this am repleted as needed.
[2025-05-16 05:24] LABS: Blood Urea Nitrogen 24 mg/dl (7-17); Calcium 7.8 mg/dl (8.4-10.2); Carbon Dioxide 29 mmol/L (22-30); Chloride 103 mmol/L (98-107); Estimated Creatinine Clearance 60 ml/min; Glucose 116 mg/dl (70-99); Magnesium 1.9 mg/dl (1.6-2.3); Potassium 3.6 mmol/L (3.5-5.1); Sodium 131 mmol/L (135-145); eGFR > 60.00
--- NOTE | 2025-05-16 06:17 | PTCARENOTE ---
Pt's hgb 7.3 this am. ALBIN Sharma notified and order entered for 1 u PRBC.
[2025-05-16] MEDS: VENTOLIN NEBULES 2.5 MG INH ×2 (07:27→20:03)
[2025-05-16] MEDS: SODIUM CHLORIDE 3% FOR INHALATION 1 VIAL INH ×2 (07:27→20:03)
[2025-05-16] MEDS: MILK OF MAGNESIA 30 ML PO (08:01)
[2025-05-16] MEDS: MIRALAX 17 GRAMS TUBE (08:01)
[2025-05-16] MEDS: KEPPRA 750 MG IV ×2 (08:01→20:09)
[2025-05-16] MEDS: SENOKOT 17.2 MG PO ×2 (08:02→20:11)
[2025-05-16] MEDS: ABILIFY 10 MG PO (08:02)
[2025-05-16] MEDS: NSS (PRESERVATIVE FREE) 10 ML IV (08:02)
[2025-05-16] MEDS: COLACE 100 MG PO ×2 (08:02→20:11)
[2025-05-16] MEDS: PROTONIX IV 40 MG IV (08:02)
[2025-05-16] MEDS: LIPITOR 20 MG PO (08:02)
[2025-05-16] MEDS: NOVOLOG FLEXPEN-MODERATE RESISTANCE SC ×2 (08:11→12:13)
[2025-05-16 08:20] LABS: Glucose - Point of Care 119 mg/dl (70-99)
--- NOTE | 2025-05-16 09:19 | W.PN.CD ---
Today's Communication / Plan
-
Continue IV Lopressor
When improved and taking PO will start metoprolol ER and low dose Dilt ER as BP permits
Eventually resume her usual outpt dilt/metoprolol/Lasix
Not sure we should resume Eliquis
Impression / Plan
-
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
who presented to the emergency department from rehabilitation with right hip pain.
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 Malvin Mandujano at [facility]
S/p Code (morris/hypotension) intraop
- No VT/VF
- s/p fluid resuscitation and 5=>6 U PRBC transfusion this admit (one unit hanging now)
Anemia, s/p transfusion (5 => 6units so far)
- 1 unit hanging now (AM of 05/16/2025)
- Acute on chronic
- Hematoma noted on CT
Neurology input 05/15/2025 noted:
- 'Abrupt onset of change in speech with underlying likely dementia. No evidence of stroke at this time despite prior right frontal lobe neoplasm'
Lasix: on as outpatient
- Hospitalist gave one dose IN on 05/15/2025
- Eventually resume her daily Lasix
Atrial fibrillation, permanent (almost certainly per notes)
- Rates in the low 100s.
- Diltiazem ER 120 daily and metoprolol succinate 50 daily as outpatient.
- Now on low dose IV metoprolol. Can titrate as blood pressure allows.
- Oral Anticoagulation: Apixaban 5 mg twice daily prior to arrival, now on hold, has had falls recently, not sure we should resume Eliquis
- [id number]: Score at least 4 (HTN, age 75 or more, female gender)
- Resume usual meds as improves
JANINA. resolved
Abnormal troponin, nonischemic myocardial injury in the setting of CPR, Peak troponin 0.167
Acute impacted fracture of the right humeral neck secondary to mechanical fall and osteoporosis, status post OR 05/11/2025
Moderate tricuspid regurgitation
Metastatic breast cancer with known brain mets
Seizure disorder, in the setting of brain metastasis
Subjective:
Appears comfortable
Data:
Echo 05/11/2025:
CONCLUSIONS
LV ejection fraction is approximately 55%. Normal regional wall motion.
Moderate to severely dilated left atrium. Moderate to severely dilated right
atrium.
Aortic sclerosis without stenosis. Mild to moderate aortic regurgitation.
Moderate tricuspid regurgitation. Estimated pulmonary artery pressure of 60-65
mmHg.
Physical Exam
Vital Signs/Labs
Vital Signs
Temp Pulse Resp BP Pulse Ox
97.6 F 85 14 132/81 95
05/16/25 08:13 05/16/25 08:13 05/16/25 08:13 05/16/25 08:13 05/16/25 08:13
05/15/25 05/16/25 05/17/25
06:59 06:59 06:59
Actual Weight 86.9 kg 86.4 kg
05/16/25 04:26
PT 17.3 Sec (11.4-14.6) H 05/10/25 17:40
PT Cancelled 05/10/25 17:40
INR 1.36 05/10/25 17:40
INR Cancelled 05/10/25 17:40
APTT 26.5 Sec (23.4-35.0) 05/10/25 17:40
APTT Cancelled 05/10/25 17:40
Magnesium 1.9 mg/dl (1.6-2.3) 05/16/25 04:26
TSH 3.84 uIU/ml (0.47-4.68) 05/13/25 04:59
Free T4 1.57 ng/dl (0.78-2.19) 05/13/25 04:59
05/10/25
17:40
Ncj-Y-Dxhkclwiuuf Pept 2690
Physical Exam
Constitutional: No acute distress
Cardiovascular: Rhythm/rate is irregular
Respiratory: Respiratory effort normal and Lungs clear to auscul.
GI: Soft
Data Reviewed
-
Date of Service: May 16, 2025
[2025-05-16] MEDS: REMOVE LIDOCAINE PATCH 1 PATCH REMOVE (10:03)
--- NOTE | 2025-05-16 10:12 | W.PN.PUL3 ---
Today's Communication / Plan
-
Complete IV abx for 5-7 days for aspiration
Weaned off O2, now 93-95% on RA
Aspiration and low PO intake remains an issue, speech following
GOC may be needed here
Can also transfer level of care to F
No further recs from our standpoint, will sign off at this time, please call with questions
Assessment
-
84-year-old female with metastatic breast cancer with brain metastases status post brain irradiation January 2024 on chronic hormone therapy, chronic Eliquis therapy for atrial fibrillation, presents 2 weeks after recent fall, found to have right
femoral neck fracture, underwent a right hip hemiarthroplasty 05/10/2025 complicated by cardiac arrest/asystole requiring epinephrine, CPR with ROSC, admitted to ICU
S/p cardiac arrest, perioperative
Atrial fibrillation with rapid ventricular rate
Acute blood loss anemia with large hip hematoma
Shock, postcardiac arrest.
Right LL Pneumonia vs atelectasis
Fall and acute femoral neck fracture on the right side
JANINA
History of metastatic breast cancer with known brain mets and seizures
Mild-moderate VHD, moderate PH on ECHO
Hyponatremia
Lactic acidosis
Conditions present prior to admission
Breast cancer with brain metastases diagnosed December 2023
Complicated by seizure on antiseizure therapy
Status post brain irradiation (Filippo/Funez)
Chronic hormone therapy
Hypertension/hyperlipidemia
Hypothyroidism
Chronic kidney disease stage IIIb
History of atrial fibrillation on Eliquis
History of stroke around 2016
History of dementia
Plan:
05/14 overview: Patient not requiring any pressors, not on any IV fluids.
Patient was saturating around 89% on room air which improved to 100s on low supplemental oxygen, can wean to off
She is 93% on RA
Left upper arm bed swollen with PICC line in place.
Cardiac arrest- Thought to be related to cement embolization
s/p CPR, epinephrine, ROSC achieved in OR
Extubated successfully on 05/11
ECHO reviewed with moderate PH/mild-mod VHD--stable function
Cardiology service on case
Afib on Eliquis chronically which was held briefly prior to surgery
Anticoagulation on hold due to large hip hematoma/anemia
Patient currently on IV Lopressor 2.5 mg every 6 hours
Continue telemetry monitoring, titrate medications as needed
S/p blood transfusion, most recent hemoglobin 8.7
Aspiration cannot be excluded considering recent cardiac arrest--dementia is an issue with risk
Patient's cough is weak and has poor airway clearance--she does not comply with treatment
Continue mucus clearance measures--hypertonic saline, 3% nebulized twice a day along with albuterol nebulization
Continue incentive spirometry, flutter valve
Sit in chair as tolerated, increased activity as tolerated
Patient at risk of respiratory failure with poor airway clearance
She is started on IV CTX since 05/10--can stop after 5 days for aspiration
s/p rt hip hemiarthroplasty, 05/10/2025
JANINA ? Related to cement embolization vs shock related ATN
Patient developing peripheral edema, proBNP 2690 <- 6310
Nephrology service on case
Lasix initiated, -955 mL fluid balance over last 24 hours
Overall prognosis is poor with advanced malignancy as well as multiple comorbidities with complicated hospital course
PO intake poor as well
GI prophylaxis: On Protonix
DVT prophylaxis: Eliquis as outpatient, Lovenox twice daily now held due to anemia. Continue foot pumps
Updated at bedside
Diagnostic Data
Chest X-Ray: 05/13/25- Tiny bilateral pleural effusions. New. Mild right infrahilar airspace disease concerning for pneumonia. New Minimal left lower lobe atelectasis versus scarring. Improved.
05/10/25- 1. New left upper extremity PICC line in place with the catheter tip terminating in the cavoatrial junction.
2. Endotracheal tube remaining in place.
3. Interval decrease in size and density of a left lower lobe airspace consolidation (probably left lower lobe atelectasis secondary to endobronchial mucous plugging).
4. Mild right to left mediastinal shift.
5. Mild cardiomegaly.
6. Mild interstitial cardiogenic pulmonary edema.
7. Multilevel chronic vertebral body endplate insufficiency fractures.
8. Acute impacted fracture of the right humeral neck.
CT Scan:
Echo: 05/11/25- LV ejection fraction is approximately 55%. Normal regional wall motion. Moderate to severely dilated left atrium. Moderate to severely dilated right atrium. Aortic sclerosis without stenosis. Mild to moderate aortic regurgitation.
Moderate tricuspid regurgitation. Estimated pulmonary artery pressure of 60-65 mmHg. Compared to previous echo on 07/28/2022, mild to moderate aortic regurgitation is now present and progressive tricuspid regurgitation is noted (previously trace)
with an increase in PASP (previously 43 mmHg).
PFT's:
Reports and relevant images were personally reviewed.
Total time spent on this consultation/encounter __41__ minutes which includes review of history, physical exam, medications, laboratory data, personal review of imaging, extensive review of outpatient records, discussion with care team and
respiratory therapy.
Subjective Data
-
Date of Service:
Date of Service: May 16, 2025
Chief Complaint: Pulmonary Follow Up
Subjective:
No acute events, remains stable on low O2, satting 100%
Sleeping, no complaints
Objective Data
Data Reviewed
Vital Signs / I&O / Oxygen:
Vital Signs
Temp Pulse Resp BP Pulse Ox
97.6 F 77 14 128/86 97
05/16/25 08:13 05/16/25 10:07 05/16/25 10:07 05/16/25 10:07 05/16/25 10:07
Intake and Output
05/15/25 05/16/25 05/17/25
06:59 06:59 06:59
Intake Total 370 / 370 240 / 240 0 / 0
Output Total 2155 / 2155 775 / 775
Balance -1785 / -1785 -535 / -535 0 / 0
SaO2 [CPAP/PSV] 99
SaO2 [A/C] 96
SaO2 97
Nasal Cannula flow liters per 2
minute
Physical Exam
General: Poor Appetite and Other (deconditioned, anxious appearing)
HEENT: Normocephalic, Anicteric and Other (dry MM, mouth open/mouth breathing)
Cardiovascular: S1-S2, Regular Rhythm and Peripheral Edema (anasarca noted)
Respiratory: Clear and Non-Labored Respirations
GI: Soft, Non Distended and Non Tender
Neurology: Awake, Alert and Other (confused, not answering completely)
Skin: Warm and Dry
Labs/Micro/Reports
Lab Data
05/16/25 04:26
--- NOTE | 2025-05-16 10:24 | W.PN.NEPH.PH ---
Today's Communication / Plan
-
lasix and follow labs
encourage po intake
Assessment/Plan
-
IMP:
hyponatremia
ALICE on CKD 3-baseline cr 0.8-1
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
Vasopressor dependent shock-hypotension on pressors postcardiac arrest
Lactic acidosis
Right femoral neck fracture secondary to mechanical trauma and osteoporosis-status post right hip cemented hemiarthroplasty 05/10
Acute impacted fracture of the right humeral neck secondary to mechanical fall and osteoporosis
Acute anemia
Atrial Fibrillation, permanent-Persistent Rapid ventricular response
Elevated troponin likely secondary to postcardiac arrest
Urinary tract infection with Citrobacter
h/o Essential Hypertension
Hyperlipidemia
Metastatic Breast Cancer with known Brain Mets and prior seizure- stable MRI findings since Nov and March 2025
Hx of Seizures
Depression/Anxiety
Hypothyroidism
PLan:
A/w hip pain after fall, noted femoral neck fx s/p status post right hip cemented hemiarthroplasty on 05/10
complicated with bone cement implantation syndrome and Afib with RVR
creatinine improving at 0.7 and grossly non oliguric
20 mg IV Lasix provided today as wts are still up
encourage po intake
Alice-resolved
hyponatremia improving and stable, back on Zoloft tomorrow
avoid nephrotoxins
BP stable
getting PRBC today, had total of 6 units since admit
labs in am
-
-
Date of Service: May 16, 2025
CC / HPI / ROS
-
Chief Complaint:
Acute kidney injury
History of Present Illness:
Acute kidney injury status post a fracture cardiac arrest
Creatinine improved to 0.7
K at 3.6
Review of Systems:
Poorly responsive
Nonoliguri via irene
Labs
-
Labs:
WBC 6.9 10^3/uL (4.8-10.8) 05/16/25 04:26
RBC 2.57 10^6/uL (4.20-5.40) L 05/16/25 04:26
Plt Count 79 10^3/uL (130-400) L 05/16/25 04:26
Sodium 131 mmol/L (135-145) L 05/16/25 04:26
Potassium 3.6 mmol/L (3.5-5.1) 05/16/25 04:26
Chloride 103 mmol/L (98-107) 05/16/25 04:26
Carbon Dioxide 29 mmol/L (22-30) 05/16/25 04:26
BUN 24 mg/dl (7-17) H 05/16/25 04:26
Creatinine 0.7 mg/dL (0.6-1.0) 05/16/25 04:26
eGFR > 60.00 05/16/25 04:26
Glucose 116 mg/dl (70-99) H 05/16/25 04:26
Calcium 7.8 mg/dl (8.4-10.2) L 05/16/25 04:26
Phosphorus 4.4 mg/dl (2.5-4.5) 05/11/25 03:22
Yam-V-Zlxbmvgdkld Pept 2690 pg/ml 05/10/25 17:40
Albumin 2.4 g/dl (3.5-5.0) L 05/12/25 03:44
Physical Exam
-
Vital Signs:
Vital Signs
Temp Pulse Resp BP Pulse Ox
97.6 F 77 14 128/86 97
05/16/25 08:13 05/16/25 10:07 05/16/25 10:07 05/16/25 10:07 05/16/25 10:07
Cardiovascular:: Irregular rate and rhythm
Respiratory:: Bilateral: CTA (anteriorly)
Lung Excursion:: Normal
Abdomen:: Nontender and Soft
Bowel Sounds:: Normal
Extremity Edema:: +1: Bilateral:
Irene Catheter: Yes
[2025-05-16 11:08] LABS: Hematocrit 25.0 % (37.0-47.0); Hemoglobin 8.4 g/dL (12.0-16.0)
--- NOTE | 2025-05-16 11:51 | W.PN.HOSP.TC ---
Addendum entered and electronically signed by Juan Luis Gooden MD 05/16/25 13:15:
Called and updated patient daughter in details about patient significantly poor appetite refusing to eat, refusing to work with physical therapy. Patient severely deconditioned. Also anemia and required additional blood transfusion. If patient
persistent decline then may need to consider hospice. All family members to visit and try to encourage patient.
Daughter also stated patient with severe depression. Will restart Zoloft.
Original Note:
Today's Communication/Plan
-
Hemoglobin stabilized
Continue with IV Lopressor
Bowel regimen
Encourage increased p.o. intake
Wean O2 as tolerated
Continued bronchodilators
Assessment / Plan
Assessment / Plan
General: No Apparent Distress and Comfortable
Respiratory: Clear to Auscultation (Anteriorly) and Non Labored Respirations; Negative Accessory Resp Muscle Use
Cardiac: S1/S2 and Irregular Rhythm
GI: Soft and Nontender
Musculoskeletal: Edema, Right Upper Extrem and Edema, Right Lower Extrem (right thigh swollen and bruised in lateral aspect over surgical incision . )
Neuro: Awake
Psych: Calm
IMPRESSION/plan
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
atrial fibrillation on Eliquis, who presented to the emergency department secondary to inability to ambulate or stand due to pain in the right hip area for the past 2 weeks. Of note 2 weeks ago she caught her toe on a rug and she had a mechanical
fall, with resultant right shoulder injury for which she went to rehab. She is unaware if she had x-rays of her hip at that time. Today when she went to physical therapy and she was unable to stand or walk secondary to pain. She had an x-ray at
that time that showed a right femoral neck fracture. Otherwise she has had no further mechanical falls. She has pain with right hip movement.
#Acute blood loss anemia due to large hip hematoma
Status post 6 unit of PRBC. Repeat hemoglobin at 8.4.
Transfuse as necessary
CT abdomen pelvis noted with Large right hip/buttocks fluid collection suggestive of a hematoma of varying ages.
Continue to trend hemoglobin and transfuse as necessary. Agree with holding anticoagulation
#Toxic metabolic encephalopathy likely secondary to postcardiac arrest versus ICU delirium versus infection versus hypoxemia
#Dysphagia
Monitor mentation closely
Diet downgraded. Monitor p.o. intake.
CT head negative for acute intracranial abnormality
If it persistently low intake may need to alternative measures.
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
Now extubated
# Vasopressor dependent shock-hypotension on pressors postcardiac arrest
#Lactic acidosis
Try to wean off pressors as tolerated
off pressors.
BP improving.
off stress dose steroids.
#Right femoral neck fracture secondary to mechanical trauma and osteoporosis. Additional imaging with no evidence of pathologic fracture
Status post cemented right hip hemiarthroplasty
Per orthopedic patient can be restarted on Eliquis
Currently on Lovenox-on hold due to severe anemia
#Acute impacted fracture of the right humeral neck secondary to mechanical fall and osteoporosis
Continue nonweightbearing
Continue sling
Ortho recs
#Atrial Fibrillation, permanent
Persistent Rapid ventricular response
Off amiodarone and Lovenox
Now on Lopressor 2.5 mg Q6. Heart rate has stabilized.
#Elevated troponin likely secondary to postcardiac arrest
Echocardiogram with EF of 55% and no regional wall motion abnormality.
#Urinary tract infection with Citrobacter
#Right lower lobe pneumonia versus atelectasis
cw IV antibiotics ceftriaxone will completed 7d course.
# JANINA on CKD 3- creatinine bump noted
#Hypokalemia
suspect prerenal from cardiac arrest/ shock
Wt not accurate
Patient with anasarca
IV Lasix per nephrology.
Optimize BP with fluids and Vasopressor
CW I/O via Echevarria
#Hyponatremia in the setting of shock and intravascular volume depletion.
Sodium improved
# Thrombocytopenia acute
Patient off Lovenox and Eliquis
Continue to trend platelets. Transfuse if necessary less than 10k.
#Essential Hypertension
on IV lopressor. labile BP at times.
Hyperlipidemia
-hold statin
Metastatic Breast Cancer with known Brain Mets and prior seizure- stable MRI findings since Nov and March 2025
-Cont Anastrozole
-MRI brain 03/14/25: There is a plaque-like area of enhancing intermediate T1-weighted signal involving the right frontal calvarium, extending to the posterior base of the frontal sinuses. This appears stable from most recent examination of November
2024, most likely scarring/fibrosis, although a component of residual neoplasm is possible. The appearance is stable, with no evidence for a new area of enhancement by MRI.
CT scan of the hip with findings of sclerotic intramedullary lesions of the L5 vertebral body and left iliac bone which are most likely blastic osseous metastasis
- Off stress dose steroids.
-keppra transitioned to IV for now
Hx of Seizures
CW IV keppra
Depression/Anxiety
-Ariprazole when able too
Hypothyroidism on replacement
DVT proph-SCDs in the setting of thrombocytopenia and large hip hematoma
Full Code
Anticipated Discharge: > 48 hours
Subjective/Interval History
-
Date of Service: May 16, 2025
Patient with stroke alert yesterday CT head was negative for acute stroke
Receiving 1 unit of PRBC
Awake but states feeling tired
Remains with poor appetite
Objective Data
-
Labs:
Laboratory Results
05/16/25 05/16/25 05/16/25
04:26 10:47 17:00
WBC 6.9
Hgb 7.3 L 8.4 L Cancelled
Hct 21.9 L 25.0 L Cancelled
Plt Count 79 L
Sodium 131 L
Potassium 3.6
Chloride 103
Carbon Dioxide 29
BUN 24 H
Creatinine 0.7
Glucose 116 H
Calcium 7.8 L
05/16/25 05/16/25
20:00 23:00
WBC
Hgb Pending Cancelled
Hct Pending Cancelled
Plt Count
Sodium
Potassium
Chloride
Carbon Dioxide
BUN
Creatinine
Glucose
Calcium
Vital Signs:
Vital Signs
Temp Pulse Resp BP Pulse Ox
97.3 F 81 29 135/45 92
05/16/25 11:17 05/16/25 10:39 05/16/25 10:39 05/16/25 10:39 05/16/25 10:39
I&O
05/15/25 05/16/25 05/17/25
06:59 06:59 06:59
Intake Total 370 / 370 240 / 240 250 / 250
Output Total 2155 / 2155 775 / 775
Balance -1785 / -1785 -535 / -535 250 / 250
Data Reviewed
-
Total Time Spent with Patient (in minutes): 55
--- NOTE | 2025-05-16 12:13 | PTCARENOTE ---
Attempted to get 1130 blood sugar via glucometer. Glucometer did not collect enough blood and resulted at 153. Recollected blood via glucometer and blood sugar is 133. No insulin given at this time.
[2025-05-16 12:51] LABS: Glucose - Point of Care 133 mg/dl (70-99)
[2025-05-16] MEDS: ROCEPHIN 1000 MG IV (13:48)
[2025-05-16] MEDS: LASIX 20 MG IV (13:48)
[2025-05-16] MEDS: STERILE WATER FOR INJECTION 10 ML IV (13:48)
[2025-05-16] MEDS: KCL 20 MEQ PO (13:48)
[2025-05-16] MEDS: FLUSH (NSS) 1 FLUSH IV ×2 (13:49→13:52)
--- NOTE | 2025-05-16 14:46 | PN.CDI ---
CDI
- -
CDI:
Physician Documentation Request
Admit Date: 05/08/25 05:58
Dear Doctor Giacomo,
Clinical Indicators:
Patient admitted with right femoral neck fracture; s/p right hemiarthroplasty 05/10.
Sa02:
05/14/25
17:00 05/15/25
18:00
SaO2 89 88
02 requirements:
05/14/25
08:00 05/14/25
18:02 05/15/25
11:29
Oxygen Mode of Delivery Room air
Nasal Cannula flow liters per minute 2 3
05/15/25
19:41
Nasal Cannula flow liters per minute 4
Please clarify which of the following accurately represents the patient's respiratory status following surgery:
Acute post op pulmonary insufficiency
Acute hypoxic respiratory failure
Hypoxia only
Other, please specify
Additional information for Pulmonary Insufficiency:
Consider when patients require custodial oxygen therapy postoperatively
Weaned off oxygen initially then requiring supplemental oxygen
No other definitive diagnosis to support the need for oxygen (COPD exac, CHF etc.)
Unable to wean from vent
When criteria for respiratory failure not present
May extend stay or require additional resources; may need home O2
Additional information for Respiratory Failure:
Recognized criteria for Respiratory Failure (Source: [employer] [facility]ist Sep 2013)
ABGs: (1 or more) Symptoms Indicate:
1. p)2 <60 or RA SPO2 <91% on RA 1. Tachypnea, SOB, dyspnea 1. Type as:
2. pCO2 50 and pH <7.35 2. Use of accessory muscles a. Hypoxic
3. pO2 decrease of pCO2 increase by 3. Pallor or cyanosis b. Hypercapnic
10 mmHg from baseline if known 4. Anxiety or restlessness 2. If due to procedure or due to another cause
5. Unable to speak in full sentences
Supplemental O2 of > 40% Intubation is not required
Use of terms such as suspected, likely, concern for, or probable (associated with a specific diagnosis that is being evaluated, monitored, or treated as if it exists) are acceptable and can be coded in the inpatient setting, when documented at the
time of discharge.
Thank you,
GUILLERMO Watson RN
CDI Specialist
available via tiger text
Please use your independent medical judgment in providing your response.
--- NOTE | 2025-05-16 15:07 | PTCARENOTE ---
Patient AOx1 (self). Bed alarm on and audible. Patient lethargic and drowsy throughout shift, but does open eyes to voice. 2L NC. Attempted to wean oxygen, but patient's SpO2 dropped below 88%. A fib on monitor. +3 generalized anasarca. Echevarria
draining alisha urine. Milk of mag enema with small BM. Q4 neurovascular checks completed per order. L arm PICC line. 1 unit of PRBC's given per order during shift. Poor appetite. Refused to get out of bed with PT/OT. R arm in sling. R hip incision
has large amount of bloody drainage. Reinforced dressing with ABD. Call eric within reach, bed in lowest position, and bed of wheels locked.
[2025-05-16 18:01] LABS: Glucose - Point of Care 164 mg/dl (70-99)
[2025-05-16] MEDS: NOVOLOG FLEXPEN-MODERATE RESISTANCE 1 UNITS SC (18:41)
--- NOTE | 2025-05-16 20:03 | W.PN.UPDATE ---
Update Note
Progress Note Update
RN reports patient stated she was having chest pain. Afib 90 101/74 18 94%. Patient seen and evaluated. States burning Pain at Mid epigastric area as CALIBRATOR [employer]OM[employer]ERS pointed different sites at chest, both lower back pain. Denies pain at left or right chest,
denies pain radiating. Denies shortness of breath. HR irregular, lungs clear anteriorly, diminished, 20 95% 4L. + belching. Will order Famotidine IV, Advise RN to give pain medications.
Patient without any new complaints at this time.
[2025-05-16] MEDS: PEPCID 20 MG IV (20:07)
[2025-05-16] MEDS: NSS (PRESERVATIVE FREE) 8 ML IV (20:07)
[2025-05-16] MEDS: DILAUDID 0.5 MG IV ×2 (20:09→22:59)
[2025-05-16] MEDS: LIDOCAINE 4% PATCH 1 PATCH TOPICAL (20:10)
[2025-05-16 20:27] LABS: Hematocrit 26.6 % (37.0-47.0); Hemoglobin 8.9 g/dL (12.0-16.0)
[2025-05-16 21:26] LABS: Glucose - Point of Care 174 mg/dl (70-99)
[2025-05-17] VITALS (18 sets, daily range): BP systolic 95–133; BP diastolic 61–116; PULSE 117; O2SAT 95; BMI 33.9
[2025-05-17 03:45] LABS: Hematocrit 27.4 % (37.0-47.0); Hemoglobin 8.8 g/dL (12.0-16.0); Mean Corp Hgb Conc. 32.1 g/dL (33.0-37.0); Mean Corpuscular Volume 84.8 fL (81.0-99.0); Nucleated Red Blood Cells % 0.2 %; Platelet Count 99 10^3/uL (130-400); Red Cell Dist. Width 17.4 % (11.5-14.5)
[2025-05-17 03:56] LABS: Blood Urea Nitrogen 20 mg/dl (7-17); Calcium 7.8 mg/dl (8.4-10.2); Carbon Dioxide 28 mmol/L (22-30); Chloride 102 mmol/L (98-107); Estimated Creatinine Clearance 60 ml/min; Glucose 136 mg/dl (70-99); Potassium 4.1 mmol/L (3.5-5.1); Sodium 133 mmol/L (135-145); eGFR > 60.00
[2025-05-17] MEDS: LOPRESSOR 2.5 MG IV (05:47)
[2025-05-17] MEDS: DILAUDID 0.5 MG IV (05:47)
--- NOTE | 2025-05-17 06:04 | PTCARENOTE ---
No acute events overnight. AM hgb 8.8. Large amount of serosanguineous drainage from right hip incision. Site cleansed and dry sterile ABDs placed. Patient with moderate to severe amounts of pain throughout body- prn dilaudid administered with
positive effect. Patient confused and anxious at times. Emotional support provided. Wale removed this am at 0600. Due to void at 1200. Will continue to monitor.
[2025-05-17] MEDS: VENTOLIN NEBULES 2.5 MG INH ×2 (07:20→19:11)
[2025-05-17] MEDS: SODIUM CHLORIDE 3% FOR INHALATION 1 VIAL INH ×2 (07:21→19:11)
[2025-05-17] MEDS: COLACE PO ×2 (07:28→20:00)
[2025-05-17] MEDS: SENOKOT PO ×2 (07:28→20:00)
[2025-05-17] MEDS: MIRALAX TUBE (07:28)
[2025-05-17] MEDS: KEPPRA 750 MG IV ×2 (07:48→20:06)
[2025-05-17] MEDS: ZOLOFT 150 MG PO (07:48)
[2025-05-17] MEDS: LIPITOR 20 MG PO (07:48)
[2025-05-17] MEDS: NSS (PRESERVATIVE FREE) 10 ML IV (07:48)
[2025-05-17] MEDS: PROTONIX IV 40 MG IV (07:48)
[2025-05-17] MEDS: ABILIFY 10 MG PO (07:48)
[2025-05-17] MEDS: NOVOLOG FLEXPEN-MODERATE RESISTANCE SC ×2 (07:49→16:39)
[2025-05-17 08:00] LABS: Glucose - Point of Care 119 mg/dl (70-99)
[2025-05-17] MEDS: REMOVE LIDOCAINE PATCH 1 PATCH REMOVE (09:26)
--- NOTE | 2025-05-17 10:47 | W.PN.HOSP.TC ---
Today's Communication/Plan
-
Restart p.o. metoprolol and monitor blood pressure
Continue to monitor hemoglobin closely
Continue with out of bed/PT evaluation
Assessment / Plan
Assessment / Plan
General: No Apparent Distress and Comfortable
Respiratory: Clear to Auscultation (Anteriorly) and Non Labored Respirations; Negative Accessory Resp Muscle Use
Cardiac: S1/S2 and Irregular Rhythm
GI: Soft and Nontender
Musculoskeletal: Edema, Right Upper Extrem and Edema, Right Lower Extrem (right thigh swollen and bruised in lateral aspect over surgical incision ) LUE swelling.
Neuro: Awake, more alert and talkative this morning
Psych: Calm
IMPRESSION/plan
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
atrial fibrillation on Eliquis, who presented to the emergency department secondary to inability to ambulate or stand due to pain in the right hip area for the past 2 weeks. Of note 2 weeks ago she caught her toe on a rug and she had a mechanical
fall, with resultant right shoulder injury for which she went to rehab. She is unaware if she had x-rays of her hip at that time. Today when she went to physical therapy and she was unable to stand or walk secondary to pain. She had an x-ray at
that time that showed a right femoral neck fracture. Otherwise she has had no further mechanical falls. She has pain with right hip movement.
#Acute blood loss anemia due to large hip hematoma
Status post 6 unit of PRBC. Hemoglobin stable this morning at 8.8.
Transfuse as necessary
CT abdomen pelvis noted with Large right hip/buttocks fluid collection suggestive of a hematoma of varying ages.
Continue to trend hemoglobin and transfuse as necessary.
#Toxic metabolic encephalopathy likely secondary to postcardiac arrest versus ICU delirium versus infection versus hypoxemia
#Dysphagia
Monitor mentation closely
Diet downgraded. Monitor p.o. intake.
CT head negative for acute intracranial abnormality
Mentation seems to be improving significantly.
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
Now extubated
# Shock postcardiac arrest-hypotension on pressors postcardiac arrest
#Lactic acidosis
Try to wean off pressors as tolerated
off pressors.
BP improving.
off stress dose steroids.
#Right femoral neck fracture secondary to mechanical trauma and osteoporosis. Additional imaging with no evidence of pathologic fracture
Status post cemented right hip hemiarthroplasty
Per orthopedic patient can be restarted on Eliquis
#Acute impacted fracture of the right humeral neck secondary to mechanical fall and osteoporosis
Continue nonweightbearing
Continue sling
Ortho recs
#Atrial Fibrillation, permanent
Persistent Rapid ventricular response
Off amiodarone and Lovenox
Start patient on Toprol XL 50 mg home dose
If blood pressure can tolerate can start home regimen of calcium channel ned
#Elevated troponin likely secondary to postcardiac arrest
Echocardiogram with EF of 55% and no regional wall motion abnormality.
#Urinary tract infection with Citrobacter
#Right lower lobe pneumonia versus atelectasis
cw IV antibiotics ceftriaxone will completed 7d course.
# JANINA on CKD 3- creatinine bump noted
#Hypokalemia
#Anasarca
suspect prerenal from cardiac arrest/ shock
Creatinine improved.
Patient with anasarca
IV Lasix per nephrology.
Optimize BP with fluids and Vasopressor
CW I/O via Echevarria
#Hyponatremia in the setting of shock and intravascular volume depletion.
Sodium improved
# Thrombocytopenia acute
Patient off Lovenox and Eliquis
Continue to trend platelets. Transfuse if necessary less than 10k.
#Acute hypoxic respiratory insufficiency
Wean O2 as tolerated
Encourage incentive spirometry
#Essential Hypertension
Restarted p.o. Toprol
Hyperlipidemia
-hold statin
Metastatic Breast Cancer with known Brain Mets and prior seizure- stable MRI findings since Nov and March 2025
-Cont Anastrozole
-MRI brain 03/14/25: There is a plaque-like area of enhancing intermediate T1-weighted signal involving the right frontal calvarium, extending to the posterior base of the frontal sinuses. This appears stable from most recent examination of November
2024, most likely scarring/fibrosis, although a component of residual neoplasm is possible. The appearance is stable, with no evidence for a new area of enhancement by MRI.
CT scan of the hip with findings of sclerotic intramedullary lesions of the L5 vertebral body and left iliac bone which are most likely blastic osseous metastasis
- Off stress dose steroids.
-keppra transitioned to IV for now
Hx of Seizures
CW IV keppra
Depression/Anxiety
- Restarted Zoloft and Abilify
Hypothyroidism on replacement
DVT proph-SCDs in the setting of thrombocytopenia and large hip hematoma
Full Code
Anticipated Discharge: > 48 hours
Subjective/Interval History
-
Date of Service: May 17, 2025
Patient more awake and alert this morning
States of hip pain
Patient had bowel movement overnight
Objective Data
-
Labs:
Laboratory Results
05/17/25
03:22
WBC 8.1
Hgb 8.8 L
Hct 27.4 L
Plt Count 99 L D
Sodium 133 L
Potassium 4.1
Chloride 102
Carbon Dioxide 28
BUN 20 H
Creatinine 0.7
Glucose 136 H
Calcium 7.8 L
Vital Signs:
Vital Signs
Temp Pulse Resp BP Pulse Ox
98.1 F 96 21 109/91 96
05/17/25 07:40 05/17/25 10:00 05/17/25 10:00 05/17/25 10:00 05/17/25 10:00
I&O
05/16/25 05/17/25 05/18/25
06:59 06:59 06:59
Intake Total 240 / 240 1210 / 1210 480 / 480
Output Total 775 / 775 1550 / 1550
Balance -535 / -535 -340 / -340 480 / 480
Data Reviewed
-
Total Time Spent with Patient (in minutes): 55
[2025-05-17 11:33] LABS: Glucose - Point of Care 169 mg/dl (70-99)
--- NOTE | 2025-05-17 12:09 | W.PN.CD ---
Today's Communication / Plan
-
Chest pain. Patient appears to have reproducible chest wall pain and some positional chest pain that is musculoskeletal and is likely related to her fall.
A-fib reasonable rate control transition IV metoprolol to oral note patient was also on Cardizem as an outpatient
Patient remains off anticoagulation. Patient still with issues with anemia and is required significant PRBCs also with recent severe fall. Eliquis remains on hold
Impression / Plan
-
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
who presented to the emergency department from rehabilitation with right hip pain.
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 [place]
S/p Code (morris/hypotension) intraop
- No VT/VF
- s/p fluid resuscitation and 5=>6 U PRBC transfusion this admit (one unit hanging now)
Anemia, s/p transfusion (5 => 6units so far)
- Acute on chronic
- Hematoma noted on CT
Neurology input 05/15/2025 noted:
- 'Abrupt onset of change in speech with underlying likely dementia. No evidence of stroke at this time despite prior right frontal lobe neoplasm'
Lasix: on as outpatient
- Hospitalist gave one dose IN on 05/15/2025
- Eventually resume her daily Lasix
Atrial fibrillation, permanent (almost certainly per notes)
- Rates currently controlled
- Diltiazem ER 120 daily and metoprolol succinate 50 daily as outpatient.
- Now on low dose IV metoprolol. Transition to oral metoprolol
- Oral Anticoagulation: Apixaban 5 mg twice daily prior to arrival, now on hold, has had falls recently, not sure we should resume Eliquis
- [id number]: Score at least 4 (HTN, age 75 or more, female gender)
- Resume usual meds as improves
Chest pain. Patient has some chest pain and back pain some reproducible chest pain with palpation and some symptoms with repositioning currently appears musculoskeletal in origin is likely related to fall
JANINA. resolved
Abnormal troponin, nonischemic myocardial injury in the setting of CPR, Peak troponin 0.167
Acute impacted fracture of the right humeral neck secondary to mechanical fall and osteoporosis, status post OR 05/11/2025
Moderate tricuspid regurgitation
Metastatic breast cancer with known brain mets
Seizure disorder, in the setting of brain metastasis
Subjective:
Appears comfortable
Data:
Echo 05/11/2025:
CONCLUSIONS
LV ejection fraction is approximately 55%. Normal regional wall motion.
Moderate to severely dilated left atrium. Moderate to severely dilated right
atrium.
Aortic sclerosis without stenosis. Mild to moderate aortic regurgitation.
Moderate tricuspid regurgitation. Estimated pulmonary artery pressure of 60-65
mmHg.
Physical Exam
Vital Signs/Labs
Vital Signs
Temp Pulse Resp BP Pulse Ox
97.3 F 96 21 109/91 96
05/17/25 11:13 05/17/25 10:00 05/17/25 10:00 05/17/25 10:00 05/17/25 10:00
05/16/25 05/17/25 05/18/25
06:59 06:59 06:59
Actual Weight 86.4 kg 86.8 kg
05/17/25 03:22
05/17/25 03:22
PT 17.3 Sec (11.4-14.6) H 05/10/25 17:40
PT Cancelled 05/10/25 17:40
INR 1.36 05/10/25 17:40
INR Cancelled 05/10/25 17:40
APTT 26.5 Sec (23.4-35.0) 05/10/25 17:40
APTT Cancelled 05/10/25 17:40
Magnesium 1.9 mg/dl (1.6-2.3) 05/16/25 04:26
TSH 3.84 uIU/ml (0.47-4.68) 05/13/25 04:59
Free T4 1.57 ng/dl (0.78-2.19) 05/13/25 04:59
05/10/25
17:40
Pxw-U-Bgdrzibyqah Pept 2690
Physical Exam
Constitutional: No acute distress
Cardiovascular: Rhythm/rate is irregular
Respiratory: Crackles Absent and Rhonchi Absent
GI: Soft
Neuro/Psych: Alert
Data Reviewed
-
Date of Service: May 17, 2025
Medical Decision Making: Reviewed Test Results
Echo: Report Reviewed by me
X-Ray/CT/US/MRI/NUC/PET: Report Reviewed by me
Labs: Labs Reviewed by me
[2025-05-17] MEDS: TOPROL XL 50 MG PO (12:44)
[2025-05-17] MEDS: NOVOLOG FLEXPEN-MODERATE RESISTANCE 1 UNITS SC (12:45)
--- NOTE | 2025-05-17 12:50 | W.PN.NEPH.PH ---
Today's Communication / Plan
-
lasix 40mg x1
Assessment/Plan
-
IMP:
hyponatremia
JANINA on CKD 3-baseline cr 0.8-1
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
Vasopressor dependent shock-hypotension on pressors postcardiac arrest
Lactic acidosis
Right femoral neck fracture secondary to mechanical trauma and osteoporosis-status post right hip cemented hemiarthroplasty 05/10
Acute impacted fracture of the right humeral neck secondary to mechanical fall and osteoporosis
Acute anemia
Atrial Fibrillation, permanent-Persistent Rapid ventricular response
Elevated troponin likely secondary to postcardiac arrest
Urinary tract infection with Citrobacter
h/o Essential Hypertension
Hyperlipidemia
Metastatic Breast Cancer with known Brain Mets and prior seizure- stable MRI findings since Nov and March 2025
Hx of Seizures
Depression/Anxiety
Hypothyroidism
PLan:
A/w hip pain after fall, noted femoral neck fx s/p status post right hip cemented hemiarthroplasty on 05/10
complicated with bone cement implantation syndrome and Afib with RVR
creatinine improving at 0.7 and grossly non oliguric
Wt no change despite lasix, will increase dose lasix to 40mg
encourage po solute intake
hyponatremia improving and stable, back on Zoloft
BP stable
follow h/h
follow bladder scan now she is off irene
labs in am
-
-
Date of Service: May 17, 2025
CC / HPI / ROS
-
Chief Complaint:
Acute kidney injury
History of Present Illness:
Acute kidney injury status post a fracture cardiac arrest
Creatinine stable at 0.7
K at4
hb stable 8.8
Review of Systems:
more awake tody and conversing
no sob, but chest soreness from CPR on admit
right shoulder pain
irene removed this am
Labs
-
Labs:
WBC 8.1 10^3/uL (4.8-10.8) 05/17/25 03:22
RBC 3.23 10^6/uL (4.20-5.40) L 05/17/25 03:22
Hgb 8.8 g/dL (12.0-16.0) L 05/17/25 03:22
Hct 27.4 % (37.0-47.0) L 05/17/25 03:22
Plt Count 99 10^3/uL (130-400) L D 05/17/25 03:22
Sodium 133 mmol/L (135-145) L 05/17/25 03:22
Potassium 4.1 mmol/L (3.5-5.1) 05/17/25 03:22
Chloride 102 mmol/L (98-107) 05/17/25 03:22
Carbon Dioxide 28 mmol/L (22-30) 05/17/25 03:22
BUN 20 mg/dl (7-17) H 05/17/25 03:22
Creatinine 0.7 mg/dL (0.6-1.0) 05/17/25 03:22
eGFR > 60.00 05/17/25 03:22
Glucose 136 mg/dl (70-99) H 05/17/25 03:22
Calcium 7.8 mg/dl (8.4-10.2) L 05/17/25 03:22
Phosphorus 4.4 mg/dl (2.5-4.5) 05/11/25 03:22
Tgj-Q-Gmkuimpwbjh Pept 2690 pg/ml 05/10/25 17:40
Albumin 2.4 g/dl (3.5-5.0) L 05/12/25 03:44
Physical Exam
-
Vital Signs:
Vital Signs
Temp Pulse Resp BP Pulse Ox
97.3 F 106 21 110/95 96
05/17/25 11:13 05/17/25 12:44 05/17/25 10:00 05/17/25 12:44 05/17/25 10:00
Cardiovascular:: Irregular rate and rhythm
Respiratory:: Bilateral: CTA (anteriorly)
Lung Excursion:: Normal
Abdomen:: Nontender and Soft
Bowel Sounds:: Normal
Extremity Edema:: +2: Bilateral:
Irene Catheter: No
[2025-05-17] MEDS: LASIX 40 MG IV (13:23)
--- NOTE | 2025-05-17 15:20 | PTOTSP ---
Speech Language Pathology
Pt seen for dysphagia tx. Seen with P.O. trials of regular solids and thin liquids. Adequate mastication, bolus formation, and A-P transit noted with no oral residue. Brief cough noted following majority of liquid trials. However, unsure if
cough related to liquids or whether behavioral with pt attempting to clear mucus. Pt stated it was purposeful to clear mucus. WBC WNL. If any change in respiratory status or WBC, will consider flexible endoscopic evaluation of swallowing (FEES).
Recommend:
(1) Upgrade to regular solids/thin liquids
(2) Aspiration precautions: single sips, sit upright, slow rate, full supervision with assist as needed but encourage pt to self-feed
(3) Meds as tolerated
(4) FLOOR WAXER to continue to follow
--- NOTE | 2025-05-17 15:40 | PTCARENOTE ---
Patient AOxx2 (self and place). Bed alarm on and audible. 2L NC. Attempted to wean oxygen, but patient's SpO2 dropped below 88%. A fib on monitor. +[address] Gooden made aware of +3 L arm swelling that has PICC line in it. No new
orders at this time. Patient was able to void post irene removal. Stood at side of bed with PT/OT. R arm in sling. R hip incision has large amount of bloody drainage. Reinforced dressing with ABD. Call eric within reach, bed in lowest position, and
bed of wheels locked.
[2025-05-17 16:49] LABS: Glucose - Point of Care 147 mg/dl (70-99)
[2025-05-17] MEDS: ROXICODONE 5 MG PO (17:54)
[2025-05-17] MEDS: LIDOCAINE 4% PATCH 1 PATCH TOPICAL (20:05)
[2025-05-17 22:25] LABS: Glucose - Point of Care 146 mg/dl (70-99)
[2025-05-18] VITALS (16 sets, daily range): BP systolic 108–144; BP diastolic 55–102; PULSE 89–90; O2SAT 96; BMI 33.2
[2025-05-18] MEDS: DILAUDID 0.5 MG IV ×2 (00:16→17:31)
[2025-05-18 03:40] LABS: Hematocrit 26.9 % (37.0-47.0); Hemoglobin 8.7 g/dL (12.0-16.0); Mean Corp Hgb Conc. 32.3 g/dL (33.0-37.0); Mean Corpuscular Volume 86.5 fL (81.0-99.0); Nucleated Red Blood Cells % 0 %; Platelet Count 118 10^3/uL (130-400); Red Cell Dist. Width 17.2 % (11.5-14.5)
[2025-05-18 04:05] LABS: Blood Urea Nitrogen 16 mg/dl (7-17); Calcium 7.7 mg/dl (8.4-10.2); Carbon Dioxide 32 mmol/L (22-30); Chloride 100 mmol/L (98-107); Estimated Creatinine Clearance 70 ml/min; Glucose 123 mg/dl (70-99); Potassium 3.8 mmol/L (3.5-5.1); Sodium 132 mmol/L (135-145); eGFR > 60.00
--- NOTE | 2025-05-18 04:51 | PTCARENOTE ---
No acute events overnight. Patient urinating without difficulty s/p irene removal in am. Complains of pain 'all over.' PRN dilaudid given with positive effect. Patient anxious and confused- calling out for family. Emotional support provided. Right
hip dressing with copious amounts of serosanguineous drainage. Site cleansed and ABD pads replaced. Will continue to monitor.
[2025-05-18] MEDS: VENTOLIN NEBULES 2.5 MG INH (06:14)
[2025-05-18] MEDS: SODIUM CHLORIDE 3% FOR INHALATION 1 VIAL INH (06:14)
[2025-05-18] MEDS: PROTONIX IV 40 MG IV (08:15)
[2025-05-18] MEDS: NSS (PRESERVATIVE FREE) 10 ML IV (08:16)
[2025-05-18] MEDS: KEPPRA 750 MG IV (08:16)
[2025-05-18] MEDS: LASIX 40 MG IV (08:16)
[2025-05-18] MEDS: MIRALAX 17 GRAMS TUBE (08:17)
[2025-05-18] MEDS: ZOLOFT 150 MG PO (08:17)
[2025-05-18] MEDS: ABILIFY 10 MG PO (08:18)
[2025-05-18] MEDS: SENOKOT 17.2 MG PO ×2 (08:18→20:11)
[2025-05-18] MEDS: NOVOLOG FLEXPEN-MODERATE RESISTANCE SC ×2 (08:18→18:39)
[2025-05-18] MEDS: COLACE 100 MG PO ×2 (08:18→20:11)
[2025-05-18] MEDS: LIPITOR 20 MG PO (08:18)
[2025-05-18] MEDS: TOPROL XL 50 MG PO (08:18)
[2025-05-18 08:40] LABS: Glucose - Point of Care 106 mg/dl (70-99)
--- NOTE | 2025-05-18 11:11 | W.PN.CD ---
Today's Communication / Plan
-
Continue beta-ned for rate control
Monitor anemia. Hopefully hemoglobin will continue to improve. Improved hemoglobin will also help with rate control
Patient was on Eliquis prior to hospitalization but due to fall and issues with anemia requiring PRBCs postop patient has remained off anticoagulation
Call if additional assistance required.
Will see as needed
Impression / Plan
-
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
who presented to the emergency department from rehabilitation with right hip pain.
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 [place]
S/p Code (morris/hypotension) intraop
- No VT/VF
- s/p fluid resuscitation and 5=>6 U PRBC transfusion this admit (one unit hanging now)
Anemia, s/p transfusion (5 => 6units so far)
- Acute on chronic
- Hematoma noted on CT
Neurology input 05/15/2025 noted:
- 'Abrupt onset of change in speech with underlying likely dementia. No evidence of stroke at this time despite prior right frontal lobe neoplasm'
Lasix: Was an outpatient then was held when patient was having issues with anemia/bleeding now followed by nephrology. Has been getting Lasix the last 6 days including 05/18/2025
.
Atrial fibrillation, permanent (almost certainly per notes)
- Rates currently controlled
- Diltiazem ER 120 daily and metoprolol succinate 50 daily as outpatient.
- Continue metoprolol
- Oral Anticoagulation: Apixaban 5 mg twice daily prior to arrival, now on hold, has had falls recently, not sure we should resume Eliquis
- [id number]: Score at least 4 (HTN, age 75 or more, female gender)
Chest pain. Patient has some chest pain and back pain some reproducible chest pain with palpation and some symptoms with repositioning currently appears musculoskeletal in origin is likely related to fall
JANINA. resolved
Abnormal troponin, nonischemic myocardial injury in the setting of CPR, Peak troponin 0.167
Acute impacted fracture of the right humeral neck secondary to mechanical fall and osteoporosis, status post OR 05/11/2025
Moderate tricuspid regurgitation
Metastatic breast cancer with known brain mets
Seizure disorder, in the setting of brain metastasis
Subjective:
Appears comfortable
Data:
Echo 05/11/2025:
CONCLUSIONS
LV ejection fraction is approximately 55%. Normal regional wall motion.
Moderate to severely dilated left atrium. Moderate to severely dilated right
atrium.
Aortic sclerosis without stenosis. Mild to moderate aortic regurgitation.
Moderate tricuspid regurgitation. Estimated pulmonary artery pressure of 60-65
mmHg.
Physical Exam
Vital Signs/Labs
Vital Signs
Temp Pulse Resp BP Pulse Ox
97.8 F 98 16 121/81 98
05/18/25 07:39 05/18/25 06:15 05/18/25 06:15 05/18/25 08:18 05/18/25 06:15
05/17/25 05/18/25 05/19/25
06:59 06:59 06:59
Actual Weight 86.8 kg 85 kg
05/18/25 03:33
05/18/25 03:32
PT 17.3 Sec (11.4-14.6) H 05/10/25 17:40
PT Cancelled 05/10/25 17:40
INR 1.36 05/10/25 17:40
INR Cancelled 05/10/25 17:40
APTT 26.5 Sec (23.4-35.0) 05/10/25 17:40
APTT Cancelled 05/10/25 17:40
Magnesium 1.9 mg/dl (1.6-2.3) 05/16/25 04:26
TSH 3.84 uIU/ml (0.47-4.68) 05/13/25 04:59
Free T4 1.57 ng/dl (0.78-2.19) 05/13/25 04:59
05/10/25
17:40
Zuz-S-Edaskchkdbt Pept 2690
Physical Exam
Constitutional: No acute distress
Cardiovascular: Rhythm/rate is irregular
Respiratory: Respiratory effort normal and Rhonchi Absent
GI: Soft
Other: Skin and Other (Reproducible chest wall discomfort on right)
Data Reviewed
-
Date of Service: May 18, 2025
Medical Decision Making: Reviewed Test Results
X-Ray/CT/US/MRI/NUC/PET: Report Reviewed by me
Labs: Labs Reviewed by me
--- NOTE | 2025-05-18 11:24 | VATNOTE ---
Upon routine rounds this IV nurse noted left arm to be extremely edematous. Client did have negative ultrasound of left arm 4 days ago but per physical therapy, the arm is significantly more swollen today. Discussed findings with hospitalist and
recommended repeat ultrasound. Discussed need for PICC also. Suggested removing PICC line but will wait for results of ultrasound. Client has right humeral head fx and would prefer to avoid use of that arm if ultrasound negative. Suggested
peripheral iv site in right hand if ultrasound positive. VAT to follow.
[2025-05-18] MEDS: REMOVE LIDOCAINE PATCH 1 PATCH REMOVE (11:28)
[2025-05-18] MEDS: TYLENOL 650 MG PO (11:29)
[2025-05-18] MEDS: ROXICODONE 5 MG PO (11:29)
--- NOTE | 2025-05-18 11:50 | W.PN.NEPH.PH ---
Today's Communication / Plan
-
Maintain IV Lasix
Follow-up BMP
Assessment/Plan
-
IMP:
hyponatremia
JANINA on CKD 3-baseline cr 0.8-1
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
Vasopressor dependent shock-hypotension on pressors postcardiac arrest
Lactic acidosis
Right femoral neck fracture secondary to mechanical trauma and osteoporosis-status post right hip cemented hemiarthroplasty 05/10
Acute impacted fracture of the right humeral neck secondary to mechanical fall and osteoporosis
Acute anemia
Atrial Fibrillation, permanent-Persistent Rapid ventricular response
Elevated troponin likely secondary to postcardiac arrest
Urinary tract infection with Citrobacter
h/o Essential Hypertension
Hyperlipidemia
Metastatic Breast Cancer with known Brain Mets and prior seizure- stable MRI findings since Nov and March 2025
Hx of Seizures
Depression/Anxiety
Hypothyroidism
PLan:
A/w hip pain after fall, noted femoral neck fx s/p status post right hip cemented hemiarthroplasty on 05/10
Sodium stable at 132
complicated with bone cement implantation syndrome and Afib with RVR
creatinine improving at 0.6 and grossly non oliguric
Wt down and urine output 2-1/2 L with Lasix 40mg IV daily
encourage po solute intake
hyponatremia improving and stable, back on Zoloft
BP stable
follow h/h
follow bladder scan now she is off irene
labs in am
-
-
Date of Service: May 18, 2025
CC / HPI / ROS
-
Chief Complaint:
Acute kidney injury
History of Present Illness:
Acute kidney injury status post a fracture cardiac arrest
Creatinine stable at 0.6
Sodium stable at 132
Hemodynamically stable
Review of Systems:
more awake tody and conversing
no sob, but chest soreness from CPR on admit
right shoulder pain
Weight is down
Labs
-
Labs:
WBC 7.7 10^3/uL (4.8-10.8) 05/18/25 03:33
RBC 3.11 10^6/uL (4.20-5.40) L 05/18/25 03:33
Hgb 8.7 g/dL (12.0-16.0) L 05/18/25 03:33
Hct 26.9 % (37.0-47.0) L 05/18/25 03:33
Plt Count 118 10^3/uL (130-400) L 05/18/25 03:33
Sodium 132 mmol/L (135-145) L 05/18/25 03:32
Potassium 3.8 mmol/L (3.5-5.1) 05/18/25 03:32
Chloride 100 mmol/L (98-107) 05/18/25 03:32
Carbon Dioxide 32 mmol/L (22-30) H 05/18/25 03:32
BUN 16 mg/dl (7-17) 05/18/25 03:32
Creatinine 0.6 mg/dL (0.6-1.0) 05/18/25 03:32
eGFR > 60.00 05/18/25 03:32
Glucose 123 mg/dl (70-99) H 05/18/25 03:32
Calcium 7.7 mg/dl (8.4-10.2) L 05/18/25 03:32
Phosphorus 4.4 mg/dl (2.5-4.5) 05/11/25 03:22
Bht-T-Utxylumxnzt Pept 2690 pg/ml 05/10/25 17:40
Albumin 2.4 g/dl (3.5-5.0) L 05/12/25 03:44
Physical Exam
-
Vital Signs:
Vital Signs
Temp Pulse Resp BP Pulse Ox
97.7 F 98 16 121/81 98
07/18/25 11:22 05/18/25 06:15 05/18/25 06:15 05/18/25 08:18 05/18/25 06:15
Cardiovascular:: Irregular rate and rhythm
Respiratory:: Bilateral: CTA (anteriorly)
Lung Excursion:: Normal
Abdomen:: Nontender and Soft
Bowel Sounds:: Normal
Extremity Edema:: +2: Bilateral:
Irene Catheter: No
[2025-05-18] MEDS: NOVOLOG FLEXPEN-MODERATE RESISTANCE 1 UNITS SC (12:39)
[2025-05-18 12:50] LABS: Glucose - Point of Care 153 mg/dl (70-99)
--- NOTE | 2025-05-18 12:57 | W.PN.ORTHO ---
Today's Communication / Plan
-
84 yo F POD 8 s/p R hip cemented edith, non op right proximal humerus fracture
WBAT RLE, NWB RUE in sling
PT/OT
Posterior hip precautions
Pain control
Medical management per primary team
DVT prophylaxis recommended 28 days post op unless otherwise medically contraindicated
OK for dry dressing changes PRN right hip
F/u outpatient 2-3 weeks post op
Subjective
.
.:
Patient resting comfortably in bed. Conversant. at bedside. Reports minimal hip and shoulder pain.
Vital Signs and Labs
.
Vital Signs and Labs:
Lab Results
05/18/25 03:33
05/18/25 03:32
Temp Pulse Resp BP Pulse Ox
97.7 F 98 16 121/81 96
05/18/25 11:22 05/18/25 06:15 05/18/25 06:15 05/18/25 08:18 05/18/25 09:45
PT 17.3 Sec (11.4-14.6) H 05/10/25 17:40
PT Cancelled 05/10/25 17:40
INR 1.36 05/10/25 17:40
INR Cancelled 05/10/25 17:40
Physical Exam
-
MSK RLE
Dressing dry and intact without significant drainage
Ecchymosis about the left hip, arlette incisionally
Moderate swelling noted thigh
Leg lengths clinically equal in bed
Abduction pillow in place
+EHL, FHL, ankle DF/PF
RUE
Sling in place
No gross motor sensory deficits noted distally
--- NOTE | 2025-05-18 13:37 | W.PN.HOSP.TC ---
Today's Communication/Plan
-
Check HIT
labs in AM
US LUE
Assessment / Plan
Assessment / Plan
84-year-old woman with past medical history significant for essential hypertension, hypothyroidism, metastatic breast cancer s/p brain surgery and XRT January 2024 (stable MRI of the brain 03/14), seizure related to brain mets, atrial
fibrillation on Eliquis, who presented to the emergency department secondary to inability to ambulate or stand due to pain in the right hip area for the past 2 weeks. Of note 2 weeks ago she caught her toe on a rug and she had a mechanical fall,
with resultant right shoulder injury for which she went to rehab. She is unaware if she had x-rays of her hip at that time. Today when she went to physical therapy and she was unable to stand or walk secondary to pain. She had an x-ray at that
time that showed a right femoral neck fracture. Otherwise she has had no further mechanical falls. She has pain with right hip movement.
A/P:
#Acute blood loss anemia due to large hip hematoma
Status post 6 unit of PRBC. Hemoglobin stable this morning at 8.8.
Transfuse as necessary
CT abdomen pelvis noted with Large right hip/buttocks fluid collection suggestive of a hematoma of varying ages.
Continue to trend hemoglobin and transfuse as necessary.
#LUE swelling
worsened
repeat US, if DVT - remove PICC
#Toxic metabolic encephalopathy likely secondary to postcardiac arrest versus ICU delirium versus infection versus hypoxemia
#Dysphagia
Monitor mentation closely
Diet downgraded. Monitor p.o. intake.
CT head negative for acute intracranial abnormality
Mentation seems to be improving significantly.
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
Now extubated
#Shock postcardiac arrest-hypotension on pressors postcardiac arrest
#Lactic acidosis
Try to wean off pressors as tolerated
off pressors.
BP improving.
off stress dose steroids.
#Right femoral neck fracture secondary to mechanical trauma and osteoporosis. Additional imaging with no evidence of pathologic fracture
#Acute impacted fracture of the right humeral neck secondary to mechanical fall and osteoporosis
Status post cemented right hip hemiarthroplasty
Per orthopedic patient can be restarted on Eliquis
Ortho recs : WBAT RLE, NWB RUE in sling
#Atrial Fibrillation, permanent
Persistent Rapid ventricular response
Off amiodarone and Lovenox
Start patient on Toprol XL 50 mg home dose
If blood pressure can tolerate can start home regimen of calcium channel ned
#Elevated troponin likely secondary to postcardiac arrest
Echocardiogram with EF of 55% and no regional wall motion abnormality.
#Urinary tract infection with Citrobacter
#Right lower lobe pneumonia versus atelectasis
Completed Rocephin
Echevarria removed - watch for urinary retention
#JANINA on CKD 3 (Resolved)
#Hypokalemia
#Anasarca
#Acute on chronic HFpEF xacerbation
IV Lasix per nephrology.
Optimize BP with fluids and Vasopressor
#Hyponatremia in the setting of shock and intravascular volume depletion.
Sodium improved
#Mild Thrombocytopenia acute
Patient off Lovenox and Eliquis
Continue to trend platelets. Transfuse if necessary less than 10k.
Check HIT
#Acute hypoxic respiratory insufficiency
Wean O2 as tolerated
Encourage incentive spirometry
#Essential Hypertension
Restarted p.o. Toprol
#Hyperlipidemia
hold statin
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
#Seizure D/o
Cont Anastrozole
component of residual neoplasm is possible on MRI in March 2025
cont follow up with onc upon d/c
CT scan of the hip with findings of sclerotic intramedullary lesions of the L5 vertebral body and left iliac bone which are most likely blastic osseous metastasis
Off stress dose steroids.
Cont Keppra ppx
#Depression/Anxiety
#Hypothyroidism
Conyt home meds
#renal cysts
#Uterine fibroids
no follow up advised
DVT proph-SCDs in the setting of thrombocytopenia and large hip hematoma
Full Code
I have spent at least 59min reviewing chart, test results, communication with consultants and providing direct patient care
Anticipated Discharge: 24 - 48 hours
Subjective/Interval History
-
Date of Service: May 18, 2025
Objective Data
-
Labs:
Laboratory Results
05/18/25 05/18/25
03:32 03:33
WBC 7.7
Hgb 8.7 L
Hct 26.9 L
Plt Count 118 L
Sodium 132 L
Potassium 3.8
Chloride 100
Carbon Dioxide 32 H
BUN 16
Creatinine 0.6
Glucose 123 H
Calcium 7.7 L
Vital Signs:
Vital Signs
Temp Pulse Resp BP Pulse Ox
97.7 F 98 16 121/81 96
05/18/25 11:22 05/18/25 06:15 05/18/25 06:15 05/18/25 08:18 05/18/25 09:45
I&O
05/17/25 05/18/25 05/19/25
06:59 06:59 06:59
Intake Total 1210 / 1210 1440 / 1440
Output Total 1550 / 1550 1700 / 1700 850 / 850
Balance -340 / -340 -260 / -260 -850 / -850
Review of Systems
-
History Source: Patient
All other systems: Reviewed and negative
Physical Exam
-
General: No Apparent Distress and Comfortable
HEENT: Normocephalic
Respiratory: Clear to Auscultation
Cardiac: Regular Rhythm
GI: Soft and Nontender
Musculoskeletal: No Clubbing, No Cyanosis and Edema, Left Upper Extrem
Neuro: Awake, Alert, Oriented and AO x 3
Psych: Calm
--- NOTE | 2025-05-18 15:33 | CM ---
Patient seen at bedside in IMU. Patient referral to [facility] and per admissions at [facility] patient daughter has been calling daily to give updates to the nursing rig supervisor at [facility]. Plan is for patient to go to SNF pending bed availability and per
admissions updated referrals sent to [facility] yesterday. Per admissions at [facility] they are monitoring and requested CM call as soon as possible to clarify when patient would be medically appropriate for transfer. CM will continue to follow for discharge
planning needs.
Plan; SNF; [facility] pending bed availability
[2025-05-18] MEDS: SODIUM CHLORIDE 3% FOR INHALATION INH (17:24)
[2025-05-18] MEDS: VENTOLIN NEBULES INH (17:24)
[2025-05-18 18:01] LABS: Glucose - Point of Care 150 mg/dl (70-99)
--- NOTE | 2025-05-18 18:38 | PTCARENOTE ---
Pt downgraded to Tele; To transfer to [address] [place] [address], report called to Rebekah RN; Moved to room 0082
--- NOTE | 2025-05-18 20:00 | PTCARENOTE ---
pt received as transfer from IMU to room 2106. pt arouses to voice. able to answer all orientation questions. purewick in place. pt and oriented to room and unit
[2025-05-18] MEDS: KEPPRA 750 MG PO (20:11)
[2025-05-18] MEDS: LIDOCAINE 4% PATCH 1 PATCH TOPICAL (20:12)
--- NOTE | 2025-05-18 23:00 | PTCARENOTE ---
Patient had bedside ultrasound to r/o DVT of left arm. Report showing several occlusive clots in arm. Notified STAFF TRAINER. At this time, no usable IV access, STAFF TRAINER reached out to attending as well. left arm PICC to be removed on dayshift by IV team. will not
use. No new orders at this time. patient also has nondescript chest pain. EKG obtained. will continue to monitor.
--- NOTE | 2025-05-19 01:46 | W.PN.UPDATE ---
Update Note
Progress Note Update
US LUE - ACUTE OCCLUSIVE VENOUS THROMBOSIS in the left subclavian, axillary, and basilic vein surrounding a left upper extremity PICC line.
Pleasant 84 YOF AAOX3. Discussed US results and plan of care with patient including reasons for holding anticoagulant at this time. Explained risk of being on and off anticoagulants. Discussed goal of care, patient wishes to continue full extent of
treatment. Patient remains full code.
Attending notified of US results via TT
[2025-05-19 03:25] VITALS: BP 145/85
[2025-05-19 07:02] VITALS: BMI 33.3
[2025-05-19] MEDS: SODIUM CHLORIDE 3% FOR INHALATION 1 VIAL INH ×2 (07:11→18:15)
[2025-05-19] MEDS: VENTOLIN NEBULES 2.5 MG INH ×2 (07:11→18:15)
[2025-05-19 07:50] VITALS: BP 144/52
--- NOTE | 2025-05-19 08:30 | W.PN.HOSP.TC ---
Today's Communication/Plan
-
Central line by IRAD
after initiation of anticoagulation - remove PICC
H&H q6h
watch R hip for worsening
GOC discussion with family
Argartroban pending HITAb
Assessment / Plan
Assessment / Plan
84-year-old woman with past medical history significant for essential hypertension, hypothyroidism, metastatic breast cancer s/p brain surgery and XRT January 2024 (stable MRI of the brain 03/14), seizure related to brain mets, atrial
fibrillation on Eliquis, who presented to the emergency department secondary to a right femoral neck fracture and R humeral Fx. Patient s/p cemented R him hemiarthroplasty on 05/10/25 with cardiac arrest during surgery, achieved ROSC and gradually
rcovered in ICU. later on 05/13/25 found acute drop in Hgb and CT showed large R hip postOP hematoma, received total of 6 units of PRBC as well as AC was stopped and cardiologists were hesitant to restart it due to large hematoma size. Developed LUE
DVT 2/2 PICC found on 05/18/25
As per my assessment on 05/19/25 - patient with cognitive impairment and prolonged hospitalization cannot adequately understand and make decision for her medical mgmt at this time
A/P:
#LUE acute DVT 2/2 PICC
large occlusive clot
With thrombocytopenia and pending HIT Ab - for anticoagulation will need Argatroban
With just recent (3 days before DVT findings) blood transfusion - high risk for rebleeding, however Hgb remained stable. ALso since patient bedbound, with concern for metastatic breast CA after recent R hip surgery - high risk for thrombosis.
DIscussed risk and benefit of anticoagulation and high risk of thrombosis with daughter - agreeable for trial of anticoagulation with frequent H&H q6h and watching R hip for hematoma expansion.
DUe to RUE swelling - US RUE vascualr ordered
IRAD for central line as VAT does not have options to place with b/l UE swelling. ALso cannot check bloodwork due to inability to collect
#GOC
with advanced age, patient impaired judgement of her medical condition and development of ultiple complications: discuss GOC with tray
#Acute blood loss anemia due to large hip hematoma
Status post 6 unit of PRBC. Hemoglobin stable this morning at 8.8.
Transfuse as necessary
CT abdomen pelvis noted with Large right hip/buttocks fluid collection suggestive of a hematoma of varying ages.
Continue to trend hemoglobin and transfuse as necessary.
#LUE swelling
worsened
repeat US, if DVT - remove PICC
#Toxic metabolic encephalopathy likely secondary to postcardiac arrest versus ICU delirium versus infection versus hypoxemia
#Dysphagia
Monitor mentation closely
Diet downgraded. Monitor p.o. intake.
CT head negative for acute intracranial abnormality
Mentation seems to be improving significantly.
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
Now extubated
#Shock postcardiac arrest-hypotension on pressors postcardiac arrest
#Lactic acidosis
Try to wean off pressors as tolerated
off pressors.
BP improving.
off stress dose steroids.
#Right femoral neck fracture secondary to mechanical trauma and osteoporosis. Additional imaging with no evidence of pathologic fracture
#Acute impacted fracture of the right humeral neck secondary to mechanical fall and osteoporosis
Status post cemented right hip hemiarthroplasty
Per orthopedic patient can be restarted on Eliquis
Ortho recs : WBAT RLE, NWB RUE in sling
#Atrial Fibrillation, permanent
Persistent Rapid ventricular response
Off amiodarone and Lovenox
Start patient on Toprol XL 50 mg home dose
If blood pressure can tolerate can start home regimen of calcium channel ned
#Elevated troponin likely secondary to postcardiac arrest
Echocardiogram with EF of 55% and no regional wall motion abnormality.
#Urinary tract infection with Citrobacter
#Right lower lobe pneumonia versus atelectasis
Completed Rocephin
Echevarria removed - watch for urinary retention
#JANINA on CKD 3 (Resolved)
#Hypokalemia
#Anasarca
#Acute on chronic HFpEF exacerbation
IV Lasix per nephrology.
Optimize BP with fluids and Vasopressor
#Hyponatremia in the setting of shock and intravascular volume depletion.
Sodium improved
#Mild Thrombocytopenia acute
Patient off Lovenox and Eliquis
Continue to trend platelets. Transfuse if necessary less than 10k.
Check HIT
#Acute hypoxic respiratory insufficiency
Wean O2 as tolerated
Encourage incentive spirometry
#Essential Hypertension
Restarted p.o. Toprol
#Hyperlipidemia
hold statin
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
#Seizure D/o
Cont Anastrozole
component of residual neoplasm is possible on MRI in March 2025
cont follow up with onc upon d/c
CT scan of the hip with findings of sclerotic intramedullary lesions of the L5 vertebral body and left iliac bone which are most likely blastic osseous metastasis
Off stress dose steroids.
Cont Keppra ppx
#Depression/Anxiety
#Hypothyroidism
Conyt home meds
#renal cysts
#Uterine fibroids
no follow up advised
DVT proph-SCDs in the setting of thrombocytopenia and large hip hematoma
Full Code
I have spent at least 59min reviewing chart, test results, communication with consultants and providing direct patient care
Anticipated Discharge: > 48 hours
Subjective/Interval History
-
Date of Service: May 19, 2025
Objective Data
-
Labs:
Laboratory Results
05/19/25 05/19/25
06:00 08:12
WBC Pending
Hgb Pending
Hct Pending
Plt Count Pending
APTT Pending
Sodium Pending
Potassium Pending
Chloride Pending
Carbon Dioxide Pending
BUN Pending
Creatinine Pending
Glucose Pending
Calcium Pending
Total Bilirubin Pending
AST Pending
ALT Pending
Alkaline Phosphatase Pending
Vital Signs:
Vital Signs
Temp Pulse Resp BP Pulse Ox
97.8 F 80 16 144/52 98
05/19/25 07:50 05/19/25 07:50 05/19/25 07:50 05/19/25 07:50 05/19/25 07:50
I&O
05/18/25 05/19/25 05/20/25
06:59 06:59 06:59
Intake Total 1440 / 1440 200 / 200
Output Total 1700 / 1700 850 / 850 150 / 150
Balance -260 / -260 -850 / -850 50 / 50
Review of Systems
-
Unable to obtain full review of systems at this time due to: Dementia
History Source: Patient
Physical Exam
-
General: No Apparent Distress
HEENT: Normocephalic
Respiratory: Clear to Auscultation
Cardiac: Irregular Rhythm
GI: Soft, Nontender and Nondistended
Musculoskeletal: Other (well healing scar with mild hematoma on R)
Skin: Warm
Neuro: Awake, Alert and Oriented
Psych: Calm and Apparent Dementia
[2025-05-19 08:50] LABS: Glucose - Point of Care 118 mg/dl (70-99)
[2025-05-19] MEDS: NOVOLOG FLEXPEN-MODERATE RESISTANCE SC ×3 (08:50→17:45)
[2025-05-19] MEDS: REMOVE LIDOCAINE PATCH 1 PATCH REMOVE (10:00)
[2025-05-19 11:05] VITALS: BP 141/63
--- NOTE | 2025-05-19 11:10 | W.PN.NEPH.PH ---
Today's Communication / Plan
-
Maintain Lasix
Follow BMP
Assessment/Plan
-
IMP:
hyponatremia
JANINA on CKD 3-baseline cr 0.8-1
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
Vasopressor dependent shock-hypotension on pressors postcardiac arrest
Lactic acidosis
Right femoral neck fracture secondary to mechanical trauma and osteoporosis-status post right hip cemented hemiarthroplasty 05/10
Acute impacted fracture of the right humeral neck secondary to mechanical fall and osteoporosis
Acute anemia
Atrial Fibrillation, permanent-Persistent Rapid ventricular response
Elevated troponin likely secondary to postcardiac arrest
Urinary tract infection with Citrobacter
h/o Essential Hypertension
Hyperlipidemia
Metastatic Breast Cancer with known Brain Mets and prior seizure- stable MRI findings since Nov and March 2025
Hx of Seizures
Depression/Anxiety
Hypothyroidism
PLan:
A/w hip pain after fall, noted femoral neck fx s/p status post right hip cemented hemiarthroplasty on 05/10
Sodium was stable at 132
complicated with bone cement implantation syndrome and Afib with RVR
creatinine was improving at 0.6 and grossly non oliguric
Maintain 40 mg of IV Lasix
Urine output not record
encourage po solute intake
hyponatremia improving and stable, back on Zoloft
BP stable
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
follow h/h
follow bladder scan now she is off irene
labs in am
-
-
Date of Service: May 19, 2025
CC / HPI / ROS
-
Chief Complaint:
Acute kidney injury
History of Present Illness:
Acute kidney injury status post a fracture cardiac arrest
Creatinine at 0.6
Sodium at 132
Hemodynamically stable
Review of Systems:
no sob, but chest soreness from CPR on admit
right shoulder pain
Weight is stable
Labs
-
Labs:
eGFR > 60.00 05/18/25 03:32
Phosphorus 4.4 mg/dl (2.5-4.5) 05/11/25 03:22
Pdx-M-Xpidlybeloq Pept 2690 pg/ml 05/10/25 17:40
Physical Exam
-
Vital Signs:
Vital Signs
Temp Pulse Resp BP Pulse Ox
97.8 F 80 16 144/52 98
05/19/25 07:50 05/19/25 07:50 05/19/25 07:50 05/19/25 07:50 05/19/25 07:50
Cardiovascular:: Irregular rate and rhythm
Respiratory:: Bilateral: CTA (anteriorly)
Lung Excursion:: Normal
Abdomen:: Nontender and Soft
Bowel Sounds:: Normal
Extremity Edema:: +2: Bilateral:
Irene Catheter: No
--- NOTE | 2025-05-19 11:16 | VATNOTE ---
Left arm ultrasound from 05/18 shows large occlusive thrombus surrounding PICC line. Right arm is now grossly edematous as well. Discussed with hospitalist. Awaiting results of right arm ultrasound. Hospitalist to consult IR for central line
placement as there are no peripheral options available. Hospitalist will notify VAT when PICC is safe to remove after anticoagulant therapy has been initiated.
[2025-05-19] MEDS: LIPITOR 20 MG PO (12:07)
[2025-05-19] MEDS: PROTONIX 40 MG PO (12:07)
[2025-05-19] MEDS: ABILIFY 10 MG PO (12:07)
[2025-05-19] MEDS: COLACE 100 MG PO ×2 (12:08→20:45)
[2025-05-19] MEDS: KEPPRA 750 MG PO ×2 (12:08→20:46)
[2025-05-19] MEDS: ZOLOFT 150 MG PO (12:08)
[2025-05-19] MEDS: MIRALAX TUBE (12:09)
[2025-05-19] MEDS: SENOKOT PO (12:09)
[2025-05-19] MEDS: TOPROL XL 50 MG PO (12:10)
[2025-05-19 12:29] LABS: Glucose - Point of Care 147 mg/dl (70-99)
--- NOTE | 2025-05-19 13:38 | W.PN.UPDATE ---
Update Note
Progress Note Update
- Attempted to place central line bedside. Could not locate RIJ vein.
- Pt began to complain of chest pain as we were looking for the vein. Stopped procedure. Nurse alerted.
--- NOTE | 2025-05-19 14:25 | W.PN.UPDATE ---
Update Note
Progress Note Update
Patient c/o diffuse chest pain, tender to tough, so reproducible. Patirnt with recent resucitation - most likely traumatic pain. EKG without new ST changes. Non-cardiac pain.
[2025-05-19 15:05] VITALS: BP 146/71
[2025-05-19 17:20] LABS: APTT 32.5 Sec (23.4-35.0)
[2025-05-19] MEDS: LASIX 40 MG IV (17:24)
[2025-05-19 17:40] LABS: Glucose - Point of Care 141 mg/dl (70-99)
[2025-05-19 17:44] LABS: Hematocrit 29.6 % (37.0-47.0); Hemoglobin 9.5 g/dL (12.0-16.0); Mean Corp Hgb Conc. 32.1 g/dL (33.0-37.0); Mean Corpuscular Volume 86.3 fL (81.0-99.0); Nucleated Red Blood Cells % 0 %; Platelet Count 193 10^3/uL (130-400); Red Cell Dist. Width 17.5 % (11.5-14.5)
[2025-05-19 17:56] LABS: ALT (SGPT) < 10 U/L (0-35); AST (SGOT) 13 U/L (14-36); Albumin 2.5 g/dl (3.5-5.0); Alkaline Phosphatase 90 U/L (38-126); Blood Urea Nitrogen 15 mg/dl (7-17); Calcium 8.4 mg/dl (8.4-10.2); Carbon Dioxide 32 mmol/L (22-30); Chloride 96 mmol/L (98-107); Estimated Creatinine Clearance 70 ml/min; Glucose 131 mg/dl (70-99); Potassium 4.0 mmol/L (3.5-5.1); Sodium 130 mmol/L (135-145); Total Protein 4.9 g/dl (6.3-8.2); eGFR > 60.00
[2025-05-19 19:21] VITALS: BP 166/84
[2025-05-19] MEDS: LIDOCAINE 4% PATCH 1 PATCH TOPICAL (20:46)
[2025-05-19] MEDS: SENOKOT 17.2 MG PO (20:46)
[2025-05-19] MEDS: ARGATROBAN 252.5 MG IV (20:50)
[2025-05-19] MEDS: ROXICODONE 5 MG PO (21:00)
[2025-05-19] MEDS: ZOFRAN 4 MG IV (21:21)
[2025-05-19 22:01] LABS: Glucose - Point of Care 131 mg/dl (70-99)
[2025-05-19] MEDS: DUONEB 3 ML INH (22:43)
[2025-05-19 23:08] VITALS: BP 135/73
[2025-05-19 23:35] LABS: APTT 67.4 Sec (23.4-35.0)
--- NOTE | 2025-05-19 23:59 | PTCARENOTE ---
Argatroban gtt started @ 2100 per order. Will continue to follow protocol and PTT assessments and confirm dosages with pharmacy.
Around 2200, pt also started complaining of SOB, notified CALENDER TENDER, gave PRN nebs, ordered CXR and pro-BNP. Will follow labs.
Vital signs stable. pt updated on plan. Will continue to monitor.
[2025-05-20 03:14] VITALS: BP 134/89
[2025-05-20 03:29] LABS: Hematocrit 28.1 % (37.0-47.0); Hemoglobin 9.2 g/dL (12.0-16.0); Mean Corp Hgb Conc. 32.7 g/dL (33.0-37.0); Mean Corpuscular Volume 87.0 fL (81.0-99.0); Nucleated Red Blood Cells % 0 %; Platelet Count 222 10^3/uL (130-400); Red Cell Dist. Width 17.1 % (11.5-14.5)
[2025-05-20 03:36] LABS: APTT 70.7 Sec (23.4-35.0)
[2025-05-20 03:41] LABS: ALT (SGPT) < 10 U/L (0-35); AST (SGOT) 17 U/L (14-36); Albumin 2.5 g/dl (3.5-5.0); Alkaline Phosphatase 82 U/L (38-126); Blood Urea Nitrogen 15 mg/dl (7-17); Calcium 8.1 mg/dl (8.4-10.2); Carbon Dioxide 33 mmol/L (22-30); Chloride 97 mmol/L (98-107); Estimated Creatinine Clearance 70 ml/min; Glucose 124 mg/dl (70-99); Potassium 3.8 mmol/L (3.5-5.1); Sodium 130 mmol/L (135-145); Total Protein 4.9 g/dl (6.3-8.2); eGFR > 60.00
[2025-05-20 06:00] VITALS: BMI 32.1
[2025-05-20 07:10] VITALS: BP 160/73
[2025-05-20] MEDS: VENTOLIN NEBULES 2.5 MG INH ×2 (07:28→20:16)
[2025-05-20] MEDS: SODIUM CHLORIDE 3% FOR INHALATION 1 VIAL INH ×2 (07:28→20:16)
[2025-05-20 07:55] LABS: Glucose - Point of Care 112 mg/dl (70-99)
[2025-05-20] MEDS: NOVOLOG FLEXPEN-MODERATE RESISTANCE SC ×2 (07:55→16:55)
[2025-05-20] MEDS: LASIX 40 MG IV ×2 (10:55→16:54)
[2025-05-20] MEDS: COLACE PO ×2 (10:55→11:10)
[2025-05-20] MEDS: LIPITOR 20 MG PO (10:55)
[2025-05-20] MEDS: ZOLOFT 150 MG PO (10:56)
[2025-05-20] MEDS: SENOKOT PO ×2 (10:56→11:10)
[2025-05-20] MEDS: TOPROL XL 50 MG PO (10:56)
[2025-05-20] MEDS: KEPPRA 750 MG PO ×2 (10:56→20:37)
[2025-05-20] MEDS: ABILIFY 10 MG PO (10:56)
[2025-05-20] MEDS: PROTONIX 40 MG PO (10:57)
[2025-05-20] MEDS: MIRALAX TUBE ×2 (10:57→11:10)
[2025-05-20] MEDS: REMOVE LIDOCAINE PATCH 1 PATCH REMOVE (10:58)
[2025-05-20 11:10] VITALS: BP 146/72
--- NOTE | 2025-05-20 11:47 | W.PN.NEPH.PH ---
Today's Communication / Plan
-
observe on lasix
Assessment/Plan
-
IMP:
hyponatremia
JANINA on CKD 3-baseline cr 0.8-1
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
Vasopressor dependent shock-hypotension on pressors postcardiac arrest
Lactic acidosis
Right femoral neck fracture secondary to mechanical trauma and osteoporosis-status post right hip cemented hemiarthroplasty 05/10
Acute impacted fracture of the right humeral neck secondary to mechanical fall and osteoporosis
Acute anemia
Atrial Fibrillation, permanent-Persistent Rapid ventricular response
Elevated troponin likely secondary to postcardiac arrest
Urinary tract infection with Citrobacter
h/o Essential Hypertension
Hyperlipidemia
Metastatic Breast Cancer with known Brain Mets and prior seizure- stable MRI findings since Nov and March 2025
Hx of Seizures
Depression/Anxiety
Hypothyroidism
PLan:
A/w hip pain after fall, noted femoral neck fx s/p status post right hip cemented hemiarthroplasty on 05/10
Sodium is down to 130 from 132
complicated with bone cement implantation syndrome and Afib with RVR
creatinine was improving at 0.5 and non oliguric
Maintain 40 mg of IV Lasix
Urine output not record
encourage po solute intake
hyponatremia improving and stable, back on Zoloft
BP stable
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
follow h/h
follow bladder scan now she is off irene
labs in am
-
-
Date of Service: May 20, 2025
CC / HPI / ROS
-
Chief Complaint:
Acute kidney injury
History of Present Illness:
Acute kidney injury status post a fracture cardiac arrest
Creatinine at 0.5
Sodium at 130
Hemodynamically stable
Review of Systems:
no sob, but chest soreness from CPR on admit
right shoulder pain
Weight is dwon
Labs
-
Labs:
WBC 8.9 10^3/uL (4.8-10.8) 05/20/25 03:11
RBC 3.23 10^6/uL (4.20-5.40) L 05/20/25 03:11
Hgb 9.2 g/dL (12.0-16.0) L 05/20/25 03:11
Hct 28.1 % (37.0-47.0) L 05/20/25 03:11
Plt Count 222 10^3/uL (130-400) 05/20/25 03:11
Sodium 130 mmol/L (135-145) L 05/20/25 03:11
Potassium 3.8 mmol/L (3.5-5.1) 05/20/25 03:11
Chloride 97 mmol/L (98-107) L 05/20/25 03:11
Carbon Dioxide 33 mmol/L (22-30) H 05/20/25 03:11
BUN 15 mg/dl (7-17) 05/20/25 03:11
Creatinine 0.5 mg/dL (0.6-1.0) L 05/20/25 03:11
eGFR > 60.00 05/20/25 03:11
Glucose 124 mg/dl (70-99) H 05/20/25 03:11
Calcium 8.1 mg/dl (8.4-10.2) L 05/20/25 03:11
Phosphorus 4.4 mg/dl (2.5-4.5) 05/11/25 03:22
Zmc-L-Anepckjcyjj Pept 2900 pg/ml 05/19/25 23:18
Albumin 2.5 g/dl (3.5-5.0) L 05/20/25 03:11
Physical Exam
-
Vital Signs:
Vital Signs
Temp Pulse Resp BP Pulse Ox
98.2 F 92 16 146/72 98
07/20/25 11:10 05/20/25 11:10 05/20/25 11:10 05/20/25 11:10 05/20/25 11:10
Cardiovascular:: Irregular rate and rhythm
Respiratory:: Bilateral: CTA (anteriorly)
Lung Excursion:: Normal
Abdomen:: Nontender and Soft
Bowel Sounds:: Normal
Extremity Edema:: +1: Bilateral:
Irene Catheter: No
[2025-05-20 11:57] LABS: Glucose - Point of Care 164 mg/dl (70-99)
--- NOTE | 2025-05-20 12:00 | W.PN.HOSP.TC ---
Today's Communication/Plan
-
Hgb stable R hip without new swelling
follow clinically on Argatrban
Resent HITAb as original test was not received by Lab
LAsix BID and folllow Cr with nephrology
Assessment / Plan
Assessment / Plan
84-year-old woman with past medical history significant for essential hypertension, hypothyroidism, metastatic breast cancer s/p brain surgery and XRT January 2024 (stable MRI of the brain 03/14), seizure related to brain mets, atrial
fibrillation on Eliquis, who presented to the emergency department secondary to a right femoral neck fracture and R humeral Fx. Patient s/p cemented R him hemiarthroplasty on 05/10/25 with cardiac arrest during surgery, achieved ROSC and gradually
rcovered in ICU. later on 05/13/25 found acute drop in Hgb and CT showed large R hip postOP hematoma, received total of 6 units of PRBC as well as AC was stopped and cardiologists were hesitant to restart it due to large hematoma size. Developed LUE
DVT 2/2 PICC found on 05/18/25,
A/P:
#LUE acute DVT 2/2 PICC
large occlusive clot
With thrombocytopenia and pending HIT Ab - for anticoagulation will need Argatroban
With just recent (3 days before DVT findings) blood transfusion - high risk for rebleeding, however Hgb remained stable. ALso since patient bedbound, with concern for metastatic breast CA after recent R hip surgery - high risk for thrombosis.
DIscussed risk and benefit of anticoagulation and high risk of thrombosis with daughter - agreeable for trial of anticoagulation with frequent H&H q6h and watching R hip for hematoma expansion.
DUe to RUE swelling - US RUE vascualr ordered
IRAD for central line as VAT does not have options to place with b/l UE swelling. ALso cannot check bloodwork due to inability to collect
#GOC
with advanced age, patient impaired judgement of her medical condition and development of ultiple complications: discuss GOC with family - decided to cont Full code
#Acute blood loss anemia due to large hip hematoma
Status post 6 unit of PRBC. Hemoglobin stable this morning at 8.8.
Transfuse as necessary
CT abdomen pelvis noted with Large right hip/buttocks fluid collection suggestive of a hematoma of varying ages.
Continue to trend hemoglobin and transfuse as necessary.
#LUE swelling
worsened
repeat US, if DVT - remove PICC
#Toxic metabolic encephalopathy likely secondary to postcardiac arrest versus ICU delirium versus infection versus hypoxemia
#Dysphagia
Monitor mentation closely
Diet downgraded. Monitor p.o. intake.
CT head negative for acute intracranial abnormality
Mentation seems to be improving significantly.
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
Now extubated
#Chest pain
s/p chest compressions
reproducible
#Shock postcardiac arrest-hypotension on pressors postcardiac arrest
#Lactic acidosis
Try to wean off pressors as tolerated
off pressors.
BP improving.
off stress dose steroids.
#Right femoral neck fracture secondary to mechanical trauma and osteoporosis. Additional imaging with no evidence of pathologic fracture
#Acute impacted fracture of the right humeral neck secondary to mechanical fall and osteoporosis
Status post cemented right hip hemiarthroplasty
Per orthopedic patient can be restarted on Eliquis
Ortho recs : WBAT RLE, NWB RUE in sling
#Atrial Fibrillation, permanent
Persistent Rapid ventricular response
Off amiodarone and Lovenox
Toprol XL 50 mg
If blood pressure can tolerate can start home regimen of calcium channel ned
#Elevated troponin likely secondary to postcardiac arrest
Echocardiogram with EF of 55% and no regional wall motion abnormality.
#Urinary tract infection with Citrobacter
#Right lower lobe pneumonia versus atelectasis
Completed Rocephin
Echevarria removed - watch for urinary retention
#JANINA on CKD 3 (Resolved)
#Hypokalemia
#Anasarca
#Acute on chronic HFpEF exacerbation
#Hyponatremia
#Acute hypoxic respiratory insufficiency
Wean O2 as tolerated
Encourage incentive spirometry
IV Lasix per nephrology.
follow Cr and electrolytes
#Hyponatremia in the setting of shock and intravascular volume depletion.
Sodium improved
#Mild Thrombocytopenia acute
resolved off Lovenox and Eliquis
Check HIT
Argatroban
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
#Seizure D/o
Cont Anastrozole
component of residual neoplasm is possible on MRI in March 2025
cont follow up with onc upon d/c
CT scan of the hip with findings of sclerotic intramedullary lesions of the L5 vertebral body and left iliac bone which are most likely blastic osseous metastasis
Off stress dose steroids.
Cont Keppra ppx
#Essential Hypertension
#Hyperlipidemia
#Depression/Anxiety
#Hypothyroidism
Cont home meds
#renal cysts
#Uterine fibroids
no follow up advised
DVT proph-SCDs in the setting of thrombocytopenia and large hip hematoma
Full Code
I have spent at least 59min reviewing chart, test results, communication with consultants and providing direct patient care
Anticipated Discharge: > 48 hours
Subjective/Interval History
-
Date of Service: May 20, 2025
Objective Data
-
Labs:
Laboratory Results
05/20/25 05/20/25
03:11 15:00
WBC 8.9
Hgb 9.2 L
Hct 28.1 L
Plt Count 222
APTT 70.7 H Pending
Sodium 130 L
Potassium 3.8
Chloride 97 L
Carbon Dioxide 33 H
BUN 15
Creatinine 0.5 L
Glucose 124 H
Calcium 8.1 L
Total Bilirubin 1.3
AST 17
ALT < 10
Alkaline Phosphatase 82
Vital Signs:
Vital Signs
Temp Pulse Resp BP Pulse Ox
98.2 F 92 16 146/72 98
05/20/25 11:10 05/20/25 11:10 05/20/25 11:10 05/20/25 11:10 05/20/25 11:10
I&O
05/19/25 05/20/25 05/21/25
06:59 06:59 06:59
Intake Total 1060 / 1060
Output Total 850 / 850 1350 / 1350
Balance -850 / -850 -290 / -290
Review of Systems
-
Unable to obtain full review of systems at this time due to: Dementia
History Source: Patient
All other systems: Reviewed and negative
Physical Exam
-
General: No Apparent Distress
HEENT: Normocephalic and Other (R IJ)
Respiratory: Clear to Auscultation
Cardiac: Regular Rhythm
GI: Soft, Nontender and Nondistended
Musculoskeletal: No Clubbing, No Cyanosis, Edema, Right Upper Extrem, Edema, Left Upper Extrem, Edema, Right Lower Extrem and Edema, Left Lower Extrem
Skin: Warm
Neuro: Awake, Alert and Oriented
Psych: Calm and Apparent Dementia
--- NOTE | 2025-05-20 12:30 | W.PN.UPDATE ---
Update Note
Progress Note Update
PICC to be removed ans patient is on therapeutic AC so risk for clot dislodgement somewhat minimized
[2025-05-20] MEDS: NOVOLOG FLEXPEN-MODERATE RESISTANCE 1 UNITS SC (14:31)
[2025-05-20] MEDS: KCL 20 MEQ PO (14:34)
[2025-05-20 15:15] VITALS: BP 111/51
[2025-05-20 15:20] VITALS: BP 111/51
[2025-05-20 15:37] LABS: APTT 83.1 Sec (23.4-35.0)
[2025-05-20 16:36] LABS: Glucose - Point of Care 147 mg/dl (70-99)
[2025-05-20] MEDS: COLACE 100 MG PO (20:37)
[2025-05-20] MEDS: SENOKOT 17.2 MG PO (20:37)
[2025-05-20] MEDS: LIDOCAINE 4% PATCH 1 PATCH TOPICAL (20:38)
[2025-05-20 21:45] LABS: Glucose - Point of Care 189 mg/dl (70-99)
[2025-05-20] MEDS: ARGATROBAN 252.5 MG IV (23:17)
[2025-05-21] VITALS (8 sets, daily range): BP systolic 104–175; BP diastolic 37–82; PULSE 95–177; O2SAT 91; BMI 31.8
[2025-05-21] MEDS: ROXICODONE 5 MG PO ×2 (02:42→15:38)
[2025-05-21 03:43] LABS: Hematocrit 28.6 % (37.0-47.0); Hemoglobin 9.2 g/dL (12.0-16.0); Mean Corp Hgb Conc. 32.2 g/dL (33.0-37.0); Mean Corpuscular Volume 86.1 fL (81.0-99.0); Nucleated Red Blood Cells % 0 %; Platelet Count 246 10^3/uL (130-400); Red Cell Dist. Width 17.0 % (11.5-14.5)
[2025-05-21 03:55] LABS: APTT 70.7 Sec (23.4-35.0)
[2025-05-21 04:10] LABS: Blood Urea Nitrogen 16 mg/dl (7-17); Calcium 8.0 mg/dl (8.4-10.2); Carbon Dioxide 33 mmol/L (22-30); Chloride 96 mmol/L (98-107); Estimated Creatinine Clearance 68 ml/min; Glucose 127 mg/dl (70-99); Magnesium 1.6 mg/dl (1.6-2.3); Potassium 3.7 mmol/L (3.5-5.1); Sodium 129 mmol/L (135-145); eGFR > 60.00
[2025-05-21] MEDS: MAGNESIUM SULFATE 50 IV (06:35)
[2025-05-21 07:28] LABS: Glucose - Point of Care 120 mg/dl (70-99)
[2025-05-21] MEDS: VENTOLIN NEBULES 2.5 MG INH ×2 (07:31→20:11)
[2025-05-21] MEDS: SODIUM CHLORIDE 3% FOR INHALATION 1 VIAL INH ×2 (07:31→20:11)
[2025-05-21] MEDS: NOVOLOG FLEXPEN-MODERATE RESISTANCE SC ×2 (08:27→12:41)
[2025-05-21] MEDS: TOPROL XL 50 MG PO (08:27)
[2025-05-21] MEDS: MIRALAX 17 GRAMS TUBE (08:27)
[2025-05-21] MEDS: SENOKOT 17.2 MG PO ×2 (08:28→19:50)
[2025-05-21] MEDS: COLACE 100 MG PO ×2 (08:28→19:50)
[2025-05-21] MEDS: KEPPRA 750 MG PO ×2 (08:28→19:50)
[2025-05-21] MEDS: KCL 20 MEQ PO (08:28)
[2025-05-21] MEDS: LASIX 40 MG IV ×2 (08:29→15:39)
[2025-05-21] MEDS: LIPITOR 20 MG PO (08:29)
[2025-05-21] MEDS: ZOLOFT 150 MG PO (08:29)
[2025-05-21] MEDS: PROTONIX 40 MG PO (08:29)
[2025-05-21] MEDS: ABILIFY 10 MG PO (08:29)
[2025-05-21] MEDS: TYLENOL 650 MG PO (08:38)
[2025-05-21] MEDS: REMOVE LIDOCAINE PATCH REMOVE (08:56)
[2025-05-21 11:08] LABS: Glucose - Point of Care 117 mg/dl (70-99)
--- NOTE | 2025-05-21 11:42 | W.PN.HOSP.TC ---
Today's Communication/Plan
-
cont Argatroban pending HITAb
Hgb stable, no signs of worsening bleeding on R hip - cont to monitor. If stable in AM - switch to Eliquis (10mg BID x7 days, then 5mg BID for 3 mo and then cont as per card)
Cont Lasix, follow electrolytes
Urine osm
Magnesium repleted
If Hgb stable and sodium improved in AM - for D/C to rehab - CM informed
cont attempts to wean
Assessment / Plan
Assessment / Plan
84-year-old woman with past medical history significant for essential hypertension, hypothyroidism, metastatic breast cancer s/p brain surgery and XRT January 2024 (stable MRI of the brain 03/14), seizure related to brain mets, atrial
fibrillation on Eliquis, who presented to the emergency department secondary to a right femoral neck fracture and R humeral Fx. Patient s/p cemented R him hemiarthroplasty on 05/10/25 with cardiac arrest during surgery, achieved ROSC and gradually
recovered in ICU. later on 05/13/25 found acute drop in Hgb and CT showed large R hip postOP hematoma, received total of 6 units of PRBC as well as AC was stopped and cardiologists were hesitant to restart it due to large hematoma size. Developed LUE
DVT 2/2 PICC found on 05/18/25, later tolerating Argatroban trial since eHITAb pending
A/P:
#LUE acute DVT 2/2 PICC
large occlusive clot
With thrombocytopenia and pending HIT Ab - for anticoagulation will need Argatroban
With just recent (3 days before DVT findings) blood transfusion - high risk for rebleeding, however Hgb remained stable. ALso since patient bedbound, with concern for metastatic breast CA after recent R hip surgery - high risk for thrombosis.
DIscussed risk and benefit of anticoagulation and high risk of thrombosis with daughter - agreeable for trial of anticoagulation with frequent H&H q6h and watching R hip for hematoma expansion.
RUE no DVT
IRAD placed central line
PICC removed on 05/20/25
Anticoagulation trial with argatroban, eventually switch to Eliquis (10mg BID x7 days, then 5mg BID for 3 mo and then cont as per card) - discussed in details with daughter
#Mild Thrombocytopenia acute
Check HIT
Argatroban
#JANINA on CKD 3 (Resolved)
#Hypokalemia
#Anasarca
##Acute hypoxic respiratory insufficiency 2/2 Acute on chronic HFpEF exacerbation
#Hyponatremia
Wean O2 as tolerated
Encourage incentive spirometry
IV Lasix per nephrology.
follow Cr and electrolytes
#Hyponatremia in the setting of shock and intravascular volume depletion.
watch sodium
#GOC
with advanced age, patient impaired judgement of her medical condition and development of ultiple complications: discuss GOC with family - decided to cont Full code
#Acute blood loss anemia due to large hip hematoma
Status post 6 unit of PRBC. Hemoglobin stable this morning at 8.8.
Transfuse as necessary
CT abdomen pelvis noted with Large right hip/buttocks fluid collection suggestive of a hematoma of varying ages.
Continue to trend hemoglobin and transfuse as necessary while on anticoagulation trial
#Toxic metabolic encephalopathy likely secondary to postcardiac arrest versus ICU delirium versus infection versus hypoxemia
#Dysphagia
Monitor mentation closely - improved
Diet downgraded. Monitor p.o. intake.
CT head negative for acute intracranial abnormality
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
Now extubated
#Chest pain
s/p chest compressions
reproducible
#Shock postcardiac arrest-hypotension on pressors postcardiac arrest
#Lactic acidosis
off pressors.
BP improving.
off stress dose steroids.
#Right femoral neck fracture secondary to mechanical trauma and osteoporosis. Additional imaging with no evidence of pathologic fracture
#Acute impacted fracture of the right humeral neck secondary to mechanical fall and osteoporosis
Status post cemented right hip hemiarthroplasty
Per orthopedic patient can be restarted on Eliquis
Ortho recs : WBAT RLE, NWB RUE in sling
#Atrial Fibrillation, permanent with RVR
RVR resolved
On AC now
Toprol XL 50 mg
#Elevated troponin likely secondary to postcardiac arrest
Echocardiogram with EF of 55% and no regional wall motion abnormality.
#Urinary tract infection with Citrobacter
#Right lower lobe pneumonia versus atelectasis
Completed Rocephin
Echevarria removed - watch for urinary retention
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
#Seizure D/o
Cont Anastrozole
component of residual neoplasm is possible on MRI in March 2025
cont follow up with onc upon d/c
CT scan of the hip with findings of sclerotic intramedullary lesions of the L5 vertebral body and left iliac bone which are most likely blastic osseous metastasis
Off stress dose steroids.
Cont Keppra ppx
#Essential Hypertension
#Hyperlipidemia
#Depression/Anxiety
#Hypothyroidism
Cont home meds
#renal cysts
#Uterine fibroids
no follow up advised
DVT proph-SCDs in the setting of thrombocytopenia and large hip hematoma
Full Code
I have spent at least 55min reviewing chart, test results, communication with consultants and providing direct patient care
Anticipated Discharge: Within 24 hours
Subjective/Interval History
-
Date of Service: May 21, 2025
Objective Data
-
Labs:
Laboratory Results
05/21/25 05/21/25
03:06 15:00
WBC 8.1
Hgb 9.2 L
Hct 28.6 L
Plt Count 246
APTT 70.7 H Pending
Sodium 129 L
Potassium 3.7
Chloride 96 L
Carbon Dioxide 33 H
BUN 16
Creatinine 0.5 L
Glucose 127 H
Calcium 8.0 L
Vital Signs:
Vital Signs
Temp Pulse Resp BP Pulse Ox
97.4 F 78 16 175/67 97
05/21/25 07:05 05/21/25 07:33 05/21/25 07:33 05/21/25 07:05 05/21/25 07:33
I&O
05/20/25 05/21/25 05/22/25
06:59 06:59 06:59
Intake Total 1060 / 1060 1020 / 1020
Output Total 1350 / 1350 2575 / 2575
Balance -290 / -290 -1555 / -1555
Review of Systems
-
History Source: Patient
All other systems: Reviewed and negative
Physical Exam
-
General: No Apparent Distress
HEENT: Normocephalic
Respiratory: Clear to Auscultation
GI: Soft, Nontender and Nondistended
Musculoskeletal: Other (well healing scar on L hip)
--- NOTE | 2025-05-21 12:44 | W.PN.NEPH.PH ---
Today's Communication / Plan
-
BMP in the morning no change
Assessment/Plan
-
IMP:
hyponatremia
JANINA on CKD 3-baseline cr 0.8-1
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
Vasopressor dependent shock-hypotension on pressors postcardiac arrest
Lactic acidosis
Right femoral neck fracture secondary to mechanical trauma and osteoporosis-status post right hip cemented hemiarthroplasty 05/10
Acute impacted fracture of the right humeral neck secondary to mechanical fall and osteoporosis
Acute anemia
Atrial Fibrillation, permanent-Persistent Rapid ventricular response
Elevated troponin likely secondary to postcardiac arrest
Urinary tract infection with Citrobacter
h/o Essential Hypertension
Hyperlipidemia
Metastatic Breast Cancer with known Brain Mets and prior seizure- stable MRI findings since Nov and March 2025
Hx of Seizures
Depression/Anxiety
Hypothyroidism
PLan:
A/w hip pain after fall, noted femoral neck fx s/p status post right hip cemented hemiarthroplasty on 05/10
complicated with bone cement implantation syndrome and Afib with RVR
creatinine was improving at 0.5 and non oliguric
Maintain 40 mg of IV Lasix
Urine output not record
encourage po solute intake
hyponatremia improving and stable, back on Zoloft
BP stable
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
follow h/h
follow bladder scan now she is off irene
Sodium trending down 129
If continues to trend down will need to consider holding the Zoloft altogether
labs in am
-
-
Date of Service: May 21, 2025
CC / HPI / ROS
-
Chief Complaint:
Acute kidney injury
History of Present Illness:
Acute kidney injury status post a fracture cardiac arrest
Stable
Hemodynamically stable
Review of Systems:
no sob,
right shoulder pain
Weight is dwon
Labs
-
Labs:
WBC 8.1 10^3/uL (4.8-10.8) 05/21/25 03:06
RBC 3.32 10^6/uL (4.20-5.40) L 05/21/25 03:06
Hgb 9.2 g/dL (12.0-16.0) L 05/21/25 03:06
Hct 28.6 % (37.0-47.0) L 05/21/25 03:06
Plt Count 246 10^3/uL (130-400) 05/21/25 03:06
Sodium 129 mmol/L (135-145) L 05/21/25 03:06
Potassium 3.7 mmol/L (3.5-5.1) 05/21/25 03:06
Chloride 96 mmol/L (98-107) L 05/21/25 03:06
Carbon Dioxide 33 mmol/L (22-30) H 05/21/25 03:06
BUN 16 mg/dl (7-17) 05/21/25 03:06
Creatinine 0.5 mg/dL (0.6-1.0) L 05/21/25 03:06
eGFR > 60.00 05/21/25 03:06
Glucose 127 mg/dl (70-99) H 05/21/25 03:06
Calcium 8.0 mg/dl (8.4-10.2) L 05/21/25 03:06
Phosphorus 4.4 mg/dl (2.5-4.5) 05/11/25 03:22
Hog-R-Vlupzbafloz Pept 2900 pg/ml 05/19/25 23:18
Albumin 2.5 g/dl (3.5-5.0) L 05/20/25 03:11
Physical Exam
-
Vital Signs:
Vital Signs
Temp Pulse Resp BP Pulse Ox
98.1 F 96 15 108/37 93
05/21/25 11:15 05/21/25 11:15 05/21/25 11:15 05/21/25 11:15 05/21/25 11:15
Cardiovascular:: Irregular rate and rhythm
Respiratory:: Bilateral: CTA (anteriorly)
Lung Excursion:: Normal
Abdomen:: Nontender and Soft
Bowel Sounds:: Normal
Extremity Edema:: +1: Bilateral:
Irene Catheter: No
[2025-05-21 15:44] LABS: APTT 73.4 Sec (23.4-35.0)
[2025-05-21 16:20] LABS: Glucose - Point of Care 233 mg/dl (70-99)
[2025-05-21] MEDS: NOVOLOG FLEXPEN-MODERATE RESISTANCE 3 UNITS SC (18:12)
[2025-05-21 21:13] LABS: Glucose - Point of Care 128 mg/dl (70-99)
[2025-05-21] MEDS: LIDOCAINE 4% PATCH 1 PATCH TOPICAL (21:21)
[2025-05-21] MEDS: DILAUDID 0.5 MG IV (22:31)
[2025-05-22 03:00] VITALS: BP 159/80
[2025-05-22 03:37] LABS: APTT 80.2 Sec (23.4-35.0)
[2025-05-22] MEDS: ARGATROBAN 252.5 MG IV (04:00)
[2025-05-22 05:15] LABS: Hematocrit 27.7 % (37.0-47.0); Hemoglobin 8.9 g/dL (12.0-16.0); Mean Corp Hgb Conc. 32.1 g/dL (33.0-37.0); Mean Corpuscular Volume 87.1 fL (81.0-99.0); Nucleated Red Blood Cells % 0 %; Platelet Count 226 10^3/uL (130-400); Red Cell Dist. Width 16.8 % (11.5-14.5)
[2025-05-22 05:41] LABS: ALT (SGPT) < 10 U/L (0-35); AST (SGOT) 14 U/L (14-36); Albumin 2.4 g/dl (3.5-5.0); Alkaline Phosphatase 111 U/L (38-126); Calcium 8.1 mg/dl (8.4-10.2); Carbon Dioxide 36 mmol/L (22-30); Chloride 96 mmol/L (98-107); Estimated Creatinine Clearance 68 ml/min; Glucose 130 mg/dl (70-99); Potassium 3.5 mmol/L (3.5-5.1); Sodium 131 mmol/L (135-145); eGFR > 60.00
[2025-05-22 05:51] LABS: Blood Urea Nitrogen 14 mg/dl (7-17); Total Protein 5.0 g/dl (6.3-8.2)
[2025-05-22 05:59] VITALS: BMI 32.0
[2025-05-22 07:05] VITALS: BP 161/59
[2025-05-22 07:18] LABS: Glucose - Point of Care 128 mg/dl (70-99)
[2025-05-22] MEDS: VENTOLIN NEBULES 2.5 MG INH ×2 (07:22→19:44)
[2025-05-22] MEDS: SODIUM CHLORIDE 3% FOR INHALATION 1 VIAL INH ×2 (07:22→19:44)
[2025-05-22] MEDS: ABILIFY 10 MG PO (08:37)
[2025-05-22] MEDS: ZOLOFT 150 MG PO (08:37)
[2025-05-22] MEDS: KEPPRA 750 MG PO (08:37)
[2025-05-22] MEDS: LIPITOR 20 MG PO (08:37)
[2025-05-22] MEDS: PROTONIX 40 MG PO (08:37)
[2025-05-22] MEDS: TOPROL XL 50 MG PO (08:37)
[2025-05-22] MEDS: KCL 20 MEQ PO (08:38)
[2025-05-22] MEDS: SENOKOT 17.2 MG PO ×2 (08:38→19:42)
[2025-05-22] MEDS: COLACE 100 MG PO ×2 (08:38→19:41)
[2025-05-22] MEDS: LASIX 40 MG IV (08:38)
[2025-05-22] MEDS: NOVOLOG FLEXPEN-MODERATE RESISTANCE SC ×2 (08:46→13:09)
[2025-05-22] MEDS: REMOVE LIDOCAINE PATCH 1 PATCH REMOVE (08:51)
[2025-05-22] MEDS: MIRALAX TUBE (08:52)
--- NOTE | 2025-05-22 10:22 | CM ---
Patient for possible transfer to [facility] tomorrow, pending physician assessment per liaison at [facility] Patient report to [phone]/fax [phone]. Patient will need Auth and NPI numbers NPI for [facility] [id number]/physician Dr. Platt [id number]. CM
will continue to follow for discharge planning needs
Plan; [facility] when medically appropriate.
[2025-05-22 11:00] VITALS: BP 154/67
[2025-05-22 11:25] LABS: Glucose - Point of Care 144 mg/dl (70-99)
--- NOTE | 2025-05-22 11:38 | CON.NEURO ---
Addendum entered and electronically signed by Baron Gonzalez MD 05/22/25 14:31:
Studies reviewed.
I have personally examined the patient. I reviewed and agree with the [facility]'s Note.
My addenda:
Awake, not interactive. No acute distress.
Speech initially mute, then producing words after approximately 10 minutes.
Follows one-step requests w/ difficulty. No tremor.
Extra-ocular movements grossly intact.
Facial movements full and symmetric. Hearing intact to normal conversational volume.
Moves all extremities
Neck: full ROM.
Chest: no dyspnea
Heart: no JVD
Ext: (-) Clubbing, (-) Cyanosis, (-) Edema
IMPRESSIONS/RECOMMENDATIONS:
Abrupt onset of mutism
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 This is not related to seizure, although the patient has previously been diagnosed with a
seizure disorder
Check greater than 1 hour EEG
Would alter the patient's levetiracetam dosing if EEG demonstrates epileptiform activity
No indication at this time patient would benefit from additional antistroke therapy
No indication patient would benefit from steroids due to prior neoplasm
D/W patient / nursing
Will continue to follow pending results.
Original Note:
Documented by User: Janessa Hairston NP 05/22/25 14:17
Neuro Assessment/Plan
Assessment
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
atrial fibrillation on Eliquis, who presented to [facility] on secondary to right femoral neck fracture s/p right hip hemiarthroplasty (05/10/2025), stroke alert on 05/15/2025, now aphasia with concern for stroke.
Head CT 05/22/2025: No acute intracranial abnormalities. Findings again seen compatible with diffuse cortical atrophy with nonspecific white matter changes
Head CT 05/15/2025: No acute intracranial abnormality. There is similar appearance of the known right frontal calvarial lesion with hypodensity in the underlying anterior/inferior right frontal lobe which may in part represent post treatment/post
radiation change. Further evaluation with MRI brain may be considered.
Brain MRI 03/14/2025: Stable appearance of MRI brain as described above, when compared to examination of November 14, 2024.
Brain MRI 11/14/2024: Status post resection radiation therapy for right frontal neoplasm, which was likely meningioma. Enhancing intermediate T1-weighted signal at the site of right frontal calvarial defect, which could represent scarring and/or
residual neoplasm. This appears minimally smaller than most recent MRI examination. No evidence for new area of enhancement. No evidence of acute intracranial abnormality.
Plan
Impressions:
I. Abrupt onset of change in speech with underlying likely dementia
II. Status post resection radiation therapy for right frontal neoplasm
III. Possible breakthrough seizure patient on Levetiracetam vs functional neurologic disorder
-continue levetiracetam 750 mg BID
-EEG
-seizure precautions
-may continue anticoagulation per primary care team
-continue statin therapy
-PT/OT/ST evaluations
-goal normotension and normoglycemia
-DVT prophylaxis
All questions encouraged and answered, plan of care discussed with Dr. Gonzalez, hospitalist, nurse, patient
Consultation
Order
Date of Consultation: 05/22/25
Requesting Provider:
Reason for Consult:
Subjective/Objective
Subjective Data
Date of Service: May 22, 2025
Adapted from my note from 05/15/2025:
'Patient is an 84-year-old woman with past medical history significant for essential hypertension, hypothyroidism, metastatic breast cancer s/p brain surgery and XRT January 2024 (stable MRI of the brain 03/14), seizure related to brain mets,
atrial fibrillation on Eliquis, who presented to [facility] on secondary to inability to ambulate or stand due to pain in the right hip area for the past 2 weeks. Of note 2 weeks ago she caught her toe on a rug and she had a mechanical fall,
with resultant right shoulder injury for which she went to rehab. She went to physical therapy on day of admission and she was unable to stand or walk secondary to pain. She was found to have right femoral neck fracture and underwent right hip
hemiarthroplasty on 05/10/2025. Today the nurse noted the patient to have speech difficulty at 1515. Patient confused with dysarthria. Stroke alert called and taken to CT. Head CT showed no acute intracranial abnormality. Currently speaking and
following commands. Current NIHSS 0. Per son, similar symptoms last year with 'word salad' when taken off her antiseizure medications. She currently takes levetiracetam 750 mg BID for history of seizures.'
Developed LUE DVT 2/2 PICC found on 05/18/25, PICC removed on 05/20/2025. 05/22/2025 Patient with abrupt onset of aphasia, not following commands. Currently on Argatroban concern for stroke. At 1122 stroke alert called. On exam, patient blinking to
threat and withdrawing to pain. Taken to head CT which showed no acute intracranial abnormalities. After head CT, following simple commands. Able to tell us her name and that she is in the hospital. Moving all extremities. NIHSS 3, not a TNK/IAT
candidate due symptoms resolving and on anticoagulation.
Objective Data
Vital Signs
Temp Pulse Resp BP Pulse Ox
98.6 F 96 16 161/59 95
05/22/25 07:05 05/22/25 08:38 05/22/25 07:25 05/22/25 08:38 05/22/25 07:25
PT 17.3 Sec (11.4-14.6) H 05/10/25 17:40
PT Cancelled 05/10/25 17:40
INR 1.36 05/10/25 17:40
INR Cancelled 05/10/25 17:40
APTT 80.2 Sec (23.4-35.0) H 05/22/25 03:08
Sodium 131 mmol/L (135-145) L 05/22/25 05:05
Potassium 3.5 mmol/L (3.5-5.1) 05/22/25 05:05
BUN 14 mg/dl (7-17) 05/22/25 05:05
Glucose 130 mg/dl (70-99) H 05/22/25 05:05
Calcium 8.1 mg/dl (8.4-10.2) L 05/22/25 05:05
Phosphorus 4.4 mg/dl (2.5-4.5) 05/11/25 03:22
Eoo-B-Pmcxohrmkbw Pept 2900 pg/ml 05/19/25 23:18
Patient Allergies
No Known Allergies Allergy (Verified 07/07/24 08:34)
CVA Assessment
Onset of Stroke Symptoms
Onset of symptoms known: Yes
Date of onset of symptoms: 05/22/25
Time of onset of symptoms: 11:22
Date last time pt seen normal: 05/22/25
Time last time pt seen normal: 11:22
NIH Stroke Score
Level of Consciousness: 0 - Alert
LOC Questions: 2-Neither correct
LOC Commands: 0-Performs both correctly
Best Horizontal Gaze: 0-Normal
Visual Garcia: 0=Normal, no visual loss
Facial Palsy: 0=Normal, symmetrical
Motor - Right Arm: UN=Amputation/jointfusion
Motor - Left Arm: 0=No drift 10 seconds
Motor - Right Le-No drift 5 seconds
Motor - Left Le-No drift 5 seconds
Limb Ataxia: 0-Absent
Sensation: 0-Normal
Best Language: 1-Mild aphasia
Dysarthria: 0-Normal
Extinction and Inattention: 0-No abnormality
NIH Total Score:: 3
Tenecteplase Contraindications
Inclusion and Exclusion criteria reviewed: Yes
Reasons for NON-Tx with Thrombolytics ABSOLUTE Exclusions: Patient taking oral anticoagulant and last dose within 48 hours
IAT Contraindications: NIHSS < 6
Modified Pamlico Score (MRS)
-
Modified Pamlico Scale (mRS): Severe disability. Requires constant nursing care.
Score: 5
Physical Exam
-
General: Appears Stated Age
HEENT: Normocephalic, Atraumatic and Anicteric
Neck: Full Range of Motion
Respiratory: No Dyspnea
Cardiac: No JVD
GI: Non-distended
Skin: Unremarkable
Extremities: No Clubbing, No Cyanosis and No Edema
Psych: Confused and Apparent Dementia
Extended Neurological Exam
Attention Span & Concentration: Awake, Alert and Unable to Perform 2 Step Request
Memory: Unable to Recall Personal History and Incomplete Historian
Tremor: Hand Tremor Absent and Head Tremor Absent
Speech: Severely Reduced Output
Cranial Nerve II: Left Eye: Visual Garcia Grossly Intact
Cranial Nerve II: Right Eye: Visual Garcia Grossly Intact
Cranial Nerves III, IV, : Extraocular Movement: Extraocular Movement Full in all Directions
Cranial Nerve VII: Facial Symmetry: Normal Facial Symmetry
Cranial Nerve VIII: Hearing: Unremarkable Hearing to Normal Conversational Volume
Cranial Nerves IX, X: Palate Movement: Palate Elevation Symmetric
Muscle Strength, Overall: Spontaneously Moves and Other (RUE movement limited in sling)
Pronator Drift: No Drift in Upper Extremities and No Drift in Lower Extremities
Medications
-
Active Medications
Generic Name Dose Route Start Last Admin
Trade Name Freq PRN Reason Stop Dose Admin
Acetaminophen 650 mg 05/12/25 20:38 05/21/25 08:38
Acetaminophen 325 Mg Tablet PO 06/09/25 20:37 650 mg
Q4HPRN PRN Administration
mild pain
Albuterol Sulfate 2.5 mg 05/14/25 11:00 05/22/25 07:22
Albuterol Nebs 2.5 Mg/3 Ml Ampul INH 2.5 mg
R BID CELINE Administration
Protocol
Albuterol/Ipratropium 3 ml 05/19/25 22:07 05/19/25 22:43
Ipratropium 0.5/Albuterol 3 Mg (3 Ml Ampul) INH 3 ml
R Q4HPRN PRN Administration
sob/wheeze
Protocol
Aripiprazole 10 mg 05/08/25 09:04 05/22/25 08:37
Aripiprazole 10 Mg Tablet PO 06/05/25 09:03 10 mg
DAILY CELINE Administration
Atorvastatin Calcium 20 mg 05/08/25 09:04 05/22/25 08:37
Atorvastatin (Lipitor) 20 Mg Tablet PO 06/05/25 09:03 20 mg
DAILY CELINE Administration
Bisacodyl 10 mg 05/19/25 22:08
Bisacodyl 10 Mg Rectal Suppository RECTAL 06/16/25 22:07
DAILYPRN PRN
constipation
Dextrose 12.5 grams 05/10/25 18:00
Dextrose 50% (0.5 Grams/Ml) 50 Ml Syringe IV 06/07/25 17:59
[id number] PRN
hypoglycemia
Protocol
Docusate Sodium 100 mg 05/08/25 20:00 05/22/25 08:38
Docusate Sodium 100 Mg Capsule PO 06/05/25 19:59 100 mg
BID CELINE Administration
Furosemide 40 mg 05/20/25 08:00 05/22/25 08:38
Furosemide 40 Mg (10 Mg/Ml) 4 Ml Vial IV 06/17/25 07:59 40 mg
BID AT 0800,1600 CELINE Administration
Glucagon 1 mg 05/10/25 18:00
Glucagon 1 Mg Vial IM 06/07/25 17:59
PRN PRN
hypoglycemia - no IV access
Protocol
Hydromorphone HCl 0.5 mg 05/13/25 14:20 05/21/25 22:31
Hydromorphone 0.5 Mg/0.5 Ml Syringe IV 05/27/25 14:18 0.5 mg
Q2HPRN PRN Administration
MODERATE TO SEVERE PAIN
Argatroban 250 mg/ Sodium 252.5 mls @ 0 mls/hr 05/19/25 07:15 05/22/25 04:00
Chloride IV 252.5 mls
On Hold: 05/22/25 11:38 PER PROTOCOL CELINE Administration
Protocol
Per Protocol
Insulin Aspart 0 units 05/13/25 07:30 05/22/25 08:46
Insulin Aspart Moderate Resistance 300 Units/3 Ml Pen.Injctr SC 06/10/25 07:29 Not Given
AC CELINE
Protocol
Levetiracetam 750 mg 05/18/25 20:00 05/22/25 08:37
Levetiracetam 500 Mg Regular Release Tablet PO 06/15/25 19:59 750 mg
BID CELINE Administration
Lidocaine 1 patch 05/13/25 01:30 05/21/25 21:21
Lidocaine 4% Topical Patch TOPICAL 06/10/25 01:29 1 patch
HS CELINE Administration
Protocol
Magnesium Hydroxide 30 ml 05/08/25 09:04 05/16/25 08:01
Milk Of Magnesia 30 Ml Cup PO 06/05/25 09:03 30 ml
DAILYPRN PRN Administration
constipation
Metoprolol Succinate 50 mg 05/18/25 08:00 05/22/25 08:37
Metoprolol 50 Mg Extended Release Tablet PO 06/15/25 07:59 50 mg
DAILY CELINE Administration
Oxycodone HCl 5 mg 05/13/25 14:19 05/21/25 15:38
Oxycodone 5 Mg Regular Release Tablet PO 05/27/25 14:18 5 mg
Q4HPRN PRN Administration
moderate pain
Pantoprazole Sodium 40 mg 05/19/25 08:00 05/22/25 08:37
Pantoprazole 40 Mg Delayed Release Tablet PO 06/16/25 07:59 40 mg
DAILY CELINE Administration
Patch Removal 1 patch 05/13/25 10:00 05/22/25 08:51
Remove Lidocaine Patch REMOVE 06/10/25 09:59 1 patch
DAILY@1000 CELINE Administration
Polyethylene Glycol 17 grams 05/11/25 08:00 05/22/25 08:52
Polyethylene Glycol Powder 17 Grams Packet TUBE 06/08/25 07:59 Not Given
DAILY CELINE
Potassium Chloride 20 meq 05/20/25 13:00 05/22/25 08:38
Potassium Chloride 20 Meq Extended Release Tablet PO 06/17/25 12:59 20 meq
DAILY CELINE Administration
Sennosides 17.2 mg 05/08/25 20:00 05/22/25 08:38
Sennosides (Senokot) 8.6 Mg Tablet PO 06/05/25 19:59 17.2 mg
BID CELINE Administration
Sertraline HCl 150 mg 05/17/25 08:00 05/22/25 08:37
Sertraline 50 Mg Tablet PO 06/14/25 07:59 150 mg
DAILY CELINE Administration
Sodium Chloride 0 flush 05/08/25 11:00 05/15/25 16:06
Sodium Chloride 0.9% (Flush) Syringe IV 06/05/25 10:59 1 flush
PER PROTOCOL CELINE Administration
Sodium Chloride 1 vial 05/14/25 11:00 05/22/25 07:22
Sodium Chloride 3% For Inhalation 4 Ml Vial INH 1 vial
R BID CELINE Administration
Home Medications
�Medication �Instructions �Recorded
aripiprazole 10 mg tablet 10 mg PO DAILY Mental Health 01/25/24
atorvastatin 20 mg tablet 20 mg PO QPM High Cholesterol 01/25/24
sertraline 100 mg tablet 150 mg PO DAILY Depression 01/25/24
anastrozole 1 mg tablet 1 mg PO DAILY Cancer 06/04/24
apixaban 5 mg tablet (Eliquis) 5 mg PO BID Atrial fibrillation 06/04/24
metoprolol succinate 50 mg 50 mg PO DAILY Blood Pressure 06/04/24
tablet,extended release 24 hr
acetaminophen 325 mg tablet 650 mg PO Q6 Pain 05/10/25
aspirin 81 mg chewable tablet 81 mg PO DAILY Blood Clot 05/10/25
Prevention/Tx
diltiazem HCl 120 mg 120 mg PO DAILY Blood Pressure 05/10/25
capsule,extended release 24 hr
furosemide 40 mg tablet 40 mg PO DAILY Fluid 05/10/25
Retention/Swelling
levetiracetam 750 mg tablet 750 mg PO BID Seizures 05/10/25
levothyroxine 75 mcg tablet 75 mcg PO DAILY@0600 Thyroid 05/10/25
pantoprazole 40 mg tablet,delayed 40 mg PO DAILY Gastrointestinal 05/10/25
release Issue
polyethylene glycol 3350 17 gram 17 g PO DAILY Constipation 05/10/25
oral powder packet
potassium chloride 20 mEq 20 meq PO DAILY Electrolyte 05/10/25
tablet,extended release Repletion
sennosides 8.6 mg tablet (senna) 8.6 mg PO QPM Constipation 05/10/25
trazodone 50 mg tablet 25 mg PO HS Sleep 05/10/25

Documented by User: Baron Gonzalez MD 05/22/25 14:26
CVA Assessment
NIH Stroke Score
NIH Total Score:: 3
Modified Pamlico Score (MRS)
-
Score: 5
[2025-05-22 11:52] LABS: Hematocrit 30.6 % (37.0-47.0); Hemoglobin 9.6 g/dL (12.0-16.0); Mean Corp Hgb Conc. 31.4 g/dL (33.0-37.0); Mean Corpuscular Volume 87.2 fL (81.0-99.0); Nucleated Red Blood Cells % 0 %; Platelet Count 256 10^3/uL (130-400); Red Cell Dist. Width 17.3 % (11.5-14.5)
[2025-05-22 12:01] LABS: INR 2.33; PT 25.6 Sec (11.4-14.6)
[2025-05-22 12:03] LABS: APTT 69.0 Sec (23.4-35.0)
[2025-05-22 12:19] LABS: ALT (SGPT) < 10 U/L (0-35); AST (SGOT) 15 U/L (14-36); Albumin 2.6 g/dl (3.5-5.0); Alkaline Phosphatase 125 U/L (38-126); Blood Urea Nitrogen 14 mg/dl (7-17); Calcium 8.1 mg/dl (8.4-10.2); Carbon Dioxide 35 mmol/L (22-30); Chloride 96 mmol/L (98-107); Estimated Creatinine Clearance 68 ml/min; Glucose 129 mg/dl (70-99); Potassium 3.7 mmol/L (3.5-5.1); Sodium 132 mmol/L (135-145); Total Protein 5.2 g/dl (6.3-8.2); eGFR > 60.00
[2025-05-22 12:23] LABS: Troponin I < 0.012 ng/ml
[2025-05-22 12:42] LABS: TSH 8.75 uIU/ml (0.47-4.68)
--- NOTE | 2025-05-22 12:55 | W.PN.HOSP.TC ---
Today's Communication/Plan
-
One more episode of acute aphasia and not following commands, while awake. Stat Head CT (stroke alert and due to Argatrobban) - neg. As per neurology: functional
Switch to Eliquis
Restart Synthroid
Lasix to BID oral as patient weaned off O2
Will monitor overnight and plan for d/c in AM - discussed with CM
Assessment / Plan
Assessment / Plan
84-year-old woman with past medical history significant for essential hypertension, hypothyroidism, metastatic breast cancer s/p brain surgery and XRT January 2024 (stable MRI of the brain 03/14), seizure related to brain mets, atrial
fibrillation on Eliquis, who presented to the emergency department secondary to a right femoral neck fracture and R humeral Fx. Patient s/p cemented R him hemiarthroplasty on 05/10/25 with cardiac arrest during surgery, achieved ROSC and gradually
recovered in ICU. later on 05/13/25 found acute drop in Hgb and CT showed large R hip postOP hematoma, received total of 6 units of PRBC as well as AC was stopped and cardiologists were hesitant to restart it due to large hematoma size. Developed LUE
DVT 2/2 PICC found on 05/18/25, later tolerating Argatroban trial since eHITAb pending
A/P:
#LUE acute DVT 2/2 PICC
large occlusive clot
With thrombocytopenia and pending HIT Ab - for anticoagulation will need Argatroban
With just recent (3 days before DVT findings) blood transfusion - high risk for rebleeding, however Hgb remained stable. ALso since patient bedbound, with concern for metastatic breast CA after recent R hip surgery - high risk for thrombosis.
DIscussed risk and benefit of anticoagulation and high risk of thrombosis with daughter - agreeable for trial of anticoagulation with frequent H&H q6h and watching R hip for hematoma expansion.
RUE no DVT
IRAD placed central line
PICC removed on 05/20/25
Anticoagulation trial with argatroban, eventually switch to Eliquis (10mg BID x7 days, then 5mg BID for 3 mo and then cont as per card) - discussed in details with daughter
#Mild Thrombocytopenia acute
Check HIT
Eliquis
#JANINA on CKD 3 (Resolved)
#Hypokalemia
#Anasarca
##Acute hypoxic respiratory insufficiency 2/2 Acute on chronic HFpEF exacerbation
#Hyponatremia
Wean O2 as tolerated
Encourage incentive spirometry
IV Lasix per nephrology.
follow Cr and electrolytes
#Hyponatremia
Improved on diuretics
watch sodium
#GOC
with advanced age, patient impaired judgement of her medical condition and development of ultiple complications: discuss GOC with family - decided to cont Full code
#Acute blood loss anemia due to large hip hematoma
Status post 6 unit of PRBC. Hemoglobin stable this morning at 8.8.
Transfuse as necessary
CT abdomen pelvis noted with Large right hip/buttocks fluid collection suggestive of a hematoma of varying ages.
Continue to trend hemoglobin and transfuse as necessary while on anticoagulation trial
#Toxic metabolic encephalopathy likely secondary to postcardiac arrest versus ICU delirium versus infection versus hypoxemia
#Dysphagia
Monitor mentation closely - improved
Diet downgraded. Monitor p.o. intake.
CT head negative for acute intracranial abnormality
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
Now extubated
#Chest pain
s/p chest compressions
reproducible
#Shock postcardiac arrest-hypotension on pressors postcardiac arrest
#Lactic acidosis
off pressors.
BP improving.
off stress dose steroids.
#Right femoral neck fracture secondary to mechanical trauma and osteoporosis. Additional imaging with no evidence of pathologic fracture
#Acute impacted fracture of the right humeral neck secondary to mechanical fall and osteoporosis
Status post cemented right hip hemiarthroplasty
Per orthopedic patient can be restarted on Eliquis
Ortho recs : WBAT RLE, NWB RUE in sling
#Atrial Fibrillation, permanent with RVR
RVR resolved
On AC now
Toprol XL 50 mg
#Elevated troponin likely secondary to postcardiac arrest
Echocardiogram with EF of 55% and no regional wall motion abnormality.
#Urinary tract infection with Citrobacter
#Right lower lobe pneumonia versus atelectasis
Completed Rocephin
Echevarria removed - watch for urinary retention
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
#Seizure D/o
Cont Anastrozole
component of residual neoplasm is possible on MRI in March 2025
cont follow up with onc upon d/c
CT scan of the hip with findings of sclerotic intramedullary lesions of the L5 vertebral body and left iliac bone which are most likely blastic osseous metastasis
Off stress dose steroids.
Cont Keppra ppx
#Essential Hypertension
#Hyperlipidemia
#Depression/Anxiety
#Hypothyroidism
Cont home meds
#renal cysts
#Uterine fibroids
no follow up advised
#Dementia with functional d/o
had episodes of being awake, not following commands, staring into space, that were transient
Neurology followed: no evidence of stroke
DVT proph-SCDs in the setting of thrombocytopenia and large hip hematoma
Full Code
I have spent at least 55min reviewing chart, test results, communication with consultants and providing direct patient care
Anticipated Discharge: 24 - 48 hours
Subjective/Interval History
-
Date of Service: May 22, 2025
Objective Data
-
Labs:
Laboratory Results
05/22/25 05/22/25 05/22/25
03:08 05:05 11:30
WBC 7.4 8.2
Hgb 8.9 L 9.6 L
Hct 27.7 L 30.6 L
Plt Count 226 256
PT 25.6 H
INR 2.33
APTT 80.2 H 69.0 H
Sodium 131 L 132 L
Potassium 3.5 3.7
Chloride 96 L 96 L
Carbon Dioxide 36 H 35 H
BUN 14 14
Creatinine 0.6 0.6
Glucose 130 H 129 H
Calcium 8.1 L 8.1 L
Total Bilirubin 1.1 1.4 H
AST 14 15
ALT < 10 < 10
Alkaline Phosphatase 111 125
05/22/25
15:00
WBC
Hgb
Hct
Plt Count
PT
INR
APTT Pending
Sodium
Potassium
Chloride
Carbon Dioxide
BUN
Creatinine
Glucose
Calcium
Total Bilirubin
AST
ALT
Alkaline Phosphatase
Vital Signs:
Vital Signs
Temp Pulse Resp BP Pulse Ox
98.9 F 104 14 154/67 93
05/22/25 11:00 05/22/25 11:00 05/22/25 11:00 05/22/25 11:00 05/22/25 11:00
I&O
05/21/25 05/22/25 05/23/25
06:59 06:59 06:59
Intake Total 1020 / 1020 1560 / 1560
Output Total 2575 / 2575 600 / 600 350 / 350
Balance -1555 / -1555 960 / 960 -350 / -350
Review of Systems
-
Unable to obtain full review of systems at this time due to: Dementia
History Source: Patient
Abdomen/GI: Reports Bloated
Physical Exam
-
General: No Apparent Distress
Respiratory: Clear to Auscultation
Cardiac: Regular Rhythm
GI: Soft, Nontender and Nondistended
Genito-urinary: No Costovertebral Tender
Musculoskeletal: No Clubbing, No Cyanosis, Edema, Right Lower Extrem and Edema, Left Lower Extrem
Neuro: Awake, Alert, Oriented and AO x 3
Psych: Calm
[2025-05-22] MEDS: ELIQUIS 10 MG PO ×2 (13:08→19:41)
--- NOTE | 2025-05-22 13:28 | W.PN.NEPH.PH ---
Today's Communication / Plan
-
Continue diuretic
Assessment/Plan
-
IMP:
hyponatremia
JANINA on CKD 3-baseline cr 0.8-1
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
Vasopressor dependent shock-hypotension on pressors postcardiac arrest
Lactic acidosis
Right femoral neck fracture secondary to mechanical trauma and osteoporosis-status post right hip cemented hemiarthroplasty 05/10
Acute impacted fracture of the right humeral neck secondary to mechanical fall and osteoporosis
Acute anemia
Atrial Fibrillation, permanent-Persistent Rapid ventricular response
Elevated troponin likely secondary to postcardiac arrest
Urinary tract infection with Citrobacter
h/o Essential Hypertension
Hyperlipidemia
Metastatic Breast Cancer with known Brain Mets and prior seizure- stable MRI findings since Nov and March 2025
Hx of Seizures
Depression/Anxiety
Hypothyroidism
PLan:
A/w hip pain after fall, noted femoral neck fx s/p status post right hip cemented hemiarthroplasty on 05/10
Maintain 40 mg of IV Lasix
Urine output not record
hyponatremia improving and stable, back on Zoloft
BP stable
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
follow h/h
Sodium stable
EEG for recurrent aphasia
-
-
Date of Service: May 22, 2025
CC / HPI / ROS
-
Chief Complaint:
Acute kidney injury
History of Present Illness:
Acute kidney injury status post a fracture cardiac arrest
Stable
Hemodynamically stable
Review of Systems:
no sob,
Altered mental status
Labs
-
Labs:
WBC 8.2 10^3/uL (4.8-10.8) 05/22/25 11:30
RBC 3.51 10^6/uL (4.20-5.40) L 05/22/25 11:30
Hgb 9.6 g/dL (12.0-16.0) L 05/22/25 11:30
Hct 30.6 % (37.0-47.0) L 05/22/25 11:30
Plt Count 256 10^3/uL (130-400) 05/22/25 11:30
Sodium 132 mmol/L (135-145) L 05/22/25 11:30
Potassium 3.7 mmol/L (3.5-5.1) 05/22/25 11:30
Chloride 96 mmol/L (98-107) L 05/22/25 11:30
Carbon Dioxide 35 mmol/L (22-30) H 05/22/25 11:30
BUN 14 mg/dl (7-17) 05/22/25 11:30
Creatinine 0.6 mg/dL (0.6-1.0) 05/22/25 11:30
eGFR > 60.00 05/22/25 11:30
Glucose 129 mg/dl (70-99) H 05/22/25 11:30
Calcium 8.1 mg/dl (8.4-10.2) L 05/22/25 11:30
Phosphorus 4.4 mg/dl (2.5-4.5) 05/11/25 03:22
Vle-R-Iaacxwdhyjf Pept 2900 pg/ml 05/19/25 23:18
Albumin 2.6 g/dl (3.5-5.0) L 05/22/25 11:30
Physical Exam
-
Vital Signs:
Vital Signs
Temp Pulse Resp BP Pulse Ox
98.9 F 104 14 154/67 93
05/22/25 11:00 05/22/25 11:00 05/22/25 11:00 05/22/25 11:00 05/22/25 11:00
Cardiovascular:: Irregular rate and rhythm
Respiratory:: Bilateral: CTA (anteriorly)
Lung Excursion:: Normal
Abdomen:: Nontender and Soft
Bowel Sounds:: Normal
Extremity Edema:: +1: Bilateral:
Echevarria Catheter: No
[2025-05-22 15:05] VITALS: BP 153/78
--- NOTE | 2025-05-22 15:25 | PTCARENOTE ---
1100 went in to help assist changing patient. Pt was verbal and at neuro baseline. after changing pt, she became unresponsive to verbal and pain response. HAY BUCKLER response due due to pts change in mental status. VSS throughout. stat labs, glucose, EKG,
head CT ordered. refer to rapid response documentation. NIH score 26 at 11:23 and 11:58 7. stroke neuro checks, NIHSS, swallow screen initiated. will continue to monitor.
[2025-05-22 15:34] LABS: APTT 61.4 Sec (23.4-35.0)
--- NOTE | 2025-05-22 15:34 | EEG.RPT ---
Electroencephalogram Report
Recording
Date of EE05/22/25
Type of EEG: Routine
Length of EEG recordin minutes
Done with Video Recording: Yes
Patient Status: Inpatient
Recording Conditions: Awake, Drowsy and Asleep
Hyperventilation Performed: No
Photic Stimulation Performed: Yes
Report
GREATER THAN 1 HOUR EEG REPORT
EEG INTERPRETATION:
Likely unremarkable EEG for age
CLINICAL CORRELATION:
Although normative values not been established for a person of this advanced age, the patient�s symmetry of the background suggests that this study was unremarkable.
A normal EEG does not rule out a diagnosis of epilepsy. If clinical suspicion for seizure persists, a prolonged recording may be warranted.
Clinical correlation is advised.
METHODS:
A 21 channel digitized electroencephalogram (EEG) was performed using the 10/20 international system of electrode placement and one-lead of ECG recorded. The PixelPin quantitative review system was utilized.
ELECTROENCEPHALOGRAPHER IMPRESSION(S):
Quality of study
Good
Background
There was an unremarkable anterior-posterior voltage gradient of alpha frequency.
With eye opening the background activity changed to a low voltage mixture of frequencies.
There were no significant asymmetries of background activity noted.
Sleep
Drowsiness present
Stage 1 and 2 sleep present
Photic Stimulation
No driving
ECG
Normal sinus rhythm
[2025-05-22] MEDS: KEPPRA 1000 MG IV (16:14)
[2025-05-22] MEDS: LASIX 40 MG PO (16:17)
[2025-05-22 17:12] LABS: Glucose - Point of Care 159 mg/dl (70-99)
[2025-05-22] MEDS: NOVOLOG FLEXPEN-MODERATE RESISTANCE 1 UNITS SC (17:16)
[2025-05-22 19:12] VITALS: BP 186/72
[2025-05-22] MEDS: KEPPRA 1000 MG PO (19:41)
[2025-05-22] MEDS: LIDOCAINE 4% PATCH 1 PATCH TOPICAL (21:00)
[2025-05-22 21:13] LABS: Glucose - Point of Care 168 mg/dl (70-99)
[2025-05-22 23:20] VITALS: BP 149/64
[2025-05-23 03:03] VITALS: BP 158/74
[2025-05-23] MEDS: SYNTHROID 75 MCG PO (05:21)
[2025-05-23 06:15] VITALS: BMI 30.9
[2025-05-23 07:05] VITALS: BP 172/78
[2025-05-23] MEDS: SODIUM CHLORIDE 3% FOR INHALATION 1 VIAL INH (07:55)
[2025-05-23] MEDS: VENTOLIN NEBULES 2.5 MG INH (07:55)
[2025-05-23 07:56] LABS: Glucose - Point of Care 126 mg/dl (70-99)
[2025-05-23] MEDS: LIPITOR 20 MG PO (08:21)
[2025-05-23] MEDS: ELIQUIS 10 MG PO (08:22)
[2025-05-23] MEDS: ZOLOFT 150 MG PO (08:22)
[2025-05-23] MEDS: LASIX 40 MG PO ×2 (08:22→15:31)
[2025-05-23] MEDS: ABILIFY 10 MG PO (08:22)
[2025-05-23] MEDS: PROTONIX 40 MG PO (08:22)
[2025-05-23] MEDS: TOPROL XL 50 MG PO (08:22)
[2025-05-23] MEDS: KCL 20 MEQ PO (08:23)
[2025-05-23] MEDS: KEPPRA 1000 MG PO (08:23)
[2025-05-23] MEDS: COLACE PO (08:24)
[2025-05-23] MEDS: NOVOLOG FLEXPEN-MODERATE RESISTANCE SC (08:24)
[2025-05-23] MEDS: MIRALAX TUBE (08:24)
[2025-05-23] MEDS: SENOKOT PO (08:24)
[2025-05-23] MEDS: REMOVE LIDOCAINE PATCH 1 PATCH REMOVE (10:33)
[2025-05-23 11:00] VITALS: BP 186/61
--- NOTE | 2025-05-23 11:11 | W.PN.NEPH.PH ---
Today's Communication / Plan
-
We will sign off for now sodium and creatinine stable maintain oral Lasix
Assessment/Plan
-
IMP:
hyponatremia
JANINA on CKD 3-baseline cr 0.8-1
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
Vasopressor dependent shock-hypotension on pressors postcardiac arrest
Lactic acidosis
Right femoral neck fracture secondary to mechanical trauma and osteoporosis-status post right hip cemented hemiarthroplasty 05/10
Acute impacted fracture of the right humeral neck secondary to mechanical fall and osteoporosis
Acute anemia
Atrial Fibrillation, permanent-Persistent Rapid ventricular response
Elevated troponin likely secondary to postcardiac arrest
Urinary tract infection with Citrobacter
h/o Essential Hypertension
Hyperlipidemia
Metastatic Breast Cancer with known Brain Mets and prior seizure- stable MRI findings since Nov and March 2025
Hx of Seizures
Depression/Anxiety
Hypothyroidism
PLan:
A/w hip pain after fall, noted femoral neck fx s/p status post right hip cemented hemiarthroplasty on 05/10
Sodium stable at 132
Creatinine at baseline
Maintain 40 mg of po BID lasix
Urine output not record
hyponatremia improving and stable, back on Zoloft
BP stable
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
follow h/h
EEG for recurrent aphasia
We will sign off for now
-
-
Date of Service: May 23, 2025
CC / HPI / ROS
-
Chief Complaint:
Acute kidney injury
History of Present Illness:
Acute kidney injury status post a fracture cardiac arrest
Creatinine now normalized at 0.6
Sodium rising to 132
Stable
Hemodynamically stable
Review of Systems:
no sob,
Altered mental status
Labs
-
Labs:
WBC 8.2 10^3/uL (4.8-10.8) 05/22/25 11:30
RBC 3.51 10^6/uL (4.20-5.40) L 05/22/25 11:30
Hgb 9.6 g/dL (12.0-16.0) L 05/22/25 11:30
Hct 30.6 % (37.0-47.0) L 05/22/25 11:30
Plt Count 256 10^3/uL (130-400) 05/22/25 11:30
Sodium 132 mmol/L (135-145) L 05/22/25 11:30
Potassium 3.7 mmol/L (3.5-5.1) 05/22/25 11:30
Chloride 96 mmol/L (98-107) L 05/22/25 11:30
Carbon Dioxide 35 mmol/L (22-30) H 05/22/25 11:30
BUN 14 mg/dl (7-17) 05/22/25 11:30
Creatinine 0.6 mg/dL (0.6-1.0) 05/22/25 11:30
eGFR > 60.00 05/22/25 11:30
Glucose 129 mg/dl (70-99) H 05/22/25 11:30
Calcium 8.1 mg/dl (8.4-10.2) L 05/22/25 11:30
Phosphorus 4.4 mg/dl (2.5-4.5) 05/11/25 03:22
Qnl-M-Hssznhdpklf Pept 2900 pg/ml 05/19/25 23:18
Albumin 2.6 g/dl (3.5-5.0) L 05/22/25 11:30
Physical Exam
-
Vital Signs:
Vital Signs
Temp Pulse Resp BP Pulse Ox
98.5 F 92 16 172/78 94
05/23/25 07:05 05/23/25 08:22 05/23/25 07:56 05/23/25 08:22 05/23/25 07:56
Cardiovascular:: Irregular rate and rhythm
Respiratory:: Bilateral: CTA (anteriorly)
Lung Excursion:: Normal
Abdomen:: Nontender and Soft
Bowel Sounds:: Normal
Extremity Edema:: +1: Bilateral:
Echevarria Catheter: No
[2025-05-23 11:31] LABS: Glucose - Point of Care 160 mg/dl (70-99)
[2025-05-23 11:53] VITALS: BP 130/80; PULSE 92
--- NOTE | 2025-05-23 12:06 | W.PN.HOSP.TC ---
Addendum entered and electronically signed by Balwinder Chen MD 05/23/25 14:14:
Please dont use billing under this PN - use DC billing instead
Original Note:
Today's Communication/Plan
-
pending D/C to rehab awaiting authorization as per CM
Assessment / Plan
Assessment / Plan
84-year-old woman with past medical history significant for essential hypertension, hypothyroidism, metastatic breast cancer s/p brain surgery and XRT January 2024 (stable MRI of the brain 03/14), seizure related to brain mets, atrial
fibrillation on Eliquis, who presented to the emergency department secondary to a right femoral neck fracture and R humeral Fx. Patient s/p cemented R him hemiarthroplasty on 05/10/25 with cardiac arrest during surgery, achieved ROSC and gradually
recovered in ICU. later on 05/13/25 found acute drop in Hgb and CT showed large R hip postOP hematoma, received total of 6 units of PRBC as well as AC was stopped and cardiologists were hesitant to restart it due to large hematoma size. Developed LUE
DVT 2/2 PICC found on 05/18/25, later tolerating Argatroban trial since eHITAb pending
A/P:
#LUE acute DVT 2/2 PICC
large occlusive clot
With thrombocytopenia and pending HIT Ab - for anticoagulation will need Argatroban
With just recent (3 days before DVT findings) blood transfusion - high risk for rebleeding, however Hgb remained stable. ALso since patient bedbound, with concern for metastatic breast CA after recent R hip surgery - high risk for thrombosis.
DIscussed risk and benefit of anticoagulation and high risk of thrombosis with daughter - agreeable for trial of anticoagulation with frequent H&H q6h and watching R hip for hematoma expansion.
RUE no DVT
IRAD placed central line
PICC removed on 05/20/25
Anticoagulation trial with argatroban, eventually switch to Eliquis (10mg BID x7 days, then 5mg BID for 3 mo and then cont as per card) - discussed in details with daughter
#Mild Thrombocytopenia acute
resolved
HIT Ab neg
Eliquis
#JANINA on CKD 3 (Resolved)
#Hypokalemia
#Anasarca
##Acute hypoxic respiratory insufficiency 2/2 Acute on chronic HFpEF exacerbation
#Hyponatremia
Wean O2 as tolerated
Encourage incentive spirometry
IV Lasix per nephrology.
follow Cr and electrolytes
#Hyponatremia
Improved on diuretics
watch sodium
#GOC
with advanced age, patient impaired judgement of her medical condition and development of ultiple complications: discuss GOC with family - decided to cont Full code
#Acute blood loss anemia due to large hip hematoma
Status post 6 unit of PRBC. Hemoglobin stable this morning at 8.8.
Transfuse as necessary
CT abdomen pelvis noted with Large right hip/buttocks fluid collection suggestive of a hematoma of varying ages.
Continue to trend hemoglobin and transfuse as necessary while on anticoagulation trial
#Toxic metabolic encephalopathy likely secondary to postcardiac arrest versus ICU delirium versus infection versus hypoxemia
#Dysphagia
Monitor mentation closely - improved
Diet downgraded. Monitor p.o. intake.
CT head negative for acute intracranial abnormality
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
Now extubated
#Chest pain
s/p chest compressions
reproducible
No new findings of EKG
persistent exacerbated on inhale
#Shock postcardiac arrest-hypotension on pressors postcardiac arrest
#Lactic acidosis
off pressors.
BP improving.
off stress dose steroids.
#Right femoral neck fracture secondary to mechanical trauma and osteoporosis. Additional imaging with no evidence of pathologic fracture
#Acute impacted fracture of the right humeral neck secondary to mechanical fall and osteoporosis
Status post cemented right hip hemiarthroplasty
Per orthopedic patient can be restarted on Eliquis
Ortho recs : WBAT RLE, NWB RUE in sling
#Atrial Fibrillation, permanent with RVR
RVR resolved
On AC now
Toprol XL 50 mg
#Elevated troponin likely secondary to postcardiac arrest
Echocardiogram with EF of 55% and no regional wall motion abnormality.
#Urinary tract infection with Citrobacter
#Right lower lobe pneumonia versus atelectasis
Completed Rocephin
Echevarria removed - watch for urinary retention
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
#Seizure D/o
Cont Anastrozole
component of residual neoplasm is possible on MRI in March 2025
cont follow up with onc upon d/c
CT scan of the hip with findings of sclerotic intramedullary lesions of the L5 vertebral body and left iliac bone which are most likely blastic osseous metastasis
Off stress dose steroids.
Cont Keppra ppx
#Essential Hypertension
#Hyperlipidemia
#Depression/Anxiety
#Hypothyroidism
Cont home meds
#renal cysts
#Uterine fibroids
no follow up advised
#Dementia with functional d/o
had episodes of being awake, not following commands, staring into space, that were transient
Neurology followed: no evidence of stroke
EEG unremarkable for new findings
DVT proph-SCDs in the setting of thrombocytopenia and large hip hematoma
Full Code
I have spent at least 35min reviewing chart, test results, communication with consultants and providing direct patient care
Anticipated Discharge: Within 24 hours
Subjective/Interval History
-
Date of Service: May 23, 2025
Objective Data
-
Vital Signs:
Vital Signs
Temp Pulse Resp BP Pulse Ox
98.2 F 89 18 186/61 94
05/23/25 11:00 05/23/25 11:00 05/23/25 11:00 05/23/25 11:00 05/23/25 11:21
I&O
05/22/25 05/23/25 05/24/25
06:59 06:59 06:59
Intake Total 1560 / 1560 480 / 480
Output Total 600 / 600 350 / 350
Balance 960 / 960 -350 / -350 480 / 480
Review of Systems
-
History Source: Patient
All other systems: Reviewed and negative
Physical Exam
-
General: No Apparent Distress
HEENT: Normocephalic
Cardiac: Regular Rhythm
Neuro: Awake, Alert and Oriented
Psych: Calm
[2025-05-23 12:17] VITALS: BP 139/57
[2025-05-23] MEDS: NOVOLOG FLEXPEN-MODERATE RESISTANCE 1 UNITS SC (13:07)
--- NOTE | 2025-05-23 13:56 | CM ---
Addendum entered by Gay Aguilar 05/23/25 15:17:
Patient has been medically cleared for discharge to [facility] for STR and custodial services. Transport is scheduled for 4:00PM. [facility] admissions notified. IMM completed.
Addendum entered by Gay Aguilar 05/23/25 14:43:
Ambulance auth # [id number] (Per Cori).
Original Note:
Patient accepted to [facility] for STR. Insurance auth obtained: Spoke with Lesly BIRMINGHAM, nurse reviewer. Approved for 6 days from 05/23/25 through to and including 05/28/25. LCD and NRD is 05/28/25. Case Reference # [id number]. Phone # for
reviews is [phone].
Nurse to nurse report #: [phone]
Fax #: [phone].
--- NOTE | 2025-05-23 14:13 | W.DCSUMMARY ---
Discharge Summary
Discharge Data
Date of Admission: 05/08/25
Date of Discharge: 05/23/25
-
Pending Results: No
Hospital Course
4-year-old woman with past medical history significant for essential hypertension, hypothyroidism, metastatic breast cancer s/p brain surgery and XRT January 2024 (stable MRI of the brain 03/14), seizure related to brain mets, atrial fibrillation
on Eliquis, who presented to the emergency department secondary to a right femoral neck fracture and R humeral Fx. Patient s/p cemented R him hemiarthroplasty on 05/10/25 with cardiac arrest during surgery, achieved ROSC and gradually recovered in
ICU. later on 05/13/25 found acute drop in Hgb and CT showed large R hip postOP hematoma, received total of 6 units of PRBC as well as AC was stopped and cardiologists were hesitant to restart it due to large hematoma size. Developed LUE DVT 2/2 PICC
found on 05/18/25, later tolerating Argatroban trial. HIT AB neg. Hgb stable. Neurology increased Keppra after second episode of patient being awake, but not responsive. Outaptient follow up with Ortho in 2 weeks to remove adeline and repeat XR.
I have spent at least 35min reviewing chart, test results, communication with consultants and providing direct patient care
Patient was managed for:
#LUE acute DVT 2/2 PICC
#Mild Thrombocytopenia acute
#JANINA on CKD 3 (Resolved)
#Hypokalemia
#Anasarca
#Acute hypoxic respiratory insufficiency 2/2 Acute on chronic HFpEF exacerbation
#Hyponatremia
#GOC
#Acute blood loss anemia due to large hip hematoma
#Toxic metabolic encephalopathy likely secondary to postcardiac arrest versus ICU delirium versus infection versus hypoxemia
#Dysphagia
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
#Chest pain
#Shock postcardiac arrest-hypotension on pressors postcardiac arrest
#Lactic acidosis
#Right femoral neck fracture secondary to mechanical trauma and osteoporosis. Additional imaging with no evidence of pathologic fracture
#Acute impacted fracture of the right humeral neck secondary to mechanical fall and osteoporosis
#Atrial Fibrillation, permanent with RVR
#Elevated troponin likely secondary to postcardiac arrest
#Urinary tract infection with Citrobacter
#Right lower lobe pneumonia versus atelectasis
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
#Seizure D/o
#Essential Hypertension
#Hyperlipidemia
#Depression/Anxiety
#Hypothyroidism
#renal cysts
#Uterine fibroids
#Dementia with functional d/o
Discharge Plan
-
Patient Disposition: Snf/SNF
Discharge Diagnosis/Procedures: R hip Fx
Blood Work: BMP and CBC weekly with family doctor for at least 1 month
Referrals:
Driss Pratt MD [Active, Cardiology] - in two to four weeks
Oscar Platt DO [Family Provider, Family Practice]
Wale Andrea MD [Active, Orthopedics] - in two weeks
Referral Note: repeat XR and remove adeline
Additional Discharge Medication Instructions: Start Eliquis 5mg BID after completing Eliquis 10mg BID dosing in AM 06/29/25
Prescriptions:
New
bisacodyl 10 mg Suppository
10 mg MA DAILYPRN PRN (Reason: constipation) Qty: 30 0RF
Eliquis 5 mg Tablet
10 mg PO BID Qty: 11 0RF
Eliquis 5 mg Tablet
5 mg PO BID Qty: 60 0RF
Rx Instructions:
Start after completing Eliquis 10mg BID dosing in AM 06/29/25
furosemide 40 mg Tablet
40 mg PO BID AT 0800,1600 Qty: 60 0RF
levetiracetam 500 mg Tablet
1,000 mg PO BID Qty: 60 0RF
Continued
atorvastatin 20 mg Tablet
20 mg PO QPM
sertraline 100 mg Tablet
150 mg PO DAILY
aripiprazole 10 mg Tablet
10 mg PO DAILY
anastrozole 1 mg tablet
1 mg PO DAILY
metoprolol succinate 50 mg tablet extended release 24 hr
50 mg PO DAILY
acetaminophen 325 mg Tablet
650 mg PO Q6
sennosides [senna] 8.6 mg Tablet
8.6 mg PO QPM
trazodone 50 mg Tablet
25 mg PO HS
polyethylene glycol 3350 17 gram Powder In Packet
17 g PO DAILY
levothyroxine 75 mcg Tablet
75 mcg PO DAILY@0600
pantoprazole 40 mg Tablet,Delayed Release (Dr/Ec)
40 mg PO DAILY
diltiazem HCl 120 mg Capsule,Extended Release 24hr
120 mg PO DAILY
potassium chloride 20 mEq Tablet Extended Release
20 meq PO DAILY
Discontinued
Eliquis 5 mg tablet
5 mg PO BID
furosemide 40 mg Tablet
40 mg PO DAILY
aspirin 81 mg Tablet,Chewable
81 mg PO DAILY
levetiracetam 750 mg Tablet
750 mg PO BID
Discharge Orders:
Discharge Patient (As Directed); Ordered 05/23/25
Ordered By: Balwinder Chen
Discharge Date and Time
Print Language: SYRIAC
[2025-05-23 15:05] VITALS: BP 131/64
== END 2025-05-23 16:20 | DRG 521 ==
LOC: 2 SOUTH 05:58
PROVIDERS: Hospitalist; Internal Medicine; Nurse Practitioner Family; Radiology Diagnostic Radiology; Specialist; ADMITTING PHYSICIAN Internal Medicine; ATTENDING PHYSICIAN Internal Medicine; CONSULT PHYSICIAN Internal Medicine; CONSULT PHYSICIAN Internal Medicine Critical Care Medicine; CONSULT PHYSICIAN Orthopaedic Surgery; EMERGENCY PHYSICIAN Emergency Medicine; FAMILY PHYSICIAN Student in an Organized Health Care Education/Training Program; OTHER PHYSICIAN Psychiatry & Neurology Neurology
PROC: 5A12012 Performance of Cardiac Output, Single, Manual (ICD-10-PCS; 2025-05-10)
PROC: 02HV33Z Insertion of Infusion Device into Superior Vena Cava, Percutaneous Approach (ICD-10-PCS; 2025-05-10)
PROC: 0BH17EZ Insertion of Endotracheal Airway into Trachea, Via Natural or Artificial Opening (ICD-10-PCS; 2025-05-10)
PROC: 5A1935Z Respiratory Ventilation, Less than 24 Consecutive Hours (ICD-10-PCS; 2025-05-10)
PROC: 0SRR0J9 Replacement of Right Hip Joint, Femoral Surface with Synthetic Substitute, Cemented, Open Approach (ICD-10-PCS; 2025-05-10)
PROC: 30233N1 Transfusion of Nonautologous Red Blood Cells into Peripheral Vein, Percutaneous Approach (ICD-10-PCS; 2025-05-11)
PROC: 02H633Z Insertion of Infusion Device into Right Atrium, Percutaneous Approach (ICD-10-PCS; 2025-05-19)
DX: M80.051A Age-related osteoporosis with current pathological fracture, right femur, initial encounter for fracture (principal); G92.8 Other toxic encephalopathy; I50.33 Acute on chronic diastolic (congestive) heart failure; R57.8 Other shock; J18.9 Pneumonia, unspecified organism; I97.711 Intraoperative cardiac arrest during other surgery; T84.89XA Other specified complication of internal orthopedic prosthetic devices, implants and grafts, initial encounter; I13.0 Hypertensive heart and chronic kidney disease with heart failure and stage 1 through stage 4 chronic kidney disease, or unspecified chronic kidney disease; I48.21 Permanent atrial fibrillation; C79.31 Secondary malignant neoplasm of brain; F03.94 Unspecified dementia, unspecified severity, with anxiety; F03.93 Unspecified dementia, unspecified severity, with mood disturbance; E87.20 Acidosis, unspecified; I5A Non-ischemic myocardial injury (non-traumatic); E87.1 Hypo-osmolality and hyponatremia; N17.9 Acute kidney failure, unspecified; D62 Acute posthemorrhagic anemia; N39.0 Urinary tract infection, site not specified; I82.612 Acute embolism and thrombosis of superficial veins of left upper extremity; T82.868A Thrombosis due to vascular prosthetic devices, implants and grafts, initial encounter; R47.01 Aphasia; F05 Delirium due to known physiological condition; J98.11 Atelectasis; L76.32 Postprocedural hematoma of skin and subcutaneous tissue following other procedure; I82.A12 Acute embolism and thrombosis of left axillary vein; I82.B12 Acute embolism and thrombosis of left subclavian vein; W01.0XXA Fall on same level from slipping, tripping and stumbling without subsequent striking against object, initial encounter; R47.02 Dysphasia; Y83.8 Other surgical procedures as the cause of abnormal reaction of the patient, or of later complication, without mention of misadventure at the time of the procedure; R07.89 Other chest pain; D69.6 Thrombocytopenia, unspecified; E87.6 Hypokalemia; R09.02 Hypoxemia; R00.1 Bradycardia, unspecified; N18.32 Chronic kidney disease, stage 3b; E03.9 Hypothyroidism, unspecified; M80.021A Age-related osteoporosis with current pathological fracture, right humerus, initial encounter for fracture; G40.909 Epilepsy, unspecified, not intractable, without status epilepticus; E78.00 Pure hypercholesterolemia, unspecified; C50.919 Malignant neoplasm of unspecified site of unspecified female breast; F32.A Depression, unspecified; R29.6 Repeated falls; D25.9 Leiomyoma of uterus, unspecified; N28.1 Cyst of kidney, acquired; R13.10 Dysphagia, unspecified; I07.1 Rheumatic tricuspid insufficiency; Z92.3 Personal history of irradiation; Z91.81 History of falling; Z87.891 Personal history of nicotine dependence; Z86.73 Personal history of transient ischemic attack (TIA), and cerebral infarction without residual deficits; Z79.01 Long term (current) use of anticoagulants; Z79.82 Long term (current) use of aspirin
CPT/HCPCS: 36556; 70450; 71045; 73030; 73501; 73502; 73700; 74176; 76937; 77001; 80048; 80053; 81003; 81015; 82248; 82533; 82570; 82805; 82962; 83605; 83735; 83880; 83935; 84100; 84300; 84439; 84443; 84484; 85014; 85018; 85025; 85027; 85610; 85730; 86022; 86850; 86900; 86901; 86920; 87077; 87086; 87186; 92523; 92526; 92610; 93005; 93306; 93970; 93971; 94002; 94003; 94640; 95813; 96374; 97110; 97163; 97167; 97530; 97535; 99284; C1713; C1776; J0883; P9016

== ENCOUNTER → 2025-05-24 10:44 | Outpatient (REF) | payer OTHER, SELFPAY ==
[2025-05-24 12:09] LABS: Hematocrit 29.4 % (37.0-47.0); Hemoglobin 9.5 g/dL (12.0-16.0); Mean Corp Hgb Conc. 32.3 g/dL (33.0-37.0); Mean Corpuscular Volume 85.5 fL (81.0-99.0); Platelet Count 249 10^3/uL (130-400); Red Cell Dist. Width 16.9 % (11.5-14.5)
[2025-05-24 12:42] LABS: Blood Urea Nitrogen 14 mg/dl (7-17); Calcium 8.3 mg/dl (8.4-10.2); Carbon Dioxide 28 mmol/L (22-30); Chloride 97 mmol/L (98-107); Glucose 112 mg/dl (70-99); Potassium 3.5 mmol/L (3.5-5.1); Sodium 131 mmol/L (135-145); eGFR > 60.00
== END ==
LOC: OLABN 10:44
PROVIDERS: ATTENDING PHYSICIAN Student in an Organized Health Care Education/Training Program
DX: E64.9 Sequelae of unspecified nutritional deficiency (principal)
CPT/HCPCS: 36415; 80048; 85027

== ENCOUNTER → 2025-05-31 09:52 | Outpatient (REF) | payer OTHER, SELFPAY ==
[2025-05-31 10:33] LABS: Hematocrit 28.2 % (37.0-47.0); Hemoglobin 8.8 g/dL (12.0-16.0); Mean Corp Hgb Conc. 31.2 g/dL (33.0-37.0); Mean Corpuscular Volume 89.5 fL (81.0-99.0); Platelet Count 193 10^3/uL (130-400); Red Cell Dist. Width 18.0 % (11.5-14.5)
[2025-05-31 10:59] LABS: Blood Urea Nitrogen 18 mg/dl (7-17); Calcium 8.4 mg/dl (8.4-10.2); Carbon Dioxide 28 mmol/L (22-30); Chloride 103 mmol/L (98-107); Glucose 94 mg/dl (70-99); Potassium 3.3 mmol/L (3.5-5.1); Sodium 136 mmol/L (135-145); eGFR > 60.00
== END ==
LOC: OLABN 09:52
PROVIDERS: ATTENDING PHYSICIAN Student in an Organized Health Care Education/Training Program
DX: D64.9 Anemia, unspecified (principal)
CPT/HCPCS: 36415; 80048; 85027

== ENCOUNTER → 2025-06-07 11:30 | Outpatient (REF) | payer OTHER, SELFPAY ==
[2025-06-07 12:41] LABS: Hematocrit 33.3 % (37.0-47.0); Hemoglobin 10.4 g/dL (12.0-16.0); Mean Corp Hgb Conc. 31.2 g/dL (33.0-37.0); Mean Corpuscular Volume 91.0 fL (81.0-99.0); Platelet Count 237 10^3/uL (130-400); Red Cell Dist. Width 17.8 % (11.5-14.5)
[2025-06-07 13:18] LABS: Blood Urea Nitrogen 21 mg/dl (7-17); Calcium 8.7 mg/dl (8.4-10.2); Carbon Dioxide 29 mmol/L (22-30); Chloride 103 mmol/L (98-107); Glucose 96 mg/dl (70-99); Potassium 3.6 mmol/L (3.5-5.1); Sodium 137 mmol/L (135-145); eGFR > 60.00
== END ==
LOC: OLABN 11:30
PROVIDERS: ATTENDING PHYSICIAN Student in an Organized Health Care Education/Training Program
DX: D64.9 Anemia, unspecified (principal)
CPT/HCPCS: 36415; 80048; 85027

== ENCOUNTER → 2025-06-11 19:40 | Outpatient (REF) | payer OTHER, SELFPAY ==
[2025-06-12 11:50] LABS: Urine Character Clear (Clear)
== END ==
LOC: OLABN 19:40
PROVIDERS: ATTENDING PHYSICIAN Student in an Organized Health Care Education/Training Program
DX: R30.9 Painful micturition, unspecified (principal)
CPT/HCPCS: 81003; 87086

== ENCOUNTER → 2025-06-14 10:48 | Outpatient (REF) | payer OTHER, SELFPAY ==
[2025-06-14 12:12] LABS: Hematocrit 31.5 % (37.0-47.0); Hemoglobin 9.9 g/dL (12.0-16.0); Mean Corp Hgb Conc. 31.4 g/dL (33.0-37.0); Mean Corpuscular Volume 87.5 fL (81.0-99.0); Nucleated Red Blood Cells % 0 %; Platelet Count 227 10^3/uL (130-400); Red Cell Dist. Width 16.8 % (11.5-14.5)
[2025-06-14 12:33] LABS: Blood Urea Nitrogen 19 mg/dl (7-17); Calcium 8.5 mg/dl (8.4-10.2); Carbon Dioxide 29 mmol/L (22-30); Chloride 100 mmol/L (98-107); Glucose 90 mg/dl (70-99); Potassium 3.9 mmol/L (3.5-5.1); Sodium 136 mmol/L (135-145); eGFR > 60.00
== END ==
LOC: OLABN 10:48
PROVIDERS: ATTENDING PHYSICIAN Student in an Organized Health Care Education/Training Program
DX: D64.9 Anemia, unspecified (principal)
CPT/HCPCS: 36415; 80048; 85025

== ENCOUNTER → 2025-06-15 09:28 | Outpatient (REF) | payer OTHER, SELFPAY ==
[2025-06-15 10:14] LABS: Reticulocyte Count 1.9 % (0.4-2.8)
[2025-06-15 10:20] LABS: Iron 27 ug/dl (37-170)
[2025-06-15 10:29] LABS: Total Iron Binding Capacity 199 ug/dl (265-497)
[2025-06-15 10:54] LABS: Ferritin 219.0 ng/ml (11.1-264.0)
== END ==
LOC: OLABN 09:28
PROVIDERS: ATTENDING PHYSICIAN Student in an Organized Health Care Education/Training Program
DX: D50.9 Iron deficiency anemia, unspecified (principal)
CPT/HCPCS: 36415; 82728; 83540; 83550; 85045

== ENCOUNTER → 2025-06-25 11:20 | Outpatient (REF) | payer OTHER, SELFPAY ==
[2025-06-25 16:40] LABS: Hematocrit 32.6 % (37.0-47.0); Hemoglobin 10.1 g/dL (12.0-16.0); Mean Corp Hgb Conc. 31.0 g/dL (33.0-37.0); Mean Corpuscular Volume 89.1 fL (81.0-99.0); Nucleated Red Blood Cells % 0 %; Platelet Count 287 10^3/uL (130-400); Red Cell Dist. Width 16.6 % (11.5-14.5)
== END ==
LOC: OLABN 11:20
PROVIDERS: ATTENDING PHYSICIAN Student in an Organized Health Care Education/Training Program
DX: Z79.01 Long term (current) use of anticoagulants (principal)
CPT/HCPCS: 36415; 85025

== ENCOUNTER → 2025-06-29 10:28 | Outpatient (REF) | payer OTHER, SELFPAY | LOC: OLABN 10:28 | PROVIDERS: ATTENDING PHYSICIAN Student in an Organized Health Care Education/Training Program | DX: N89.8 Other specified noninflammatory disorders of vagina (principal) | CPT/HCPCS: 87070; 87077; 87186; 87205 ==